=== PATIENT | female | born 1970 | race Caucasian/White ===

== ENCOUNTER 2020-06-11 12:45 | Emergency (ER) | payer MEDICARE, MEDICAID, SELFPAY ==
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
[2020-06-11 13:08] VITALS: BP 146/105; PULSE 116; RESP 16; TEMP 36.6; O2SAT 97; BMI 41.1
== END 2020-06-11 13:37 | disposition home or self-care (01) ==
LOC: HO.ED 13:18
PROVIDERS: Emergency Provider Emergency Medicine; PCP Internal Medicine
DX: S09.90XA Unspecified injury of head, initial encounter (principal); G44.309 Post-traumatic headache, unspecified, not intractable; Y29.XXXA Contact with blunt object, undetermined intent, initial encounter; Y93.9 Activity, unspecified; Y92.007 Garden or yard of unspecified non-institutional (private) residence as the place of occurrence of the external cause; Y99.9 Unspecified external cause status; Z79.899 Other long term (current) drug therapy
CPT/HCPCS: 99283

== ENCOUNTER 2020-09-30 14:03 | Outpatient (REF) | payer MEDICARE, MEDICAID, SELFPAY | END 2020-09-30 14:04 | disposition home or self-care (01) | LOC: HO.HOSX 14:03 | PROVIDERS: Visit Provider Orthopaedic Surgery | DX: Z13.89 Encounter for screening for other disorder (principal) ==

== ENCOUNTER 2020-10-01 13:18 | Outpatient (REF) | payer MEDICARE, MEDICAID, SELFPAY ==
--- NOTE | ~2020-10-01 | XR_ITS ---
EXAMINATION: CR X-RAY LEFT KNEE 2 VIEW, BILATERAL KNEES AP CLINICAL INFORMATION: Left knee pain. COMPARISON: 08/20/2016 knee radiographs. TECHNIQUE: 2 views of the left knee as well as standing AP views of the bilateral knees were obtained. FINDINGS: Left: Mild medial femoral-tibial as well as patellofemoral degenerative joint changes are seen most pronounced in the medial patellofemoral compartment. The lateral patellofemoral joint space shows mild marginal spurring. There is no acute fracture, dislocation or significant joint effusion. Benign-appearing sclerosis at the level of the proximal right fibular metaphysis is unchanged. The soft tissues are unremarkable. XR/XR knee LT 2V IMPRESSION: 1. Left knee tricompartment degenerative joint changes as detailed above without significant interval change.
--- NOTE | ~2020-10-01 | XR_ITS ---
EXAMINATION: CR X-RAY LEFT KNEE 2 VIEW, BILATERAL KNEES AP CLINICAL INFORMATION: Left knee pain. COMPARISON: 08/20/2016 knee radiographs. TECHNIQUE: 2 views of the left knee as well as standing AP views of the bilateral knees were obtained. FINDINGS: Left: Mild medial femoral-tibial as well as patellofemoral degenerative joint changes are seen most pronounced in the medial patellofemoral compartment. The lateral patellofemoral joint space shows mild marginal spurring. There is no acute fracture, dislocation or significant joint effusion. Benign-appearing sclerosis at the level of the proximal right fibular metaphysis is unchanged. The soft tissues are unremarkable. XR/XR knee standing BI IMPRESSION: 1. Left knee tricompartment degenerative joint changes as detailed above without significant interval change.
== END 2020-10-01 13:19 | disposition home or self-care (01) ==
LOC: HO.HOSX 13:18
PROVIDERS: Visit Provider Orthopaedic Surgery
DX: M17.0 Bilateral primary osteoarthritis of knee (principal)
CPT/HCPCS: 20610; 73560; 73565; 99202; J1040

== ENCOUNTER 2021-08-11 12:01 | Outpatient (REF) | payer MEDICARE, MEDICAID, SELFPAY ==
--- NOTE | ~2021-08-11 | XR_ITS ---
EXAMINATION: XR PELVIS CLINICAL INFORMATION: Hip pain COMPARISON: Radiographs right hip 03/18/2017 TECHNIQUE: AP view of the pelvis. FINDINGS: There is no fracture or dislocation. Degenerative changes are present lower lumbar spine with probable disc narrowing and vertebral spurring L4-L5 and L5-S1. The SI joints and pubis show no diastases. There is whiskering from the lateral aspect of both iliac crests. Narrowing of the superior hip joints is present, slightly greater on right. There are no visible erosive changes. Mild osteophytes are present base bilateral femoral heads. There is focal corticated mineralization adjacent to lower left greater trochanter which may be related to tendinopathy. Bowel gas is unremarkable. XR/XR pelvis 1-2V IMPRESSION: 1. Bilateral hip joint narrowing, greater on right. 2. Degenerative changes lower lumbar spine.
--- NOTE | ~2021-08-11 | XR_ITS ---
EXAMINATION: XR KNEE AP STANDING CLINICAL INFORMATION: Knee pain COMPARISON: Standing AP knees 10/01/2020, 08/20/2016, and right knee 08/01/2013. TECHNIQUE: Standing AP view of both knees is performed. FINDINGS: There is narrowing bilateral medial knee joint compartments, increased from prior exam 10/01/2020. There are mild marginal osteophytes involving the femoral condyles and tibial plateau, greater on left. No erosive change or visible chondrocalcinosis. Again, there is probable enchondroma with mineralization in the right fibular head and neck and trace central left fibular head similar to prior studies. No interval enlargement. Bony mineralization otherwise unremarkable. XR/XR knee standing BI IMPRESSION: 1. Narrowing bilateral medial knee joint compartments, increased from 10/01/2020. 2. 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
== END 2021-08-11 12:02 | disposition home or self-care (01) ==
LOC: HO.HOSX 12:01
PROVIDERS: Visit Provider Orthopaedic Surgery
DX: M17.0 Bilateral primary osteoarthritis of knee (principal); M25.561 Pain in right knee; M16.11 Unilateral primary osteoarthritis, right hip; M25.551 Pain in right hip; R10.30 Lower abdominal pain, unspecified; M25.559 Pain in unspecified hip; F17.210 Nicotine dependence, cigarettes, uncomplicated; Z88.9 Allergy status to unspecified drugs, medicaments and biological substances; Z91.02 Food additives allergy status; Z91.040 Latex allergy status; Z91.018 Allergy to other foods
CPT/HCPCS: 72170; 73565; 99212

== ENCOUNTER 2022-06-23 14:31 | Inpatient (IN) | payer MEDICARE, MEDICAID, SELFPAY ==
[2022-06-23] VITALS (8 sets, daily range): BP systolic 106–130; BP diastolic 42–87; PULSE 97–116; RESP 22–35; TEMP 36.7–38.9; O2SAT 90–97; BMI 42.9
--- NOTE | ~2022-06-23 | XR_ITS ---
EXAMINATION: XR CHEST CLINICAL INFORMATION: Reintubation ET tube and orogastric tube COMPARISON: 06/24/2022 TECHNIQUE: Frontal view of the chest was obtained. FINDINGS: ET tube is present about 4.6 cm above the nanda. An NG tube has its tip in the stomach. Again seen is diffuse airspace disease on the left with milder changes on the right, similar to prior. XR/XR chest 1V IMPRESSION: ET tube 4.6 cm above the nanda. NG tube in the stomach.
--- NOTE | ~2022-06-23 | XR_ITS ---
EXAMINATION: XR CHEST CLINICAL INFORMATION: Orogastric tube placement COMPARISON: 06/24/2022 2:45 PM TECHNIQUE: Frontal view of the chest was obtained. FINDINGS: Again seen is an ET tube about 3.2 cm above the nanda. Right IJ line remain has its tip at the SVC/RA junction. A new NG tube has been placed with its tip in the gastric antrum. There is been some minimal improvement in the left hemithorax but there are still diffuse airspace opacities with air space opacity present on the right but to a lesser extent XR/XR chest 1V IMPRESSION: NG tube has been placed with its tip in the gastric antrum. Other tubes and catheters are unchanged.
--- NOTE | ~2022-06-23 | XR_ITS ---
EXAMINATION: XR ABDOMEN KUB CLINICAL INDICATION: Absent bowel sounds COMPARISON: Chest x-ray 06/25/2022 TECHNIQUE: AP view of the abdomen. FINDINGS: Enteric tube extends below the diaphragm, tip terminating in the body the stomach. Small amount of gas in the rectum. There is small gaseous distention of the transverse colon. Otherwise, there is a relative paucity of bowel gas limiting assessment of bowel loops. No gross bowel wall thickening. No large joint free air on this limited supine exam. There is dense opacity at the left lung base obscuring the left heart border and diaphragm. No acute osseous injury identified. Multilevel degenerative disc disease in the spine bilateral hip joint osteoarthritis is noted. XR/XR KUB IMPRESSION: 1. Enteric tube tip terminates in the body of the stomach. 2. Relative paucity of bowel gas limiting assessment of bowel loops. No dilated air-filled bowel loops identified. 3. Dense opacity at the left lung base which may represent atelectasis, consolidation, and/or pleural fluid.
--- NOTE | ~2022-06-23 | XR_ITS ---
EXAMINATION: XR CHEST CLINICAL INFORMATION: Shortness of breath COMPARISON: None TECHNIQUE: Frontal view of the chest was obtained. FINDINGS: Diffuse multifocal airspace opacities are present, left greater than right. Heart size normal. A small left effusion could be present. Mild degenerative changes both hips. XR/XR chest 1V IMPRESSION: Multifocal airspace opacities, left greater than right. Diffuse pneumonia such as atypical viral is a possibility.
--- NOTE | ~2022-06-23 | CT_ITS ---
EXAMINATION: CT head/brain wo IV con CLINICAL INFORMATION: Reason for Exam ams, concerned for septic emboli COMPARISON: None. TECHNIQUE: Contiguous axial imaging was performed from the skull base to vertex without intravenous contrast. Sagittal and coronal reformatted images were obtained. This CT examination was performed using dose optimization techniques as appropriate, variously including the following: * Automated exposure control * Adjustment of mA and/or kV according to patient size (this includes techniques or standardized protocols for targeted exams where dose is matched to indication/reason for exam; i.e. extremities or head) Use of iterative reconstruction technique DLP: 1821 mGy-cm FINDINGS: Motion degraded examination No acute osseous or soft tissue abnormality. The mastoid air cells and visualized portions of the paranasal sinuses are well aerated. There is no evidence of acute intracranial hemorrhage or territorial infarction. No abnormal mass effect or midline shift is seen. [place] to white matter differentiation is well preserved. No extra-axial fluid collections are identified. No hydrocephalus. No significant volume loss. There is no abnormal attenuation within the brain parenchyma. CT/CT head/brain wo IV con IMPRESSION: Within the limitations of motion, no evidence of acute intracranial abnormality including hemorrhage, mass effect, hydrocephalus, or acute territorial edematous infarction.
--- NOTE | ~2022-06-23 | CT_ITS ---
EXAMINATION: CT CHEST WITHOUT CONTRAST CLINICAL INFORMATION: Chest/axillary abscess COMPARISON: Chest radiograph 06/23/2022 TECHNIQUE: Multidetector volumetric CT imaging of the chest was done. Axial MIP volume rendering provided. Sagittal and coronal reformatted images were obtained. This CT examination was performed using dose optimization techniques as appropriate, variously including the following: *Automated exposure control *Adjustment of mA and/or kV according to patient size (this includes techniques or standardized protocols for targeted exams where dose is matched to indication/reason for exam; i.e. extremities or head) *Use of iterative reconstruction technique DLP: 1821 mGy-cm FINDINGS: LUNGS: Diffuse pulmonary disease is present with multiple rounded masslike areas, left greater than right. There is an area of confluence in the left lower lobe with air bronchograms. Most likely diagnosis would be infectious although metastatic disease could have such an appearance. MEDIASTINUM: The mediastinum is normal. CORONARY ARTERY CALCIFICATION: None visualized on this study. PLEURA: There is no pleural effusion. No pneumothorax. No pleural mass or thickening. CHEST WALL AND AXILLA: There is marked soft tissue swelling and phlegmonous changes present in the left chest wall with a large amount of subcutaneous emphysema. There are some small discrete fluid collections seen just adjacent to the chest wall. For example, there is a 4.5 x 2.3 x 3.8 cm fluid density collection with air seen against the ribs anteromedially with a smaller collection just lateral to that. If there has been no iatrogenic intervention, entities such as necrotizing fasciitis would have to be considered in the differential. Multiple small reactive left axillary lymph nodes are seen. The right axilla and chest wall are unremarkable. UPPER ABDOMEN: There is probably hepatosplenomegaly, although not fully included on this study. The visualized adrenal glands and kidneys appear normal. OSSEOUS STRUCTURES: Unremarkable. CT/CT chest wo IV con IMPRESSION: 1. Extensive soft tissue swelling and phlegmonous changes in the left chest wall with subcutaneous emphysema. There are some small discrete fluid collections seen just adjacent to the chest wall. If there has been no iatrogenic intervention, entities such as necrotizing fasciitis would have to be considered in the differential diagnosis. 2. Diffuse pulmonary disease with multiple rounded masslike areas, left greater than right. Most likely diagnosis would be infectious, although metastatic disease could have such an appearance. Fleischner guidelines were followed. This critical result was discussed with Dr. Waite at 12:10 AM on 06/24/2022 and it was ascertained that the content and urgency of the report was understood at the time of direct communication.
--- NOTE | ~2022-06-23 | XR_ITS ---
EXAMINATION: XR CHEST CLINICAL INFORMATION: Post central line in endotracheal tube placement COMPARISON: Previous chest x-ray and chest CT from yesterday TECHNIQUE: Frontal view of the chest was obtained. FINDINGS: There is a new endotracheal tube with tip 2 cm above the nanda. There is a right jugular line with tip projecting over the SVC. There is increasing left-sided airspace disease. There is increasing volume loss to the left hemithorax with shift of the central mediastinal structures to the left. There is increasing patchy right-sided airspace disease. There is no significant pleural effusion. There is no pneumothorax. There are degenerative changes of the spine. There is air in the soft tissues of the left upper arm/axilla. This appears increased from previous exam. XR/XR chest 1V IMPRESSION: Satisfactory position of endotracheal tube and right jugular line. Increasing diffuse left lung airspace disease and volume loss. Increasing patchy airspace disease in the right lung.
--- NOTE | 2022-06-23 18:09 | ECG_ITS ---
Test Reason : SOB Blood Pressure : / mmHG Vent. Rate : 097 BPM Atrial Rate : 097 BPM P-R Int : 130 ms QRS Dur : 080 ms QT Int : 350 ms P-R-T Axes : 028 063 020 degrees QTc Int : 444 ms Normal sinus rhythm Low voltage QRS RSR' or QR pattern in V1 suggests right ventricular conduction delay Otherwise normal ECG No previous ECGs available Referred By: Savita An Electronically Signed By:RIZWANA CABAN MD
--- NOTE | 2022-06-23 18:14 | ED.GENADULT ---
HPI - General Adult General Chief complaint: Dyspnea <Savita An MD - Last Filed: 06/23/22 18:18> Stated complaint: Sepsis <Savita An MD - Last Filed: 06/23/22 18:18> Time Seen by Provider: 06/23/22 18:29 <Savita An MD - Last Filed: 06/23/22 18:18> Source: patient <Savita An MD - Last Filed: 06/23/22 18:18> Mode of arrival: ambulatory <Savita An MD - Last Filed: 06/23/22 18:18> Related Data Home medications: Home Medications Medication Instructions Recorded Confirmed buprenorphine 4 mg-naloxone 1 mg 1 film sublingual Q24H 10/01/20 sublingual film (Suboxone) gabapentin 300 mg capsule 300 mg PO DAILY 08/11/21 oxycodone 20 mg tablet,extended mg PO 08/11/21 release,12 hr Previous Rx's Medication Instructions Recorded naproxen 500 mg tablet (Naprosyn) 500 mg PO BID #20 tabs 06/11/20 <Savita An MD - Last Filed: 06/23/22 18:18> Allergies/adverse reactions: Allergies Allergy/AdvReac Type Severity Reaction Status Date / Time adhesive tape [ADHESIVE TAPE] Allergy Unknown ITCHY Verified 06/23/22 18:09 orange (food color) Allergy Unknown HIVES Verified 06/23/22 18:09 [ORANGE (FOOD COLOR)] yellow dye [YELLOW DYE] Allergy Unknown HIVES Verified 06/23/22 18:09 latex Allergy Unknown Unknown Uncoded 06/23/22 18:09 orange Allergy Unknown Unknown Uncoded 06/23/22 18:09 <Savita An MD - Last Filed: 06/23/22 18:18> [facility] Social History Social History: Social History (Updated 10/01/20 @ 13:49 by Catrachita Hoskins CMA) Alcohol intake: unknown Smoked in Last 30 Days: Yes Use of substances other than those prescribed or required for medical reasons: Yes Substance Use Type: Heroin Advance Directives: No Advance Directives Information Provided: No Patient : No Current occupational status: disabled <Savita An MD - Last Filed: 06/23/22 18:18> Physical Exam ED Vital Signs: Vital Signs - 24 hr 06/23/22 18:11 06/23/22 18:47 06/23/22 18:48 Temperature 98.0 F Pulse Rate 105 H 98 Respiratory Rate 24 H 35 H Blood Pressure 120/55 L 106/87 Pulse Oximetry 95 90 L 97 Oxygen Delivery Method Room Air Room Air Nasal Cannula Oxygen Flow Rate 2 06/23/22 19:11 06/23/22 20:09 Temperature 101 F H Pulse Rate 97 100 Respiratory Rate 28 H 22 H Blood Pressure 107/59 L Pulse Oximetry 97 Oxygen Delivery Method Nasal Cannula Oxygen Flow Rate 3 BMI result Body Mass Index 42.9 <Savita An MD - Last Filed: 06/23/22 18:18> Vital Signs - 24 hr 06/23/22 18:11 06/23/22 18:47 06/23/22 18:48 Temperature 98.0 F Pulse Rate 105 H 98 Respiratory Rate 24 H 35 H Blood Pressure 120/55 L 106/87 Pulse Oximetry 95 90 L 97 Oxygen Delivery Method Room Air Room Air Nasal Cannula Oxygen Flow Rate 2 06/23/22 19:11 06/23/22 20:09 Temperature 101 F H Pulse Rate 97 100 Respiratory Rate 28 H 22 H Blood Pressure 107/59 L Pulse Oximetry 97 Oxygen Delivery Method Nasal Cannula Oxygen Flow Rate 3 BMI result Body Mass Index 42.9 <Gunjan Waite MD - Last Filed: 06/24/22 00:31> Course Course Course Narrative: 52F brought in by son for lethargy. SHe denies etoh/drug use but appears unkempt and is easily aroused. She states not feeling well GEN: unkempt, NAD, drowsy HEENT: PERRLA, EOMI LUNGS: Upper airway rhonchi, tachypnea+ (95%) CVS: RRR, no murmurs ABD: NT/ND EXT: poor hygiene - Labs, EKG, Imaging ordered, charge nurse notified. <Savita An MD - Last Filed: 06/23/22 18:18> 52F brought in by son for lethargy. SHe denies etoh/drug use but appears unkempt and is easily aroused. She states not feeling well GEN: unkempt, NAD, drowsy HEENT: PERRLA, EOMI LUNGS: Upper airway rhonchi, tachypnea+ (95%) CVS: RRR, no murmurs ABD: NT/ND EXT: poor hygiene - Labs, EKG, Imaging ordered, charge nurse notified. Patient is being treated for cellulitis with vancomycin and Zosyn. Patient has multiple abscesses. Patient's chemistry is very irregular. I discussed the patient with General surgery. At this time, patient is altered, patient needs electrolyte correction. We will start the antibiotics, the abscesses will be drained tomorrow with general surgeries help. Patient also has pneumonia, covered with on, ice in and Zosyn.. Patient has not had hypotensive episodes, lactic acid 2.2, white blood cell count 13.6. Hyperkalemia, EKG did not show any peaked T-waves, patient given calcium gluconate and albuterol Hypernatremia, likely secondary to dehydration, patient receiving IV fluids. Acute kidney injury likely secondary to dehydration. I discussed the patient with Dr. Ennis, patient being admitted. We will obtain a scan of the chest and from the head. There is a possibility that patient may be throwing septic emboli. <Gunjan Waite MD - Last Filed: 06/24/22 00:31> Medications Administered Generic Name Dose Route Start Last Admin Trade Name Freq PRN Reason Stop Dose Admin Acetaminophen 650 mg 06/23/22 23:39 06/24/22 00:04 Acetaminophen Supp 650 Mg Supp.Rect NM 650 mg Q6H PRN Administration fever Heparin Sodium (Porcine) 5,000 unit 06/23/22 22:00 06/23/22 21:59 Heparin Sodium,Porcine 5,000 Unit/Ml Vial SUBCUT 5,000 unit Q12H TERRI Administration Sodium Chloride 1,000 mls @ 100 mls/hr 06/23/22 21:15 06/23/22 21:34 Ns IVCONT 100 mls/hr .Q10H TERRI Administration Discontinued Medications Generic Name Dose Route Start Last Admin Trade Name Freq PRN Reason Stop Dose Admin Albuterol Sulfate 10 mg 06/23/22 19:12 06/23/22 20:08 Albuterol Sulfate (0.083%) 2.5 Mg/3 Ml Vial.Neb INHALE 06/23/22 19:13 10 mg ONCE ONE Administration Sodium Chloride 2,000 mls @ 999 mls/hr 06/23/22 18:41 06/23/22 21:55 Ns IVCONT 06/23/22 20:41 Infused .Q2H1M ONE Infusion Vancomycin HCl 2,000 mg in 520 mls @ 260 mls/hr 06/23/22 18:41 06/23/22 21:43 Vancomycin/Ns IV 06/23/22 20:40 260 mls/hr ONCE ONE Administration Piperacillin Sod/Tazobactam 100 mls @ 200 mls/hr 06/23/22 18:41 06/23/22 21:00 Sod 4.5 gm/ Sodium Chloride IV 06/23/22 19:10 Infused ONCE ONE Infusion Calcium Gluconate 2 gm in 100 mls @ 50 mls/hr 06/23/22 19:12 06/23/22 21:33 Calcium Gluconate IV 06/23/22 21:11 50 mls/hr ONCE ONE Administration <Savita An MD - Last Filed: 06/23/22 18:18> Medications Administered Generic Name Dose Route Start Last Admin Trade Name Freq PRN Reason Stop Dose Admin Acetaminophen 650 mg 06/23/22 23:39 06/24/22 00:04 Acetaminophen Supp 650 Mg Supp.Rect NM 650 mg Q6H PRN Administration fever Heparin Sodium (Porcine) 5,000 unit 06/23/22 22:00 06/23/22 21:59 Heparin Sodium,Porcine 5,000 Unit/Ml Vial SUBCUT 5,000 unit Q12H TERRI Administration Sodium Chloride 1,000 mls @ 100 mls/hr 06/23/22 21:15 06/23/22 21:34 Ns IVCONT 100 mls/hr .Q10H TERRI Administration Discontinued Medications Generic Name Dose Route Start Last Admin Trade Name Freq PRN Reason Stop Dose Admin Albuterol Sulfate 10 mg 06/23/22 19:12 06/23/22 20:08 Albuterol Sulfate (0.083%) 2.5 Mg/3 Ml Vial.Neb INHALE 06/23/22 19:13 10 mg ONCE ONE Administration Sodium Chloride 2,000 mls @ 999 mls/hr 06/23/22 18:41 06/23/22 21:55 Ns IVCONT 06/23/22 20:41 Infused .Q2H1M ONE Infusion Vancomycin HCl 2,000 mg in 520 mls @ 260 mls/hr 06/23/22 18:41 06/23/22 21:43 Vancomycin/Ns IV 06/23/22 20:40 260 mls/hr ONCE ONE Administration Piperacillin Sod/Tazobactam 100 mls @ 200 mls/hr 06/23/22 18:41 06/23/22 21:00 Sod 4.5 gm/ Sodium Chloride IV 06/23/22 19:10 Infused ONCE ONE Infusion Calcium Gluconate 2 gm in 100 mls @ 50 mls/hr 06/23/22 19:12 06/23/22 21:33 Calcium Gluconate IV 06/23/22 21:11 50 mls/hr ONCE ONE Administration <Gunjan Waite MD - Last Filed: 06/24/22 00:31> Medical Decision Making Lab Data Result diagrams: : 06/23/22 18:44 06/23/22 21:53 <Savita An MD - Last Filed: 06/23/22 18:18> Labs: Lab Results 06/23/22 06/23/22 06/23/22 Range/Units 18:44 18:44 18:44 WBC 13.6 H (4.8-10.8) X10*3/uL RBC 4.88 (4.20-5.50) X10*6/uL Hgb 13.1 (12.0-16.0) g/dl Hct 38.6 (37.0-47.0) % MCV 79.1 L (80.0-98.0) fL MCH 26.8 L (27.0-33.0) pg MCHC 33.9 (31.0-35.0) g/dl RDW 14.5 (11.0-16.0) % Plt Count 244 (160-400) X10*3/uL MPV 10.0 (9.4-12.3) fL Immature Gran % (Auto) Cancelled Neut % (Auto) Cancelled Lymph % (Auto) Cancelled [place] % (Auto) Cancelled Eos % (Auto) Cancelled Baso % (Auto) Cancelled Lymph # (Auto) Cancelled [place] # (Auto) Cancelled Eos # (Auto) Cancelled Baso # (Auto) Cancelled Abs Immat Gran (auto) Cancelled Absolute Neuts (auto) Cancelled Absolute Nucleated RBC 0.000 (0.0-0.012) X10*3/uL Nucleated RBC % (auto) 0.0 (0.0-0.2) /100WBC Neutrophils % (Manual) 80 H (45-73) % Band Neutrophils % 8 H (3-5) % Lymphocytes % (Manual) 3 L (20-40) % Monocytes % (Manual) 3 (2-11) % Metamyelocytes % 4 % Myelocytes % 2 % Abs Neuts (Manual) 12.0 H (2.0-8.3) X10*3/uL Lymphocytes # (Manual) 0.4 L (1.2-4.9) X10*3/uL Monocytes # (Manual) 0.4 (0.1-1.2) X10*3/uL Metamyelocytes # 0.5 X10*3/uL Myelocytes # 0.3 X10*/uL Toxic Vacuolation PRESENT Dohle Bodies PRESENT Platelet Estimate NORMAL (NORMAL) Plt Morphology Comment NORMAL RBC Morphology NOTED [place] Cells 1+ (0-2) /OIF Schistocytes 1+ (0-2) /OIF PT 16.8 H (10.0-13.1) SEC INR 1.4 H (0.9-1.1) APTT 25.6 L (26.0-36.4) SEC Sodium (135-145) mmol/L Potassium (3.3-5.1) mmol/L Chloride (96-108) mmol/L Carbon Dioxide (22-29) mmol/L Anion Gap (12-20) BUN (9-16) mg/dL Creatinine (0.5-1.4) mg/dL Estim Creat Clear Calc Estimated GFR Random Glucose (60-115) mg/dL Lactic Acid (0.5-2.0) mmol/L Calcium (8.4-10.2) mg/dL Total Bilirubin (0.0-1.0) mg/dL AST (5-31) U/L ALT (0-31) U/L Alkaline Phosphatase (39-117) U/L Troponin I High Sens (<3.5-17.0) ng/L B-Natriuretic Peptide 138 H (<100) pg/mL Total Protein (6.5-8.0) g/dL Albumin (3.5-5.0) g/dL 06/23/22 06/23/22 06/23/22 Range/Units 18:44 18:44 18:44 WBC (4.8-10.8) X10*3/uL RBC (4.20-5.50) X10*6/uL Hgb (12.0-16.0) g/dl Hct (37.0-47.0) % MCV (80.0-98.0) fL MCH (27.0-33.0) pg MCHC (31.0-35.0) g/dl RDW (11.0-16.0) % Plt Count (160-400) X10*3/uL MPV (9.4-12.3) fL Immature Gran % (Auto) Neut % (Auto) Lymph % (Auto) [place] % (Auto) Eos % (Auto) Baso % (Auto) Lymph # (Auto) [place] # (Auto) Eos # (Auto) Baso # (Auto) Abs Immat Gran (auto) Absolute Neuts (auto) Absolute Nucleated RBC (0.0-0.012) X10*3/uL Nucleated RBC % (auto) (0.0-0.2) /100WBC Neutrophils % (Manual) (45-73) % Band Neutrophils % (3-5) % Lymphocytes % (Manual) (20-40) % Monocytes % (Manual) (2-11) % Metamyelocytes % % Myelocytes % % Abs Neuts (Manual) (2.0-8.3) X10*3/uL Lymphocytes # (Manual) (1.2-4.9) X10*3/uL Monocytes # (Manual) (0.1-1.2) X10*3/uL Metamyelocytes # X10*3/uL Myelocytes # X10*/uL Toxic Vacuolation Dohle Bodies Platelet Estimate (NORMAL) Plt Morphology Comment RBC Morphology [place] Cells /OIF Schistocytes /OIF PT (10.0-13.1) SEC INR (0.9-1.1) APTT (26.0-36.4) SEC Sodium 124 L (135-145) mmol/L Potassium 6.0 H* (3.3-5.1) mmol/L Chloride 88 L (96-108) mmol/L Carbon Dioxide 21 L (22-29) mmol/L Anion Gap 21 H (12-20) BUN 65 H (9-16) mg/dL Creatinine 2.56 H (0.5-1.4) mg/dL Estim Creat Clear Calc 31.7 Estimated GFR 20 Random Glucose 107 (60-115) mg/dL Lactic Acid 2.2 H* (0.5-2.0) mmol/L Calcium 8.1 L (8.4-10.2) mg/dL Total Bilirubin 0.9 (0.0-1.0) mg/dL AST 50 H (5-31) U/L ALT 54 H (0-31) U/L Alkaline Phosphatase 175 H (39-117) U/L Troponin I High Sens < 3.5 (<3.5-17.0) ng/L B-Natriuretic Peptide (<100) pg/mL Total Protein 5.9 L (6.5-8.0) g/dL Albumin 2.7 L (3.5-5.0) g/dL <Savita An MD - Last Filed: 06/23/22 18:18> Lab Results 06/23/22 06/23/22 06/23/22 Range/Units 18:44 18:44 18:44 WBC 13.6 H (4.8-10.8) X10*3/uL RBC 4.88 (4.20-5.50) X10*6/uL Hgb 13.1 (12.0-16.0) g/dl Hct 38.6 (37.0-47.0) % MCV 79.1 L (80.0-98.0) fL MCH 26.8 L (27.0-33.0) pg MCHC 33.9 (31.0-35.0) g/dl RDW 14.5 (11.0-16.0) % Plt Count 244 (160-400) X10*3/uL MPV 10.0 (9.4-12.3) fL Immature Gran % (Auto) Cancelled Neut % (Auto) Cancelled Lymph % (Auto) Cancelled [place] % (Auto) Cancelled Eos % (Auto) Cancelled Baso % (Auto) Cancelled Lymph # (Auto) Cancelled [place] # (Auto) Cancelled Eos # (Auto) Cancelled Baso # (Auto) Cancelled Abs Immat Gran (auto) Cancelled Absolute Neuts (auto) Cancelled Absolute Nucleated RBC 0.000 (0.0-0.012) X10*3/uL Nucleated RBC % (auto) 0.0 (0.0-0.2) /100WBC Neutrophils % (Manual) 80 H (45-73) % Band Neutrophils % 8 H (3-5) % Lymphocytes % (Manual) 3 L (20-40) % Monocytes % (Manual) 3 (2-11) % Metamyelocytes % 4 % Myelocytes % 2 % Abs Neuts (Manual) 12.0 H (2.0-8.3) X10*3/uL Lymphocytes # (Manual) 0.4 L (1.2-4.9) X10*3/uL Monocytes # (Manual) 0.4 (0.1-1.2) X10*3/uL Metamyelocytes # 0.5 X10*3/uL Myelocytes # 0.3 X10*/uL Toxic Vacuolation PRESENT Dohle Bodies PRESENT Platelet Estimate NORMAL (NORMAL) Plt Morphology Comment NORMAL RBC Morphology NOTED [place] Cells 1+ (0-2) /OIF Schistocytes 1+ (0-2) /OIF PT 16.8 H (10.0-13.1) SEC INR 1.4 H (0.9-1.1) APTT 25.6 L (26.0-36.4) SEC Sodium (135-145) mmol/L Potassium (3.3-5.1) mmol/L Chloride (96-108) mmol/L Carbon Dioxide (22-29) mmol/L Anion Gap (12-20) BUN (9-16) mg/dL Creatinine (0.5-1.4) mg/dL Estim Creat Clear Calc Estimated GFR Random Glucose (60-115) mg/dL Lactic Acid (0.5-2.0) mmol/L Calcium (8.4-10.2) mg/dL Total Bilirubin (0.0-1.0) mg/dL AST (5-31) U/L ALT (0-31) U/L Alkaline Phosphatase (39-117) U/L Troponin I High Sens (<3.5-17.0) ng/L B-Natriuretic Peptide 138 H (<100) pg/mL Total Protein (6.5-8.0) g/dL Albumin (3.5-5.0) g/dL 11/06/23/22 06/23/22 Range/Units 18:44 18:44 18:44 WBC (4.8-10.8) X10*3/uL RBC (4.20-5.50) X10*6/uL Hgb (12.0-16.0) g/dl Hct (37.0-47.0) % MCV (80.0-98.0) fL MCH (27.0-33.0) pg MCHC (31.0-35.0) g/dl RDW (11.0-16.0) % Plt Count (160-400) X10*3/uL MPV (9.4-12.3) fL Immature Gran % (Auto) Neut % (Auto) Lymph % (Auto) [place] % (Auto) Eos % (Auto) Baso % (Auto) Lymph # (Auto) [place] # (Auto) Eos # (Auto) Baso # (Auto) Abs Immat Gran (auto) Absolute Neuts (auto) Absolute Nucleated RBC (0.0-0.012) X10*3/uL Nucleated RBC % (auto) (0.0-0.2) /100WBC Neutrophils % (Manual) (45-73) % Band Neutrophils % (3-5) % Lymphocytes % (Manual) (20-40) % Monocytes % (Manual) (2-11) % Metamyelocytes % % Myelocytes % % Abs Neuts (Manual) (2.0-8.3) X10*3/uL Lymphocytes # (Manual) (1.2-4.9) X10*3/uL Monocytes # (Manual) (0.1-1.2) X10*3/uL Metamyelocytes # X10*3/uL Myelocytes # X10*/uL Toxic Vacuolation Dohle Bodies Platelet Estimate (NORMAL) Plt Morphology Comment RBC Morphology [place] Cells /OIF Schistocytes /OIF PT (10.0-13.1) SEC INR (0.9-1.1) APTT (26.0-36.4) SEC Sodium 124 L (135-145) mmol/L Potassium 6.0 H* (3.3-5.1) mmol/L Chloride 88 L (96-108) mmol/L Carbon Dioxide 21 L (22-29) mmol/L Anion Gap 21 H (12-20) BUN 65 H (9-16) mg/dL Creatinine 2.56 H (0.5-1.4) mg/dL Estim Creat Clear Calc 31.7 Estimated GFR 20 Random Glucose 107 (60-115) mg/dL Lactic Acid 2.2 H* (0.5-2.0) mmol/L Calcium 8.1 L (8.4-10.2) mg/dL Total Bilirubin 0.9 (0.0-1.0) mg/dL AST 50 H (5-31) U/L ALT 54 H (0-31) U/L Alkaline Phosphatase 175 H (39-117) U/L Troponin I High Sens < 3.5 (<3.5-17.0) ng/L B-Natriuretic Peptide (<100) pg/mL Total Protein 5.9 L (6.5-8.0) g/dL Albumin 2.7 L (3.5-5.0) g/dL <Gunjan Waite MD - Last Filed: 06/24/22 00:31> Imaging Data Chest x-ray: Radiologist's impression: FINDINGS: Diffuse multifocal airspace opacities are present, left greater than right. Heart size normal. A small left effusion could be present. Mild degenerative changes both hips. XR/XR chest 1V IMPRESSION: Multifocal airspace opacities, left greater than right. Diffuse pneumonia such as atypical viral is a possibility. ? <Gunjan Waite MD - Last Filed: 06/24/22 00:31> CT scan - chest: Radiologist's impression: FINDINGS: LUNGS: Diffuse pulmonary disease is present with multiple rounded masslike areas, left greater than right. There is an area of confluence in the left lower lobe with air bronchograms. Most likely diagnosis would be infectious although metastatic disease could have such an appearance.? MEDIASTINUM: The mediastinum is normal.? CORONARY ARTERY CALCIFICATION: None visualized on this study. PLEURA: There is no pleural effusion. No pneumothorax. No pleural mass or thickening.? CHEST WALL AND AXILLA: There is marked soft tissue swelling and phlegmonous changes present in the left chest wall with a large amount of subcutaneous emphysema. There are some small discrete fluid collections seen just adjacent to the chest wall. For example, there is a 4.5 x 2.3 x 3.8 cm fluid density collection with air seen against the ribs anteromedially with a smaller collection just lateral to that. If there has been no iatrogenic intervention, entities such as necrotizing fasciitis would have to be considered in the differential. Multiple small reactive left axillary lymph nodes are seen. The right axilla and chest wall are unremarkable. UPPER ABDOMEN: There is probably hepatosplenomegaly, although not fully included on this study. The visualized adrenal glands and kidneys appear normal. OSSEOUS STRUCTURES: Unremarkable.? CT/CT chest wo IV con IMPRESSION: 1.? Extensive soft tissue swelling and phlegmonous changes in the left chest wall with subcutaneous emphysema. There are some small discrete fluid collections seen just adjacent to the chest wall. If there has been no iatrogenic intervention, entities such as necrotizing fasciitis would have to be considered in the differential diagnosis. 2.? Diffuse pulmonary disease with multiple rounded masslike areas, left greater than right. Most likely diagnosis would be infectious, although metastatic disease could have such an appearance. ? Fleischner guidelines were followed. <Gunjan Waite MD - Last Filed: 06/24/22 00:31> CT scan - head: Radiologist's impression: FINDINGS: Motion degraded examination No acute osseous or soft tissue abnormality. The mastoid air cells and visualized portions of the paranasal sinuses are well aerated. There is no evidence of acute intracranial hemorrhage or territorial infarction. No abnormal mass effect or midline shift is seen. [place] to white matter differentiation is well preserved. No extra-axial fluid collections are identified. No hydrocephalus. No significant volume loss. There is no abnormal attenuation within the brain parenchyma. ? CT/CT head/brain wo IV con IMPRESSION: ? Within the limitations of motion, no evidence of acute intracranial abnormality including hemorrhage, mass effect, hydrocephalus, or acute territorial edematous infarction. <Gunjan Waite MD - Last Filed: 06/24/22 00:31> Critical Care Time Critical Care Time Critical Care Time: Yes <Gunjan Waite MD - Last Filed: 06/24/22 00:31> Total Critical Care Time: 75 <Gunjan Waite MD - Last Filed: 06/24/22 00:31> Attestation: I have personally provided critical care time. Time includes review of lab data, radiology results, discussion with consultants, and monitoring for potential decompensation. Intervention performed as documented. <Gunjan Waite MD - Last Filed: 06/24/22 00:31> Discharge Plan Discharge Clinical Impression: Cellulitis and abscess, Pneumonia, Acute hyperkalemia, Hyponatremia, Acute kidney injury <Savita An MD - Last Filed: 06/23/22 18:18> Patient Disposition: Admitted As Inpatient <Savita An MD - Last Filed: 06/23/22 18:18>
--- NOTE | 2022-06-23 18:49 | PC.NURSE ---
Pt comes to room 13 obtunded, congestion, crackles throughout and tachypenic RR 30s. Large red area to primarily left chest/breast but also noted on right chest, marked with marker. IV established, labs sent. Dr Waite to bedside to assess. Skin dusky more so to hands. Sat 90% on room air, placed on 2lpm via nc and sat up to 97%. Pt at times easily agitated. NSR on monitor
[2022-06-23] MEDS: 0.9 % Sodium Chloride 2,000 ML 999 ML IVCONT (18:52)
[2022-06-23 19:06] LABS: Partial Thromboplastin Time 25.6 SEC (26.0-36.4)
[2022-06-23 19:10] LABS: Alanine Aminotransferase 54 U/L (0-31); Albumin Level 2.7 g/dL (3.5-5.0); Alkaline Phosphatase 175 U/L (39-117); Anion Gap 21 (12-20); Aspartate Amino Transferase 50 U/L (5-31); B Type Natriuretic Peptide 138 pg/mL (<100); Bilirubin Total 0.9 mg/dL (0.0-1.0); Blood Urea Nitrogen 65 mg/dL (9-16); Calcium 8.1 mg/dL (8.4-10.2); Carbon Dioxide 21 mmol/L (22-29); Chloride 88 mmol/L (96-108); Creatinine Clr Calc Pharmacy 31.7; Estimated Glomerular Filt Rate 20; Glucose Random 107 mg/dL (60-115); Lactic Acid 2.2 mmol/L (0.5-2.0); Sodium 124 mmol/L (135-145); Total Protein 5.9 g/dL (6.5-8.0)
[2022-06-23 19:19] LABS: Hematocrit 38.6 % (37.0-47.0); Hemoglobin 13.1 g/dl (12.0-16.0); Mean Corpuscular HGB Conc 33.9 g/dl (31.0-35.0); Mean Corpuscular Hemoglobin 26.8 pg (27.0-33.0); Mean Corpuscular Volume 79.1 fL (80.0-98.0); Platelet Count 244 X10*3/uL (160-400); Red Blood Count 4.88 X10*6/uL (4.20-5.50); Red Cell Distribution Width 14.5 % (11.0-16.0)
[2022-06-23 19:20] LABS: WBC ABN SCTR FOR CBC 1
[2022-06-23 19:21] LABS: White Blood Count 13.6 X10*3/uL (4.8-10.8)
[2022-06-23 19:29] LABS: Troponin-I High Sensitivity < 3.5 ng/L (<3.5-17.0)
[2022-06-23 19:35] LABS: Band Neutrophils Percent 8 % (3-5); Lymphocytes Absolute Manual 0.4 X10*3/uL (1.2-4.9); Lymphocytes Percent Manual 3 % (20-40); Metamyelocytes Absolute 0.5 X10*3/uL; Metamyelocytes Percent 4 %; Monocytes Absolute Manual 0.4 X10*3/uL (0.1-1.2); Monocytes Percent Manual 3 % (2-11); Myelocytes Absolute 0.3 X10*/uL; Myelocytes Percent 2 %; Neutrophils Percent Manual 80 % (45-73); RBC Morphology NOTED
[2022-06-23 19:36] LABS: Burr Cells 1+ (0-2) /OIF; Dohle Bodies PRESENT; Schistocytes 1+ (0-2) /OIF; Toxic Vacuolation PRESENT
[2022-06-23 19:38] LABS: Platelet Estimate NORMAL (NORMAL); Platelet Morphology Comment NORMAL
[2022-06-23] MEDS: Piperacillin Sodium/Tazobactam 4.5 GM in 0.9 % Sodium Chloride 100 ML IV (19:47)
[2022-06-23] MEDS: Albuterol Sulfate (0.083%) 2.5 MG/3 ML VIAL.NEB 10 MG INHALE (20:08)
[2022-06-23 20:49] LABS: Reflex Lactate? Lactic Acid Added
--- NOTE | 2022-06-23 21:02 | P.CONGS_ITS ---
History of Present Illness Consult details Consult date: 06/23/22 Requesting physician: Gunjan Waite Narrative: The patient is a 52-year-old female who was brought to the emergency room by her son for lethargy and not doing well. On examination she was noted to have a large area of cellulitis of her left breast and a little less so on the right side. The left axillary area and left upper arm medial aspect had 2 wound areas with some superficial necrotic tissue and black in scab. In trying to get a history from the patient she is not responsive to given adequate story and she denies any IV drug use. She is a known IV drug abuser and comes in with fenta nyl and cocaine on board. She did say that she does use and inject in the chest area to the ER physician. She adamantly denies this right now to me. CT scan at the time is going to be ordered. She comes in also with very abnormal electrolytes hyponatremia hyperkalemia and she is getting fluid bolused and treatment for the hyperkalemia. There does not appear to be any other external source of infection. There is question of a pneumonia. Review of Systems Review of Systems: Yes Unobtainable due to mental status Neurologic: Reports confusion Psychiatric: Psychiatric: Reports confusion PMFSH Social History Social History Alcohol intake: unknown Substance Use Type: Heroin Current occupational status: disabled Meds Allergies Allergy/AdvReac Type Severity Reaction Status Date / Time adhesive tape [ADHESIVE TAPE] Allergy Unknown ITCHY Verified 06/23/22 18:09 orange (food color) Allergy Unknown HIVES Verified 06/23/22 18:09 [ORANGE (FOOD COLOR)] yellow dye [YELLOW DYE] Allergy Unknown HIVES Verified 06/23/22 18:09 latex Allergy Unknown Unknown Uncoded 06/23/22 18:09 orange Allergy Unknown Unknown Uncoded 06/23/22 18:09 Active Medications: Current Medications Acetaminophen (Acetaminophen 325 Mg Tablet) 650 mg PO Q6H PRN PRN Reason: Pain, Mild (Pain Scale 1-3) Acetaminophen (Acetaminophen Supp 650 Mg Supp.Rect) 650 mg GA Q6H PRN PRN Reason: fever Last Admin: 06/24/22 00:04 Dose: 650 mg Docusate Sodium (Docusate Sodium 100 Mg Capsule) 100 mg PO DAILY PRN PRN Reason: Constipation Heparin Sodium (Porcine) (Heparin Sodium,Porcine 5,000 Unit/Ml Vial) 5,000 unit SUBCUT Q8H [facility] Last Admin: 06/24/22 08:16 Dose: 5,000 unit Vancomycin HCl 750 mg/ Sodium (Chloride) 265 mls @ 265 mls/hr IV Q24H [facility] Piperacillin Sod/Tazobactam (Sod 3.375 gm/ Sodium Chloride) 50 mls @ 100 mls/hr IV Q6H [facility] Last Infusion: 06/24/22 06:23 Dose: Infused Albumin Human (Kedbumin 25 %) 100 mls @ 100 mls/hr IV Q6H [facility] Stop: 06/25/22 01:29 Last Infusion: 06/24/22 08:01 Dose: Infused Ondansetron HCl (Ondansetron Hcl 4 Mg/2 Ml Vial) 4 mg IVPUSH Q8H PRN PRN Reason: Nausea and Vomiting Pharmacy Consult (Consult Rx Perform Med Rec) 1 each MISCELLANE ONCE PRN PRN Reason: Consult order Pharmacy Consult (Consult Rx Vancomycin Dosing) 1 each MISCELLANE DAILY PRN PRN Reason: Consult order Pharmacy Consult (Consult Rx Vancomycin Dosing) 1 each MISCELLANE DAILY PRN PRN Reason: Consult order Sodium Chloride (0.9 % Sodium Chloride Flush 3 Ml Syringe) 3 ml IVFLUSH QSHIFT [facility] Last Admin: 06/24/22 08:16 Dose: 3 ml Home Medications Medication Instructions Recorded Confirmed Last Taken Type amoxicillin 250 mg capsule 1 cap PO TID 06/24/22 06/24/22 Unknown History fluticasone propionate 50 1 spray intranasal DAILY 06/24/22 06/24/22 Unknown History mcg/actuation nasal spray,suspension naproxen 500 mg tablet 1 tab PO BID PRN Pain 06/24/22 06/24/22 Unknown History oxycodone 10 mg tablet 1 tab PO QD-QID PRN Pain 06/24/22 06/24/22 Unknown History oxycodone 20 mg tablet,crush 1 tab PO DAILY PAIN 06/24/22 06/24/22 Unknown History resistant,extended release 12 hr (OxyContin) Physical Exam Vital Signs: Vital Signs: Last Vital Signs Temp 102.4 F H 06/24/22 00:07 Pulse 91 06/24/22 09:00 Resp 22 H 06/24/22 09:00 BP 101/50 L 06/24/22 09:00 Pulse Ox 95 06/24/22 09:00 O2 Del Method 06/24/22 09:00 O2 Flow Rate 3 06/24/22 09:00 BMI result Body Mass Index 42.9 Const: Other: Patient looks very disheveled unkept confused. She does eventually open her eyes and follow commands but falls back to sleep. She responds to painful stimulation. General: confusion and lethargic Orientation/consciousness: confusion and lethargic Limitations: altered mental status HEENT: Other: Pupils are equal Skin: Other: Her left upper arm going into the axillary area and the medial aspect of her left breast is bright red with cellulitis extending across the left breast but along the medial aspect it is less red and more facilities and grounds director pink. There is some pink changes to the right breast as well but not as extensive as on the left side. Left medial arm has a wound and the left chest going towards the axillary area has a scab here with some more injury did tissue but just slightly so. The left breast is enlarged but there is no true drainable abscess collection noted. Even along the left medial arm and axilla let area the tissue here is relatively soft with more cellulitic changes. Neuro: General: confusion Extrem: Other: Patient is able to move left arm. Psych: Mental Status: mental status grossly normal Results Labs Result diagrams: 06/24/22 05:20 06/24/22 04:50 Labs: Abnormal lab results 06/23/22 06/23/22 06/23/22 Range/Units 18:44 18:44 18:44 WBC 13.6 H (4.8-10.8) X10*3/uL RBC (4.20-5.50) X10*6/uL Hgb (12.0-16.0) g/dl Hct (37.0-47.0) % MCV 79.1 L (80.0-98.0) fL MCH 26.8 L (27.0-33.0) pg Neutrophils % (Manual) 80 H (45-73) % Band Neutrophils % 8 H (3-5) % Lymphocytes % (Manual) 3 L (20-40) % Abs Neuts (Manual) 12.0 H (2.0-8.3) X10*3/uL Lymphocytes # (Manual) 0.4 L (1.2-4.9) X10*3/uL PT 16.8 H (10.0-13.1) SEC INR 1.4 H (0.9-1.1) APTT 25.6 L (26.0-36.4) SEC VBG HCO3 (22-26) mmol/L Sodium (135-145) mmol/L Potassium (3.3-5.1) mmol/L Chloride (96-108) mmol/L Carbon Dioxide (22-29) mmol/L Anion Gap (12-20) BUN (9-16) mg/dL Creatinine (0.5-1.4) mg/dL Random Glucose (60-115) mg/dL Lactic Acid (0.5-2.0) mmol/L Calcium (8.4-10.2) mg/dL Phosphorus (2.7-4.5) mg/dL AST (5-31) U/L ALT (0-31) U/L Alkaline Phosphatase (39-117) U/L B-Natriuretic Peptide 138 H (<100) pg/mL Total Protein (6.5-8.0) g/dL Albumin (3.5-5.0) g/dL Urine Protein (Neg-Trace) mg/dL Urine Blood (Negative) Ur Leukocyte Esterase (Negative) Urine RBC (0-2) /HPF Urine Osmolality (373-1093) mosm/kg Urine Opiates Screen (Not Detect) Urine Fentanyl Screen (Not Detect) Urine Cocaine Screen (Not Detect) 06/23/22 06/23/22 06/23/22 Range/Units 18:44 18:44 21:12 WBC (4.8-10.8) X10*3/uL RBC (4.20-5.50) X10*6/uL Hgb (12.0-16.0) g/dl Hct (37.0-47.0) % MCV (80.0-98.0) fL MCH (27.0-33.0) pg Neutrophils % (Manual) (45-73) % Band Neutrophils % (3-5) % Lymphocytes % (Manual) (20-40) % Abs Neuts (Manual) (2.0-8.3) X10*3/uL Lymphocytes # (Manual) (1.2-4.9) X10*3/uL PT (10.0-13.1) SEC INR (0.9-1.1) APTT (26.0-36.4) SEC VBG HCO3 18 L (22-26) mmol/L Sodium 124 L (135-145) mmol/L Potassium 6.0 H* (3.3-5.1) mmol/L Chloride 88 L (96-108) mmol/L Carbon Dioxide 21 L (22-29) mmol/L Anion Gap 21 H (12-20) BUN 65 H (9-16) mg/dL Creatinine 2.56 H (0.5-1.4) mg/dL Random Glucose (60-115) mg/dL Lactic Acid 2.2 H* (0.5-2.0) mmol/L Calcium 8.1 L (8.4-10.2) mg/dL Phosphorus (2.7-4.5) mg/dL AST 50 H (5-31) U/L ALT 54 H (0-31) U/L Alkaline Phosphatase 175 H (39-117) U/L B-Natriuretic Peptide (<100) pg/mL Total Protein 5.9 L (6.5-8.0) g/dL Albumin 2.7 L (3.5-5.0) g/dL Urine Protein (Neg-Trace) mg/dL Urine Blood (Negative) Ur Leukocyte Esterase (Negative) Urine RBC (0-2) /HPF Urine Osmolality (373-1093) mosm/kg Urine Opiates Screen (Not Detect) Urine Fentanyl Screen (Not Detect) Urine Cocaine Screen (Not Detect) 06/23/22 06/23/22 06/23/22 Range/Units 21:53 22:02 22:50 WBC (4.8-10.8) X10*3/uL RBC (4.20-5.50) X10*6/uL Hgb (12.0-16.0) g/dl Hct (37.0-47.0) % MCV (80.0-98.0) fL MCH (27.0-33.0) pg Neutrophils % (Manual) (45-73) % Band Neutrophils % (3-5) % Lymphocytes % (Manual) (20-40) % Abs Neuts (Manual) (2.0-8.3) X10*3/uL Lymphocytes # (Manual) (1.2-4.9) X10*3/uL PT (10.0-13.1) SEC INR (0.9-1.1) APTT (26.0-36.4) SEC VBG HCO3 18 L (22-26) mmol/L Sodium 129 L (135-145) mmol/L Potassium (3.3-5.1) mmol/L Chloride 94 L (96-108) mmol/L Carbon Dioxide 19 L (22-29) mmol/L Anion Gap 21 H (12-20) BUN 66 H (9-16) mg/dL Creatinine 2.39 H (0.5-1.4) mg/dL Random Glucose 125 H (60-115) mg/dL Lactic Acid (0.5-2.0) mmol/L Calcium 7.6 L D (8.4-10.2) mg/dL Phosphorus (2.7-4.5) mg/dL AST (5-31) U/L ALT (0-31) U/L Alkaline Phosphatase (39-117) U/L B-Natriuretic Peptide (<100) pg/mL Total Protein (6.5-8.0) g/dL Albumin (3.5-5.0) g/dL Urine Protein (Neg-Trace) mg/dL Urine Blood (Negative) Ur Leukocyte Esterase (Negative) Urine RBC (0-2) /HPF Urine Osmolality 329 L (373-1093) mosm/kg Urine Opiates Screen (Not Detect) Urine Fentanyl Screen (Not Detect) Urine Cocaine Screen (Not Detect) 06/23/22 06/23/22 06/24/22 Range/Units 22:50 22:50 04:50 WBC (4.8-10.8) X10*3/uL RBC (4.20-5.50) X10*6/uL Hgb (12.0-16.0) g/dl Hct (37.0-47.0) % MCV (80.0-98.0) fL MCH (27.0-33.0) pg Neutrophils % (Manual) (45-73) % Band Neutrophils % (3-5) % Lymphocytes % (Manual) (20-40) % Abs Neuts (Manual) (2.0-8.3) X10*3/uL Lymphocytes # (Manual) (1.2-4.9) X10*3/uL PT (10.0-13.1) SEC INR (0.9-1.1) APTT (26.0-36.4) SEC VBG HCO3 (22-26) mmol/L Sodium 134 L (135-145) mmol/L Potassium (3.3-5.1) mmol/L Chloride (96-108) mmol/L Carbon Dioxide 18 L (22-29) mmol/L Anion Gap (12-20) BUN 58 H (9-16) mg/dL Creatinine 2.18 H (0.5-1.4) mg/dL Random Glucose (60-115) mg/dL Lactic Acid (0.5-2.0) mmol/L Calcium 7.2 L (8.4-10.2) mg/dL Phosphorus 5.5 H (2.7-4.5) mg/dL AST 36 H (5-31) U/L ALT 34 H (0-31) U/L Alkaline Phosphatase 125 H (39-117) U/L B-Natriuretic Peptide (<100) pg/mL Total Protein 4.3 L (6.5-8.0) g/dL Albumin 2.3 L (3.5-5.0) g/dL Urine Protein 30 (1+) H (Neg-Trace) mg/dL Urine Blood Small (1+) H (Negative) Ur Leukocyte Esterase Trace H (Negative) Urine RBC 3-5 H (0-2) /HPF Urine Osmolality (373-1093) mosm/kg Urine Opiates Screen POSITIVE H (Not Detect) Urine Fentanyl Screen POSITIVE H (Not Detect) Urine Cocaine Screen POSITIVE H (Not Detect) 06/24/22 06/24/22 Range/Units 05:20 05:25 WBC (4.8-10.8) X10*3/uL RBC 3.57 L D (4.20-5.50) X10*6/uL Hgb 9.6 L D (12.0-16.0) g/dl Hct 28.3 L D (37.0-47.0) % MCV 79.3 L (80.0-98.0) fL MCH 26.9 L (27.0-33.0) pg Neutrophils % (Manual) (45-73) % Band Neutrophils % 35 H (3-5) % Lymphocytes % (Manual) 3 L (20-40) % Abs Neuts (Manual) (2.0-8.3) X10*3/uL Lymphocytes # (Manual) 0.2 L (1.2-4.9) X10*3/uL PT (10.0-13.1) SEC INR (0.9-1.1) APTT (26.0-36.4) SEC VBG HCO3 18 L (22-26) mmol/L Sodium (135-145) mmol/L Potassium (3.3-5.1) mmol/L Chloride (96-108) mmol/L Carbon Dioxide (22-29) mmol/L Anion Gap (12-20) BUN (9-16) mg/dL Creatinine (0.5-1.4) mg/dL Random Glucose (60-115) mg/dL Lactic Acid (0.5-2.0) mmol/L Calcium (8.4-10.2) mg/dL Phosphorus (2.7-4.5) mg/dL AST (5-31) U/L ALT (0-31) U/L Alkaline Phosphatase (39-117) U/L B-Natriuretic Peptide (<100) pg/mL Total Protein (6.5-8.0) g/dL Albumin (3.5-5.0) g/dL Urine Protein (Neg-Trace) mg/dL Urine Blood (Negative) Ur Leukocyte Esterase (Negative) Urine RBC (0-2) /HPF Urine Osmolality (373-1093) mosm/kg Urine Opiates Screen (Not Detect) Urine Fentanyl Screen (Not Detect) Urine Cocaine Screen (Not Detect) Short CBC 06/23/22 06/24/22 Range/Units 18:44 05:20 WBC 13.6 H 7.8 (4.8-10.8) X10*3/uL Hgb 13.1 9.6 L D (12.0-16.0) g/dl Hct 38.6 28.3 L D (37.0-47.0) % Plt Count 244 176 D (160-400) X10*3/uL BMP 06/23/22 06/23/22 06/24/22 18:44 21:53 04:50 Sodium 124 L 129 L 134 L Potassium 6.0 H* 4.9 4.7 Chloride 88 L 94 L 102 Carbon Dioxide 21 L 19 L 18 L BUN 65 H 66 H 58 H Creatinine 2.56 H 2.39 H 2.18 H Calcium 8.1 L 7.6 L D 7.2 L Liver Function 06/23/22 06/24/22 Range/Units 18:44 04:50 Total Bilirubin 0.9 0.7 (0.0-1.0) mg/dL AST 50 H 36 H (5-31) U/L ALT 54 H 34 H (0-31) U/L Alkaline Phosphatase 175 H 125 H (39-117) U/L Albumin 2.7 L 2.3 L (3.5-5.0) g/dL Urine 06/23/22 Range/Units 22:50 Urine Color Dark Yellow Urine Appearance Cloudy Urine pH 5.0 (5.0-9.0) Ur Specific [place] 1.015 (1.005-1.025) Urine Protein 30 (1+) H (Neg-Trace) mg/dL Urine Glucose (UA) Negative (Negative) mg/dL All other labs normal. Imaging CT scan - chest: report reviewed and image reviewed Assessment and Plan (1) Cellulitis and abscess: Status: Acute (2) Sepsis: Status: Acute Plan The patient is a 52-year-old female known IV drug abuser although she denies this to me but did admit to the emergency room physician and said that she shoots up in her axillary area and chest. She comes in with significant cellulitic changes maybe deeper abscess to the left breast area. Her left her lytes are abnormal and her son brought her in saying that she was more confused and lethargic. EKG did not reveal any significant changes associated with her hyperkalemia and she is being treated for this. She is also being resuscitated for her sepsis and hyponatremia. She has received Zosyn and will be getting vancomycin as well. Her white count is 13 in the emergency room. Plan is to follow clinically in the morning after resuscitation and she did get the CT scan which showed changes consistent with air and fluid deep within the breast tissue. I do not think that this is necrotizing fasciitis per se but that some of the air may have been introduced with injecting and then causing an infection. Medical team is admitting the patient and we will follow along. Her son is not available for discussion. Patient was seen around 09:00 o'clock at night on Wednesday Procedures Date of Service Date of Service: 06/23/22
[2022-06-23 21:19] LABS: VBG Base Excess -5.8 mmol/L; VBG HCO3 18 mmol/L (22-26); VBG pCO2 32 mmHg; VBG pH 7.36 (7.32-7.43); VBG pO2 73 mmHg
[2022-06-23 21:23] LABS: Venous Blood Gas Refer to POC result
--- NOTE | 2022-06-23 21:29 | PC.NURSE ---
Peparacin abc is running sloe d/t pt continues moving her hand. Will continue the abx as order. One IVF bolus is in.
[2022-06-23] MEDS: Calcium Gluconate/NaCl,Iso-Osm 2 GM/100 ML PLAST..BAG IV (21:33)
[2022-06-23] MEDS: 0.9 % Sodium Chloride 1,000 ML 100 ML IVCONT (21:34)
--- NOTE | 2022-06-23 21:35 | PM.IMHP ---
History of Present Illness Date of Service: 06/23/22 Chief Complaint: Lethargy 52-year-old female with IV drug use history brought in by son to the hospital with complaints of lethargy. Patient is completely altered, responsive only to painful stimuli therefore I am unable to get much history from her. history is mostly obtained from EMR as well as ED physician. on arrival to the ED patient found to have temp of 101, respiratory rate of 28, blood pressure 107/59, satting 90% on room air Labs were phoned to be significant for WBc count of 13.6, INR of 1.4, potassium 6, sodium 124, chloride of 88, creatinine of 2.56 with no baseline for comparison, lactic acid of 2.2 improved after IV fluids, AST of 50, ALT of 54, alk-phos of 175, BNP of 138, UA positive for leukocyte Estrace and WBC, UDS positive for opioids fentanyl and cocaine Head CT shows no evidence of acute intracranial abnormality chest CT shows extensive soft tissue swelling and phlegmonous changes in the left chest wall subcutaneous emphysema, small discrete fluid collections adjacent to the chest wall. Patient also has diffuse pulmonary disease with multiple rounded masslike areas left greater than right, most likely diagnosis would be infectious although metastatic disease could have such appearance as well. Patient started on broad-spectrum antibiotics and will be admitted for further management unable to obtain much history from patient as she is altered Review of Systems Review of Systems: Yes all other systems are reviewed and are negative PMFSH Social History Alcohol intake: unknown Smoked in Last 30 Days: Yes Use of substances other than those prescribed or required for medical reasons: Yes Substance Use Type: Heroin Advance Directives: No Advance Directives Information Provided: No Patient : No Current occupational status: disabled Meds Allergies Allergy/AdvReac Type Severity Reaction Status Date / Time adhesive tape [ADHESIVE TAPE] Allergy Unknown ITCHY Verified 06/23/22 18:09 orange (food color) Allergy Unknown HIVES Verified 06/23/22 18:09 [ORANGE (FOOD COLOR)] yellow dye [YELLOW DYE] Allergy Unknown HIVES Verified 06/23/22 18:09 latex Allergy Unknown Unknown Uncoded 06/23/22 18:09 orange Allergy Unknown Unknown Uncoded 06/23/22 18:09 Active Medications: Current Medications Acetaminophen (Acetaminophen 325 Mg Tablet) 650 mg PO Q6H PRN PRN Reason: Pain, Mild (Pain Scale 1-3) Docusate Sodium (Docusate Sodium 100 Mg Capsule) 100 mg PO DAILY PRN PRN Reason: Constipation Heparin Sodium (Porcine) (Heparin Sodium,Porcine 5,000 Unit/Ml Vial) 5,000 unit SUBCUT Q12H [facility] Sodium Chloride (Ns) 1,000 mls @ 100 mls/hr IVCONT .Q10H [facility] Ondansetron HCl (Ondansetron Hcl 4 Mg/2 Ml Vial) 4 mg IVPUSH Q8H PRN PRN Reason: Nausea and Vomiting Pharmacy Consult (Consult Rx Perform Med Rec) 1 each MISCELLANE ONCE PRN PRN Reason: Consult order Pharmacy Consult (Consult Rx Vancomycin Dosing) 1 each MISCELLANE DAILY PRN PRN Reason: Consult order Sodium Chloride (0.9 % Sodium Chloride Flush 3 Ml Syringe) 3 ml IVFLUSH QSHIFT [facility] Home Medications Medication Instructions Recorded Confirmed Last Taken Type buprenorphine 4 mg-naloxone 1 mg 1 film sublingual Q24H 10/01/20 Unknown History sublingual film (Suboxone) gabapentin 300 mg capsule 300 mg PO DAILY 08/11/21 Unknown History oxycodone 20 mg tablet,extended mg PO 08/11/21 Unknown History release,12 hr Physical Exam Vital Signs and Narrative: Vital Signs: Last Vital Signs Temp 98.9 F 06/23/22 21:18 Pulse 116 H 06/23/22 21:18 Resp 25 H 06/23/22 21:23 BP 122/42 L 06/23/22 21:18 Pulse Ox 95 06/23/22 21:18 O2 Del Method 06/23/22 21:18 O2 Flow Rate 3 06/23/22 21:18 BMI result Body Mass Index 42.9 Const: Other: obtunded, responds to painful stimuli appears unkempt Eyes: General: appearance normal, both eyes and all related structures Resp: Effort & Inspection: normal respiratory effort Cardio: Rate: regular rate Rhythm: regular rhythm Skin: Other: has cellulitic skin changes of the chest with erythema, warmth, also cellulitic changes along the lateral aspect of left chest, multiple round lesions in the axillary region, she also has erythema, warmth, as well as edema on the medial left arm Neuro: Other: patient completely obtunded, response to painful stimuli Extrem: General: Yes normal to inspection and Yes no pedal edema Results Labs CBC and Chem 7: 06/23/22 18:44 06/23/22 21:53 Labs: Laboratory Results - last 24 hr 06/23/22 06/23/22 06/23/22 18:44 18:44 18:44 MCV 79.1 L MCH 26.8 L MCHC 33.9 RDW 14.5 Plt Count 244 MPV 10.0 Immature Gran % (Auto) Cancelled Neut % (Auto) Cancelled Lymph % (Auto) Cancelled [place] % (Auto) Cancelled Eos % (Auto) Cancelled Baso % (Auto) Cancelled Lymph # (Auto) Cancelled [place] # (Auto) Cancelled Eos # (Auto) Cancelled Baso # (Auto) Cancelled Abs Immat Gran (auto) Cancelled Absolute Neuts (auto) Cancelled Absolute Nucleated RBC 0.000 Nucleated RBC % (auto) 0.0 Neutrophils % (Manual) 80 H Band Neutrophils % 8 H Lymphocytes % (Manual) 3 L Monocytes % (Manual) 3 Metamyelocytes % 4 Myelocytes % 2 Abs Neuts (Manual) 12.0 H Lymphocytes # (Manual) 0.4 L Monocytes # (Manual) 0.4 Metamyelocytes # 0.5 Myelocytes # 0.3 Toxic Vacuolation PRESENT Dohle Bodies PRESENT Platelet Estimate NORMAL Plt Morphology Comment NORMAL RBC Morphology NOTED [place] Cells 1+ (0-2) Schistocytes 1+ (0-2) APTT 25.6 L VBG pH VBG pCO2 VBG pO2 VBG HCO3 VBG O2 Saturation VBG Base Excess Anion Gap Estim Creat Clear Calc Estimated GFR Random Glucose Lactic Acid Calcium Total Bilirubin AST ALT Alkaline Phosphatase Troponin I High Sens B-Natriuretic Peptide 138 H Total Protein Albumin 06/23/22 06/23/22 06/23/22 18:44 18:44 18:44 MCV MCH MCHC RDW Plt Count MPV Immature Gran % (Auto) Neut % (Auto) Lymph % (Auto) [place] % (Auto) Eos % (Auto) Baso % (Auto) Lymph # (Auto) [place] # (Auto) Eos # (Auto) Baso # (Auto) Abs Immat Gran (auto) Absolute Neuts (auto) Absolute Nucleated RBC Nucleated RBC % (auto) Neutrophils % (Manual) Band Neutrophils % Lymphocytes % (Manual) Monocytes % (Manual) Metamyelocytes % Myelocytes % Abs Neuts (Manual) Lymphocytes # (Manual) Monocytes # (Manual) Metamyelocytes # Myelocytes # Toxic Vacuolation Dohle Bodies Platelet Estimate Plt Morphology Comment RBC Morphology [place] Cells Schistocytes APTT VBG pH VBG pCO2 VBG pO2 VBG HCO3 VBG O2 Saturation VBG Base Excess Anion Gap 21 H Estim Creat Clear Calc 31.7 Estimated GFR 20 Random Glucose 107 Lactic Acid 2.2 H* Calcium 8.1 L Total Bilirubin 0.9 AST 50 H ALT 54 H Alkaline Phosphatase 175 H Troponin I High Sens < 3.5 B-Natriuretic Peptide Total Protein 5.9 L Albumin 2.7 L 06/23/22 21:12 MCV MCH MCHC RDW Plt Count MPV Immature Gran % (Auto) Neut % (Auto) Lymph % (Auto) [place] % (Auto) Eos % (Auto) Baso % (Auto) Lymph # (Auto) [place] # (Auto) Eos # (Auto) Baso # (Auto) Abs Immat Gran (auto) Absolute Neuts (auto) Absolute Nucleated RBC Nucleated RBC % (auto) Neutrophils % (Manual) Band Neutrophils % Lymphocytes % (Manual) Monocytes % (Manual) Metamyelocytes % Myelocytes % Abs Neuts (Manual) Lymphocytes # (Manual) Monocytes # (Manual) Metamyelocytes # Myelocytes # Toxic Vacuolation Dohle Bodies Platelet Estimate Plt Morphology Comment RBC Morphology [place] Cells Schistocytes APTT VBG pH 7.36 VBG pCO2 32 VBG pO2 73 VBG HCO3 18 L VBG O2 Saturation 91.0 VBG Base Excess -5.8 Anion Gap Estim Creat Clear Calc Estimated GFR Random Glucose Lactic Acid Calcium Total Bilirubin AST ALT Alkaline Phosphatase Troponin I High Sens B-Natriuretic Peptide Total Protein Albumin Imaging Radiologist's Impressions: Impressions Chest X-Ray 06/23/22 18:58 IMPRESSION: Multifocal airspace opacities, left greater than right. Diffuse pneumonia such as atypical viral is a possibility. Assessment and Plan (1) Encephalopathy: Status: Acute (2) Sepsis: Status: Acute (3) Cellulitis and abscess: Status: Acute (4) Pneumonia: Status: Acute (5) Acute hyperkalemia: Status: Acute (6) Hyponatremia: Status: Acute (7) Acute kidney injury: Status: Acute (8) Abnormal chest CT: Status: Acute Plan 52-year-old female with past medical history of IV drug use presents to the hospital with altered mental status and lethargy found to have sepsis # sepsis - patient has fever, leukocytosis, tachycardia, tachypnea - likely source multifactorial cellulitis/ abscess/ pneumonia in the setting of IV drug use, septic emboli cannot be ruled out - lactic acid of 2.2 improved after IV fluids - at this time blood cultures have been obtained, - broad-spectrum IV antibiotics - follow cultures # cellulitis/abscess - patient with multiple cellulitic skin changes of the chest as well as axilla and left arm, patient also has multiple fluid collections and underlying changes - spoke to General surgery extensively, this time will continue broad-spectrum antibiotics, surgery will evaluate patient in a.m. for possible surgical intervention, although at this time no surgery indicated - continue IV antibiotics - follow cultures # encephalopathy - likely multifactorial with toxic metabolic syndrome with acute sepsis, infection, and history of IV drug use - head CT negative - will treat underlying acute issues including infections - monitor mental status # hyponatremia - likely secondary to decreased solute intake - urine studies pending - will treat with NS - follow BMP closely # hyperkalemia - possibly secondary to CHARLA - improved after treatment - follow BMP # CHARLA - possibly prerenal secondary to dehydration - will treat with IV fluids - follow BMP DVT prophylaxis: Heparin subQ given patient's acute sepsis needing IV antibiotics patient require minimum 2 nights inpatient hospital stay for further management and monitoring Quality Stroke Does the patient have a stroke diagnosis?: No VTE Prior VTE?: No VTE Risk Level:: Medical - moderate - high VTE Device Contraindication: Treatment Not Indicated VTE Drug Contraindication: N/A - Med Ordered
--- NOTE | 2022-06-23 21:39 | MHC.CM.PN ---
Attempted to meet with patient. Pt sleeping. Unable to wake and participate in CM interview. CM will meet with patient when more awake and alert.
[2022-06-23] MEDS: Heparin Sodium,Porcine 5,000 UNIT/ML VIAL 5000 UNIT SUBCUT (21:59)
[2022-06-23 22:07] LABS: VBG Base Excess -5.6 mmol/L; VBG HCO3 18 mmol/L (22-26); VBG pCO2 31 mmHg; VBG pH 7.37 (7.32-7.43); VBG pO2 65 mmHg
[2022-06-23 22:08] LABS: Venous Blood Gas Refer to POC result
--- NOTE | 2022-06-23 22:09 | PC.NURSE ---
Pt's V/S are stable, Pt is on the monitor and it shows sinus Tachy. Pt has breast cellulites that radiates to the left half arm, her skin is peeling, it has been drawn a black line to monitor the swollen and redness. The area is warm to touch. Pt's IVF are running ml/hr, and abx as order. Pt has 2 IV lines one RAC and second one LAC. Pt came in soil clothes. Pt has hx of IV drug user, although she denies injecting any drug today. Pt has audible crackles through out her lungs bilaterally. She is not responsible to voice but it is to light pain. Pt has peripheral palpable pulses and normal heart rhythm. Pt is not aler or oriented at the time of the assessment only to touch. PT will have a 16 Fr gambino cath. will continue to monitor.
[2022-06-23 22:20] LABS: INTERNATIONAL NORM RATIO 1.4 (0.9-1.1); Prothrombin Time 16.8 SEC (10.0-13.1)
[2022-06-23 22:25] LABS: Anion Gap 21 (12-20); Blood Urea Nitrogen 66 mg/dL (9-16); Calcium 7.6 mg/dL (8.4-10.2); Carbon Dioxide 19 mmol/L (22-29); Chloride 94 mmol/L (96-108); Creatinine Clr Calc Pharmacy 33.9; Estimated Glomerular Filt Rate 21; Glucose Random 125 mg/dL (60-115); Potassium 4.9 mmol/L (3.3-5.1); Sodium 129 mmol/L (135-145)
--- NOTE | 2022-06-23 22:45 | PC.NURSE ---
Re-assessment: Pt has a bilaterally cellulites with a small gangrene area on her left breast. Pt was clean and Broussard was inserted, vitals was upgraded. IVF are running and abx as order by the provider.
[2022-06-23 23:01] LABS: Appearance Urine Cloudy; Color Urine Dark Yellow; Glucose Urine UA Negative (Negative); Leukocyte Esterase Urine Trace (Negative); Nitrite Urine Negative (Negative); Specific Gravity - Urine 1.015 (1.005-1.025); UMIC TRIGGER UACC YES; Urine Blood Small (1+) (Negative); Urine Ketones Negative (Negative); Urine Protein 30 (1+) mg/dL (Neg-Trace)
[2022-06-23 23:12] LABS: Amphetamine Screen Urine Not Detected (Not Detect); Barbiturates, Urine Not Detected (Not Detect); Benzodiazepines Screen Urine Not Detected (Not Detect); Cannabinoid Screen Urine Not Detected (Not Detect); Cocaine Screen Urine POSITIVE (Not Detect); Fentanyl, urine POSITIVE (Not Detect); Opiate Screen Urine POSITIVE (Not Detect); Phencyclidine Screen Urine Not Detected (Not Detect)
[2022-06-23 23:15] LABS: Bacteria Urine None Seen (None Seen); Squamous Epithelial Cell Urine >20 /HPF (0-2); WBC Urine 0-5 /HPF (0-5)
[2022-06-23 23:29] LABS: Creatinine Urine 61.08 mg/dL; Sodium Urine Random < 20.0 mmol/L
[2022-06-24] VITALS (25 sets, daily range): BP systolic 90–127; BP diastolic 40–63; PULSE 75–118; RESP 20–28; TEMP 35–39.1; O2SAT 91–99
[2022-06-24] MEDS: Acetaminophen Supp 650 MG SUPP.RECT PR (00:04)
--- NOTE | 2022-06-24 00:07 | PC.NURSE ---
Sepsis Protocol: This nurse has spoken with provider Raymon through [facility] at 22:00. Pt is fribrile, has audible crackles, and elevated WBC and Lactic acid. Nurse sent a massage to provider to start sepsis protocol on 23:00. ABX was given and are running slow d/t pt IV keeps getting obstructed. This RN re position patient position for improvement. Pt was given rectal Tylenol, and BP is stable. will continue to monitor.
[2022-06-24] MEDS: 0.9 % Sodium Chloride Flush 3 ML SYRINGE IVFLUSH ×3 (00:57→23:27)
[2022-06-24] MEDS: Clindamycin Phosphate/D5W 600 MG/50 ML PIGGYBACK 100 MG IV (00:59)
[2022-06-24 01:04] LABS: Lactic Acid 1.8 mmol/L (0.5-2.0)
[2022-06-24] MEDS: Piperacillin Sodium/Tazobactam 3.375 GM in 0.9 % Sodium Chloride 50 ML IV ×3 (04:45→20:00)
[2022-06-24 05:32] LABS: VBG Base Excess -5.5 mmol/L; VBG HCO3 18 mmol/L (22-26); VBG pCO2 29 mmHg; VBG pH 7.39 (7.32-7.43); VBG pO2 98 mmHg
--- NOTE | 2022-06-24 05:58 | PM.CCN ---
Critical Care Event Note Summary Date of Service: 06/24/22 Code activated: No Narrative: This case had a high probability of a clinically significant, sudden, or life threatening deterioration of this patient's condition which required my full and direct attention, intervention and personal management. Critical Care Time (minutes): 30 Comment: ?52-year-old female with IV drug use history brought in by son to the hospital with complaints of lethargy on 06/23/30. On initial presentation she had temp of 101, respiratory rate of 28, blood pressure 107/59, satting 90% on room air. WBC elevated to 13.6, lactic acid 2.2, potassium 6 and creat 2.56. Patient had significant erythema extending from chest to left upper arm. Chest CT showed? extensive soft tissue swelling and phlegmonous changes in the left chest wall subcutaneous emphysema, small discrete? fluid collections adjacent to the chest wall. General surgery was consulted who advised for? to continue broad-spectrum antibiotics, surgery will evaluate patient in a.m.? for possible surgical intervention, although at this time? no surgery indicated.? She received 30 mL/kg fluid bolus? a lactic improved.? ? Later in the night,? patient became hypotensive? despite an additional 1 L bolus. ? Required transfer to ICU for possible? initiation of pressors likely in the setting of septic shock.? ?Focus assessment performed at 0300? patient lethargic, with poor hygiene,? refusing to answer questions, She was not on resp distress.? Lungs CTA.? Sinus rhythm on the monitor. S1-S2 present. No M/R/G. Normal capillary refill, pulses present in all extremities, abdomen soft, ? Nondistended. Cellulitis erythema extending from mid left chest to axillary region as well as left arm. Multiple round lesions with significant thick yellowish secretions.? ? Plan Transfer to icu Albumin administration ?Possible vasopressor initiation? CONT ABX? General surgery consult Critical Care Time Critical Care Time (minutes): 30
[2022-06-24 05:59] LABS: Venous Blood Gas Refer to POC result
[2022-06-24 06:02] LABS: Alanine Aminotransferase 34 U/L (0-31); Albumin Level 2.3 g/dL (3.5-5.0); Alkaline Phosphatase 125 U/L (39-117); Anion Gap 19 (12-20); Aspartate Amino Transferase 36 U/L (5-31); Bilirubin Total 0.7 mg/dL (0.0-1.0); Blood Urea Nitrogen 58 mg/dL (9-16); Calcium 7.2 mg/dL (8.4-10.2); Carbon Dioxide 18 mmol/L (22-29); Chloride 102 mmol/L (96-108); Creatinine Clr Calc Pharmacy 37.2; Estimated Glomerular Filt Rate 24; Glucose Random 99 mg/dL (60-115); Magnesium 2.6 mg/dL (1.6-2.6); Phosphorus 5.5 mg/dL (2.7-4.5); Potassium 4.7 mmol/L (3.3-5.1); Sodium 134 mmol/L (135-145); Total Protein 4.3 g/dL (6.5-8.0)
[2022-06-24 06:08] LABS: Hematocrit 28.3 % (37.0-47.0); Hemoglobin 9.6 g/dl (12.0-16.0); Mean Corpuscular HGB Conc 33.9 g/dl (31.0-35.0); Mean Corpuscular Hemoglobin 26.9 pg (27.0-33.0); Mean Corpuscular Volume 79.3 fL (80.0-98.0); Mean Platelet Volume 10.4 fL (9.4-12.3); Platelet Count 176 X10*3/uL (160-400); Red Blood Count 3.57 X10*6/uL (4.20-5.50); Red Cell Distribution Width 14.4 % (11.0-16.0)
[2022-06-24 06:11] LABS: WBC ABN SCTR FOR CBC 1; White Blood Count 7.8 X10*3/uL (4.8-10.8)
[2022-06-24] MEDS: Albumin Human 25 % 100 ML IV ×3 (06:31→21:29)
--- NOTE | 2022-06-24 06:41 | PM.EVENT ---
Event Note Date of Service: 06/24/22 Event Note: pt deteriorated overnight with sig drop in BP not responding to IVF. Pt received 3L of IVF , on iv abx. pt will transferred to ICU for further management. Dr. ventura informed
[2022-06-24 07:12] LABS: Osmolality Urine 329 mosm/kg (373-1093)
[2022-06-24 07:13] LABS: Osmolality, Serum 282 mosm/kg (281-305)
[2022-06-24 07:14] LABS: Lactic Acid 1.6 mmol/L (0.5-2.0)
[2022-06-24 07:43] LABS: Band Neutrophils Percent 35 % (3-5); Lymphocytes Absolute Manual 0.2 X10*3/uL (1.2-4.9); Lymphocytes Percent Manual 3 % (20-40); Neutrophils Absolute Manual 7.6 X10*3/uL (2.0-8.3); Neutrophils Percent Manual 62 % (45-73)
[2022-06-24 07:44] LABS: RBC Morphology NOTED
[2022-06-24 07:46] LABS: Acanthocytes 3+ (>5) /OIF; Microcytosis 2+ (15-30) /OIF; Ovalocytes 1+ (5-14) /OIF
[2022-06-24 07:47] LABS: Dohle Bodies PRESENT; Large Platelet PRESENT; Platelet Estimate NORMAL (NORMAL); Platelet Morphology Comment NOTED; Toxic Granulation PRESENT
[2022-06-24] MEDS: Heparin Sodium,Porcine 5,000 UNIT/ML VIAL 5000 UNIT SUBCUT ×2 (08:16→16:17)
--- NOTE | 2022-06-24 09:05 | PM.EVENT ---
Event Note Date of Service: 06/24/22 Event Note: patient reported to be worse this morning BP lower despite IVF transferred to ICU tachypneic large induration on left chest wall and axilla CT reviewed - pockets of air in soft tissue of left chest wall and axilla clinically septic will take to OR for wide debridement of the left chest wall and axilla under anesthesia explained plan to her mother Blanca extensively discussed technique of procedure, risks, benefits and alternatives mother has given consent pt likely to be on ventilatory support postop plan dw ICU and anesthesia accdg to her mother, left chest wall redness has been ongoing for over a week, seems to have started as a boil
[2022-06-24 10:10] LABS: COVID-19 Test Negative (Negative); IDNOW Serial# BCCEAD1C
--- NOTE | 2022-06-24 11:14 | MHC.CM.PN ---
This card writer hand attempted to meet with patient who was in and out of sleeping, not able to answer questions for CM assessment. Meet with son and pt's mother @ bedside for CM assessment. Patient from home. Son is LEAD CARE MANAGER ~15 hours per week. No other services in the home. Vax'd for COVID. Son is open to STR or [facility] as appropriate closer to discharge. Son will transport @ d/c. IMM delivered. Patient would benefit from CARE Team assessment closer to discharge re: substance use. CM will continue to follow patient for discharge planning needs.
--- NOTE | 2022-06-24 11:18 | PC.NURSE ---
Addendum entered by Tommy Quigley RN 06/24/22 14:49: X-RAY done - Dr Hernandez viewed at bedside - line & tube confirmed. Addendum entered by Tommy Quigley RN 06/24/22 14:29: TLC inserted RIJ. Addendum entered by Tommy Quigley RN 06/24/22 14:19: Levo started r/t low BP during line placement. one time 20mg PROP given during line placement r/t patient agitation & movement - MD at bedside during biomedical equipment specialist. Line placement complete at 1420 - plan for x-ray. Dr Hernandez stated can use line. Addendum entered by Tommy Quigley RN 06/24/22 14:03: Patient back from OR at 1200. Patient started on propofol & fentanyl drip. Periph IV line taken out of left AC. New IV, #20g inserted by OR team to right hand. Patient restrained r/t starting to wake up close to 1230 - pulling at lines / tubes. Patient brought back from OR still intubated. Plan to stay intubated r/t needing to go back to OR tomorrow possibly for wound vac. Patient debrided - left axilla. Large bedadine soaked dressing on area. BP soft at times, levo ordered for when needed. HR initially ST, now SR. Original Note: Shift eval 7:45a-3p - Assumed care for patient at approx 7:45am. Patient agitated w/ care, but able to be redirected. Alert and oriented. Denies IV drug abuse. Scabs noted on bilat arms. Large 6x6+ cm abscess noted on left upper chest & axillary area. Opening on armpit area, draining small amt purulent discharge. Redness also noted on inner arm area too. Area marked with surgical pen. Area very tender to any tactile stimulation. Patient able to lift left arm, but very guarded. Dr Kincaid evaluated wound - Covid tested prior to OR - negative. Patient RR high 20's - 29. Non productive cough, Lungs diminished. Patient refusing to roll over for full assessment. Mother & son called to bedside - consent obtained from them from anesthesia & Dr Kincaid. Dr Hernandez & Dr Corey aware of respiratory status. Patient to OR at 10:27am.
--- NOTE | 2022-06-24 11:29 | HO.ANESPROP2 ---
[facility] Active Problems Active Problems: All Active Problems (Updated 06/24/22 @ 00:57 by Belia Ennis MD) Sepsis (Acute) Abnormal chest CT (Acute) Encephalopathy (Acute) Cellulitis and abscess (Acute) Pneumonia (Acute) Acute hyperkalemia (Acute) Hyponatremia (Acute) Acute kidney injury (Acute) Primary osteoarthritis of right hip (Acute) Primary osteoarthritis of knees, bilateral (Acute) Family History Family history of problems with anesthesia: No Surgical History History of Problems with Anesthesia: No Social History Social History Alcohol intake: unknown Substance Use Type: Heroin service: No Current occupational status: disabled Meds Allergies Allergy/AdvReac Type Severity Reaction Status Date / Time adhesive tape [ADHESIVE TAPE] Allergy Unknown ITCHY Verified 06/23/22 18:09 orange (food color) Allergy Unknown HIVES Verified 06/23/22 18:09 [ORANGE (FOOD COLOR)] yellow dye [YELLOW DYE] Allergy Unknown HIVES Verified 06/23/22 18:09 latex Allergy Unknown Unknown Uncoded 06/23/22 18:09 orange Allergy Unknown Unknown Uncoded 06/23/22 18:09 Active Medications: Current Medications Acetaminophen (Acetaminophen 325 Mg Tablet) 650 mg PO Q6H PRN PRN Reason: Pain, Mild (Pain Scale 1-3) Acetaminophen (Acetaminophen Supp 650 Mg Supp.Rect) 650 mg NM Q6H PRN PRN Reason: fever Last Admin: 06/24/22 00:04 Dose: 650 mg Docusate Sodium (Docusate Sodium 100 Mg Capsule) 100 mg PO DAILY PRN PRN Reason: Constipation Heparin Sodium (Porcine) (Heparin Sodium,Porcine 5,000 Unit/Ml Vial) 5,000 unit SUBCUT Q8H [facility] Last Admin: 06/24/22 08:16 Dose: 5,000 unit Vancomycin HCl 750 mg/ Sodium (Chloride) 265 mls @ 265 mls/hr IV Q24H [facility] Piperacillin Sod/Tazobactam (Sod 3.375 gm/ Sodium Chloride) 50 mls @ 100 mls/hr IV Q6H [facility] Last Infusion: 06/24/22 06:23 Dose: Infused Albumin Human (Kedbumin 25 %) 100 mls @ 100 mls/hr IV Q6H [facility] Stop: 06/25/22 01:29 Last Infusion: 06/24/22 08:01 Dose: Infused Ondansetron HCl (Ondansetron Hcl 4 Mg/2 Ml Vial) 4 mg IVPUSH Q8H PRN PRN Reason: Nausea and Vomiting Pharmacy Consult (Consult Rx Perform Med Rec) 1 each MISCELLANE ONCE PRN PRN Reason: Consult order Pharmacy Consult (Consult Rx Vancomycin Dosing) 1 each MISCELLANE DAILY PRN PRN Reason: Consult order Pharmacy Consult (Consult Rx Vancomycin Dosing) 1 each MISCELLANE DAILY PRN PRN Reason: Consult order Sodium Chloride (0.9 % Sodium Chloride Flush 3 Ml Syringe) [facility] Last Admin: 06/24/22 08:16 Dose: 3 ml Home Medications Medication Instructions Recorded Confirmed Last Taken Type amoxicillin 250 mg capsule 1 cap PO TID 06/24/22 06/24/22 Unknown History fluticasone propionate 50 1 spray intranasal DAILY 06/24/22 06/24/22 Unknown History mcg/actuation nasal spray,suspension naproxen 500 mg tablet 1 tab PO BID PRN Pain 06/24/22 06/24/22 Unknown History oxycodone 10 mg tablet 1 tab PO QD-QID PRN Pain 06/24/22 06/24/22 Unknown History oxycodone 20 mg tablet,crush 1 tab PO DAILY PAIN 06/24/22 06/24/22 Unknown History resistant,extended release 12 hr (OxyContin) Exam Exam Date and Time: June 24, 2022 1129 Height,Weight and Vital Signs: Height 5 ft 4 in Weight 113.398 kg Last Vital Signs Temp 102.4 F H 06/24/22 00:07 Pulse 92 06/24/22 10:00 Resp 28 H 06/24/22 10:00 BP 101/53 L 06/24/22 10:00 Pulse Ox 93 06/24/22 10:00 O2 Del Method 06/24/22 10:00 O2 Flow Rate 3 06/24/22 10:00 Pertinent Lab Results Pertinent Lab Results: Laboratory Tests 06/23/22 06/23/22 06/23/22 18:44 18:44 18:44 WBC 13.6 H RBC 4.88 Hgb 13.1 Hct 38.6 MCV 79.1 L MCH 26.8 L MCHC 33.9 RDW 14.5 Plt Count 244 MPV 10.0 Immature Gran % (Auto) Cancelled Neut % (Auto) Cancelled Lymph % (Auto) Cancelled [place] % (Auto) Cancelled Eos % (Auto) Cancelled Baso % (Auto) Cancelled Lymph # (Auto) Cancelled [place] # (Auto) Cancelled Eos # (Auto) Cancelled Baso # (Auto) Cancelled Abs Immat Gran (auto) Cancelled Absolute Neuts (auto) Cancelled Absolute Nucleated RBC 0.000 Nucleated RBC % (auto) 0.0 Neutrophils % (Manual) 80 H Band Neutrophils % 8 H Lymphocytes % (Manual) 3 L Monocytes % (Manual) 3 Metamyelocytes % 4 Myelocytes % 2 Abs Neuts (Manual) 12.0 H Lymphocytes # (Manual) 0.4 L Monocytes # (Manual) 0.4 Metamyelocytes # 0.5 Myelocytes # 0.3 Toxic Granulation Toxic Vacuolation PRESENT Dohle Bodies PRESENT Platelet Estimate NORMAL Large Platelets Plt Morphology Comment NORMAL RBC Morphology NOTED Microcytosis Ovalocytes [place] Cells 1+ (0-2) Acanthocytes (Spur) Schistocytes 1+ (0-2) PT 16.8 H INR 1.4 H APTT 25.6 L VBG pH VBG pCO2 VBG pO2 VBG HCO3 VBG O2 Saturation VBG Base Excess Sodium Potassium Chloride Carbon Dioxide Anion Gap BUN Creatinine Estim Creat Clear Calc Estimated GFR Random Glucose Osmolality Lactic Acid Lactic Acid F/U @ 2Hr Calcium Phosphorus Magnesium Total Bilirubin AST ALT Alkaline Phosphatase Troponin I High Sens B-Natriuretic Peptide 138 H Total Protein Albumin Urine Color Urine Appearance Urine pH Ur Specific [place] Urine Protein Urine Glucose (UA) Urine Ketones Urine Blood Urine Nitrite Ur Leukocyte Esterase Urine RBC Urine WBC Ur Squamous Epith Cells Urine Bacteria Hyaline Casts Urine Osmolality Ur Random Sodium Urine Creatinine Urine Opiates Screen Urine Fentanyl Screen Ur Barbiturates Screen Ur Phencyclidine Scrn Ur Amphetamines Screen U Benzodiazepines Scrn Urine Cocaine Screen U Marijuana (THC) Screen COVID-19 ([facility]) COVID-19 Clin Com 06/23/22 06/23/22 06/23/22 18:44 18:44 18:44 WBC RBC Hgb Hct MCV MCH MCHC RDW Plt Count MPV Immature Gran % (Auto) Neut % (Auto) Lymph % (Auto) [place] % (Auto) Eos % (Auto) Baso % (Auto) Lymph # (Auto) [place] # (Auto) Eos # (Auto) Baso # (Auto) Abs Immat Gran (auto) Absolute Neuts (auto) Absolute Nucleated RBC Nucleated RBC % (auto) Neutrophils % (Manual) Band Neutrophils % Lymphocytes % (Manual) Monocytes % (Manual) Metamyelocytes % Myelocytes % Abs Neuts (Manual) Lymphocytes # (Manual) Monocytes # (Manual) Metamyelocytes # Myelocytes # Toxic Granulation Toxic Vacuolation Dohle Bodies Platelet Estimate Large Platelets Plt Morphology Comment RBC Morphology Microcytosis Ovalocytes [place] Cells Acanthocytes (Spur) Schistocytes PT INR APTT VBG pH VBG pCO2 VBG pO2 VBG HCO3 VBG O2 Saturation VBG Base Excess Sodium 124 L Potassium 6.0 H* Chloride 88 L Carbon Dioxide 21 L Anion Gap 21 H BUN 65 H Creatinine 2.56 H Estim Creat Clear Calc 31.7 Estimated GFR 20 Random Glucose 107 Osmolality Lactic Acid 2.2 H* Lactic Acid F/U @ 2Hr Calcium 8.1 L Phosphorus Magnesium Total Bilirubin 0.9 AST 50 H ALT 54 H Alkaline Phosphatase 175 H Troponin I High Sens < 3.5 B-Natriuretic Peptide Total Protein 5.9 L Albumin 2.7 L Urine Color Urine Appearance Urine pH Ur Specific [place] Urine Protein Urine Glucose (UA) Urine Ketones Urine Blood Urine Nitrite Ur Leukocyte Esterase Urine RBC Urine WBC Ur Squamous Epith Cells Urine Bacteria Hyaline Casts Urine Osmolality Ur Random Sodium Urine Creatinine Urine Opiates Screen Urine Fentanyl Screen Ur Barbiturates Screen Ur Phencyclidine Scrn Ur Amphetamines Screen U Benzodiazepines Scrn Urine Cocaine Screen U Marijuana (THC) Screen COVID-19 ([facility]) COVID-19 Clin Com 06/23/22 06/23/22 06/23/22 21:12 21:53 21:53 WBC RBC Hgb Hct MCV MCH MCHC RDW Plt Count MPV Immature Gran % (Auto) Neut % (Auto) Lymph % (Auto) [place] % (Auto) Eos % (Auto) Baso % (Auto) Lymph # (Auto) [place] # (Auto) Eos # (Auto) Baso # (Auto) Abs Immat Gran (auto) Absolute Neuts (auto) Absolute Nucleated RBC Nucleated RBC % (auto) Neutrophils % (Manual) Band Neutrophils % Lymphocytes % (Manual) Monocytes % (Manual) Metamyelocytes % Myelocytes % Abs Neuts (Manual) Lymphocytes # (Manual) Monocytes # (Manual) Metamyelocytes # Myelocytes # Toxic Granulation Toxic Vacuolation Dohle Bodies Platelet Estimate Large Platelets Plt Morphology Comment RBC Morphology Microcytosis Ovalocytes [place] Cells Acanthocytes (Spur) Schistocytes PT INR APTT VBG pH 7.36 VBG pCO2 32 VBG pO2 73 VBG HCO3 18 L VBG O2 Saturation 91.0 VBG Base Excess -5.8 Sodium 129 L Potassium 4.9 Chloride 94 L Carbon Dioxide 19 L Anion Gap 21 H BUN 66 H Creatinine 2.39 H Estim Creat Clear Calc 33.9 Estimated GFR 21 Random Glucose 125 H Osmolality Lactic Acid Lactic Acid F/U @ 2Hr 2.0 Calcium 7.6 L D Phosphorus Magnesium Total Bilirubin AST ALT Alkaline Phosphatase Troponin I High Sens B-Natriuretic Peptide Total Protein Albumin Urine Color Urine Appearance Urine pH Ur Specific [place] Urine Protein Urine Glucose (UA) Urine Ketones Urine Blood Urine Nitrite Ur Leukocyte Esterase Urine RBC Urine WBC Ur Squamous Epith Cells Urine Bacteria Hyaline Casts Urine Osmolality Ur Random Sodium Urine Creatinine Urine Opiates Screen Urine Fentanyl Screen Ur Barbiturates Screen Ur Phencyclidine Scrn Ur Amphetamines Screen U Benzodiazepines Scrn Urine Cocaine Screen U Marijuana (THC) Screen COVID-19 ([facility]) COVID-19 Clin Com 06/23/22 06/23/22 06/23/22 21:53 22:02 22:50 WBC RBC Hgb Hct MCV MCH MCHC RDW Plt Count MPV Immature Gran % (Auto) Neut % (Auto) Lymph % (Auto) [place] % (Auto) Eos % (Auto) Baso % (Auto) Lymph # (Auto) [place] # (Auto) Eos # (Auto) Baso # (Auto) Abs Immat Gran (auto) Absolute Neuts (auto) Absolute Nucleated RBC Nucleated RBC % (auto) Neutrophils % (Manual) Band Neutrophils % Lymphocytes % (Manual) Monocytes % (Manual) Metamyelocytes % Myelocytes % Abs Neuts (Manual) Lymphocytes # (Manual) Monocytes # (Manual) Metamyelocytes # Myelocytes # Toxic Granulation Toxic Vacuolation Dohle Bodies Platelet Estimate Large Platelets Plt Morphology Comment RBC Morphology Microcytosis Ovalocytes [place] Cells Acanthocytes (Spur) Schistocytes PT INR APTT VBG pH 7.37 VBG pCO2 31 VBG pO2 65 VBG HCO3 18 L VBG O2 Saturation 88.0 VBG Base Excess -5.6 Sodium Potassium Chloride Carbon Dioxide Anion Gap BUN Creatinine Estim Creat Clear Calc Estimated GFR Random Glucose Osmolality 282 Lactic Acid Lactic Acid F/U @ 2Hr Calcium Phosphorus Magnesium Total Bilirubin AST ALT Alkaline Phosphatase Troponin I High Sens B-Natriuretic Peptide Total Protein Albumin Urine Color Urine Appearance Urine pH Ur Specific [place] Urine Protein Urine Glucose (UA) Urine Ketones Urine Blood Urine Nitrite Ur Leukocyte Esterase Urine RBC Urine WBC Ur Squamous Epith Cells Urine Bacteria Hyaline Casts Urine Osmolality Ur Random Sodium < 20.0 Urine Creatinine 61.08 Urine Opiates Screen Urine Fentanyl Screen Ur Barbiturates Screen Ur Phencyclidine Scrn Ur Amphetamines Screen U Benzodiazepines Scrn Urine Cocaine Screen U Marijuana (THC) Screen COVID-19 ([facility]) COVID-19 Clin Com 06/23/22 06/23/22 06/23/22 22:50 22:50 22:50 WBC RBC Hgb Hct MCV MCH MCHC RDW Plt Count MPV Immature Gran % (Auto) Neut % (Auto) Lymph % (Auto) [place] % (Auto) Eos % (Auto) Baso % (Auto) Lymph # (Auto) [place] # (Auto) Eos # (Auto) Baso # (Auto) Abs Immat Gran (auto) Absolute Neuts (auto) Absolute Nucleated RBC Nucleated RBC % (auto) Neutrophils % (Manual) Band Neutrophils % Lymphocytes % (Manual) Monocytes % (Manual) Metamyelocytes % Myelocytes % Abs Neuts (Manual) Lymphocytes # (Manual) Monocytes # (Manual) Metamyelocytes # Myelocytes # Toxic Granulation Toxic Vacuolation Dohle Bodies Platelet Estimate Large Platelets Plt Morphology Comment RBC Morphology Microcytosis Ovalocytes [place] Cells Acanthocytes (Spur) Schistocytes PT INR APTT VBG pH VBG pCO2 VBG pO2 VBG HCO3 VBG O2 Saturation VBG Base Excess Sodium Potassium Chloride Carbon Dioxide Anion Gap BUN Creatinine Estim Creat Clear Calc Estimated GFR Random Glucose Osmolality Lactic Acid Lactic Acid F/U @ 2Hr Calcium Phosphorus Magnesium Total Bilirubin AST ALT Alkaline Phosphatase Troponin I High Sens B-Natriuretic Peptide Total Protein Albumin Urine Color Dark Yellow Urine Appearance Cloudy Urine pH 5.0 Ur Specific [place] 1.015 Urine Protein 30 (1+) H Urine Glucose (UA) Negative Urine Ketones Negative Urine Blood Small (1+) H Urine Nitrite Negative Ur Leukocyte Esterase Trace H Urine RBC 3-5 H Urine WBC 0-5 Ur Squamous Epith Cells >20 Urine Bacteria None Seen Hyaline Casts 3-5 Urine Osmolality 329 L Ur Random Sodium Urine Creatinine Urine Opiates Screen POSITIVE H Urine Fentanyl Screen POSITIVE H Ur Barbiturates Screen Not Detected Ur Phencyclidine Scrn Not Detected Ur Amphetamines Screen Not Detected U Benzodiazepines Scrn Not Detected Urine Cocaine Screen POSITIVE H U Marijuana (THC) Screen Not Detected COVID-19 ([facility]) COVID-19 Clin Com 06/24/22 06/24/22 06/24/22 00:45 02:02 04:50 WBC RBC Hgb Hct MCV MCH MCHC RDW Plt Count MPV Immature Gran % (Auto) Neut % (Auto) Lymph % (Auto) [place] % (Auto) Eos % (Auto) Baso % (Auto) Lymph # (Auto) [place] # (Auto) Eos # (Auto) Baso # (Auto) Abs Immat Gran (auto) Absolute Neuts (auto) Absolute Nucleated RBC Nucleated RBC % (auto) Neutrophils % (Manual) Band Neutrophils % Lymphocytes % (Manual) Monocytes % (Manual) Metamyelocytes % Myelocytes % Abs Neuts (Manual) Lymphocytes # (Manual) Monocytes # (Manual) Metamyelocytes # Myelocytes # Toxic Granulation Toxic Vacuolation Dohle Bodies Platelet Estimate Large Platelets Plt Morphology Comment RBC Morphology Microcytosis Ovalocytes [place] Cells Acanthocytes (Spur) Schistocytes PT INR APTT VBG pH VBG pCO2 VBG pO2 VBG HCO3 VBG O2 Saturation VBG Base Excess Sodium 134 L Potassium 4.7 Chloride 102 Carbon Dioxide 18 L Anion Gap 19 BUN 58 H Creatinine 2.18 H Estim Creat Clear Calc 37.2 Estimated GFR 24 Random Glucose 99 Osmolality Lactic Acid 1.8 1.6 Lactic Acid F/U @ 2Hr Calcium 7.2 L Phosphorus 5.5 H Magnesium 2.6 Total Bilirubin 0.7 AST 36 H ALT 34 H Alkaline Phosphatase 125 H Troponin I High Sens B-Natriuretic Peptide Total Protein 4.3 L Albumin 2.3 L Urine Color Urine Appearance Urine pH Ur Specific [place] Urine Protein Urine Glucose (UA) Urine Ketones Urine Blood Urine Nitrite Ur Leukocyte Esterase Urine RBC Urine WBC Ur Squamous Epith Cells Urine Bacteria Hyaline Casts Urine Osmolality Ur Random Sodium Urine Creatinine Urine Opiates Screen Urine Fentanyl Screen Ur Barbiturates Screen Ur Phencyclidine Scrn Ur Amphetamines Screen U Benzodiazepines Scrn Urine Cocaine Screen U Marijuana (THC) Screen COVID-19 ([facility]) COVID-19 Clin Com 06/24/22 06/24/22 06/24/22 05:20 05:25 09:39 WBC 7.8 RBC 3.57 L D Hgb 9.6 L D Hct 28.3 L D MCV 79.3 L MCH 26.9 L MCHC 33.9 RDW 14.4 Plt Count 176 D MPV 10.4 Immature Gran % (Auto) Cancelled Neut % (Auto) Cancelled Lymph % (Auto) Cancelled [place] % (Auto) Cancelled Eos % (Auto) Cancelled Baso % (Auto) Cancelled Lymph # (Auto) Cancelled [place] # (Auto) Cancelled Eos # (Auto) Cancelled Baso # (Auto) Cancelled Abs Immat Gran (auto) Cancelled Absolute Neuts (auto) Cancelled Absolute Nucleated RBC 0.000 Nucleated RBC % (auto) 0.0 Neutrophils % (Manual) 62 Band Neutrophils % 35 H Lymphocytes % (Manual) 3 L Monocytes % (Manual) Metamyelocytes % Myelocytes % Abs Neuts (Manual) 7.6 Lymphocytes # (Manual) 0.2 L Monocytes # (Manual) Metamyelocytes # Myelocytes # Toxic Granulation PRESENT Toxic Vacuolation Dohle Bodies PRESENT Platelet Estimate NORMAL Large Platelets PRESENT Plt Morphology Comment NOTED RBC Morphology NOTED Microcytosis 2+ (15-30) Ovalocytes 1+ (5-14) Jessica Cells Acanthocytes (Spur) 3+ (>5) Schistocytes PT INR APTT VBG pH 7.39 VBG pCO2 29 VBG pO2 98 VBG HCO3 18 L VBG O2 Saturation 98.0 VBG Base Excess -5.5 Sodium Potassium Chloride Carbon Dioxide Anion Gap BUN Creatinine Estim Creat Clear Calc Estimated GFR Random Glucose Osmolality Lactic Acid Lactic Acid F/U @ 2Hr Calcium Phosphorus Magnesium Total Bilirubin AST ALT Alkaline Phosphatase Troponin I High Sens B-Natriuretic Peptide Total Protein Albumin Urine Color Urine Appearance Urine pH Ur Specific [place] Urine Protein Urine Glucose (UA) Urine Ketones Urine Blood Urine Nitrite Ur Leukocyte Esterase Urine RBC Urine WBC Ur Squamous Epith Cells Urine Bacteria Hyaline Casts Urine Osmolality Ur Random Sodium Urine Creatinine Urine Opiates Screen Urine Fentanyl Screen Ur Barbiturates Screen Ur Phencyclidine Scrn Ur Amphetamines Screen U Benzodiazepines Scrn Urine Cocaine Screen U Marijuana (THC) Screen COVID-19 ([facility]) Negative COVID-19 Clin Com See Note Airway Mallampati Class: III TM Dist: >3cm Neck ROM: Full Assessment and Plan Assessment Anesthesia Assessment: Anesthesia Plan Discussed and Chart Reviewed Final Anesthetic Review Family History of Problems with Anesthesia: No History of Problems with Anesthesia: No NPO: Yes ASA Class: IV and Emergency Final Preanesthetic Review: No Changes in Pt Med Stat, Meds/Allgs Chart Reviewed, Consent Obtained/Reviewed and Anes Risks/Benef Reviewed Patient Risk: Intermediate Procedure Risk: Intermediate Anesthetic Plan Anesthetic Plan: GA Disposition: Standard PACU
--- NOTE | 2022-06-24 11:43 | P.OP_ITS ---
Operative Note Operative Note Date of Service: 06/24/22 Narrative: Preop diagnosis: Necrotizing soft tissue infection, left chest and axilla Postop diagnosis: The same Procedure: Excision all debridement, left chest and axilla and upper arm for necrotizing soft tissue infection Surgeon: Shahzad Kincaid MD automotive service assistant: YOJANA White The patient is a 52-year-old female admitted overnight because sepsis . She apparently had worsened clinically this morning. Examination showed white induration, redness and small draining areas axilla. Her CAT scan did show air within the subcutaneous tissue last chest and axilla. I therefore scheduled her for excisional debridement in the OR for likely necrotizing soft tissue infection. Had discussed this with her mother Blanca who had given verbal consent. She understood the technique of the planned procedure, as well as the risks, benefits and alternatives. The patient was in the ICU and brought to the operating room. She was placed under general anesthesia via endotracheal tube. The left chest, axilla and upper arm were prepped and draped in the usual sterile fashion. The patient was receiving healed IV antibiotics from the ICU. There was note of appeared to be a patch of necrotic skin near the axilla to wards the breast. Another similar area was seen in the upper arm just distal to the axilla as well. I therefore started to open my incision on this necrotic skin on the left chest near the all of the breast. I opened this with a blade 10. He did leak, thick amounts of pus and murky fluid was drained. I therefore opened up this area and extended my incision going to the medial aspect of the breast using electrocautery. We therefore entered this area of necrotic subcutaneous fat. To continue to extend the incision while we gently and sharply debrided this area using curved Mercado scissors to remove all these nonviable tissue. This extended inferiorly under the breast enter the axilla. We therefore extended this incision to the axilla all the way to the upper arm. This included the patchy area of skin necrotic skin as well. We continued to do wide excision debridement of nonviable tissue on the axilla as well as the left upper arm. We removed as much of the nonviable subcutaneous tissue using the Mercado scissors. we examined the underlying muscle and there were patches of necrotizing tissue as well on the superficial aspects of the pectoralis which we debrided sharp ly. we continued this aggressive wide excision of the all nonviable looking tissue. We then used the pulse psychiatric social worker to clean all the versus of the debrided area. We therefore had an open wound extending from the upper part of the breast, chest wall all the way to the axilla and the upper arm. This would be more than 20 cm by 20 cm in total surface area. I applied Betadine soaked Kerlix roll as a packing to all the surfaces. Dry dressings were then placed. The procedure was completed. Cultures of the abscess were submitted as well. Some of the necrotic tissue were sent to pathology as a specimen. She tolerated procedure well per. There were no immediate complications. Estimated blood loss was about 75 cc The patient was then transferred back to the intensive care unit on the ventilator.
[2022-06-24] MEDS: propofoL 1,000 MG/100 ML VIAL 20.41 MG IVCONT ×2 (12:00→16:17)
[2022-06-24] MEDS: fentaNYL citrate/NS 1,000 MCG/100 ML PLAST..BAG 2.5 MCG IVCONT (12:00)
--- NOTE | 2022-06-24 12:32 | P.PNCC_ITS ---
Subjective Subjective Date of Service: 06/24/22 Interval History: 52-year-old lady with underlying history of substance abuse admitted on 06/24/2022 with lethargy. On ER evaluation patient noted to have left upper chest/left upper arm soft tissue infection with gas in the tissue on CT scan. Patient started on broad-spectrum antibiotics and admitted to intensive care unit. General surgery consulted and patient underwent debridement of her chest an upper arm fasciitis in operating room with plan to return to plating room for possible wound VAC placement tomorrow a.m.. Critical Care Time (minutes): 60 Physical Exam Vital Signs: Vital Signs: Last Vital Signs Temp 102.4 F H 06/24/22 00:07 Pulse 115 H 06/24/22 12:00 Resp 20 06/24/22 12:00 BP 126/63 06/24/22 12:00 Pulse Ox 94 06/24/22 12:00 O2 Del Method 06/24/22 12:00 O2 Flow Rate 3 06/24/22 10:00 FiO2 50 06/24/22 12:12 BMI result Body Mass Index 42.9 Const: General: no acute distress, poor hygiene and other ( Sedated on the vent) Nutritional Appearance: obese Eyes: Sclerae: sclerae normal EOM: EOMs intact bilaterally Neck: Neck: Yes no lymphadenopathy, Yes trachea midline and Yes supple Chest: Other: predominantly left upper chest and left upper arm cellulitic somewhat edematous rash crossing the midline over to the right-side, now with surgical dressing and packing of the incision site Resp: Effort & Inspection: normal respiratory effort and no respiratory distress Auscultation: clear to auscultation bilaterally Cardio: Rate: regular rate Rhythm: regular rhythm Heart sounds: no gallops, no murmurs and no rubs GI: Palpation (GI): Soft to palpation and Other GI palpation findings present ( Nontender) Auscultation: normal bowel sounds Extrem: General: No clubbing, No cyanosis and Yes edema ( trace bilateral) Objective Data Labs CBC & Chem 7: 06/24/22 05:20 06/24/22 04:50 Labs: Laboratory Results - last 24 hr 06/23/22 06/23/22 06/23/22 18:44 18:44 18:44 WBC 13.6 H RBC 4.88 Hgb 13.1 Hct 38.6 MCV 79.1 L MCH 26.8 L MCHC 33.9 RDW 14.5 Plt Count 244 MPV 10.0 Immature Gran % (Auto) Cancelled Neut % (Auto) Cancelled Lymph % (Auto) Cancelled [place] % (Auto) Cancelled Eos % (Auto) Cancelled Baso % (Auto) Cancelled Lymph # (Auto) Cancelled [place] # (Auto) Cancelled Eos # (Auto) Cancelled Baso # (Auto) Cancelled Abs Immat Gran (auto) Cancelled Absolute Neuts (auto) Cancelled Absolute Nucleated RBC 0.000 Nucleated RBC % (auto) 0.0 Neutrophils % (Manual) 80 H Band Neutrophils % 8 H Lymphocytes % (Manual) 3 L Monocytes % (Manual) 3 Metamyelocytes % 4 Myelocytes % 2 Abs Neuts (Manual) 12.0 H Lymphocytes # (Manual) 0.4 L Monocytes # (Manual) 0.4 Metamyelocytes # 0.5 Myelocytes # 0.3 Toxic Granulation Toxic Vacuolation PRESENT Dohle Bodies PRESENT Platelet Estimate NORMAL Large Platelets Plt Morphology Comment NORMAL RBC Morphology NOTED Microcytosis Ovalocytes Jessica Cells 1+ (0-2) Acanthocytes (Spur) Schistocytes 1+ (0-2) PT 16.8 H INR 1.4 H APTT 25.6 L VBG pH VBG pCO2 VBG pO2 VBG HCO3 VBG O2 Saturation VBG Base Excess Sodium Potassium Chloride Carbon Dioxide Anion Gap BUN Creatinine Estim Creat Clear Calc Estimated GFR Random Glucose Osmolality Lactic Acid Lactic Acid F/U @ 2Hr Calcium Phosphorus Magnesium Total Bilirubin AST ALT Alkaline Phosphatase Troponin I High Sens B-Natriuretic Peptide 138 H Total Protein Albumin Urine Color Urine Appearance Urine pH Ur Specific [place] Urine Protein Urine Glucose (UA) Urine Ketones Urine Blood Urine Nitrite Ur Leukocyte Esterase Urine RBC Urine WBC Ur Squamous Epith Cells Urine Bacteria Hyaline Casts Urine Osmolality Ur Random Sodium Urine Creatinine Urine Opiates Screen Urine Fentanyl Screen Ur Barbiturates Screen Ur Phencyclidine Scrn Ur Amphetamines Screen U Benzodiazepines Scrn Urine Cocaine Screen U Marijuana (THC) Screen COVID-19 ([facility]) COVID-19 Clin Com 06/23/22 06/23/22 06/23/22 18:44 18:44 18:44 WBC RBC Hgb Hct MCV MCH MCHC RDW Plt Count MPV Immature Gran % (Auto) Neut % (Auto) Lymph % (Auto) [place] % (Auto) Eos % (Auto) Baso % (Auto) Lymph # (Auto) [place] # (Auto) Eos # (Auto) Baso # (Auto) Abs Immat Gran (auto) Absolute Neuts (auto) Absolute Nucleated RBC Nucleated RBC % (auto) Neutrophils % (Manual) Band Neutrophils % Lymphocytes % (Manual) Monocytes % (Manual) Metamyelocytes % Myelocytes % Abs Neuts (Manual) Lymphocytes # (Manual) Monocytes # (Manual) Metamyelocytes # Myelocytes # Toxic Granulation Toxic Vacuolation Dohle Bodies Platelet Estimate Large Platelets Plt Morphology Comment RBC Morphology Microcytosis Ovalocytes Jessica Cells Acanthocytes (Spur) Schistocytes PT INR APTT VBG pH VBG pCO2 VBG pO2 VBG HCO3 VBG O2 Saturation VBG Base Excess Sodium 124 L Potassium 6.0 H* Chloride 88 L Carbon Dioxide 21 L Anion Gap 21 H BUN 65 H Creatinine 2.56 H Estim Creat Clear Calc 31.7 Estimated GFR 20 Random Glucose 107 Osmolality Lactic Acid 2.2 H* Lactic Acid F/U @ 2Hr Calcium 8.1 L Phosphorus Magnesium Total Bilirubin 0.9 AST 50 H ALT 54 H Alkaline Phosphatase 175 H Troponin I High Sens < 3.5 B-Natriuretic Peptide Total Protein 5.9 L Albumin 2.7 L Urine Color Urine Appearance Urine pH Ur Specific [place] Urine Protein Urine Glucose (UA) Urine Ketones Urine Blood Urine Nitrite Ur Leukocyte Esterase Urine RBC Urine WBC Ur Squamous Epith Cells Urine Bacteria Hyaline Casts Urine Osmolality Ur Random Sodium Urine Creatinine Urine Opiates Screen Urine Fentanyl Screen Ur Barbiturates Screen Ur Phencyclidine Scrn Ur Amphetamines Screen U Benzodiazepines Scrn Urine Cocaine Screen U Marijuana (THC) Screen COVID-19 ([facility]) COVID-19 Clin Com 06/23/22 06/23/22 06/23/22 21:12 21:53 21:53 WBC RBC Hgb Hct MCV MCH MCHC RDW Plt Count MPV Immature Gran % (Auto) Neut % (Auto) Lymph % (Auto) [place] % (Auto) Eos % (Auto) Baso % (Auto) Lymph # (Auto) [place] # (Auto) Eos # (Auto) Baso # (Auto) Abs Immat Gran (auto) Absolute Neuts (auto) Absolute Nucleated RBC Nucleated RBC % (auto) Neutrophils % (Manual) Band Neutrophils % Lymphocytes % (Manual) Monocytes % (Manual) Metamyelocytes % Myelocytes % Abs Neuts (Manual) Lymphocytes # (Manual) Monocytes # (Manual) Metamyelocytes # Myelocytes # Toxic Granulation Toxic Vacuolation Dohle Bodies Platelet Estimate Large Platelets Plt Morphology Comment RBC Morphology Microcytosis Ovalocytes Jessica Cells Acanthocytes (Spur) Schistocytes PT INR APTT VBG pH 7.36 VBG pCO2 32 VBG pO2 73 VBG HCO3 18 L VBG O2 Saturation 91.0 VBG Base Excess -5.8 Sodium 129 L Potassium 4.9 Chloride 94 L Carbon Dioxide 19 L Anion Gap 21 H BUN 66 H Creatinine 2.39 H Estim Creat Clear Calc 33.9 Estimated GFR 21 Random Glucose 125 H Osmolality Lactic Acid Lactic Acid F/U @ 2Hr 2.0 Calcium 7.6 L D Phosphorus Magnesium Total Bilirubin AST ALT Alkaline Phosphatase Troponin I High Sens B-Natriuretic Peptide Total Protein Albumin Urine Color Urine Appearance Urine pH Ur Specific [place] Urine Protein Urine Glucose (UA) Urine Ketones Urine Blood Urine Nitrite Ur Leukocyte Esterase Urine RBC Urine WBC Ur Squamous Epith Cells Urine Bacteria Hyaline Casts Urine Osmolality Ur Random Sodium Urine Creatinine Urine Opiates Screen Urine Fentanyl Screen Ur Barbiturates Screen Ur Phencyclidine Scrn Ur Amphetamines Screen U Benzodiazepines Scrn Urine Cocaine Screen U Marijuana (THC) Screen COVID-19 ([facility]) COVID-19 Clin Com 06/23/22 06/23/22 06/23/22 21:53 22:02 22:50 WBC RBC Hgb Hct MCV MCH MCHC RDW Plt Count MPV Immature Gran % (Auto) Neut % (Auto) Lymph % (Auto) [place] % (Auto) Eos % (Auto) Baso % (Auto) Lymph # (Auto) [place] # (Auto) Eos # (Auto) Baso # (Auto) Abs Immat Gran (auto) Absolute Neuts (auto) Absolute Nucleated RBC Nucleated RBC % (auto) Neutrophils % (Manual) Band Neutrophils % Lymphocytes % (Manual) Monocytes % (Manual) Metamyelocytes % Myelocytes % Abs Neuts (Manual) Lymphocytes # (Manual) Monocytes # (Manual) Metamyelocytes # Myelocytes # Toxic Granulation Toxic Vacuolation Dohle Bodies Platelet Estimate Large Platelets Plt Morphology Comment RBC Morphology Microcytosis Ovalocytes Jessica Cells Acanthocytes (Spur) Schistocytes PT INR APTT VBG pH 7.37 VBG pCO2 31 VBG pO2 65 VBG HCO3 18 L VBG O2 Saturation 88.0 VBG Base Excess -5.6 Sodium Potassium Chloride Carbon Dioxide Anion Gap BUN Creatinine Estim Creat Clear Calc Estimated GFR Random Glucose Osmolality 282 Lactic Acid Lactic Acid F/U @ 2Hr Calcium Phosphorus Magnesium Total Bilirubin AST ALT Alkaline Phosphatase Troponin I High Sens B-Natriuretic Peptide Total Protein Albumin Urine Color Urine Appearance Urine pH Ur Specific [place] Urine Protein Urine Glucose (UA) Urine Ketones Urine Blood Urine Nitrite Ur Leukocyte Esterase Urine RBC Urine WBC Ur Squamous Epith Cells Urine Bacteria Hyaline Casts Urine Osmolality Ur Random Sodium < 20.0 Urine Creatinine 61.08 Urine Opiates Screen Urine Fentanyl Screen Ur Barbiturates Screen Ur Phencyclidine Scrn Ur Amphetamines Screen U Benzodiazepines Scrn Urine Cocaine Screen U Marijuana (THC) Screen COVID-19 ([facility]) COVID-19 Clin Com 06/23/22 06/23/22 06/23/22 22:50 22:50 22:50 WBC RBC Hgb Hct MCV MCH MCHC RDW Plt Count MPV Immature Gran % (Auto) Neut % (Auto) Lymph % (Auto) [place] % (Auto) Eos % (Auto) Baso % (Auto) Lymph # (Auto) [place] # (Auto) Eos # (Auto) Baso # (Auto) Abs Immat Gran (auto) Absolute Neuts (auto) Absolute Nucleated RBC Nucleated RBC % (auto) Neutrophils % (Manual) Band Neutrophils % Lymphocytes % (Manual) Monocytes % (Manual) Metamyelocytes % Myelocytes % Abs Neuts (Manual) Lymphocytes # (Manual) Monocytes # (Manual) Metamyelocytes # Myelocytes # Toxic Granulation Toxic Vacuolation Dohle Bodies Platelet Estimate Large Platelets Plt Morphology Comment RBC Morphology Microcytosis Ovalocytes Jessica Cells Acanthocytes (Spur) Schistocytes PT INR APTT VBG pH VBG pCO2 VBG pO2 VBG HCO3 VBG O2 Saturation VBG Base Excess Sodium Potassium Chloride Carbon Dioxide Anion Gap BUN Creatinine Estim Creat Clear Calc Estimated GFR Random Glucose Osmolality Lactic Acid Lactic Acid F/U @ 2Hr Calcium Phosphorus Magnesium Total Bilirubin AST ALT Alkaline Phosphatase Troponin I High Sens B-Natriuretic Peptide Total Protein Albumin Urine Color Dark Yellow Urine Appearance Cloudy Urine pH 5.0 Ur Specific [place] 1.015 Urine Protein 30 (1+) H Urine Glucose (UA) Negative Urine Ketones Negative Urine Blood Small (1+) H Urine Nitrite Negative Ur Leukocyte Esterase Trace H Urine RBC 3-5 H Urine WBC 0-5 Ur Squamous Epith Cells >20 Urine Bacteria None Seen Hyaline Casts 3-5 Urine Osmolality 329 L Ur Random Sodium Urine Creatinine Urine Opiates Screen POSITIVE H Urine Fentanyl Screen POSITIVE H Ur Barbiturates Screen Not Detected Ur Phencyclidine Scrn Not Detected Ur Amphetamines Screen Not Detected U Benzodiazepines Scrn Not Detected Urine Cocaine Screen POSITIVE H U Marijuana (THC) Screen Not Detected COVID-19 ([facility]) COVID-19 Clin Com 06/24/22 06/24/22 06/24/22 00:45 02:02 04:50 WBC RBC Hgb Hct MCV MCH MCHC RDW Plt Count MPV Immature Gran % (Auto) Neut % (Auto) Lymph % (Auto) [place] % (Auto) Eos % (Auto) Baso % (Auto) Lymph # (Auto) [place] # (Auto) Eos # (Auto) Baso # (Auto) Abs Immat Gran (auto) Absolute Neuts (auto) Absolute Nucleated RBC Nucleated RBC % (auto) Neutrophils % (Manual) Band Neutrophils % Lymphocytes % (Manual) Monocytes % (Manual) Metamyelocytes % Myelocytes % Abs Neuts (Manual) Lymphocytes # (Manual) Monocytes # (Manual) Metamyelocytes # Myelocytes # Toxic Granulation Toxic Vacuolation Dohle Bodies Platelet Estimate Large Platelets Plt Morphology Comment RBC Morphology Microcytosis Ovalocytes Jessica Cells Acanthocytes (Spur) Schistocytes PT INR APTT VBG pH VBG pCO2 VBG pO2 VBG HCO3 VBG O2 Saturation VBG Base Excess Sodium 134 L Potassium 4.7 Chloride 102 Carbon Dioxide 18 L Anion Gap 19 BUN 58 H Creatinine 2.18 H Estim Creat Clear Calc 37.2 Estimated GFR 24 Random Glucose 99 Osmolality Lactic Acid 1.8 1.6 Lactic Acid F/U @ 2Hr Calcium 7.2 L Phosphorus 5.5 H Magnesium 2.6 Total Bilirubin 0.7 AST 36 H ALT 34 H Alkaline Phosphatase 125 H Troponin I High Sens B-Natriuretic Peptide Total Protein 4.3 L Albumin 2.3 L Urine Color Urine Appearance Urine pH Ur Specific [place] Urine Protein Urine Glucose (UA) Urine Ketones Urine Blood Urine Nitrite Ur Leukocyte Esterase Urine RBC Urine WBC Ur Squamous Epith Cells Urine Bacteria Hyaline Casts Urine Osmolality Ur Random Sodium Urine Creatinine Urine Opiates Screen Urine Fentanyl Screen Ur Barbiturates Screen Ur Phencyclidine Scrn Ur Amphetamines Screen U Benzodiazepines Scrn Urine Cocaine Screen U Marijuana (THC) Screen COVID-19 ([facility]) COVID-19 Clin Com 06/24/22 06/24/22 06/24/22 05:20 05:25 09:39 WBC 7.8 RBC 3.57 L D Hgb 9.6 L D Hct 28.3 L D MCV 79.3 L MCH 26.9 L MCHC 33.9 RDW 14.4 Plt Count 176 D MPV 10.4 Immature Gran % (Auto) Cancelled Neut % (Auto) Cancelled Lymph % (Auto) Cancelled [place] % (Auto) Cancelled Eos % (Auto) Cancelled Baso % (Auto) Cancelled Lymph # (Auto) Cancelled [place] # (Auto) Cancelled Eos # (Auto) Cancelled Baso # (Auto) Cancelled Abs Immat Gran (auto) Cancelled Absolute Neuts (auto) Cancelled Absolute Nucleated RBC 0.000 Nucleated RBC % (auto) 0.0 Neutrophils % (Manual) 62 Band Neutrophils % 35 H Lymphocytes % (Manual) 3 L Monocytes % (Manual) Metamyelocytes % Myelocytes % Abs Neuts (Manual) 7.6 Lymphocytes # (Manual) 0.2 L Monocytes # (Manual) Metamyelocytes # Myelocytes # Toxic Granulation PRESENT Toxic Vacuolation Dohle Bodies PRESENT Platelet Estimate NORMAL Large Platelets PRESENT Plt Morphology Comment NOTED RBC Morphology NOTED Microcytosis 2+ (15-30) Ovalocytes 1+ (5-14) Jessica Cells Acanthocytes (Spur) 3+ (>5) Schistocytes PT INR APTT VBG pH 7.39 VBG pCO2 29 VBG pO2 98 VBG HCO3 18 L VBG O2 Saturation 98.0 VBG Base Excess -5.5 Sodium Potassium Chloride Carbon Dioxide Anion Gap BUN Creatinine Estim Creat Clear Calc Estimated GFR Random Glucose Osmolality Lactic Acid Lactic Acid F/U @ 2Hr Calcium Phosphorus Magnesium Total Bilirubin AST ALT Alkaline Phosphatase Troponin I High Sens B-Natriuretic Peptide Total Protein Albumin Urine Color Urine Appearance Urine pH Ur Specific [place] Urine Protein Urine Glucose (UA) Urine Ketones Urine Blood Urine Nitrite Ur Leukocyte Esterase Urine RBC Urine WBC Ur Squamous Epith Cells Urine Bacteria Hyaline Casts Urine Osmolality Ur Random Sodium Urine Creatinine Urine Opiates Screen Urine Fentanyl Screen Ur Barbiturates Screen Ur Phencyclidine Scrn Ur Amphetamines Screen U Benzodiazepines Scrn Urine Cocaine Screen U Marijuana (THC) Screen COVID-19 ([facility]) Negative COVID-19 Clin Com See Note Progress Note: A&P Assessment and plan (1) Infectious fasciitis: Status: Acute (2) Acute respiratory failure: Status: Acute (3) Pneumonia: Status: Acute (4) Acute kidney injury: Status: Acute Plan Assessment: 52-year-old lady admitted with septic encephalopathy secondary to fasciitis of left upper chest /left upper requiring surgical debridement Plan: Neuro: No acute issues. Cardiac: No acute issues. Pulmonary: intubated in OR and left intubated for the further procedure in the a.m.. continue ventilatory support. CT chest with pulmonary nodules, likely infectious. Renal: Acute renal failure, likely secondary to sepsis. Continue to monitor renal indices and urine output. Endo: No acute issues. GI: No acute issues. ID: Fasciitis, likely secondary to drug abuse. Status post surgical debridement. General surgery service care appreciated. Planned for possible further debridement and wound VAC placement in operating room in a.m.. Continues on broad-spectrum antibiotics. Cultures are pending. Heme/Onc: No acute issues. Psych: No acute issues. Miscellaneous: No acute issues. Prophylaxis: Heparin Diet: tube feeds Critical care time spent: 60 minutes excluding separately billable procedures Quality Stroke Does the patient have a stroke diagnosis?: No VTE Prior VTE?: No VTE Risk Level:: Medical - moderate - high VTE Device Contraindication: Treatment Not Indicated VTE Drug Contraindication: N/A - Med Ordered
[2022-06-24 13:16] LABS: Venous Blood Gas Refer to POC result
[2022-06-24 13:17] LABS: Hematocrit 29.1 % (37.0-47.0); Hemoglobin 9.7 g/dl (12.0-16.0); Mean Corpuscular HGB Conc 33.3 g/dl (31.0-35.0); Mean Corpuscular Hemoglobin 26.8 pg (27.0-33.0); Mean Corpuscular Volume 80.4 fL (80.0-98.0); Mean Platelet Volume 9.5 fL (9.4-12.3); Platelet Count 172 X10*3/uL (160-400); Red Blood Count 3.62 X10*6/uL (4.20-5.50); Red Cell Distribution Width 14.9 % (11.0-16.0)
[2022-06-24 13:18] LABS: VBG Base Excess -7.7 mmol/L; VBG HCO3 18 mmol/L (22-26); VBG pCO2 38 mmHg; VBG pH 7.28 (7.32-7.43); VBG pO2 93 mmHg
[2022-06-24 13:24] LABS: WBC ABN SCTR FOR CBC 1; White Blood Count 13.4 X10*3/uL (4.8-10.8)
[2022-06-24 13:38] LABS: Anion Gap 18 (12-20); Blood Urea Nitrogen 50 mg/dL (9-16); Calcium 7.2 mg/dL (8.4-10.2); Carbon Dioxide 20 mmol/L (22-29); Chloride 102 mmol/L (96-108); Creatinine Clr Calc Pharmacy 44.8; Estimated Glomerular Filt Rate 29; Glucose Random 122 mg/dL (60-115); Potassium 4.7 mmol/L (3.3-5.1); Sodium 135 mmol/L (135-145)
[2022-06-24] MEDS: Midazolam HCl/PF 2 MG/2 ML VIAL IVPUSH (13:46)
[2022-06-24] MEDS: fentaNYL citrate/NS 1,000 MCG/100 ML PLAST..BAG 5 MCG IVCONT (13:47)
[2022-06-24 13:56] LABS: Band Neutrophils Percent 41 % (3-5); Lymphocytes Absolute Manual 0.3 X10*3/uL (1.2-4.9); Lymphocytes Percent Manual 2 % (20-40); Metamyelocytes Absolute 0.1 X10*3/uL; Metamyelocytes Percent 1 %; Monocytes Absolute Manual 0.9 X10*3/uL (0.1-1.2); Monocytes Percent Manual 7 % (2-11); Neutrophils Absolute Manual 12.1 X10*3/uL (2.0-8.3); Neutrophils Percent Manual 49 % (45-73)
[2022-06-24 13:59] LABS: Microcytosis 2+ (15-30) /OIF; Platelet Estimate NORMAL (NORMAL); Platelet Morphology Comment NORMAL; RBC Morphology NOTED
[2022-06-24 14:00] LABS: Acanthocytes 2+ (3-5) /OIF; Burr Cells 3+ (>5) /OIF; Ovalocytes 1+ (5-14) /OIF; Schistocytes 1+ (0-2) /OIF; Toxic Granulation PRESENT; Toxic Vacuolation PRESENT
[2022-06-24] MEDS: propofoL 200 MG/20 ML VIAL 20 MG IVPUSH (14:01)
--- NOTE | 2022-06-24 14:47 | PM.EVENT ---
Event Note Date of Service: 06/24/22 Event Note: Patient underwent wide excisional debridement of the left chest and breast, left axilla and the left upper arm earlier for necrotizing soft tissue infection She has a large open wound on the area Dressings are dry Seems to have stable vital signs Remains on the ventilator The plan is to a wound dressing change tomorrow and hopefully be able to apply a wound VAC This may be done at bedside ICU as long as she still is intubated so we can provide adequate pain control I have updated the mother Blanca over the phone [phone]
--- NOTE | 2022-06-24 15:03 | W.PM.CCHP ---
Procedures Date of Service Date of Service: 06/24/22 Central Line Placement Right IJ: Central Line Comments: Right internal jugular triple-lumen central venous catheter placed for vasopressor support under ultrasound guidance and usual sterile conditions with no immediate complications. Line position verified on chest x-ray.
[2022-06-24] MEDS: Chlorhexidine Gluc Oral Rinse 15 ML MOUTHWASH BUCCAL ×2 (16:18→19:59)
[2022-06-24] MEDS: propofoL 1,000 MG/100 ML VIAL 27.22 MG IVCONT ×2 (19:59→23:28)
[2022-06-24] MEDS: vancomycin HCL 750 MG in 0.9 % Sodium Chloride 250 ML 265 MG IV (21:34)
[2022-06-25] VITALS (32 sets, daily range): BP systolic 99–132; BP diastolic 44–73; PULSE 65–95; RESP 19–40; TEMP 35–37.7; O2SAT 89–100; BMI 36.3
[2022-06-25] MEDS: Heparin Sodium,Porcine 5,000 UNIT/ML VIAL 5000 UNIT SUBCUT ×2 (01:15→16:13)
[2022-06-25] MEDS: propofoL 1,000 MG/100 ML VIAL 27.22 MG IVCONT ×6 (01:51→23:30)
[2022-06-25] MEDS: Piperacillin Sodium/Tazobactam 3.375 GM in 0.9 % Sodium Chloride 50 ML IV ×4 (01:53→20:23)
[2022-06-25] MEDS: Albumin Human 25 % 100 ML IV ×4 (02:00→23:50)
[2022-06-25 05:11] LABS: VBG Base Excess -4.3 mmol/L; VBG HCO3 19 mmol/L (22-26); VBG pCO2 31 mmHg; VBG pH 7.39 (7.32-7.43); VBG pO2 49 mmHg
[2022-06-25 05:23] LABS: Hematocrit 24.3 % (37.0-47.0); Hemoglobin 8.2 g/dl (12.0-16.0); Mean Corpuscular HGB Conc 33.7 g/dl (31.0-35.0); Mean Corpuscular Hemoglobin 27.3 pg (27.0-33.0); Mean Platelet Volume 9.4 fL (9.4-12.3); Platelet Count 217 X10*3/uL (160-400); Red Cell Distribution Width 14.9 % (11.0-16.0); WBC ABN SCTR FOR CBC 1
[2022-06-25 05:25] LABS: White Blood Count 19.3 X10*3/uL (4.8-10.8)
[2022-06-25] MEDS: fentaNYL citrate/NS 1,000 MCG/100 ML PLAST..BAG 10 MCG IVCONT (05:25)
[2022-06-25 05:45] LABS: Band Neutrophils Percent 11 % (3-5); Lymphocytes Absolute Manual 0.8 X10*3/uL (1.2-4.9); Lymphocytes Percent Manual 4 % (20-40); Monocytes Absolute Manual 0.2 X10*3/uL (0.1-1.2); Monocytes Percent Manual 1 % (2-11); Neutrophils Absolute Manual 18.3 X10*3/uL (2.0-8.3); Neutrophils Percent Manual 84 % (45-73)
[2022-06-25 05:46] LABS: Burr Cells 1+ (0-2) /OIF; Dohle Bodies PRESENT; Platelet Estimate NORMAL (NORMAL); Platelet Morphology Comment NORMAL; RBC Morphology NOTED; Target Cells 1+ (5-14) /OIF; Toxic Granulation PRESENT
[2022-06-25 05:47] LABS: Alanine Aminotransferase 23 U/L (0-31); Albumin Level 3.1 g/dL (3.5-5.0); Alkaline Phosphatase 103 U/L (39-117); Anion Gap 18 (12-20); Aspartate Amino Transferase 23 U/L (5-31); Bilirubin Total 0.9 mg/dL (0.0-1.0); Blood Urea Nitrogen 55 mg/dL (9-16); Calcium 7.9 mg/dL (8.4-10.2); Carbon Dioxide 20 mmol/L (22-29); Chloride 105 mmol/L (96-108); Creatinine Clr Calc Pharmacy 39.8; Estimated Glomerular Filt Rate 26; Glucose Random 127 mg/dL (60-115); Phosphorus 5.5 mg/dL (2.7-4.5); Potassium 4.2 mmol/L (3.3-5.1); Sodium 139 mmol/L (135-145)
--- NOTE | 2022-06-25 07:10 | HO.POSTANES ---
Post Anesthesia Evaluation Post Anesthesia Evaluation Vital Signs: Vital Signs Temp Pulse Resp BP Pulse Ox O2 Del Method FiO2 06/25/22 06:00 75 22 H 117/48 L 94 Mechanical Ventilation 24 06/25/22 04:45 24 06/25/22 05:00 74 22 H 110/50 L 94 Mechanical Ventilation 24 06/25/22 03:41 24 06/25/22 00:00 24 06/25/22 00:29 24 06/25/22 03:55 97.1 F 77 21 H 114/51 L 94 Mechanical Ventilation 60 06/25/22 02:59 77 22 H 110/48 L 94 Mechanical Ventilation 60 06/25/22 01:56 95 21 H 113/53 L 93 Mechanical Ventilation 60 06/25/22 01:00 77 22 H 107/50 L 93 Mechanical Ventilation 60 06/25/22 00:00 79 22 H 123/55 L 94 Mechanical Ventilation 60 06/24/22 23:00 97.3 F 79 23 H 127/58 L 94 Mechanical Ventilation 60 06/24/22 22:00 80 21 H 118/53 L 95 Mechanical Ventilation 60 06/24/22 21:00 78 22 H 115/50 L 94 Mechanical Ventilation 60 06/24/22 20:29 24 06/24/22 20:00 79 21 H 112/50 L 93 Mechanical Ventilation 60 06/24/22 20:00 24 Anesthesia: General Endotracheal-GETA Mental Status: Awake Pain Control: Satisfactory Nausea/Vomiting: None Hydration: Adequate Anesthesia-Related Issues: No Anes. Related Issues Comments: Patient still intubated
[2022-06-25] MEDS: Famotidine/PF 20 MG/2 ML VIAL IVPUSH (07:25)
[2022-06-25] MEDS: Chlorhexidine Gluc Oral Rinse 15 ML MOUTHWASH BUCCAL ×3 (07:25→20:23)
[2022-06-25] MEDS: 0.9 % Sodium Chloride Flush 3 ML SYRINGE IVFLUSH ×2 (08:10→16:14)
--- NOTE | 2022-06-25 10:20 | P.PNCC_ITS ---
Subjective Subjective Date of Service: 06/25/22 Interval History: 52-year-old lady with underlying history of substance abuse admitted on 06/24/2022 with lethargy. On ER evaluation patient noted to have left upper chest/left upper arm soft tissue infection with gas in the tissue on CT scan. Patient started on broad-spectrum antibiotics and admitted to intensive care unit. General surgery consulted and patient underwent debridement of her chest an upper arm fasciitis in operating room on 06/24/2022 and bedside placement of wound VAC on 06/25/2022. Patient blood cultures are growing Gram-positive cocci in clusters. No events overnight. This a.m. with patient biting through the cuff balloon requiring exchange of her ET tube over bougie. Critical Care Time (minutes): 60 Physical Exam Vital Signs: Vital Signs: Last Vital Signs Temp 98.7 F 06/25/22 09:00 Pulse 66 06/25/22 09:00 Resp 30 H 06/25/22 09:00 BP 119/55 L 06/25/22 09:00 Pulse Ox 92 06/25/22 09:00 O2 Del Method 06/25/22 09:00 O2 Flow Rate 3 06/24/22 10:00 FiO2 60 06/25/22 09:00 BMI result Body Mass Index 36.3 Const: General: no acute distress and other (Sedated on the vent) Nutritional Appearance: obese Eyes: Sclerae: sclerae normal EOM: EOMs intact bilaterally Neck: Neck: Yes no lymphadenopathy, Yes trachea midline and Yes supple Chest: Other: Left upper chest on left upper arm with surgical packing/dressing. Resp: Auscultation: crackles (Left-sided) Cardio: Rate: regular rate Rhythm: regular rhythm Heart sounds: no gallops, no murmurs and no rubs GI: Palpation (GI): Soft to palpation and Other GI palpation findings present ( Nontender) Auscultation: normal bowel sounds Extrem: General: Yes no pedal edema, No clubbing and No cyanosis Objective Data Labs CBC & Chem 7: 06/25/22 05:05 06/25/22 05:05 Labs: Laboratory Results - last 24 hr 06/24/22 06/24/22 06/24/22 13:10 13:10 13:12 WBC 13.4 H RBC 3.62 L Hgb 9.7 L Hct 29.1 L MCV 80.4 MCH 26.8 L MCHC 33.3 RDW 14.9 Plt Count 172 MPV 9.5 Immature Gran % (Auto) Cancelled Neut % (Auto) Cancelled Lymph % (Auto) Cancelled [place] % (Auto) Cancelled Eos % (Auto) Cancelled Baso % (Auto) Cancelled Lymph # (Auto) Cancelled [place] # (Auto) Cancelled Eos # (Auto) Cancelled Baso # (Auto) Cancelled Abs Immat Gran (auto) Cancelled Absolute Neuts (auto) Cancelled Absolute Nucleated RBC 0.000 Nucleated RBC % (auto) 0.0 Neutrophils % (Manual) 49 Band Neutrophils % 41 H Lymphocytes % (Manual) 2 L Monocytes % (Manual) 7 Metamyelocytes % 1 Abs Neuts (Manual) 12.1 H Lymphocytes # (Manual) 0.3 L Monocytes # (Manual) 0.9 Metamyelocytes # 0.1 Toxic Granulation PRESENT Toxic Vacuolation PRESENT Dohle Bodies Platelet Estimate NORMAL Plt Morphology Comment NORMAL RBC Morphology NOTED Microcytosis 2+ (15-30) Target Cells Ovalocytes 1+ (5-14) Jessica Cells 3+ (>5) Acanthocytes (Spur) 2+ (3-5) Schistocytes 1+ (0-2) VBG pH 7.28 L VBG pCO2 38 VBG pO2 93 VBG HCO3 18 L VBG O2 Saturation 97.0 VBG Base Excess -7.7 Sodium 135 Potassium 4.7 Chloride 102 Carbon Dioxide 20 L Anion Gap 18 BUN 50 H Creatinine 1.81 H Estim Creat Clear Calc 44.8 Estimated GFR 29 Random Glucose 122 H Calcium 7.2 L Phosphorus Magnesium Total Bilirubin AST ALT Alkaline Phosphatase Total Protein Albumin 06/25/22 06/25/22 06/25/22 05:05 05:05 05:05 WBC 19.3 H RBC 3.00 L Hgb 8.2 L Hct 24.3 L MCV 81.0 MCH 27.3 MCHC 33.7 RDW 14.9 Plt Count 217 D MPV 9.4 Immature Gran % (Auto) Cancelled Neut % (Auto) Cancelled Lymph % (Auto) Cancelled [place] % (Auto) Cancelled Eos % (Auto) Cancelled Baso % (Auto) Cancelled Lymph # (Auto) Cancelled [place] # (Auto) Cancelled Eos # (Auto) Cancelled Baso # (Auto) Cancelled Abs Immat Gran (auto) Cancelled Absolute Neuts (auto) Cancelled Absolute Nucleated RBC 0.000 Nucleated RBC % (auto) 0.0 Neutrophils % (Manual) 84 H Band Neutrophils % 11 H Lymphocytes % (Manual) 4 L Monocytes % (Manual) 1 L Metamyelocytes % Abs Neuts (Manual) 18.3 H Lymphocytes # (Manual) 0.8 L Monocytes # (Manual) 0.2 Metamyelocytes # Toxic Granulation PRESENT Toxic Vacuolation Dohle Bodies PRESENT Platelet Estimate NORMAL Plt Morphology Comment NORMAL RBC Morphology NOTED Microcytosis Target Cells 1+ (5-14) Ovalocytes [place] Cells 1+ (0-2) Acanthocytes (Spur) Schistocytes VBG pH 7.39 VBG pCO2 31 VBG pO2 49 VBG HCO3 19 L VBG O2 Saturation 76.0 VBG Base Excess -4.3 Sodium 139 Potassium 4.2 Chloride 105 Carbon Dioxide 20 L Anion Gap 18 BUN 55 H Creatinine 2.04 H Estim Creat Clear Calc 39.8 Estimated GFR 26 Random Glucose 127 H Calcium 7.9 L D Phosphorus 5.5 H Magnesium 3.0 H Total Bilirubin 0.9 AST 23 ALT 23 Alkaline Phosphatase 103 Total Protein 5.0 L Albumin 3.1 L Microbiology Microbiology Results: Microbiology 06/23/22 20:55 Blood - Venous Blood Culture - Preliminary Staphylococcus aureus 06/23/22 18:45 Blood - Venous Blood Culture - Preliminary Staphylococcus aureus 06/24/22 14:27 Sputum - Suctioned Gram Stain - Final 06/24/22 14:27 Sputum - Suctioned Sputum Culture - Preliminary Staphylococcus species 06/24/22 Unknown Axilla Left Gram Stain - Final Progress Note: A&P Assessment and plan (1) Acute respiratory failure: Status: Acute (2) Infectious fasciitis: Status: Acute (3) Gram-positive bacteremia: Status: Acute (4) Septic encephalopathy: Status: Acute (5) Acute kidney injury: Status: Acute Plan Assessment: 52-year-old lady admitted with septic encephalopathy secondary to fasciitis of left upper chest /left upper requiring surgical debridement Plan: Neuro: No acute issues. Cardiac: No acute issues. Pulmonary: intubated in OR; titrate off ventilatory support as tolerated. CT chest with pulmonary nodules, likely infectious - septic emboli with staphylococcal bacteremia. Renal: Acute renal failure, likely secondary to sepsis/staphylococcal bacteremia. Non oliguric. Continue to monitor renal indices and urine output. Endo: No acute issues. GI: No acute issues. ID: Fasciitis, likely secondary to drug abuse. Status post surgical debridement and wound VAC placement. General surgery service care appreciated. Continues on broad-spectrum antibiotics until cultures are finalized. Heme/Onc: No acute issues. Psych: No acute issues. Miscellaneous: No acute issues. Prophylaxis: Heparin, famotidine Diet: tube feeds Critical care time spent: 60 minutes Quality Stroke Does the patient have a stroke diagnosis?: No VTE Prior VTE?: No VTE Risk Level:: Medical - moderate - high VTE Device Contraindication: Treatment Not Indicated VTE Drug Contraindication: N/A - Med Ordered
--- NOTE | 2022-06-25 10:39 | MHC.CM.PN ---
Patient remains intubated/vented in ICU. Patient currently has a wound vac to chest wound. Patient is vaccinated and boosted x1 for Covid. No HCP on file or at PCP's office. Patient currently on multiple drips. 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 Unlikely patient will be able to return home when medically stable. Will be physical therapy eval for home safety when medically stable. Continue to monitor for d/c needs.
--- NOTE | 2022-06-25 10:39 | PM.PNGS ---
Subjective Subjective Date of Service: 06/25/22 <Maria White PA-C - Last Filed: 06/25/22 12:19> 06/25/22 <Shahzad Kincaid MD - Last Filed: 06/25/22 12:24> Interval history: Remains intubated, sedated and on pressors. <Maria White PA-C - Last Filed: 06/25/22 12:19> Physical Exam Vital Signs: Vital Signs: Last Vital Signs Temp 98.7 F 06/25/22 09:00 Pulse 66 06/25/22 09:00 Resp 30 H 06/25/22 09:00 BP 119/55 L 06/25/22 09:00 Pulse Ox 92 06/25/22 09:00 O2 Del Method 06/25/22 09:00 O2 Flow Rate 3 06/24/22 10:00 FiO2 60 06/25/22 09:00 BMI result Body Mass Index 36.3 <Maria White PA-C - Last Filed: 06/25/22 12:19> Const: General: no acute distress <Maria White PA-C - Last Filed: 06/25/22 12:19> Nutritional Appearance: obese <Maria White PA-C - Last Filed: 06/25/22 12:19> Chest: Other: left breast/axilla/upper arm with improving surrounding erythema and induration- dressing removed- wound is clean appearing with healthy subq fat tissue visible, without evidence of purulence or necrotic tissue <Maria White PA-C - Last Filed: 06/25/22 12:19> Cardio: Rate: regular rate <Maria White PA-C - Last Filed: 06/25/22 12:19> Extrem: Other: edema of left upper arm <Maria White PA-C - Last Filed: 06/25/22 12:19> Objective Data Active Medications Acetaminophen (Acetaminophen 325 Mg Tablet) 650 mg PO Q6H PRN PRN Reason: Pain, Mild (Pain Scale 1-3) Acetaminophen (Acetaminophen Supp 650 Mg Supp.Rect) 650 mg MO Q6H PRN PRN Reason: fever Last Admin: 06/24/22 00:04 Dose: 650 mg Documented By: SAMARA Chlorhexidine Gluconate (Chlorhexidine Gluc Oral Rinse 15 Ml Mouthwash) 15 ml BUCCAL TID [facility] Last Admin: 06/25/22 07:25 Dose: 15 ml Documented By: DAPHNEY Docusate Sodium (Docusate Sodium 100 Mg Capsule) 100 mg PO DAILY PRN PRN Reason: Constipation Famotidine (Famotidine/Pf 20 Mg/2 Ml Vial) 20 mg IVPUSH DAILY [facility] Last Admin: 06/25/22 07:25 Dose: 20 mg Documented By: DAPHNEY Heparin Sodium (Porcine) (Heparin Sodium,Porcine 5,000 Unit/Ml Vial) 5,000 unit SUBCUT Q8H [facility] Last Admin: 06/25/22 08:11 Dose: Not Given Documented By: DAPHNEY Non-Admin Reason: procedure Vancomycin HCl 750 mg/ Sodium (Chloride) 265 mls @ 265 mls/hr IV Q24H [facility] Last Infusion: 06/24/22 22:39 Dose: 0 mls/hr Documented By: IVETT Propofol (Diprivan) 1,000 mg in 100 mls @ 0 mls/hr IVCONT .Q0M TERRI; Protocol Last Admin: 06/25/22 09:07 Dose: 40 mcg/kg/min, 27.22 mls/hr Documented By: SARAH Fentanyl (Sublimaze/Ns) 1,000 mcg in 100 mls @ 0 mls/hr IVCONT .Q0M TERRI; Protocol Last Admin: 06/25/22 05:25 Dose: 100 mcg/hr, 10 mls/hr Documented By: SILVIA Norepinephrine Bitartrate (Levophed) 8 mg in 250 mls @ 0 mls/hr IVCONT .Q0M TERRI; Protocol Last Admin: 06/24/22 23:35 Dose: 0.09 mcg/kg/min, 19.14 mls/hr Documented By: SILVIA Piperacillin Sod/Tazobactam (Sod 3.375 gm/ Sodium Chloride) 50 mls @ 100 mls/hr IV Q6H [facility] Last Infusion: 06/25/22 08:12 Dose: 0 mls/hr Documented By: DAPHNEY Albumin Human (Kedbumin 25 %) 100 mls @ 100 mls/hr IV Q6H [facility] Stop: 06/26/22 03:14 Last Infusion: 06/25/22 09:15 Dose: 0 mls/hr Documented By: SARAH Naloxone HCl (Naloxone Hcl 0.4 Mg/Ml Vial) 0.2 mg IVPUSH Q2M PRN PRN Reason: Excessive sedation or RR < 8 Ondansetron HCl (Ondansetron Hcl 4 Mg/2 Ml Vial) 4 mg IVPUSH Q8H PRN PRN Reason: Nausea and Vomiting Pharmacy Consult (Consult Rx Perform Med Rec) 1 each MISCELLANE ONCE PRN PRN Reason: Consult order Pharmacy Consult (Consult Rx Vancomycin Dosing) 1 each MISCELLANE DAILY PRN PRN Reason: Consult order Pharmacy Consult (Consult Rx Vancomycin Dosing) 1 each MISCELLANE DAILY PRN PRN Reason: Consult order Sodium Chloride (0.9 % Sodium Chloride Flush 3 Ml Syringe) 3 ml IVFLUSH QSHIFT [facility] Last Admin: 06/25/22 08:10 Dose: 3 ml Documented By: DAPHNEY <Maria White PA-C - Last Filed: 06/25/22 12:19> Labs CBC & Chem 7: : 06/25/22 05:05 06/25/22 05:05 <Maria White PA-C - Last Filed: 06/25/22 12:19> Labs: Laboratory Results - last 24 hr 06/24/22 06/24/22 06/24/22 13:10 13:10 13:12 MCV 80.4 MCH 26.8 L MCHC 33.3 RDW 14.9 Plt Count 172 MPV 9.5 Immature Gran % (Auto) Cancelled Neut % (Auto) Cancelled Lymph % (Auto) Cancelled [place] % (Auto) Cancelled Eos % (Auto) Cancelled Baso % (Auto) Cancelled Lymph # (Auto) Cancelled [place] # (Auto) Cancelled Eos # (Auto) Cancelled Baso # (Auto) Cancelled Abs Immat Gran (auto) Cancelled Absolute Neuts (auto) Cancelled Absolute Nucleated RBC 0.000 Nucleated RBC % (auto) 0.0 Neutrophils % (Manual) 49 Band Neutrophils % 41 H Lymphocytes % (Manual) 2 L Monocytes % (Manual) 7 Metamyelocytes % 1 Abs Neuts (Manual) 12.1 H Lymphocytes # (Manual) 0.3 L Monocytes # (Manual) 0.9 Metamyelocytes # 0.1 Toxic Granulation PRESENT Toxic Vacuolation PRESENT Dohle Bodies Platelet Estimate NORMAL Plt Morphology Comment NORMAL RBC Morphology NOTED Microcytosis 2+ (15-30) Target Cells Ovalocytes 1+ (5-14) Jessica Cells 3+ (>5) Acanthocytes (Spur) 2+ (3-5) Schistocytes 1+ (0-2) VBG pH 7.28 L VBG pCO2 38 VBG pO2 93 VBG HCO3 18 L VBG O2 Saturation 97.0 VBG Base Excess -7.7 Anion Gap 18 Estim Creat Clear Calc 44.8 Estimated GFR 29 Random Glucose 122 H Calcium 7.2 L Phosphorus Magnesium Total Bilirubin AST ALT Alkaline Phosphatase Total Protein Albumin 06/25/22 06/25/22 06/25/22 05:05 05:05 05:05 MCV 81.0 MCH 27.3 MCHC 33.7 RDW 14.9 Plt Count 217 D MPV 9.4 Immature Gran % (Auto) Cancelled Neut % (Auto) Cancelled Lymph % (Auto) Cancelled [place] % (Auto) Cancelled Eos % (Auto) Cancelled Baso % (Auto) Cancelled Lymph # (Auto) Cancelled [place] # (Auto) Cancelled Eos # (Auto) Cancelled Baso # (Auto) Cancelled Abs Immat Gran (auto) Cancelled Absolute Neuts (auto) Cancelled Absolute Nucleated RBC 0.000 Nucleated RBC % (auto) 0.0 Neutrophils % (Manual) 84 H Band Neutrophils % 11 H Lymphocytes % (Manual) 4 L Monocytes % (Manual) 1 L Metamyelocytes % Abs Neuts (Manual) 18.3 H Lymphocytes # (Manual) 0.8 L Monocytes # (Manual) 0.2 Metamyelocytes # Toxic Granulation PRESENT Toxic Vacuolation Dohle Bodies PRESENT Platelet Estimate NORMAL Plt Morphology Comment NORMAL RBC Morphology NOTED Microcytosis Target Cells 1+ (5-14) Ovalocytes [place] Cells 1+ (0-2) Acanthocytes (Spur) Schistocytes VBG pH 7.39 VBG pCO2 31 VBG pO2 49 VBG HCO3 19 L VBG O2 Saturation 76.0 VBG Base Excess -4.3 Anion Gap 18 Estim Creat Clear Calc 39.8 Estimated GFR 26 Random Glucose 127 H Calcium 7.9 L D Phosphorus 5.5 H Magnesium 3.0 H Total Bilirubin 0.9 AST 23 ALT 23 Alkaline Phosphatase 103 Total Protein 5.0 L Albumin 3.1 L <Maria White PA-C - Last Filed: 06/25/22 12:19> Microbiology Microbiology Results: Microbiology 06/23/22 20:55 Blood Culture - Preliminary Blood - Venous Staphylococcus aureus 06/23/22 18:45 Blood Culture - Preliminary Blood - Venous Staphylococcus aureus 06/24/22 14:27 Gram Stain - Final Sputum - Suctioned Sputum Culture - Preliminary Staphylococcus species 06/24/22 Unknown Gram Stain - Final Axilla Left <Maria White PA-C - Last Filed: 06/25/22 12:19> Procedures Date of Service Date of Service: 06/25/22 <Maria White PA-C - Last Filed: 06/25/22 12:19> Progress Note: A&P Assessment and plan (1) Gram-positive bacteremia: Status: Acute <Maria White PA-C - Last Filed: 06/25/22 12:19> Assessment and Plan: stable overnight dressings removed - good wound surface, health granulation, no ongoing gangrene, wound surfaces clean wound vac with irrigation therefore applied continue IV abx- cultures showing Staph hemodynamically stable rest of care as per ICU seen and examined independently <Shahzad Kincaid MD - Last Filed: 06/25/22 12:24> (2) Acute respiratory failure: Status: Acute <Maria White PA-C - Last Filed: 06/25/22 12:19> (3) Sepsis: Status: Acute <Maria White PA-C - Last Filed: 06/25/22 12:19> (4) Abnormal chest CT: Status: Acute <Maria White PA-C - Last Filed: 06/25/22 12:19> (5) Septic encephalopathy: Status: Acute <Maria White PA-C - Last Filed: 06/25/22 12:19> (6) Necrotizing soft tissue infection: Status: Acute <Maria White PA-C - Last Filed: 06/25/22 12:19> (7) Status post debridement: Status: Acute <Maria White PA-C - Last Filed: 06/25/22 12:19> Assessment and Plan: 52 year old female admitted with sepsis, necrotizing soft tissue infection of left chest and axilla POD #1 s/p wide excisional debridement of the left chest, axilla and upper arm. She remains intubated and sedated in the ICU, on pressors. Her wound is significantly improved and actually fairly clean without further necrosis or purulence noted. She has viable subq fat visible on dressing change with minimal fibrinous exudate. Veraflo wound vac placed today at bedside while patient sedated. Good seal noted. Settings: irrigate with 50cc 0.9% NS and soak for 10min, vac for 2hr at 125mmHg. Plan for sponge change on Wednesday. <Maria White PA-C - Last Filed: 06/25/22 12:19> Time Spent With Patient Time: Total time spent is greater than 50% in coordination of care (as documented) at patient's floor/unit and/or counseling patient: <Maria White PA-C - Last Filed: 06/25/22 12:19> Quality Stroke Does the patient have a stroke diagnosis?: No <Maria White PA-C - Last Filed: 06/25/22 12:19> VTE Prior VTE?: No <Marai White PA-C - Last Filed: 06/25/22 12:19> VTE Risk Level:: Medical - moderate - high <Maria White PA-C - Last Filed: 06/25/22 12:19> VTE Device Contraindication: Treatment Not Indicated <Maria White PA-C - Last Filed: 06/25/22 12:19> VTE Drug Contraindication: N/A - Med Ordered <Maria White PA-C - Last Filed: 06/25/22 12:19>
[2022-06-25 11:52] LABS: Venous Blood Gas Refer to POC result
[2022-06-25] MEDS: HYDROmorphone HCl 1 MG/ML SYRINGE IVPUSH (14:18)
[2022-06-25] MEDS: fentaNYL citrate/NS 1,000 MCG/100 ML PLAST..BAG 15 MCG IVCONT ×2 (14:21→20:23)
[2022-06-25] MEDS: propofoL 1,000 MG/100 ML VIAL 20.41 MG IVCONT (18:15)
--- NOTE | 2022-06-25 18:33 | PC.NURSE ---
Surgeon came to bedside to change wound dressing and wound vac was applied, draining sanguineous drainage. 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 Pt was trialled on sedation vacation (Propofol turned off) at 1345, waking up and SHIPLEY but not able to follow commands. Pt's vent settings also changed by MD from AC to PS 5/5 on 24%. At 1500, RR mid 40s, by MD change vent settings AC 16/450/5/30%. Pt's Propofol restarted at 1503. Currently resting in no acute distress. Levophed also able to be titrated down, See MAR. Tube feeding restarted at 1600 per Md's order, tolerating well. Pt was bathed this shift and was repositioned every 2 hrs and as needed, SCDs on b/l. Safety maintained.
[2022-06-25 21:37] LABS: Vancomycin Trough 9.9 mcg/mL (10.0-20.0)
--- NOTE | 2022-06-25 21:56 | HE.PHANOTE ---
VANCO DOSE ADJUSTMENT Renal function improved and trough of 9.9 dose increase to 1250 q 24h. Random for 06/26.
[2022-06-25] MEDS: vancomycin HCL 1,250 MG in 0.9 % Sodium Chloride 250 ML 166.67 MG IV (22:06)
[2022-06-26] VITALS (32 sets, daily range): BP systolic 99–130; BP diastolic 32–58; PULSE 62–94; RESP 16–32; TEMP 35–38.2; O2SAT 92–100; BMI 36.7
[2022-06-26] MEDS: 0.9 % Sodium Chloride Flush 3 ML SYRINGE IVFLUSH ×3 (00:51→16:25)
[2022-06-26] MEDS: Heparin Sodium,Porcine 5,000 UNIT/ML VIAL 5000 UNIT SUBCUT ×3 (00:51→16:25)
[2022-06-26] MEDS: propofoL 1,000 MG/100 ML VIAL 34.02 MG IVCONT ×3 (02:28→08:12)
[2022-06-26] MEDS: fentaNYL citrate/NS 1,000 MCG/100 ML PLAST..BAG 17.5 MCG IVCONT ×2 (02:29→08:49)
[2022-06-26] MEDS: Piperacillin Sodium/Tazobactam 3.375 GM in 0.9 % Sodium Chloride 50 ML IV ×4 (02:32→20:27)
[2022-06-26] MEDS: Albumin Human 25 % 100 ML IV (04:09)
[2022-06-26 05:23] LABS: VBG Base Excess -2.6 mmol/L; VBG HCO3 20 mmol/L (22-26); VBG pCO2 27 mmHg; VBG pH 7.47 (7.32-7.43); VBG pO2 48 mmHg
[2022-06-26 05:30] LABS: Venous Blood Gas Refer to POC result
[2022-06-26 06:07] LABS: Hematocrit 22.1 % (37.0-47.0); Hemoglobin 7.2 g/dl (12.0-16.0); Mean Corpuscular HGB Conc 32.6 g/dl (31.0-35.0); Mean Corpuscular Hemoglobin 26.9 pg (27.0-33.0); Mean Corpuscular Volume 82.5 fL (80.0-98.0); Mean Platelet Volume 9.7 fL (9.4-12.3); Platelet Count 133 X10*3/uL (160-400); Red Blood Count 2.68 X10*6/uL (4.20-5.50); Red Cell Distribution Width 15.3 % (11.0-16.0); White Blood Count 10.1 X10*3/uL (4.8-10.8)
[2022-06-26 06:28] LABS: Albumin Level 3.5 g/dL (3.5-5.0); Anion Gap 15 (12-20); Blood Urea Nitrogen 51 mg/dL (9-16); Calcium 7.7 mg/dL (8.4-10.2); Carbon Dioxide 22 mmol/L (22-29); Chloride 110 mmol/L (96-108); Creatinine Clr Calc Pharmacy 38.8; Estimated Glomerular Filt Rate 27; Glucose Random 120 mg/dL (60-115); Magnesium 2.7 mg/dL (1.6-2.6); Phosphorus 3.7 mg/dL (2.7-4.5); Potassium 3.8 mmol/L (3.3-5.1); Sodium 143 mmol/L (135-145)
[2022-06-26 06:44] LABS: Band Neutrophils Percent 11 % (3-5); Lymphocytes Absolute Manual 0.8 X10*3/uL (1.2-4.9); Lymphocytes Percent Manual 8 % (20-40); Metamyelocytes Absolute 0.2 X10*3/uL; Metamyelocytes Percent 2 %; Monocytes Absolute Manual 0.2 X10*3/uL (0.1-1.2); Monocytes Percent Manual 2 % (2-11); Neutrophils Absolute Manual 8.9 X10*3/uL (2.0-8.3); Neutrophils Percent Manual 77 % (45-73)
[2022-06-26 06:45] LABS: RBC Morphology NOTED
[2022-06-26 06:46] LABS: Dohle Bodies PRESENT; Hypochromasia 2+ (15-30) /OIF; Platelet Estimate DECREASED (NORMAL); Platelet Morphology Comment NORMAL; Toxic Granulation PRESENT
[2022-06-26] MEDS: Chlorhexidine Gluc Oral Rinse 15 ML MOUTHWASH BUCCAL ×3 (07:26→20:27)
[2022-06-26] MEDS: Famotidine/PF 20 MG/2 ML VIAL IVPUSH (07:26)
--- NOTE | 2022-06-26 08:12 | PM.PNGS ---
Subjective Subjective Date of Service: 06/26/22 <Maria White PA-C - Last Filed: 06/26/22 08:19> 06/26/22 <Shahzad Kincaid MD - Last Filed: 06/26/22 10:59> Interval history: Failed attempted weaning off ET tube yesterday. Wound vac has remained in place without leak. <Maria White PA-C - Last Filed: 06/26/22 08:19> Physical Exam Vital Signs: Vital Signs: Last Vital Signs Temp 99.3 F 06/25/22 21:59 Pulse 72 06/26/22 07:00 Resp 26 H 06/26/22 07:00 BP 116/48 L 06/26/22 07:00 Pulse Ox 100 06/26/22 07:00 O2 Del Method 06/26/22 07:00 O2 Flow Rate 3 06/24/22 10:00 FiO2 30 06/26/22 07:46 BMI result Body Mass Index 36.7 <Maria White PA-C - Last Filed: 06/26/22 08:19> Const: General: no acute distress <Maria White PA-C - Last Filed: 06/26/22 08:19> Chest: Other: left chest/axilla with veraflo wound vac in place, good seal noted <Maria White PA-C - Last Filed: 06/26/22 08:19> Resp: Other: on vent <Maria White PA-C - Last Filed: 06/26/22 08:19> Cardio: Rate: regular rate <Maria White PA-C - Last Filed: 06/26/22 08:19> Objective Data Active Medications Acetaminophen (Acetaminophen 325 Mg Tablet) 650 mg PO Q6H PRN PRN Reason: Pain, Mild (Pain Scale 1-3) Acetaminophen (Acetaminophen Supp 650 Mg Supp.Rect) 650 mg ME Q6H PRN PRN Reason: fever Last Admin: 06/24/22 00:04 Dose: 650 mg Documented By: SAMARA Chlorhexidine Gluconate (Chlorhexidine Gluc Oral Rinse 15 Ml Mouthwash) 15 ml BUCCAL TID [facility] Last Admin: 06/26/22 07:26 Dose: 15 ml Documented By: DEDRICK Docusate Sodium (Docusate Sodium 100 Mg Capsule) 100 mg PO DAILY PRN PRN Reason: Constipation Famotidine (Famotidine/Pf 20 Mg/2 Ml Vial) 20 mg IVPUSH DAILY [facility] Last Admin: 06/26/22 07:26 Dose: 20 mg Documented By: DEDRICK Heparin Sodium (Porcine) (Heparin Sodium,Porcine 5,000 Unit/Ml Vial) 5,000 unit SUBCUT Q8H [facility] Last Admin: 06/26/22 07:26 Dose: 5,000 unit Documented By: DEDRICK Propofol (Diprivan) 1,000 mg in 100 mls @ 0 mls/hr IVCONT .Q0M [facility]; Protocol Last Admin: 06/26/22 05:18 Dose: 50 mcg/kg/min, 34.02 mls/hr Documented By: IVETT Fentanyl (Sublimaze/Ns) 1,000 mcg in 100 mls @ 0 mls/hr IVCONT .Q0M [facility]; Protocol Last Admin: 06/26/22 02:29 Dose: 175 mcg/hr, 17.5 mls/hr Documented By: KYRAUMOC Norepinephrine Bitartrate (Levophed) 8 mg in 250 mls @ 0 mls/hr IVCONT .Q0M [facility]; Protocol Last Titration: 06/26/22 05:32 Dose: 0.05 mcg/kg/min, 10.63 mls/hr Documented By: IVETT Piperacillin Sod/Tazobactam (Sod 3.375 gm/ Sodium Chloride) 50 mls @ 100 mls/hr IV Q6H [facility] Last Infusion: 06/26/22 08:09 Dose: 0 mls/hr Documented By: DEDRICK Vancomycin HCl 1,250 mg/ (Sodium Chloride) 250 mls @ 166.667 mls/hr IV Q24H [facility] Naloxone HCl (Naloxone Hcl 0.4 Mg/Ml Vial) 0.2 mg IVPUSH Q2M PRN PRN Reason: Excessive sedation or RR < 8 Ondansetron HCl (Ondansetron Hcl 4 Mg/2 Ml Vial) 4 mg IVPUSH Q8H PRN PRN Reason: Nausea and Vomiting Pharmacy Consult (Consult Rx Perform Med Rec) 1 each MISCELLANE ONCE PRN PRN Reason: Consult order Pharmacy Consult (Consult Rx Vancomycin Dosing) 1 each MISCELLANE DAILY PRN PRN Reason: Consult order Pharmacy Consult (Consult Rx Vancomycin Dosing) 1 each MISCELLANE DAILY PRN PRN Reason: Consult order Sodium Chloride (0.9 % Sodium Chloride Flush 3 Ml Syringe) 3 ml IVFLUSH QSHIFT [facility] Last Admin: 06/26/22 07:28 Dose: 3 ml Documented By: DEDRICK <Maria White PA-C - Last Filed: 06/26/22 08:19> Labs CBC & Chem 7: : 06/26/22 05:19 06/26/22 05:19 <Maria White PA-C - Last Filed: 06/26/22 08:19> Labs: Laboratory Results - last 24 hr 06/25/22 06/26/22 06/26/22 21:15 05:17 05:19 MCV 82.5 MCH 26.9 L MCHC 32.6 RDW 15.3 Plt Count 133 L D MPV 9.7 Immature Gran % (Auto) Cancelled Neut % (Auto) Cancelled Lymph % (Auto) Cancelled [place] % (Auto) Cancelled Eos % (Auto) Cancelled Baso % (Auto) Cancelled Lymph # (Auto) Cancelled [place] # (Auto) Cancelled Eos # (Auto) Cancelled Baso # (Auto) Cancelled Abs Immat Gran (auto) Cancelled Absolute Neuts (auto) Cancelled Absolute Nucleated RBC 0.000 Nucleated RBC % (auto) 0.0 Neutrophils % (Manual) 77 H Band Neutrophils % 11 H Lymphocytes % (Manual) 8 L Monocytes % (Manual) 2 Metamyelocytes % 2 Abs Neuts (Manual) 8.9 H Lymphocytes # (Manual) 0.8 L Monocytes # (Manual) 0.2 Metamyelocytes # 0.2 Toxic Granulation PRESENT Dohle Bodies PRESENT Platelet Estimate DECREASED Plt Morphology Comment NORMAL RBC Morphology NOTED Hypochromasia 2+ (15-30) VBG pH 7.47 H VBG pCO2 27 VBG pO2 48 VBG HCO3 20 L VBG O2 Saturation 80.0 VBG Base Excess -2.6 Anion Gap Estim Creat Clear Calc Estimated GFR Random Glucose Calcium Phosphorus Magnesium Albumin Vancomycin Trough 9.9 L 06/26/22 05:19 MCV MCH MCHC RDW Plt Count MPV Immature Gran % (Auto) Neut % (Auto) Lymph % (Auto) [place] % (Auto) Eos % (Auto) Baso % (Auto) Lymph # (Auto) [place] # (Auto) Eos # (Auto) Baso # (Auto) Abs Immat Gran (auto) Absolute Neuts (auto) Absolute Nucleated RBC Nucleated RBC % (auto) Neutrophils % (Manual) Band Neutrophils % Lymphocytes % (Manual) Monocytes % (Manual) Metamyelocytes % Abs Neuts (Manual) Lymphocytes # (Manual) Monocytes # (Manual) Metamyelocytes # Toxic Granulation Dohle Bodies Platelet Estimate Plt Morphology Comment RBC Morphology Hypochromasia VBG pH VBG pCO2 VBG pO2 VBG HCO3 VBG O2 Saturation VBG Base Excess Anion Gap 15 Estim Creat Clear Calc 38.8 Estimated GFR 27 Random Glucose 120 H Calcium 7.7 L Phosphorus 3.7 Magnesium 2.7 H Albumin 3.5 Vancomycin Trough <Maria White PA-C - Last Filed: 06/26/22 08:19> Microbiology Microbiology Results: Microbiology 06/24/22 14:27 Gram Stain - Final Sputum - Suctioned Sputum Culture - Final Methicillin Res Staph Aureus 06/24/22 Unknown Gram Stain - Final Axilla Left Routine Culture - Final Methicillin Res Staph Aureus Citrobacter freundii 06/23/22 20:55 Blood Culture - Final Blood - Venous Methicillin Res Staph Aureus Coag negative Staphylococcus 06/23/22 18:45 Blood Culture - Final Blood - Venous Methicillin Res Staph Aureus 06/25/22 09:28 Blood Culture - Preliminary Blood - Venous <Maria White PA-C - Last Filed: 06/26/22 08:19> Procedures Date of Service Date of Service: 06/26/22 <ARVIN Guaman Last Filed: 06/26/22 08:19> Progress Note: A&P Assessment and plan (1) Status post debridement: Status: Acute <ARVIN Guaman Last Filed: 06/26/22 08:19> Assessment and Plan: dressings dry wound VAC seems to maintain negative pressures wound vac with irrigation attempt at weaning today from the vent on IV antibiotics based on cultures wound care - plan to change wound VAC on Wednesday unless with problems with leak over the weekend seen and examined independently - agree with YOJANA White <Shahzad Kincaid MD - Last Filed: 06/26/22 10:59> (2) Necrotizing soft tissue infection: Status: Acute <Maria White PA-C - Last Filed: 06/26/22 08:19> (3) Septic encephalopathy: Status: Acute <Maria White PA-C - Last Filed: 06/26/22 08:19> (4) Gram-positive bacteremia: Status: Acute <Maria White PA-C - Last Filed: 06/26/22 08:19> (5) Sepsis: Status: Acute <Maria White PA-C - Last Filed: 06/26/22 08:19> Assessment and Plan: 52 year old female admitted with sepsis from necrotizing soft tissue infection of left chest and axilla POD #2 s/p wide excisional debridement of the left chest, axilla and upper arm. Remains vented in ICU on pressors after failed weaning yesterday. Her WBC has normalized. Wound culture growing MRSA and Citrobacter freundii. Cont IV abx. Wound overall significantly improved yesterday and therefore Veraflo wound vac placed yesterday at bedside, continued with good seal. Continue to immobilize arm to help with seal. Continue current settings; plan for sponge change on Wednesday at bedside with analgesics. <Maria White PA-C - Last Filed: 06/26/22 08:19> Time Spent With Patient Time: Total time spent is greater than 50% in coordination of care (as documented) at patient's floor/unit and/or counseling patient: <Maria White PA-C - Last Filed: 06/26/22 08:19> Quality Stroke Does the patient have a stroke diagnosis?: No <Maria White PA-C - Last Filed: 06/26/22 08:19> VTE Prior VTE?: No <Maria White PA-C - Last Filed: 06/26/22 08:19> VTE Risk Level:: Medical - moderate - high <ARVIN Guaman Last Filed: 06/26/22 08:19> VTE Device Contraindication: Treatment Not Indicated <Maria White PA-C - Last Filed: 06/26/22 08:19> VTE Drug Contraindication: N/A - Med Ordered <Maria White PA-C - Last Filed: 06/26/22 08:19>
[2022-06-26] MEDS: dexmedeTOMIDidine HCL/NS 400 MCG/100 ML INFUS..BTL 24.28 MCG IVCONT ×3 (10:17→17:19)
--- NOTE | 2022-06-26 10:17 | MHC.CLN ---
Addendum entered by Nikole Penn, SARI 06/26/22 14:08: CONTACTED BY NURSE PT WILL CONTINUE TF TODAY NOTED PROPOFOL DECREASED SLIGHTLY RECOMMEND TF PROMOTE AT MAX GOAL RATE 40ML/HR WITH 30ML PROSOURCE Q DAY AND 120ML FREE WATER FLUSHES Q 6 HRS TO PROVIDE 1020KCALS (1558KCALS TOTAL WITH SEDATION; 23KCALS/KG BASED ON CMW), 75G PROTEIN (1.1G/KG), 1285ML TOTAL WATER FROM FORMULA AND FLUSHES MONITOR TOLERANCE, RESIDUALS AND LYTES Original Note: F/U PT REMAINS INTUBATED AND SEDATED PT RECEVING TF JEVITY 1.0 AT 40ML/HR PROVIDES 1017KCALS, 42G PROTEIN, 802ML FREE WATER FROM FORMULA DISCUSSED AT ROUNDS WITH MD PLAN FOR POSSIBLE EXTUBATION TODAY IF DIET TO ADVANCE, RECOMMEND REGULAR IF TF NEEDED; RECOMMEND PROMOTE AT MAX GOAL RATE 35ML/HR TO PROVIDE 840KCALS, 53G PROTEIN, 705ML FREE WATER MONITOR TOLERANCE, RESIDUALS AND LYTES
[2022-06-26] MEDS: HYDROmorphone HCl 0.5 MG/0.5 ML SYRINGE IVPUSH (10:19)
--- NOTE | 2022-06-26 10:37 | PM.CCPN ---
Subjective Subjective Date of Service: 06/26/22 Interval History: 52-year-old lady with underlying history of substance abuse admitted on 06/24/2022 with lethargy. On ER evaluation patient noted to have left upper chest/left upper arm soft tissue infection with gas in the tissue on CT scan. Patient started on broad-spectrum antibiotics and admitted to intensive care unit. General surgery consulted and patient underwent debridement of her chest an upper arm fasciitis in operating room on 06/24/2022 and bedside placement of wound VAC on 06/25/2022. Patient blood and wound cultures are growing MRSA and Citrobacter. No events overnight. This a.m. poor arousal with sedation vacation and poor tolerance of pressure support trial. Critical Care Time (minutes): 60 Physical Exam Vital Signs: Vital Signs: Last Vital Signs Temp 99.3 F 06/25/22 21:59 Pulse 94 06/26/22 10:00 Resp 32 H 06/26/22 10:00 BP 129/49 L 06/26/22 10:00 Pulse Ox 92 06/26/22 10:00 O2 Del Method 06/26/22 10:00 O2 Flow Rate 3 06/24/22 10:00 FiO2 30 06/26/22 10:00 BMI result Body Mass Index 36.7 Const: General: no acute distress and other (Sedated on the vent) Nutritional Appearance: obese Eyes: Sclerae: sclerae normal Neck: Neck: Yes no lymphadenopathy, Yes trachea midline and Yes supple Chest: Other: Left upper chest/left upper surgical incision with wound VAC. Resp: Effort & Inspection: normal respiratory effort and no respiratory distress Auscultation: clear to auscultation bilaterally Cardio: Rate: regular rate Rhythm: regular rhythm Heart sounds: no gallops, no murmurs and no rubs GI: Palpation (GI): Soft to palpation and Other GI palpation findings present ( Nontender) Auscultation: normal bowel sounds Extrem: General: Yes no pedal edema, No clubbing and No cyanosis Objective Data Labs CBC & Chem 7: 06/26/22 05:19 06/26/22 05:19 Labs: Laboratory Results - last 24 hr 06/25/22 06/26/22 06/26/22 21:15 05:17 05:19 WBC 10.1 RBC 2.68 L Hgb 7.2 L Hct 22.1 L MCV 82.5 MCH 26.9 L MCHC 32.6 RDW 15.3 Plt Count 133 L D MPV 9.7 Immature Gran % (Auto) Cancelled Neut % (Auto) Cancelled Lymph % (Auto) Cancelled [place] % (Auto) Cancelled Eos % (Auto) Cancelled Baso % (Auto) Cancelled Lymph # (Auto) Cancelled [place] # (Auto) Cancelled Eos # (Auto) Cancelled Baso # (Auto) Cancelled Abs Immat Gran (auto) Cancelled Absolute Neuts (auto) Cancelled Absolute Nucleated RBC 0.000 Nucleated RBC % (auto) 0.0 Neutrophils % (Manual) 77 H Band Neutrophils % 11 H Lymphocytes % (Manual) 8 L Monocytes % (Manual) 2 Metamyelocytes % 2 Abs Neuts (Manual) 8.9 H Lymphocytes # (Manual) 0.8 L Monocytes # (Manual) 0.2 Metamyelocytes # 0.2 Toxic Granulation PRESENT Dohle Bodies PRESENT Platelet Estimate DECREASED Plt Morphology Comment NORMAL RBC Morphology NOTED Hypochromasia 2+ (15-30) VBG pH 7.47 H VBG pCO2 27 VBG pO2 48 VBG HCO3 20 L VBG O2 Saturation 80.0 VBG Base Excess -2.6 Sodium Potassium Chloride Carbon Dioxide Anion Gap BUN Creatinine Estim Creat Clear Calc Estimated GFR Random Glucose Calcium Phosphorus Magnesium Albumin Vancomycin Trough 9.9 L 06/26/22 05:19 WBC RBC Hgb Hct MCV MCH MCHC RDW Plt Count MPV Immature Gran % (Auto) Neut % (Auto) Lymph % (Auto) [place] % (Auto) Eos % (Auto) Baso % (Auto) Lymph # (Auto) [place] # (Auto) Eos # (Auto) Baso # (Auto) Abs Immat Gran (auto) Absolute Neuts (auto) Absolute Nucleated RBC Nucleated RBC % (auto) Neutrophils % (Manual) Band Neutrophils % Lymphocytes % (Manual) Monocytes % (Manual) Metamyelocytes % Abs Neuts (Manual) Lymphocytes # (Manual) Monocytes # (Manual) Metamyelocytes # Toxic Granulation Dohle Bodies Platelet Estimate Plt Morphology Comment RBC Morphology Hypochromasia VBG pH VBG pCO2 VBG pO2 VBG HCO3 VBG O2 Saturation VBG Base Excess Sodium 143 Potassium 3.8 Chloride 110 H Carbon Dioxide 22 Anion Gap 15 BUN 51 H Creatinine 1.92 H Estim Creat Clear Calc 38.8 Estimated GFR 27 Random Glucose 120 H Calcium 7.7 L Phosphorus 3.7 Magnesium 2.7 H Albumin 3.5 Vancomycin Trough Microbiology Microbiology Results: Microbiology 06/25/22 09:28 Blood - Venous Blood Culture - Preliminary No growth after 24 hours. 06/24/22 14:27 Sputum - Suctioned Gram Stain - Final 06/24/22 14:27 Sputum - Suctioned Sputum Culture - Final Methicillin Res Staph Aureus 06/24/22 Unknown Axilla Left Gram Stain - Final 06/24/22 Unknown Axilla Left Routine Culture - Final Methicillin Res Staph Aureus Citrobacter freundii 06/23/22 20:55 Blood - Venous Blood Culture - Final Methicillin Res Staph Aureus Coag negative Staphylococcus 06/23/22 18:45 Blood - Venous Blood Culture - Final Methicillin Res Staph Aureus Progress Note: A&P Assessment and plan (1) Gram-negative bacteremia: Status: Acute (2) Necrotizing soft tissue infection: Status: Acute (3) Septic encephalopathy: Status: Acute (4) Gram-positive bacteremia: Status: Acute (5) Acute respiratory failure: Status: Acute Plan Assessment: 52-year-old lady admitted with septic encephalopathy secondary to fasciitis of left upper chest /left upper requiring surgical debridement Plan: Neuro: Septic encephalopathy, with poor with sedation vacation. Cardiac: No acute issues. Pulmonary: intubated in OR. Continue to titrate off ventilatory support as tolerated. Poor tolerance of pressure support trial today. CT chest with pulmonary nodules, likely infectious - septic emboli with staphylococcal/Citrobacter bacteremia. Renal: Acute renal failure, likely secondary to sepsis/staphylococcal bacteremia. Non oliguric. Continue to monitor renal indices and urine output. Endo: No acute issues. GI: No acute issues. ID: Fasciitis with MRSA and Citrobacter bacteremia, likely secondary to drug abuse. Status post surgical debridement and wound VAC placement. General surgery service care appreciated. Continues on broad-spectrum antibiotics until cultures are finalized. Heme/Onc: No acute issues. Psych: No acute issues. Miscellaneous: No acute issues. Prophylaxis: Heparin, famotidine Diet: tube feeds Critical care time spent: 60 minutes Quality Stroke Does the patient have a stroke diagnosis?: No VTE Prior VTE?: No VTE Risk Level:: Medical - moderate - high VTE Device Contraindication: Treatment Not Indicated VTE Drug Contraindication: N/A - Med Ordered
[2022-06-26] MEDS: propofoL 1,000 MG/100 ML VIAL 20.41 MG IVCONT ×2 (11:58→16:26)
[2022-06-26] MEDS: fentaNYL citrate/NS 1,000 MCG/100 ML PLAST..BAG 12.5 MCG IVCONT (15:43)
[2022-06-26] MEDS: dexmedeTOMIDidine HCL/NS 400 MCG/100 ML INFUS..BTL 29.13 MCG IVCONT (21:42)
[2022-06-26] MEDS: propofoL 1,000 MG/100 ML VIAL 23.81 MG IVCONT (21:42)
[2022-06-26 21:46] LABS: Vancomycin Random 10.7 mcg/mL (15-20)
--- NOTE | 2022-06-26 21:56 | HE.PHANOTE ---
Vancomycin Dosing Patient slightly increase to 10.7 after an increase in dose. Renal function slightly improves each day. Due to sepsis, to help increase the AUC, will give vancomycin 1500 mg tonight. If patient renal function continue to improved we can continue with 1500 mg Q24H, but it renal function worsens again then dose will be decrease back to 1250 mg Q24H. Random level to be drawn 06/27 @ 1999. Jose ParkerD
[2022-06-26] MEDS: vancomycin HCL 1,500 MG in 0.9 % Sodium Chloride 500 ML 333.33 MG IV (22:40)
[2022-06-27] VITALS (43 sets, daily range): BP systolic 109–151; BP diastolic 38–65; PULSE 32–77; RESP 14–45; TEMP 34.5–39.7; O2SAT 92–100; BMI 35.7
--- NOTE | 2022-06-27 | ECG_ITS ---
Test Reason : bradycardia Blood Pressure : / mmHG Vent. Rate : 046 BPM Atrial Rate : 046 BPM P-R Int : 146 ms QRS Dur : 086 ms QT Int : 450 ms P-R-T Axes : 011 057 011 degrees QTc Int : 393 ms Sinus bradycardia with Premature atrial complexes in a pattern of bigeminy Low voltage QRS Borderline ECG When compared with ECG of 23-JUN-2022 19:05, Premature atrial complexes are now Present Vent. rate has decreased BY 51 BPM QT has shortened Referred By: Braden Hernandez Electronically Signed By:Tomi Tierney
[2022-06-27] MEDS: HYDROmorphone HCl 0.5 MG/0.5 ML SYRINGE IVPUSH (00:27)
[2022-06-27] MEDS: Heparin Sodium,Porcine 5,000 UNIT/ML VIAL 5000 UNIT SUBCUT ×3 (00:28→15:20)
[2022-06-27] MEDS: propofoL 1,000 MG/100 ML VIAL 23.81 MG IVCONT (00:39)
[2022-06-27] MEDS: dexmedeTOMIDidine HCL/NS 400 MCG/100 ML INFUS..BTL 29.13 MCG IVCONT ×4 (00:39→11:37)
[2022-06-27] MEDS: 0.9 % Sodium Chloride Flush 3 ML SYRINGE IVFLUSH ×4 (00:40→23:33)
[2022-06-27] MEDS: fentaNYL citrate/NS 1,000 MCG/100 ML PLAST..BAG 12.5 MCG IVCONT ×2 (01:59→10:28)
[2022-06-27] MEDS: Piperacillin Sodium/Tazobactam 3.375 GM in 0.9 % Sodium Chloride 50 ML IV ×4 (02:50→21:13)
[2022-06-27] MEDS: propofoL 1,000 MG/100 ML VIAL 27.22 MG IVCONT ×3 (04:11→10:30)
--- NOTE | 2022-06-27 05:10 | PC.NURSE ---
At 1999 TF check, patient noted to have 250 mL thin bilious residual from OGT. TF held for 2 hours per order and then resumed. With midnight check patient noted to have additional 150 mL residual, however appeared thicker and more sludge like although remained bilious in color. Narciso Mitchell PROJECT ADMINISTRATOR notified, plan to hold TF for remainder of night.
[2022-06-27 05:42] LABS: VBG HCO3 20 mmol/L (22-26); VBG pCO2 29 mmHg; VBG pH 7.45 (7.32-7.43); VBG pO2 43 mmHg
[2022-06-27 06:00] LABS: MANUAL DIFF FLAG NO
[2022-06-27 06:03] LABS: Basophils Percent Auto 0.3 % (0-2); Eosinophils Percent Auto 0.4 % (0-4); Hemoglobin 7.3 g/dl (12.0-16.0); Imm Gran Abs Auto 0.45 X10*3/uL (0.00-0.03); Imm Gran Pct Auto 4.3 % (0.0-0.4); Lymphocytes Percent Auto 9.2 % (20-40); Mean Corpuscular HGB Conc 31.7 g/dl (31.0-35.0); Mean Corpuscular Hemoglobin 26.5 pg (27.0-33.0); Mean Corpuscular Volume 83.6 fL (80.0-98.0); Mean Platelet Volume 9.4 fL (9.4-12.3); Monocytes Absolute Auto 0.5 X10*3/uL (0.1-1.2); Monocytes Percent Auto 4.3 % (2-11); Neutrophils Absolute Auto 8.5 x10*3/uL (2.0-8.3); Neutrophils Percent Auto 81.5 % (45-73); Platelet Count 137 X10*3/uL (160-400); Red Blood Count 2.75 X10*6/uL (4.20-5.50); Red Cell Distribution Width 15.3 % (11.0-16.0); White Blood Count 10.4 X10*3/uL (4.8-10.8)
[2022-06-27 06:28] LABS: Albumin Level 3.2 g/dL (3.5-5.0); Anion Gap 16 (12-20); Blood Urea Nitrogen 44 mg/dL (9-16); Carbon Dioxide 21 mmol/L (22-29); Chloride 121 mmol/L (96-108); Creatinine Clr Calc Pharmacy 43.5; Estimated Glomerular Filt Rate 31; Glucose Random 132 mg/dL (60-115); Magnesium 2.3 mg/dL (1.6-2.6); Phosphorus 3.7 mg/dL (2.7-4.5); Potassium 3.9 mmol/L (3.3-5.1); Sodium 154 mmol/L (135-145)
[2022-06-27] MEDS: Acetaminophen Supp 650 MG SUPP.RECT PR ×2 (06:51→19:48)
[2022-06-27] MEDS: Chlorhexidine Gluc Oral Rinse 15 ML MOUTHWASH BUCCAL ×3 (07:39→21:13)
[2022-06-27] MEDS: Famotidine/PF 20 MG/2 ML VIAL IVPUSH (07:39)
[2022-06-27] MEDS: Calcium Gluconate/NaCl,Iso-Osm 1 GM/50 ML PLAST..BAG IV (07:41)
[2022-06-27] MEDS: Albumin Human 25 % 100 ML IV ×4 (08:25→23:56)
[2022-06-27 08:51] LABS: Venous Blood Gas Refer to POC result
--- NOTE | 2022-06-27 09:16 | P.PNGS_ITS ---
Subjective Subjective Date of Service: 06/27/22 Interval history: Sedated, on vent. Attempted to wean today, not tolerated. Physical Exam Vital Signs: Vital Signs: Last Vital Signs Temp 103.4 F H 06/27/22 08:00 Pulse 59 06/27/22 08:00 Resp 25 H 06/27/22 08:00 BP 111/44 L 06/27/22 08:00 Pulse Ox 96 06/27/22 08:00 O2 Del Method 06/27/22 08:00 O2 Flow Rate 3 06/24/22 10:00 FiO2 30 06/27/22 08:00 BMI result Body Mass Index 35.7 Const: Other: Sedated on vent Chest: Other: wound VAC in place left chest wall with good suction. Surrounding skin without erythema or skin necrosis. Suction device with serous fluid. Resp: Other: On ventilator, no respiratory distress Skin: Other: warm and dry, no erythema. Objective Data Active Medications Acetaminophen (Acetaminophen 325 Mg Tablet) 650 mg PO Q6H PRN PRN Reason: Pain, Mild (Pain Scale 1-3) Acetaminophen (Acetaminophen Supp 650 Mg Supp.Rect) 650 mg LA Q6H PRN PRN Reason: fever Last Admin: 06/27/22 06:51 Dose: 650 mg Documented By: YASMIN Chlorhexidine Gluconate (Chlorhexidine Gluc Oral Rinse 15 Ml Mouthwash) 15 ml BUCCAL TID [facility] Last Admin: 06/27/22 07:39 Dose: 15 ml Documented By: DAPHNEY Docusate Sodium (Docusate Sodium 100 Mg Capsule) 100 mg PO DAILY PRN PRN Reason: Constipation Famotidine (Famotidine/Pf 20 Mg/2 Ml Vial) 20 mg IVPUSH DAILY [facility] Last Admin: 06/27/22 07:39 Dose: 20 mg Documented By: DAPHNEY Heparin Sodium (Porcine) (Heparin Sodium,Porcine 5,000 Unit/Ml Vial) 5,000 unit SUBCUT Q8H [facility] Last Admin: 06/27/22 07:39 Dose: 5,000 unit Documented By: DAPHNEY Hydromorphone HCl (Hydromorphone Hcl 0.5 Mg/0.5 Ml Syringe) 0.5 mg IVPUSH Q4H PRN; Protocol PRN Reason: Pain, Severe (Pain Scale 7-10) Last Admin: 06/27/22 00:27 Dose: 0.5 mg Documented By: YASMIN Propofol (Diprivan) 1,000 mg in 100 mls @ 0 mls/hr IVCONT .Q0M [facility]; Protocol Last Admin: 06/27/22 07:49 Dose: 40 mcg/kg/min, 27.22 mls/hr Documented By: DAPHNEY Fentanyl (Sublimaze/Ns) 1,000 mcg in 100 mls @ 0 mls/hr IVCONT .Q0M [facility]; Protocol Last Admin: 06/27/22 01:59 Dose: 125 mcg/hr, 12.5 mls/hr Documented By: YASMIN Norepinephrine Bitartrate (Levophed) 8 mg in 250 mls @ 0 mls/hr IVCONT .Q0M [facility]; Protocol Last Titration: 06/26/22 10:31 Dose: 0 mcg/kg/min, 0 mls/hr Documented By: DEDRICK Piperacillin Sod/Tazobactam (Sod 3.375 gm/ Sodium Chloride) 50 mls @ 100 mls/hr IV Q6H [facility] Last Infusion: 06/27/22 08:53 Dose: 0 mls/hr Documented By: DAPHNEY Dexmedetomidine HCl (Precedex) 400 mcg in 100 mls @ 0 mls/hr IVCONT .Q0M [facility]; Protocol Last Admin: 06/27/22 07:56 Dose: 1.2 mcg/kg/hr, 29.13 mls/hr Documented By: DAPHNEY Vancomycin HCl 1,500 mg/ (Sodium Chloride) 500 mls @ 333.333 mls/hr IV Q24H [facility] Last Infusion: 06/27/22 00:29 Dose: 0 mls/hr Documented By: YASMIN Albumin Human (Kedbumin 25 %) 100 mls @ 100 mls/hr IV Q6H [facility] Stop: 06/28/22 04:14 Lactulose (Lactulose 20 Gm/30 Ml Solution) 30 gm PO BID [facility] Naloxone HCl (Naloxone Hcl 0.4 Mg/Ml Vial) 0.2 mg IVPUSH Q2M PRN PRN Reason: Excessive sedation or RR < 8 Ondansetron HCl (Ondansetron Hcl 4 Mg/2 Ml Vial) 4 mg IVPUSH Q8H PRN PRN Reason: Nausea and Vomiting Pharmacy Consult (Consult Rx Perform Med Rec) 1 each MISCELLANE ONCE PRN PRN Reason: Consult order Pharmacy Consult (Consult Rx Vancomycin Dosing) 1 each MISCELLANE DAILY PRN PRN Reason: Consult order Pharmacy Consult (Consult Rx Vancomycin Dosing) 1 each MISCELLANE DAILY PRN PRN Reason: Consult order Sodium Chloride (0.9 % Sodium Chloride Flush 3 Ml Syringe) 3 ml IVFLUSH QSHIFT [facility] Last Admin: 06/27/22 08:25 Dose: 3 ml Documented By: DAPHNEY Labs CBC & Chem 7: 06/27/22 05:25 06/27/22 05:25 Labs: Laboratory Results - last 24 hr 06/26/22 06/27/22 06/27/22 21:03 05:25 05:25 MCV 83.6 MCH 26.5 L MCHC 31.7 RDW 15.3 Plt Count 137 L MPV 9.4 Immature Gran % (Auto) 4.3 H Neut % (Auto) 81.5 H Lymph % (Auto) 9.2 L [place] % (Auto) 4.3 Eos % (Auto) 0.4 Baso % (Auto) 0.3 Lymph # (Auto) 1.0 L [place] # (Auto) 0.5 Eos # (Auto) 0.0 Baso # (Auto) 0.0 Abs Immat Gran (auto) 0.45 H Absolute Neuts (auto) 8.5 H Absolute Nucleated RBC 0.000 Nucleated RBC % (auto) 0.0 VBG pH VBG pCO2 VBG pO2 VBG HCO3 VBG O2 Saturation VBG Base Excess Anion Gap 16 Estim Creat Clear Calc 43.5 Estimated GFR 31 Random Glucose 132 H Calcium 7.0 L D Phosphorus 3.7 Magnesium 2.3 Albumin 3.2 L D Random Vancomycin 10.7 L 06/27/22 05:35 MCV MCH MCHC RDW Plt Count MPV Immature Gran % (Auto) Neut % (Auto) Lymph % (Auto) [place] % (Auto) Eos % (Auto) Baso % (Auto) Lymph # (Auto) [place] # (Auto) Eos # (Auto) Baso # (Auto) Abs Immat Gran (auto) Absolute Neuts (auto) Absolute Nucleated RBC Nucleated RBC % (auto) VBG pH 7.45 H VBG pCO2 29 VBG pO2 43 VBG HCO3 20 L VBG O2 Saturation 72.0 VBG Base Excess -3.0 Anion Gap Estim Creat Clear Calc Estimated GFR Random Glucose Calcium Phosphorus Magnesium Albumin Random Vancomycin Microbiology Microbiology Results: Microbiology 06/25/22 09:28 Blood Culture - Preliminary Blood - Venous Prelim: GPC Gram Stain only 06/25/22 09:28 Blood Culture - Preliminary Blood - Venous Prelim: GPC Gram Stain only 06/24/22 14:27 Gram Stain - Final Sputum - Suctioned Sputum Culture - Final Methicillin Res Staph Aureus 06/24/22 Unknown Gram Stain - Final Axilla Left Routine Culture - Final Methicillin Res Staph Aureus Citrobacter freundii 06/23/22 20:55 Blood Culture - Final Blood - Venous Methicillin Res Staph Aureus Coag negative Staphylococcus 06/23/22 18:45 Blood Culture - Final Blood - Venous Methicillin Res Staph Aureus Procedures Date of Service Date of Service: 06/27/22 Progress Note: A&P Assessment and plan (1) Status post debridement: Status: Acute Assessment and Plan: 52 year old female admitted with sepsis from necrotizing soft tissue infection of left chest and axilla POD #3 s/p wide excisional debridement of the left chest, axilla and upper arm. Remains vented in ICU on pressors after failed weaning yesterday. Wound VAC in place maintaining good suction. Surrounding skin is clean without evidence of skin necrosis or erythema. Continue IV antibiotics and local wound care. Vent management per ICU team. (2) Necrotizing soft tissue infection: Status: Acute (3) Septic encephalopathy: Status: Acute (4) Gram-positive bacteremia: Status: Acute (5) Sepsis: Status: Acute Time Spent With Patient Time: Total time spent is greater than 50% in coordination of care (as documented) at patient's floor/unit and/or counseling patient: Quality Stroke Does the patient have a stroke diagnosis?: No VTE Prior VTE?: No VTE Risk Level:: Medical - moderate - high VTE Device Contraindication: Treatment Not Indicated VTE Drug Contraindication: N/A - Med Ordered
--- NOTE | 2022-06-27 11:00 | PM.CCPN ---
Subjective Subjective Date of Service: 06/27/22 Interval History: 52-year-old lady with underlying history of substance abuse admitted on 06/24/2022 with lethargy. On ER evaluation patient noted to have left upper chest/left upper arm soft tissue infection with gas in the tissue on CT scan. Patient started on broad-spectrum antibiotics and admitted to intensive care unit. General surgery consulted and patient underwent debridement of her chest an upper arm fasciitis in operating room on 06/24/2022 and bedside placement of wound VAC on 06/25/2022. Patient blood and wound cultures are growing MRSA and Citrobacter. No events overnight. Continues with high grade staphylococcal bacteremia, concerning for endocarditis. Critical Care Time (minutes): 45 Physical Exam Vital Signs: Vital Signs: Last Vital Signs Temp 102.4 F H 06/27/22 10:00 Pulse 56 06/27/22 10:00 Resp 24 H 06/27/22 10:00 BP 129/45 L 06/27/22 10:00 Pulse Ox 97 06/27/22 10:00 O2 Del Method 06/27/22 10:00 O2 Flow Rate 3 06/24/22 10:00 FiO2 30 06/27/22 10:00 BMI result Body Mass Index 35.7 Const: General: no acute distress and other ( sedated on the vent) Eyes: Sclerae: sclerae normal Neck: Neck: Yes no lymphadenopathy, Yes trachea midline and Yes supple Chest: Other: left chest/ left upper arm surgical incision with wound VAC Resp: Auscultation: crackles ( bibasilar) Cardio: Rate: regular rate Rhythm: regular rhythm Heart sounds: no gallops, no murmurs and no rubs GI: Palpation (GI): Soft to palpation and Other GI palpation findings present ( Nontender) Auscultation: normal bowel sounds Extrem: General: No clubbing, No cyanosis and Yes edema ( trace bilateral) Objective Data Labs CBC & Chem 7: 06/27/22 05:25 06/27/22 05:25 Labs: Laboratory Results - last 24 hr 06/26/22 06/27/22 06/27/22 21:03 05:25 05:25 WBC 10.4 RBC 2.75 L Hgb 7.3 L Hct 23.0 L MCV 83.6 MCH 26.5 L MCHC 31.7 RDW 15.3 Plt Count 137 L MPV 9.4 Immature Gran % (Auto) 4.3 H Neut % (Auto) 81.5 H Lymph % (Auto) 9.2 L [place] % (Auto) 4.3 Eos % (Auto) 0.4 Baso % (Auto) 0.3 Lymph # (Auto) 1.0 L [place] # (Auto) 0.5 Eos # (Auto) 0.0 Baso # (Auto) 0.0 Abs Immat Gran (auto) 0.45 H Absolute Neuts (auto) 8.5 H Absolute Nucleated RBC 0.000 Nucleated RBC % (auto) 0.0 VBG pH VBG pCO2 VBG pO2 VBG HCO3 VBG O2 Saturation VBG Base Excess Sodium 154 H Potassium 3.9 Chloride 121 H Carbon Dioxide 21 L Anion Gap 16 BUN 44 H Creatinine 1.71 H Estim Creat Clear Calc 43.5 Estimated GFR 31 Random Glucose 132 H Calcium 7.0 L D Phosphorus 3.7 Magnesium 2.3 Albumin 3.2 L D Random Vancomycin 10.7 L 06/27/22 05:35 WBC RBC Hgb Hct MCV MCH MCHC RDW Plt Count MPV Immature Gran % (Auto) Neut % (Auto) Lymph % (Auto) [place] % (Auto) Eos % (Auto) Baso % (Auto) Lymph # (Auto) [place] # (Auto) Eos # (Auto) Baso # (Auto) Abs Immat Gran (auto) Absolute Neuts (auto) Absolute Nucleated RBC Nucleated RBC % (auto) VBG pH 7.45 H VBG pCO2 29 VBG pO2 43 VBG HCO3 20 L VBG O2 Saturation 72.0 VBG Base Excess -3.0 Sodium Potassium Chloride Carbon Dioxide Anion Gap BUN Creatinine Estim Creat Clear Calc Estimated GFR Random Glucose Calcium Phosphorus Magnesium Albumin Random Vancomycin Microbiology Microbiology Results: Microbiology 06/25/22 09:28 Blood - Venous Blood Culture - Final Methicillin Res Staph Aureus 06/25/22 09:28 Blood - Venous Blood Culture - Final Methicillin Res Staph Aureus 06/24/22 14:27 Sputum - Suctioned Gram Stain - Final 06/24/22 14:27 Sputum - Suctioned Sputum Culture - Final Methicillin Res Staph Aureus 06/24/22 Unknown Axilla Left Gram Stain - Final 06/24/22 Unknown Axilla Left Routine Culture - Final Methicillin Res Staph Aureus Citrobacter freundii 06/23/22 20:55 Blood - Venous Blood Culture - Final Methicillin Res Staph Aureus Coag negative Staphylococcus 06/23/22 18:45 Blood - Venous Blood Culture - Final Methicillin Res Staph Aureus Progress Note: A&P Assessment and plan (1) Gram-negative bacteremia: Status: Acute (2) Gram-positive bacteremia: Status: Acute (3) Septic encephalopathy: Status: Acute (4) Necrotizing soft tissue infection: Status: Acute (5) Status post debridement: Status: Acute (6) Acute respiratory failure: Status: Acute Plan Assessment: 52-year-old lady admitted with septic encephalopathy secondary to fasciitis of left upper chest /left upper requiring surgical debridement Plan: Neuro: Septic encephalopathy, with poor arousal with sedation vacation. Cardiac: No acute issues. Pulmonary: Intubated in OR. Continue to titrate off ventilatory support as tolerated. CT chest with pulmonary nodules, likely infectious - septic emboli with staphylococcal/Citrobacter bacteremia. Renal: Acute renal failure, likely secondary to sepsis/staphylococcal bacteremia. Non oliguric. Continue to monitor renal indices and urine output. Endo: No acute issues. GI: No acute issues. ID: Fasciitis with MRSA and Citrobacter bacteremia, likely secondary to drug abuse. Status post surgical debridement and wound VAC placement. General surgery service care appreciated. Continues on broad-spectrum antibiotics. Now with persistent high-grade bacteremia with suspicion for endocarditis. 2D echocardiogram is pending. Heme/Onc: No acute issues. Psych: No acute issues. Miscellaneous: No acute issues. Prophylaxis: Heparin, famotidine Diet: tube feeds Critical care time spent: 45 minutes Quality Stroke Does the patient have a stroke diagnosis?: No VTE Prior VTE?: No VTE Risk Level:: Medical - moderate - high VTE Device Contraindication: Treatment Not Indicated VTE Drug Contraindication: N/A - Med Ordered
[2022-06-27] MEDS: Lactulose 20 GM/30 ML SOLUTION 30 GM PO (11:56)
[2022-06-27] MEDS: propofoL 1,000 MG/100 ML VIAL 34.02 MG IVCONT ×4 (13:46→22:50)
[2022-06-27] MEDS: fentaNYL citrate/NS 1,000 MCG/100 ML PLAST..BAG 20 MCG IVCONT ×2 (16:27→22:09)
[2022-06-27] MEDS: DOPamine HCL/D5W 400 MG/250 ML PLAST..BAG 17.72 MG IVCONT (17:56)
--- NOTE | 2022-06-27 18:27 | PC.NURSE ---
Pt bradycardic in the mid 50s, made aware, paused Precedex per order at 1203, pt then breathing against the vent settings, RR in the 40s, MD aware, maxed on Propofol and Fentanyl with not much effect, MD aware and restarted on Precedex per order at 1243 with good effect. Pt's MAP then dropping in the 50s, Levophed resumed but HR now sustaining in the mid 40s, stopped Precedex at 1557 and titrated Propofol down to 40mcg/kg/min with no effect, MD made aware, EKG done showing SB with PACs, MD aware. MD orders: Levophed dc'd and dopamine started with good effect. HR now in the 60s and MAP over 65. Pt adequately sedated and remains intubated. Contact Precautions maintained. Pt bathed, repositioned every 2 hrs and as needed, skin care provided. Wound vac continues to drain sanguineous drainage. OGtube draining bilious drainage in the LWS, tube residual of bile also decreasing throughout the shift, MD aware and Lactulose given per order, no BM this shift. Pt currently resting in no acute distress. Safety maintained.
[2022-06-27] MEDS: Cisatracurium Besylate 20 MG/10 ML VIAL IVPUSH (20:31)
[2022-06-27] MEDS: propofoL 200 MG/20 ML VIAL 40 MG IVPUSH (20:31)
[2022-06-27 20:40] LABS: Vancomycin Random 13.3 mcg/mL (15-20)
--- NOTE | 2022-06-27 20:52 | HE.PHANOTE ---
VANCO TROUGH 13.3 AUC ANTICIPATED 577, KEEP SAME DOSE
[2022-06-27 20:57] LABS: MANUAL DIFF FLAG NO
[2022-06-27 21:00] LABS: Basophils Percent Auto 0.3 % (0-2); Eosinophils Absolute Auto 0.1 X10*3/uL (0.0-0.4); Eosinophils Percent Auto 0.6 % (0-4); Hematocrit 22.1 % (37.0-47.0); Imm Gran Abs Auto 0.43 X10*3/uL (0.00-0.03); Imm Gran Pct Auto 4.8 % (0.0-0.4); Lymphocytes Absolute Auto 0.8 X10*3/uL (1.2-4.9); Lymphocytes Percent Auto 9.3 % (20-40); Mean Corpuscular HGB Conc 31.7 g/dl (31.0-35.0); Mean Corpuscular Hemoglobin 26.9 pg (27.0-33.0); Mean Platelet Volume 9.9 fL (9.4-12.3); Monocytes Absolute Auto 0.4 X10*3/uL (0.1-1.2); Monocytes Percent Auto 4.3 % (2-11); Neutrophils Absolute Auto 7.2 x10*3/uL (2.0-8.3); Neutrophils Percent Auto 80.7 % (45-73); Platelet Count 136 X10*3/uL (160-400); Red Cell Distribution Width 15.5 % (11.0-16.0); White Blood Count 8.9 X10*3/uL (4.8-10.8)
[2022-06-27 21:14] LABS: Lactic Acid 0.8 mmol/L (0.5-2.0)
[2022-06-27 21:19] LABS: Anion Gap 15 (12-20); Blood Urea Nitrogen 41 mg/dL (9-16); Calcium 7.4 mg/dL (8.4-10.2); Carbon Dioxide 21 mmol/L (22-29); Chloride 124 mmol/L (96-108); Creatinine Clr Calc Pharmacy 47.9; Estimated Glomerular Filt Rate 36; Glucose Random 113 mg/dL (60-115); Magnesium 2.4 mg/dL (1.6-2.6); Phosphorus 5.2 mg/dL (2.7-4.5); Potassium 3.4 mmol/L (3.3-5.1); Sodium 157 mmol/L (135-145)
[2022-06-27 21:31] LABS: Troponin-I High Sensitivity 9.8 ng/L (<3.5-17.0)
[2022-06-27] MEDS: Midazolam HCl/PF 2 MG/2 ML VIAL 4 MG IVPUSH ×2 (21:44→23:25)
[2022-06-27] MEDS: vancomycin HCL 1,500 MG in 0.9 % Sodium Chloride 500 ML 333.33 MG IV (22:09)
[2022-06-28] VITALS (37 sets, daily range): BP systolic 115–160; BP diastolic 31–67; PULSE 51–84; RESP 16–23; TEMP 34.4–38.6; O2SAT 90–100; BMI 34.7
[2022-06-28] MEDS: Potassium Chloride/H20 40 MEQ/100 ML PIGGYBACK 50 MEQ IV (00:53)
[2022-06-28] MEDS: DOPamine HCL/D5W 400 MG/250 ML PLAST..BAG 53.16 MG IVCONT ×2 (00:55→05:13)
[2022-06-28] MEDS: propofoL 1,000 MG/100 ML VIAL 34.02 MG IVCONT ×5 (00:56→12:08)
[2022-06-28] MEDS: fentaNYL citrate/NS 1,000 MCG/100 ML PLAST..BAG 20 MCG IVCONT ×5 (03:13→21:35)
[2022-06-28] MEDS: Piperacillin Sodium/Tazobactam 3.375 GM in 0.9 % Sodium Chloride 50 ML IV ×4 (03:16→20:12)
--- NOTE | 2022-06-28 04:19 | PC.NURSE ---
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
[2022-06-28 05:37] LABS: VBG HCO3 18 mmol/L (22-26); VBG pCO2 32 mmHg; VBG pH 7.36 (7.32-7.43); VBG pO2 64 mmHg
[2022-06-28 05:46] LABS: MANUAL DIFF FLAG NO
[2022-06-28 05:57] LABS: Basophils Absolute Auto 0.1 X10*3/uL (0.0-0.2); Basophils Percent Auto 0.5 % (0-2); Eosinophils Absolute Auto 0.1 X10*3/uL (0.0-0.4); Eosinophils Percent Auto 0.7 % (0-4); Hematocrit 28.3 % (37.0-47.0); Hemoglobin 8.8 g/dl (12.0-16.0); Imm Gran Abs Auto 0.24 X10*3/uL (0.00-0.03); Imm Gran Pct Auto 2.3 % (0.0-0.4); Lymphocytes Absolute Auto 0.8 X10*3/uL (1.2-4.9); Lymphocytes Percent Auto 7.2 % (20-40); Mean Corpuscular HGB Conc 31.1 g/dl (31.0-35.0); Mean Corpuscular Hemoglobin 26.2 pg (27.0-33.0); Mean Corpuscular Volume 84.2 fL (80.0-98.0); Mean Platelet Volume 10.1 fL (9.4-12.3); Monocytes Absolute Auto 0.4 X10*3/uL (0.1-1.2); Monocytes Percent Auto 3.4 % (2-11); Neutrophils Absolute Auto 9.1 x10*3/uL (2.0-8.3); Neutrophils Percent Auto 85.9 % (45-73); Platelet Count 167 X10*3/uL (160-400); Red Blood Count 3.36 X10*6/uL (4.20-5.50); Red Cell Distribution Width 15.4 % (11.0-16.0); White Blood Count 10.6 X10*3/uL (4.8-10.8)
[2022-06-28 06:22] LABS: Venous Blood Gas Refer to POC result
[2022-06-28 06:33] LABS: Anion Gap 19 (12-20); Blood Urea Nitrogen 38 mg/dL (9-16); Calcium 7.5 mg/dL (8.4-10.2); Carbon Dioxide 19 mmol/L (22-29); Chloride 124 mmol/L (96-108); Creatinine Clr Calc Pharmacy 56.4; Estimated Glomerular Filt Rate 44; Glucose Random 151 mg/dL (60-115); Magnesium 2.2 mg/dL (1.6-2.6); Potassium 3.6 mmol/L (3.3-5.1); Sodium 158 mmol/L (135-145)
[2022-06-28] MEDS: Albumin Human 25 % 100 ML IV (06:41)
[2022-06-28] MEDS: Calcium Gluconate/NaCl,Iso-Osm 1 GM/50 ML PLAST..BAG IV (07:24)
[2022-06-28] MEDS: Heparin Sodium,Porcine 5,000 UNIT/ML VIAL 5000 UNIT SUBCUT (07:24)
[2022-06-28] MEDS: Famotidine/PF 20 MG/2 ML VIAL IVPUSH (07:25)
[2022-06-28] MEDS: 0.9 % Sodium Chloride Flush 3 ML SYRINGE IVFLUSH ×2 (07:29→17:03)
[2022-06-28] MEDS: Dextrose 5 % 1,000 ML 100 ML IVCONT ×2 (07:34→17:14)
[2022-06-28] MEDS: Chlorhexidine Gluc Oral Rinse 15 ML MOUTHWASH BUCCAL ×3 (07:42→20:12)
--- NOTE | 2022-06-28 08:24 | P.PNGS_ITS ---
Subjective Subjective Date of Service: 06/28/22 Interval history: Intubated and sedated; no weaning trials yesterday. Physical Exam Vital Signs: Vital Signs: Last Vital Signs Temp 100.2 F 06/28/22 08:00 Pulse 68 06/28/22 08:00 Resp 23 H 06/28/22 08:00 BP 135/52 L 06/28/22 08:00 Pulse Ox 100 06/28/22 08:00 O2 Del Method 06/28/22 08:00 O2 Flow Rate 3 06/24/22 10:00 FiO2 30 06/28/22 08:00 BMI result Body Mass Index 34.7 Const: General: patient obtunded Orientation/consciousness: patient obtunded Chest: Other: Wound VAC in place left chest wall with serous output noted in drain. No skin necrosis or erythema appreciated. Skin: Other: As noted in chest wall above Neuro: General: patient obtunded Objective Data Active Medications Acetaminophen (Acetaminophen 325 Mg Tablet) 650 mg PO Q6H PRN PRN Reason: Pain, Mild (Pain Scale 1-3) Acetaminophen (Acetaminophen Supp 650 Mg Supp.Rect) 650 mg [place] Q6H PRN PRN Reason: fever Last Admin: 06/27/22 19:48 Dose: 650 mg Documented By: YASMIN Chlorhexidine Gluconate (Chlorhexidine Gluc Oral Rinse 15 Ml Mouthwash) 15 ml BUCCAL TID [facility] Last Admin: 06/28/22 07:42 Dose: 15 ml Documented By: DAPHNEY Docusate Sodium (Docusate Sodium 100 Mg Capsule) 100 mg PO DAILY PRN PRN Reason: Constipation Famotidine (Famotidine/Pf 20 Mg/2 Ml Vial) 20 mg IVPUSH DAILY [facility] Last Admin: 06/28/22 07:25 Dose: 20 mg Documented By: DAPHNEY Heparin Sodium (Porcine) (Heparin Sodium,Porcine 5,000 Unit/Ml Vial) 5,000 unit SUBCUT Q8H [facility] Last Admin: 06/28/22 07:24 Dose: 5,000 unit Documented By: DAPHNEY Hydromorphone HCl (Hydromorphone Hcl 0.5 Mg/0.5 Ml Syringe) 0.5 mg IVPUSH Q4H PRN; Protocol PRN Reason: Pain, Severe (Pain Scale 7-10) Last Admin: 06/27/22 00:27 Dose: 0.5 mg Documented By: YASMIN Propofol (Diprivan) 1,000 mg in 100 mls @ 0 mls/hr IVCONT .Q0M TERRI; Protocol Last Admin: 06/28/22 06:29 Dose: 50 mcg/kg/min, 34.02 mls/hr Documented By: SILVIA Fentanyl (Sublimaze/Ns) 1,000 mcg in 100 mls @ 0 mls/hr IVCONT .Q0M TERRI; Protocol Last Admin: 06/28/22 08:17 Dose: 200 mcg/hr, 20 mls/hr Documented By: DAPHNEY Norepinephrine Bitartrate (Levophed) 8 mg in 250 mls @ 0 mls/hr IVCONT .Q0M TERRI; Protocol Last Titration: 06/27/22 17:56 Dose: 0 mcg/kg/min, 0 mls/hr Documented By: DAPHNEY Piperacillin Sod/Tazobactam (Sod 3.375 gm/ Sodium Chloride) 50 mls @ 100 mls/hr IV Q6H TERRI Last Admin: 06/28/22 07:24 Dose: 100 mls/hr Documented By: DAPHNEY Dexmedetomidine HCl (Precedex) 400 mcg in 100 mls @ 0 mls/hr IVCONT .Q0M TERRI; Protocol Last Titration: 06/27/22 15:55 Dose: 0 mcg/kg/hr, 0 mls/hr Documented By: SARAH Vancomycin HCl 1,500 mg/ (Sodium Chloride) 500 mls @ 333.333 mls/hr IV Q24H TERRI Last Infusion: 06/27/22 23:56 Dose: 0 mls/hr Documented By: SILVIA Dopamine HCl/Dextrose (Dopamine Hcl/D5w) 400 mg in 250 mls @ 0 mls/hr IVCONT .Q0M TERRI; Protocol Last Titration: 06/28/22 05:34 Dose: 10 mcg/kg/min, 35.44 mls/hr Documented By: SILVIA Dextrose (D5w) 1,000 mls @ 100 mls/hr IVCONT .Q10H TERRI Stop: 06/28/22 17:59 Last Admin: 06/28/22 07:34 Dose: 100 mls/hr Documented By: DAPHNEY Calcium Gluconate (Calcium Gluconate) 1 gm in 50 mls @ 50 mls/hr IV ONCE ONE Stop: 06/28/22 08:59 Last Admin: 06/28/22 07:24 Dose: 50 mls/hr Documented By: DAPHNEY Lactulose (Lactulose 20 Gm/30 Ml Solution) 30 gm PO BID [facility] Last Admin: 06/28/22 07:43 Dose: Not Given Documented By: DAPHNEY Non-Admin Reason: Physician Held Med Naloxone HCl (Naloxone Hcl 0.4 Mg/Ml Vial) 0.2 mg IVPUSH Q2M PRN PRN Reason: Excessive sedation or RR < 8 Ondansetron HCl (Ondansetron Hcl 4 Mg/2 Ml Vial) 4 mg IVPUSH Q8H PRN PRN Reason: Nausea and Vomiting Pharmacy Consult (Consult Rx Perform Med Rec) 1 each MISCELLANE ONCE PRN PRN Reason: Consult order Pharmacy Consult (Consult Rx Vancomycin Dosing) 1 each MISCELLANE DAILY PRN PRN Reason: Consult order Pharmacy Consult (Consult Rx Vancomycin Dosing) 1 each MISCELLANE DAILY PRN PRN Reason: Consult order Sodium Chloride (0.9 % Sodium Chloride Flush 3 Ml Syringe) 3 ml IVFLUSH QSHIFT [facility] Last Admin: 06/28/22 07:29 Dose: 3 ml Documented By: DAPHNEY Labs CBC & Chem 7: 06/28/22 05:27 06/28/22 05:23 Labs: Laboratory Results - last 24 hr 06/27/22 06/27/22 06/27/22 19:55 20:51 20:51 MCV MCH MCHC RDW Plt Count MPV Immature Gran % (Auto) Neut % (Auto) Lymph % (Auto) [place] % (Auto) Eos % (Auto) Baso % (Auto) Lymph # (Auto) [place] # (Auto) Eos # (Auto) Baso # (Auto) Abs Immat Gran (auto) Absolute Neuts (auto) Absolute Nucleated RBC Nucleated RBC % (auto) VBG pH VBG pCO2 VBG pO2 VBG HCO3 VBG O2 Saturation VBG Base Excess Anion Gap 15 Estim Creat Clear Calc 47.9 Estimated GFR 36 Random Glucose 113 Lactic Acid 0.8 Calcium 7.4 L Phosphorus 5.2 H Magnesium 2.4 Troponin I High Sens Albumin Random Vancomycin 13.3 L Blood Type Antibody Screen Crossmatch 06/27/22 06/27/22 06/27/22 20:51 20:51 22:46 MCV 85.0 MCH 26.9 L MCHC 31.7 RDW 15.5 Plt Count 136 L MPV 9.9 Immature Gran % (Auto) 4.8 H Neut % (Auto) 80.7 H Lymph % (Auto) 9.3 L [place] % (Auto) 4.3 Eos % (Auto) 0.6 Baso % (Auto) 0.3 Lymph # (Auto) 0.8 L [place] # (Auto) 0.4 Eos # (Auto) 0.1 Baso # (Auto) 0.0 Abs Immat Gran (auto) 0.43 H Absolute Neuts (auto) 7.2 Absolute Nucleated RBC 0.000 Nucleated RBC % (auto) 0.0 VBG pH VBG pCO2 VBG pO2 VBG HCO3 VBG O2 Saturation VBG Base Excess Anion Gap Estim Creat Clear Calc Estimated GFR Random Glucose Lactic Acid Calcium Phosphorus Magnesium Troponin I High Sens 9.8 D Albumin Random Vancomycin Blood Type A Positive Antibody Screen NEGATIVE Crossmatch See Detail 06/28/22 06/28/22 06/28/22 05:23 05:27 05:30 MCV 84.2 MCH 26.2 L MCHC 31.1 RDW 15.4 Plt Count 167 MPV 10.1 Immature Gran % (Auto) 2.3 H Neut % (Auto) 85.9 H Lymph % (Auto) 7.2 L [place] % (Auto) 3.4 Eos % (Auto) 0.7 Baso % (Auto) 0.5 Lymph # (Auto) 0.8 L [place] # (Auto) 0.4 Eos # (Auto) 0.1 Baso # (Auto) 0.1 Abs Immat Gran (auto) 0.24 H Absolute Neuts (auto) 9.1 H Absolute Nucleated RBC 0.000 Nucleated RBC % (auto) 0.0 VBG pH 7.36 VBG pCO2 32 VBG pO2 64 VBG HCO3 18 L VBG O2 Saturation 90.0 VBG Base Excess -6.0 Anion Gap 19 Estim Creat Clear Calc 56.4 Estimated GFR 44 Random Glucose 151 H Lactic Acid Calcium 7.5 L Phosphorus 4.0 Magnesium 2.2 Troponin I High Sens Albumin 4.0 D Random Vancomycin Blood Type Antibody Screen Crossmatch Microbiology Microbiology Results: Microbiology 06/27/22 05:25 Blood Culture - Preliminary Blood - Venous No growth after 24 hours. 06/27/22 05:25 Blood Culture - Preliminary Blood - Venous No growth after 24 hours. 06/25/22 09:28 Blood Culture - Final Blood - Venous Methicillin Res Staph Aureus 06/25/22 09:28 Blood Culture - Final Blood - Venous Methicillin Res Staph Aureus Procedures Date of Service Date of Service: 06/28/22 Progress Note: A&P Assessment and plan (1) Necrotizing soft tissue infection: Status: Acute Assessment and Plan: S/P wide debridement of necrotizing infection left upper arm and breast. Wound VAC remains in place and functioning well. Plan for wound VAC change tomorrow. Vent management per ICU team (2) MRSA bacteremia: Status: Acute Assessment and Plan: Initial blood cultures from 06/25/2022 positive for MRSA. Continue vanco and Zosyn. Time Spent With Patient Time: Total time spent is greater than 50% in coordination of care (as documented) at patient's floor/unit and/or counseling patient: Quality Stroke Does the patient have a stroke diagnosis?: No VTE Prior VTE?: No VTE Risk Level:: Medical - moderate - high VTE Device Contraindication: Treatment Not Indicated VTE Drug Contraindication: N/A - Med Ordered
--- NOTE | 2022-06-28 11:13 | P.PNCC_ITS ---
Subjective Subjective Date of Service: 06/28/22 Interval History: ICU day 5 for fasciitis status post debridement, high-grade MRSA bacteremia, septic encephalitis, pulmonary septic emboli, acute respiratory failure, likely endocarditis. 52-year-old lady with underlying history of substance abuse admitted on 06/24/2022 with lethargy. On ER evaluation patient noted to have left upper c hest/left upper arm soft tissue infection with gas in the tissue on CT scan. Patient started on broad-spectrum antibiotics and admitted to intensive care unit. General surgery consulted and patient underwent debridement of her chest an upper arm fasciitis in operating room on 06/24/2022 and bedside placement of wound VAC on 06/25/2022. Patient blood and wound cultures are growing MRSA and Citrobacter. No events overnight. Echocardiogram for assessment of endocarditis is pending. Critical Care Time (minutes): 45 Physical Exam Vital Signs: Vital Signs: Last Vital Signs Temp 100.2 F 06/28/22 08:00 Pulse 63 06/28/22 11:00 Resp 21 H 06/28/22 11:00 BP 133/46 L 06/28/22 11:00 Pulse Ox 98 06/28/22 11:00 O2 Del Method 06/28/22 11:00 O2 Flow Rate 3 06/24/22 10:00 FiO2 30 06/28/22 11:00 BMI result Body Mass Index 34.7 Const: General: no acute distress and other ( sedated on the vent) Nutritional Appearance: obese Eyes: Sclerae: sclerae normal Neck: Neck: Yes no lymphadenopathy, Yes trachea midline and Yes supple Chest: Other: left upper chest/left upper arm incision with wound VAC Resp: Auscultation: clear to auscultation bilaterally Cardio: Rate: regular rate Rhythm: regular rhythm Heart sounds: no gallops, no murmurs and no rubs GI: Palpation (GI): Soft to palpation and Other GI palpation findings present ( Nontender) Auscultation: normal bowel sounds Extrem: General: Yes no pedal edema, No clubbing and No cyanosis Objective Data Labs CBC & Chem 7: 06/28/22 05:27 06/28/22 05:23 Labs: Laboratory Results - last 24 hr 06/27/22 06/27/22 06/27/22 19:55 20:51 20:51 WBC RBC Hgb Hct MCV MCH MCHC RDW Plt Count MPV Immature Gran % (Auto) Neut % (Auto) Lymph % (Auto) [place] % (Auto) Eos % (Auto) Baso % (Auto) Lymph # (Auto) [place] # (Auto) Eos # (Auto) Baso # (Auto) Abs Immat Gran (auto) Absolute Neuts (auto) Absolute Nucleated RBC Nucleated RBC % (auto) VBG pH VBG pCO2 VBG pO2 VBG HCO3 VBG O2 Saturation VBG Base Excess Sodium 157 H Potassium 3.4 Chloride 124 H Carbon Dioxide 21 L Anion Gap 15 BUN 41 H Creatinine 1.53 H Estim Creat Clear Calc 47.9 Estimated GFR 36 Random Glucose 113 Lactic Acid 0.8 Calcium 7.4 L Phosphorus 5.2 H Magnesium 2.4 Troponin I High Sens Albumin Random Vancomycin 13.3 L Blood Type Antibody Screen Crossmatch 06/27/22 06/27/22 06/27/22 20:51 20:51 22:46 WBC 8.9 RBC 2.60 L Hgb 7.0 L* Hct 22.1 L MCV 85.0 MCH 26.9 L MCHC 31.7 RDW 15.5 Plt Count 136 L MPV 9.9 Immature Gran % (Auto) 4.8 H Neut % (Auto) 80.7 H Lymph % (Auto) 9.3 L [place] % (Auto) 4.3 Eos % (Auto) 0.6 Baso % (Auto) 0.3 Lymph # (Auto) 0.8 L [place] # (Auto) 0.4 Eos # (Auto) 0.1 Baso # (Auto) 0.0 Abs Immat Gran (auto) 0.43 H Absolute Neuts (auto) 7.2 Absolute Nucleated RBC 0.000 Nucleated RBC % (auto) 0.0 VBG pH VBG pCO2 VBG pO2 VBG HCO3 VBG O2 Saturation VBG Base Excess Sodium Potassium Chloride Carbon Dioxide Anion Gap BUN Creatinine Estim Creat Clear Calc Estimated GFR Random Glucose Lactic Acid Calcium Phosphorus Magnesium Troponin I High Sens 9.8 D Albumin Random Vancomycin Blood Type A Positive Antibody Screen NEGATIVE Crossmatch See Detail 06/28/22 06/28/22 06/28/22 05:23 05:27 05:30 WBC 10.6 RBC 3.36 L D Hgb 8.8 L D Hct 28.3 L D MCV 84.2 MCH 26.2 L MCHC 31.1 RDW 15.4 Plt Count 167 MPV 10.1 Immature Gran % (Auto) 2.3 H Neut % (Auto) 85.9 H Lymph % (Auto) 7.2 L [place] % (Auto) 3.4 Eos % (Auto) 0.7 Baso % (Auto) 0.5 Lymph # (Auto) 0.8 L [place] # (Auto) 0.4 Eos # (Auto) 0.1 Baso # (Auto) 0.1 Abs Immat Gran (auto) 0.24 H Absolute Neuts (auto) 9.1 H Absolute Nucleated RBC 0.000 Nucleated RBC % (auto) 0.0 VBG pH 7.36 VBG pCO2 32 VBG pO2 64 VBG HCO3 18 L VBG O2 Saturation 90.0 VBG Base Excess -6.0 Sodium 158 H Potassium 3.6 Chloride 124 H Carbon Dioxide 19 L Anion Gap 19 BUN 38 H Creatinine 1.28 Estim Creat Clear Calc 56.4 Estimated GFR 44 Random Glucose 151 H Lactic Acid Calcium 7.5 L Phosphorus 4.0 Magnesium 2.2 Troponin I High Sens Albumin 4.0 D Random Vancomycin Blood Type Antibody Screen Crossmatch Microbiology Microbiology Results: Microbiology 06/28/22 01:20 Sputum - Suctioned Gram Stain - Final 06/25/22 09:28 Blood - Venous Blood Culture - Final Methicillin Res Staph Aureus 06/27/22 05:25 Blood - Venous Blood Culture - Preliminary No growth after 24 hours. 06/27/22 05:25 Blood - Venous Blood Culture - Preliminary No growth after 24 hours. 06/25/22 09:28 Blood - Venous Blood Culture - Final Methicillin Res Staph Aureus 06/24/22 14:27 Sputum - Suctioned Gram Stain - Final 06/24/22 14:27 Sputum - Suctioned Sputum Culture - Final Methicillin Res Staph Aureus 06/24/22 Unknown Axilla Left Gram Stain - Final 06/24/22 Unknown Axilla Left Routine Culture - Final Methicillin Res Staph Aureus Citrobacter freundii 06/23/22 20:55 Blood - Venous Blood Culture - Final Methicillin Res Staph Aureus Coag negative Staphylococcus 06/23/22 18:45 Blood - Venous Blood Culture - Final Methicillin Res Staph Aureus Progress Note: A&P Assessment and plan (1) MRSA bacteremia: Status: Acute (2) Necrotizing soft tissue infection: Status: Acute (3) Septic encephalopathy: Status: Acute (4) Acute respiratory failure: Status: Acute Plan Assessment: 52-year-old lady admitted with septic encephalopathy secondary to fasciitis of left upper chest /left upper requiring surgical debridement Plan: Neuro: Septic encephalopathy, with poor arousal with sedation vacation. Cardiac: No acute issues. Pulmonary: Intubated in OR. Continue to titrate off ventilatory support as tolerated. CT chest with pulmonary nodules, likely infectious - septic emboli with staphylococcal/Citrobacter bacteremia. Renal: Acute renal failure, secondary to staphylococcal bacteremia, improving. Hypernatremia, started on D5. Non oliguric. Continue to monitor renal indices and urine output. Endo: No acute issues. GI: No acute issues. ID: Fasciitis with MRSA and Citrobacter bacteremia, likely secondary to drug abuse. Status post surgical debridement and wound VAC placement. General surgery service care appreciated. Continues on broad-spectrum antibiotics. Now with persistent high-grade bacteremia with suspicion for endocarditis. 2D echocardiogram is pending. Heme/Onc: No acute issues. Psych: No acute issues. Miscellaneous: No acute issues. Prophylaxis: Heparin, famotidine Diet: tube feeds Critical care time spent: 45 minutes Quality Stroke Does the patient have a stroke diagnosis?: No VTE Prior VTE?: No VTE Risk Level:: Medical - moderate - high VTE Device Contraindication: Treatment Not Indicated VTE Drug Contraindication: N/A - Med Ordered
[2022-06-28] MEDS: DOPamine HCL/D5W 400 MG/250 ML PLAST..BAG 35.44 MG IVCONT ×2 (12:02→18:41)
[2022-06-28] MEDS: propofoL 1,000 MG/100 ML VIAL 30.62 MG IVCONT ×3 (15:10→21:30)
[2022-06-28 18:24] LABS: Anion Gap 9 (12-20); Blood Urea Nitrogen 31 mg/dL (9-16); Calcium 7.7 mg/dL (8.4-10.2); Carbon Dioxide 21 mmol/L (22-29); Chloride 124 mmol/L (96-108); Creatinine Clr Calc Pharmacy 64.3; Estimated Glomerular Filt Rate 51; Glucose Random 138 mg/dL (60-115); Potassium 3.5 mmol/L (3.3-5.1); Sodium 150 mmol/L (135-145)
--- NOTE | 2022-06-28 19:06 | PC.NURSE ---
Pt received 2 bags of D5W for hypernatremia, improved at 150 at 1700 lab draw. Pt tolerating the vent settings of 16 at30% with PEE of 5, required minimal suctioning mostly with repositioning or care, puts out creamish yellow secretions. Pt's OGT residuals minimal, off from LWS, MD made aware and restarted TF at 1930, tolerating well. Pt's wound vac CDI, draining sanguineous, site with improved redness and inflammation, elevated in the sling as requested, plan to change 06/29. Pt's gambino draining cloudy urine, patent. Pt continues to be SB in the mid 50s to SR on the dopamine, tolearting well, plan for Echo 06/29 per MD. Pt's temp in the am at 101.9, cooling blanket on, continues to improve. Pt otherwise currently resting in no acute distress. Repositioned every 2 hrs and as needed, skin care provided. Maintained on Contact precautions and safety maintained.
[2022-06-28 20:29] LABS: Vancomycin Random 10.3 mcg/mL (15-20)
[2022-06-28] MEDS: vancomycin HCL 1,000 MG in 0.9 % Sodium Chloride 250 ML 270 MG IV (21:36)
[2022-06-29] VITALS (29 sets, daily range): BP systolic 123–154; BP diastolic 47–91; PULSE 50–81; RESP 16–23; TEMP 34–38.6; O2SAT 96–100; BMI 37.0
[2022-06-29] MEDS: propofoL 1,000 MG/100 ML VIAL 30.62 MG IVCONT ×3 (00:14→05:40)
[2022-06-29] MEDS: 0.9 % Sodium Chloride Flush 3 ML SYRINGE IVFLUSH ×3 (00:15→23:45)
[2022-06-29] MEDS: DOPamine HCL/D5W 400 MG/250 ML PLAST..BAG 35.44 MG IVCONT ×3 (01:38→22:40)
[2022-06-29] MEDS: fentaNYL citrate/NS 1,000 MCG/100 ML PLAST..BAG 20 MCG IVCONT ×4 (02:11→21:32)
[2022-06-29] MEDS: Piperacillin Sodium/Tazobactam 3.375 GM in 0.9 % Sodium Chloride 50 ML IV ×4 (02:14→20:40)
[2022-06-29] MEDS: Midazolam HCl/PF 2 MG/2 ML VIAL 4 MG IVPUSH (03:50)
[2022-06-29 05:12] LABS: VBG Base Excess -4.2 mmol/L; VBG HCO3 19 mmol/L (22-26); VBG pCO2 32 mmHg; VBG pH 7.39 (7.32-7.43); VBG pO2 62 mmHg
[2022-06-29 05:32] LABS: MANUAL DIFF FLAG NO
[2022-06-29 05:56] LABS: Venous Blood Gas Refer to POC result
[2022-06-29 06:00] LABS: Alanine Aminotransferase 26 U/L (0-31); Albumin Level 3.5 g/dL (3.5-5.0); Alkaline Phosphatase 69 U/L (39-117); Anion Gap 14 (12-20); Aspartate Amino Transferase 25 U/L (5-31); Bilirubin Total 0.8 mg/dL (0.0-1.0); Blood Urea Nitrogen 26 mg/dL (9-16); Calcium 7.6 mg/dL (8.4-10.2); Carbon Dioxide 22 mmol/L (22-29); Chloride 124 mmol/L (96-108); Creatinine Clr Calc Pharmacy 79.6; Estimated Glomerular Filt Rate > 60; Glucose Random 141 mg/dL (60-115); Magnesium 1.8 mg/dL (1.6-2.6); Potassium 3.5 mmol/L (3.3-5.1); Sodium 156 mmol/L (135-145); Total Protein 5.8 g/dL (6.5-8.0)
[2022-06-29 06:11] LABS: Basophils Percent Auto 0.4 % (0-2); Eosinophils Absolute Auto 0.2 X10*3/uL (0.0-0.4); Hematocrit 26.4 % (37.0-47.0); Hemoglobin 8.3 g/dl (12.0-16.0); Imm Gran Abs Auto 0.15 X10*3/uL (0.00-0.03); Imm Gran Pct Auto 1.8 % (0.0-0.4); Lymphocytes Absolute Auto 0.9 X10*3/uL (1.2-4.9); Lymphocytes Percent Auto 10.9 % (20-40); Mean Corpuscular HGB Conc 31.4 g/dl (31.0-35.0); Mean Corpuscular Hemoglobin 26.7 pg (27.0-33.0); Mean Corpuscular Volume 84.9 fL (80.0-98.0); Mean Platelet Volume 10.7 fL (9.4-12.3); Monocytes Absolute Auto 0.2 X10*3/uL (0.1-1.2); Monocytes Percent Auto 2.6 % (2-11); Neutrophils Absolute Auto 6.7 x10*3/uL (2.0-8.3); Neutrophils Percent Auto 82.3 % (45-73); Platelet Count 175 X10*3/uL (160-400); Red Blood Count 3.11 X10*6/uL (4.20-5.50); Red Cell Distribution Width 15.9 % (11.0-16.0); White Blood Count 8.1 X10*3/uL (4.8-10.8)
--- NOTE | 2022-06-29 07:00 | CA_ITS ---
Transthoracic Echocardiogram Patient (Last, First, Middle): Yun Quigley C Gender: Female Date of : 1970 Age: 52 Procedure Date: 06/29/2022 Procedure Type: Transthoracic Echocardiogram Location: ICU Height: 162.56 cm Weight: 97.98 kg BSA: 2.02 m2 Heart Rate: 59 bpm BP: 154 / 56 mmHg [employer] Team Member: SB Referring MD: Braden Hernandez MD Launchman: Fox Rios MD Symptoms: persistent GPC bacteremia Study Quality: Adequate w contrast ECG Rhythm: Bradycardia Conclusions: - 1. Vegetations cannot be entirely ruled out on this study 2. Normal LV systolic and diastolic function 3. Normal cardiac valvular Doppler 4. Right ventricular systolic pressure cannot be assessed accurately on this study 5. No gross pericardial effusion Findings Procedure Information Contrast agent, definity, is being given per protocol without apparent complications. Left Ventricle Normal left ventricular size, thickness, and systolic function. The visually estimated ejection fraction is between 65-70%. Spectral Doppler is indicative of a normal filling pattern. Right Ventricle Normal right ventricular cavity size and systolic function. Atria The left atrium is normal in size. Interatrial shunt cannot be excluded. The right atrium is normal in size. Aortic Valve The aortic valve was not well visualized. There is trace (trivial) aortic valve regurgitation. Mitral Valve There is mild anterior and posterior mitral leaflet thickening. There is trace mitral valve regurgitation. There is no mitral valve stenosis. Pulmonic Valve The pulmonic valve was not well visualized. Tricuspid Valve The tricuspid valve was not well visualized. There is mild tricuspid valve regurgitation. RV systolic pressure cannot be accurately estimated as RA pressures are difficult to estimate due to patient being on positive-pressure ventilation Great Vessels All visible segments of the aorta are normal in size. The pulmonary artery was not well visualized. Venous The inferior vena cava is mildly dilated and collapses less than 50% with inspiration. Pericardium/Pleural There is no evidence of pericardial effusion. Prior Study Comparison No prior study available for comparison. Recommendations, Care & Conclusions Consider a MARU if clinically appropriate. Measurements 2D Linear Measurements IVSd: 0.81 0.6-0.9/0.6-1.0 cm LVIDd: 5.37 3.9-5.3/4.2-5.9 cm LVIDd Index: 2.66 2.4-3.2/2.2-3.1 cm/m2 LVIDs: 3.34 2.0-3.6 cm LVPWd: 0.86 0.7-1.1 cm LA Diam: 4.20 2.7-3.8/3.0-4.0 cm LAIDs Index: 2.08 1.5-2.3 cm/m2 LV Mass: 200.89 67-162/88-224 g LV Mass Index: 99.45 43-95/49-115 g/m2 LVOT Diam: 2.00 3.0+(-)1.3 cm 2D Systolic Function EF 4C: 64.80 >55% EF 2C: 70.80 >55% EF BiP: 68.30 >55% Mitral Valve MV Pk E: 1.45 MV PK A: 0.69 MV Decel Time: 167.00 E/A: 2.10 E'Lateral: 8.49 E'Medial: 10.00 E/E' Med: 14.50 E/E' Lat: 17.10 PHT: 49.00 MVA PHT: 4.49 Decel Falls: 8.69 Aortic Valve AoV Pk [place]: 2.17 AoV Pk Grad: 19.00 LVOT LVOT Pk [place]: 1.53 LVOT Mn [place]: 0.89 LVOT VTI: 0.29 LVOT Pk Grad: 9.00 LVOT Mn Grad: 4.00 LVOT Diam: 2.00 LVOT Area: 3.14 Diastolic Function MV Pk E: 1.45 MV Pk A: 0.69 E/A: 2.10 E'Medial: 10.00 E/E' Med: 14.50 E' Laterial: 8.49 E/E' Lat: 17.10 Right Ventricle TAPSE (mm): 27.20 TVS' [place]: 23.20 Tricuspid Valve TR Pk [place]: 2.77 TR Pk Grad: 31.00 Great Vessels Aorta Sinus of Valsalva: 2.50 2.0-3.5 cm Ao Asc: 3.00 2.1-3.4 cm Pulmonary Valve PV Pk [place]: 1.24 Peak PV Grad: 6.00 Updated in Other Vendor System with Status of Final Fox Rios MD electronically signed on 06/29/2022 2:30:59 PM with status of Final
[2022-06-29] MEDS: Famotidine/PF 20 MG/2 ML VIAL IVPUSH (07:56)
[2022-06-29] MEDS: Chlorhexidine Gluc Oral Rinse 15 ML MOUTHWASH BUCCAL ×3 (07:56→20:40)
[2022-06-29] MEDS: DOPamine HCL/D5W 400 MG/250 ML PLAST..BAG 53.16 MG IVCONT (08:26)
[2022-06-29] MEDS: propofoL 1,000 MG/100 ML VIAL 34.02 MG IVCONT ×6 (08:27→22:15)
--- NOTE | 2022-06-29 08:44 | PM.PNGS ---
Subjective Subjective Date of Service: 06/29/22 <Maria White PA-C - Last Filed: 06/29/22 12:50> 06/29/22 <Shahzad Kincaid MD - Last Filed: 06/29/22 13:23> Interval history: Remains intubated. <Maria White PA-C - Last Filed: 06/29/22 12:50> Physical Exam Vital Signs: Vital Signs: Last Vital Signs Temp 100.2 F 06/29/22 08:00 Pulse 76 06/29/22 08:00 Resp 19 06/29/22 08:00 BP 145/63 H 06/29/22 08:00 Pulse Ox 100 06/29/22 08:00 O2 Del Method 06/29/22 08:00 O2 Flow Rate 3 06/24/22 10:00 FiO2 30 06/29/22 08:00 BMI result Body Mass Index 37.0 <Maria White PA-C - Last Filed: 06/29/22 12:50> Const: General: no acute distress <Maria White PA-C - Last Filed: 06/29/22 12:50> Chest: Other: wound vac to left chest/axilla remains in place with good seal <Maria White PA-C - Last Filed: 06/29/22 12:50> Resp: Other: on vent <Maria White PA-C - Last Filed: 06/29/22 12:50> Skin: General skin exam: no rashes or lesions noted <ARVIN Guaman Last Filed: 06/29/22 12:50> Objective Data Active Medications Acetaminophen (Acetaminophen 325 Mg Tablet) 650 mg PO Q6H PRN PRN Reason: Pain, Mild (Pain Scale 1-3) Acetaminophen (Acetaminophen Supp 650 Mg Supp.Rect) 650 mg NH Q6H PRN PRN Reason: fever Last Admin: 06/27/22 19:48 Dose: 650 mg Documented By: YASMIN Chlorhexidine Gluconate (Chlorhexidine Gluc Oral Rinse 15 Ml Mouthwash) 15 ml BUCCAL TID TERRI Last Admin: 06/29/22 07:56 Dose: 15 ml Documented By: DEDRICK Docusate Sodium (Docusate Sodium 100 Mg Capsule) 100 mg PO DAILY PRN PRN Reason: Constipation Famotidine (Famotidine/Pf 20 Mg/2 Ml Vial) 20 mg IVPUSH DAILY [facility] Last Admin: 06/29/22 07:56 Dose: 20 mg Documented By: DEDRICK Heparin Sodium (Porcine) (Heparin Sodium,Porcine 5,000 Unit/Ml Vial) 5,000 unit SUBCUT Q8H TERRI Last Admin: 06/28/22 07:24 Dose: 5,000 unit Documented By: DAPHNEY Hydromorphone HCl (Hydromorphone Hcl 0.5 Mg/0.5 Ml Syringe) 0.5 mg IVPUSH Q4H PRN; Protocol PRN Reason: Pain, Severe (Pain Scale 7-10) Last Admin: 06/27/22 00:27 Dose: 0.5 mg Documented By: YASMIN Propofol (Diprivan) 1,000 mg in 100 mls @ 0 mls/hr IVCONT .Q0M TERRI; Protocol Last Admin: 06/29/22 08:27 Dose: 50 mcg/kg/min, 34.02 mls/hr Documented By: DEDRICK Fentanyl (Sublimaze/Ns) 1,000 mcg in 100 mls @ 0 mls/hr IVCONT .Q0M TERRI; Protocol Last Admin: 06/29/22 06:20 Dose: 200 mcg/hr, 20 mls/hr Documented By: VANCE Norepinephrine Bitartrate (Levophed) 8 mg in 250 mls @ 0 mls/hr IVCONT .Q0M TERRI; Protocol Last Titration: 06/27/22 17:56 Dose: 0 mcg/kg/min, 0 mls/hr Documented By: DAPHNEY Piperacillin Sod/Tazobactam (Sod 3.375 gm/ Sodium Chloride) 50 mls @ 100 mls/hr IV Q6H TERRI Last Admin: 06/29/22 08:06 Dose: 100 mls/hr Documented By: DEDRICK Dexmedetomidine HCl (Precedex) 400 mcg in 100 mls @ 0 mls/hr IVCONT .Q0M TERRI; Protocol Last Titration: 06/27/22 15:55 Dose: 0 mcg/kg/hr, 0 mls/hr Documented By: SARAH Dopamine HCl/Dextrose (Dopamine Hcl/D5w) 400 mg in 250 mls @ 0 mls/hr IVCONT .Q0M [facility]; Protocol Last Admin: 06/29/22 08:26 Dose: 15 mcg/kg/min, 53.16 mls/hr Documented By: DEDRICK Vancomycin HCl 1,000 mg/ (Sodium Chloride) 270 mls @ 270 mls/hr IV Q12H [facility] Last Infusion: 06/28/22 23:07 Dose: 0 mls/hr Documented By: VANCE Naloxone HCl (Naloxone Hcl 0.4 Mg/Ml Vial) 0.2 mg IVPUSH Q2M PRN PRN Reason: Excessive sedation or RR < 8 Ondansetron HCl (Ondansetron Hcl 4 Mg/2 Ml Vial) 4 mg IVPUSH Q8H PRN PRN Reason: Nausea and Vomiting Pharmacy Consult (Consult Rx Perform Med Rec) 1 each MISCELLANE ONCE PRN PRN Reason: Consult order Pharmacy Consult (Consult Rx Vancomycin Dosing) 1 each MISCELLANE DAILY PRN PRN Reason: Consult order Pharmacy Consult (Consult Rx Vancomycin Dosing) 1 each MISCELLANE DAILY PRN PRN Reason: Consult order Sodium Chloride (0.9 % Sodium Chloride Flush 3 Ml Syringe) [facility] Last Admin: 06/29/22 07:56 Dose: 3 ml Documented By: DEDRICK <Maria White PA-C - Last Filed: 06/29/22 12:50> Labs CBC & Chem 7: : 06/29/22 05:00 06/29/22 05:00 <Maria White PA-C - Last Filed: 06/29/22 12:50> Labs: Laboratory Results - last 24 hr 06/27/22 06/28/22 06/28/22 22:46 17:53 20:01 MCV MCH MCHC RDW Plt Count MPV Immature Gran % (Auto) Neut % (Auto) Lymph % (Auto) [place] % (Auto) Eos % (Auto) Baso % (Auto) Lymph # (Auto) [place] # (Auto) Eos # (Auto) Baso # (Auto) Abs Immat Gran (auto) Absolute Neuts (auto) Absolute Nucleated RBC Nucleated RBC % (auto) VBG pH VBG pCO2 VBG pO2 VBG HCO3 VBG O2 Saturation VBG Base Excess Anion Gap 9 L Estim Creat Clear Calc 64.3 Estimated GFR 51 Random Glucose 138 H Calcium 7.7 L Phosphorus Magnesium Total Bilirubin AST ALT Alkaline Phosphatase Total Protein Albumin Random Vancomycin 10.3 L Crossmatch See Detail 06/29/22 06/29/22 06/29/22 05:00 05:00 05:06 MCV 84.9 MCH 26.7 L MCHC 31.4 RDW 15.9 Plt Count 175 MPV 10.7 Immature Gran % (Auto) 1.8 H Neut % (Auto) 82.3 H Lymph % (Auto) 10.9 L [place] % (Auto) 2.6 Eos % (Auto) 2.0 Baso % (Auto) 0.4 Lymph # (Auto) 0.9 L [place] # (Auto) 0.2 Eos # (Auto) 0.2 Baso # (Auto) 0.0 Abs Immat Gran (auto) 0.15 H Absolute Neuts (auto) 6.7 Absolute Nucleated RBC 0.000 Nucleated RBC % (auto) 0.0 VBG pH 7.39 VBG pCO2 32 VBG pO2 62 VBG HCO3 19 L VBG O2 Saturation 90.0 VBG Base Excess -4.2 Anion Gap 14 Estim Creat Clear Calc 79.6 Estimated GFR > 60 Random Glucose 141 H Calcium 7.6 L Phosphorus 3.0 Magnesium 1.8 Total Bilirubin 0.8 AST 25 ALT 26 Alkaline Phosphatase 69 Total Protein 5.8 L Albumin 3.5 Random Vancomycin Crossmatch <Maria White PA-C - Last Filed: 06/29/22 12:50> Microbiology Microbiology Results: Microbiology 06/27/22 05:25 Blood Culture - Preliminary Blood - Venous No growth after 48 hours. 06/27/22 05:25 Blood Culture - Preliminary Blood - Venous No growth after 48 hours. 06/28/22 01:20 Gram Stain - Final Sputum - Suctioned 06/25/22 09:28 Blood Culture - Final Blood - Venous Methicillin Res Staph Aureus <Maria White PA-C - Last Filed: 06/29/22 12:50> Procedures Date of Service Date of Service: 06/29/22 <Maria White PA-C - Last Filed: 06/29/22 12:50> Progress Note: A&P Assessment and plan (1) MRSA bacteremia: Status: Acute <Maria White PA-C - Last Filed: 06/29/22 12:50> Assessment and Plan: She remains intubated on the ventilator With therefore changed her wound VAC at bedside, given sedation Healthy-looking tissue noted without any ongoing gangrene within the open wound Induration surrounding the area as resolved Wound VAC reapplied She also has other medical issues including suggestion of septic emboli in the lungs on CT scan ICU care Antibiotics Wound care with wound VAC Will continue to follow Seen and examined independently <Shahzad Kincaid MD - Last Filed: 06/29/22 13:23> (2) Status post debridement: Status: Acute <Maria White PA-C - Last Filed: 06/29/22 12:50> (3) Necrotizing soft tissue infection: Status: Acute <Maria White PA-C - Last Filed: 06/29/22 12:50> Assessment and Plan: S/P wide debridement of necrotizing infection left upper arm and breast. Cont IV abx. Wound VAC remains in place and functioning well. Will return to change vac sponge later today. Vent management per ICU team. <Maria White PA-C - Last Filed: 06/29/22 12:50> Time Spent With Patient Time: Total time spent is greater than 50% in coordination of care (as documented) at patient's floor/unit and/or counseling patient: <Maria White PA-C - Last Filed: 06/29/22 12:50> Quality Stroke Does the patient have a stroke diagnosis?: No <Maria White PA-C - Last Filed: 06/29/22 12:50> VTE Prior VTE?: No <Maria White PA-C - Last Filed: 06/29/22 12:50> VTE Risk Level:: Medical - moderate - high <Maria White PA-C - Last Filed: 06/29/22 12:50> VTE Device Contraindication: Treatment Not Indicated <Maria White PA-C - Last Filed: 06/29/22 12:50> VTE Drug Contraindication: N/A - Med Ordered <Maria White PA-C - Last Filed: 06/29/22 12:50>
--- NOTE | 2022-06-29 09:05 | MHC.CM.PN ---
Patient remains intubated/vented in ICU. Patient has wound vac to chest wound. Patient is from home with son as [employer]. No HCP on file. Received 2 Covid vaccines and 1 booster. Will need physical therapy eval for home safety when medically stable. Continue to monitor for d/c needs.
--- NOTE | 2022-06-29 09:10 | MHC.CLN ---
F/U PT REMAINS INTUBATED AND SEDATED TF ON HOLD OVER WEEKEND R/T HIGH GRV RECOMMEND PROMOTE AT MAX GOAL RATE 30ML/HR WITH 30ML PROSOURCE TID WITH 300ML FREE WATER FLUSHES Q 4 HRS TO PROVIDE 900KCALS (1798KCALS WITH SEDATION; 26KCALS/KG BASED ON CMW), 90G PROTEIN (1.3G/KG), 2404ML TOTAL WATER FROM FORMULA AND FLUSHES (35ML/KG BASED ON CMW) MONITOR TOLERANCE, RESIDUALS AND LYTES
[2022-06-29] MEDS: vancomycin HCL 1,000 MG in 0.9 % Sodium Chloride 250 ML 270 MG IV (09:57)
[2022-06-29] MEDS: fentaNYL citrate/NS 1,000 MCG/100 ML PLAST..BAG 17.5 MCG IVCONT (11:21)
--- NOTE | 2022-06-29 20:19 | PM.CCPN ---
Subjective Subjective Date of Service: 06/29/22 Interval History: Mrs. Quigley was transferred to ICU on Jun 24 with septic shock. The patient is a 52 yo F with PMHx of IV drug use.? She was brought to the ED ambulatory by her son on Jun 23 bec of lethargy.? In the ED she was febrile, tachypneic and hypoxemic, with mild leukocytosis, CHARLA w creat 2.5 (no baseline), potassium 6, sodium 124, mildly elevated lactate, positive u/a, and positive tox for fentanyl and cocaine.? Chest CT showed extensive soft tissue swelling and phlegmonous changes in the left chest wall w subcutaneous emphysema, small discrete fluid collections adjacent to the chest wall, and diffuse pulmonary infiltrates with multiple rounded masslike areas left greater than right, c/w septic emboli. The patient was started on broad-spectrum antibiotics and admitted to Medicine.? She later became hypotensive and was tx to ICU early on Jun 24.? Later that day she underwent operative debridement of necrotizing infection of Sk/St of the left upper chest/breast, axilla, medial upper arm.? According to Dr. Kincaid, the fasciitis did not extend into muscle.? Further debridement planned and the patient was left intubated. The patient grew MRSA in her BC bottles and sputum.? BCs were positive on 06/23 and 06/25, and negative on 06/27.? Sputum was positive on 06/24 and 06/28.? The wound culture from 06/24 grew out MRSA and mostly sensitive citrobacter.? Renal indices came down slowly.? On TTE today, no obvious vegetation was noted.? LV fxn was normal, RV size and fxn were normal, there was mild TR with CWD measuring 2.7 m/sec (gradient 31mm) and IVC was mildly dilated with <50% insp collapse. General surgery is following closely.? She had a wound vac placed on Jun 25.? Was removed and replaced toady.? According to the surgical team, the wound bed showed healthy appearing subq fat, some fibrinous exudate, no necrosis; surrounding erythema and induration was significantly improved. ?Veraflo wound vac sponge & dressing were reapplied with good seal.? She continues on vanco and Zosyn.? Has had poor arousal with sedation holidays. On my exam, the patient is well sedated on prop and fentanyl 200ug.? She?s on dopamine 10ug (which was started after she became bradycardic and hypotensive from Precedex).? Tmax 101.5? today.? HR 50s, blood pressure 152/61.? On AC 16/450/30%/+5, RR is 16-20, Ve 9L, PIP 23cm, ETCO2 31, Sat 100%.? This morning?s CVBG 7.39/32/-4. ?No JVD at 30?.? Chest CTA w normal exp phase.? RRR, normal-sounding S1 and S2, with no murmur or gallops.? The abdomen is mildly obese and benign.? She has no significant edema. LABORATORY DATA: Below.? Notably, white count is normal, hemoglobin and platelet count are steady.? Sodium is up to 156, BUN/creatinine down to 26/0.9, bicarb up to 22, potassium 3.5, magnesium 1.8. IMPRESSION: 1. IV drug abuse. 2. Necrotizing fasciitis limited to skin and SQ of left chest wall, axilla, upper arm, without muscle involvement, and w limited spread.? Doing well now with the wound vac.? I do have some concern that this may turn into a large wound problem and the patient might therefore be better off at a tertiary center.? But for now it?s well controlled. 3. Bilat pulmonary infiltrates with septic emboli. 4. Acute resp failure. 2? above. 5. Hypotension.? Switch dopamine to epinephrine gtt. 6. Endocarditis.? Reflective of the septic emboli, regardless of the echo. 7. CHARLA.? 2? sepsis.? Improving. 8. ID.? Change the zosyn to ceftriaxone.? Otherw, continue the vanco.? Trough level today was too low, need to up the dose.? Recheck BCs one more time. 9. Neuro/psych.? Delayed awakening.? 2? septic encephalopathy.? Need to minimized sedation. 10. Nutrition.? Promote at goal rate. Critical care time (including full chart rev, discussions w Dr. Kincaid, and hospital course summary):? 90 min. Critical Care Time (minutes): 90 Physical Exam Vital Signs: Vital Signs: Last Vital Signs Temp 98.7 F 06/29/22 19:00 Pulse 51 06/29/22 20:00 Resp 16 06/29/22 20:00 BP 152/61 H 06/29/22 20:00 Pulse Ox 100 06/29/22 20:00 O2 Del Method 06/29/22 20:00 O2 Flow Rate 3 06/24/22 10:00 FiO2 30 06/29/22 20:00 BMI result Body Mass Index 37.0 Objective Data Labs CBC & Chem 7: 06/29/22 05:00 06/29/22 05:00 Labs: Laboratory Results - last 24 hr 06/28/22 06/29/22 06/29/22 20:01 05:00 05:00 WBC 8.1 RBC 3.11 L Hgb 8.3 L Hct 26.4 L MCV 84.9 MCH 26.7 L MCHC 31.4 RDW 15.9 Plt Count 175 MPV 10.7 Immature Gran % (Auto) 1.8 H Neut % (Auto) 82.3 H Lymph % (Auto) 10.9 L [place] % (Auto) 2.6 Eos % (Auto) 2.0 Baso % (Auto) 0.4 Lymph # (Auto) 0.9 L [place] # (Auto) 0.2 Eos # (Auto) 0.2 Baso # (Auto) 0.0 Abs Immat Gran (auto) 0.15 H Absolute Neuts (auto) 6.7 Absolute Nucleated RBC 0.000 Nucleated RBC % (auto) 0.0 VBG pH VBG pCO2 VBG pO2 VBG HCO3 VBG O2 Saturation VBG Base Excess Sodium 156 H Potassium 3.5 Chloride 124 H Carbon Dioxide 22 Anion Gap 14 BUN 26 H Creatinine 0.94 Estim Creat Clear Calc 79.6 Estimated GFR > 60 Random Glucose 141 H Calcium 7.6 L Phosphorus 3.0 Magnesium 1.8 Total Bilirubin 0.8 AST 25 ALT 26 Alkaline Phosphatase 69 Total Protein 5.8 L Albumin 3.5 Random Vancomycin 10.3 L 06/29/22 05:06 WBC RBC Hgb Hct MCV MCH MCHC RDW Plt Count MPV Immature Gran % (Auto) Neut % (Auto) Lymph % (Auto) [place] % (Auto) Eos % (Auto) Baso % (Auto) Lymph # (Auto) [place] # (Auto) Eos # (Auto) Baso # (Auto) Abs Immat Gran (auto) Absolute Neuts (auto) Absolute Nucleated RBC Nucleated RBC % (auto) VBG pH 7.39 VBG pCO2 32 VBG pO2 62 VBG HCO3 19 L VBG O2 Saturation 90.0 VBG Base Excess -4.2 Sodium Potassium Chloride Carbon Dioxide Anion Gap BUN Creatinine Estim Creat Clear Calc Estimated GFR Random Glucose Calcium Phosphorus Magnesium Total Bilirubin AST ALT Alkaline Phosphatase Total Protein Albumin Random Vancomycin Microbiology Microbiology Results: Microbiology 06/28/22 01:20 Sputum - Suctioned Gram Stain - Final 06/28/22 01:20 Sputum - Suctioned Sputum Culture - Preliminary Staphylococcus aureus 06/27/22 05:25 Blood - Venous Blood Culture - Preliminary No growth after 48 hours. 06/27/22 05:25 Blood - Venous Blood Culture - Preliminary No growth after 48 hours. 06/25/22 09:28 Blood - Venous Blood Culture - Final Methicillin Res Staph Aureus 06/25/22 09:28 Blood - Venous Blood Culture - Final Methicillin Res Staph Aureus 06/24/22 14:27 Sputum - Suctioned Gram Stain - Final 06/24/22 14:27 Sputum - Suctioned Sputum Culture - Final Methicillin Res Staph Aureus 06/24/22 Unknown Axilla Left Gram Stain - Final 06/24/22 Unknown Axilla Left Routine Culture - Final Methicillin Res Staph Aureus Citrobacter freundii 06/23/22 20:55 Blood - Venous Blood Culture - Final Methicillin Res Staph Aureus Coag negative Staphylococcus 06/23/22 18:45 Blood - Venous Blood Culture - Final Methicillin Res Staph Aureus Quality Stroke Does the patient have a stroke diagnosis?: No VTE Prior VTE?: No VTE Risk Level:: Medical - moderate - high VTE Device Contraindication: Treatment Not Indicated VTE Drug Contraindication: N/A - Med Ordered Critical Care Time Critical Care Time (minutes): 90
[2022-06-29 20:37] LABS: Vancomycin Random 11.7 mcg/mL (15-20)
--- NOTE | 2022-06-29 20:49 | HE.PHANOTE ---
RE: vanco Trough on 06/29 came back at 11.7; increased dose to 1250mg Q12H with predicted AUC of 456mg/L. Next level to be drawn 07/01/22 @0800
[2022-06-29] MEDS: vancomycin HCL 1,250 MG in 0.9 % Sodium Chloride 250 ML 166.67 MG IV (21:39)
[2022-06-29] MEDS: HYDROmorphone HCl 1 MG/ML SYRINGE IVPUSH (22:14)
--- NOTE | 2022-06-29 23:25 | PC.NURSE ---
PATIENT COUGHING AGGRESSIVELY, FIGHTING VENT, BITING AT BITE BLOCK. RT AND RN HAD DISCUSSION ABOUT VENT SYNCHRONY WITH PA. 1MG DILAUDID GIVEN IVP PER PA. GOOD EFFECT NOTED, PATIENT RESTING NO LONGER FIGHTING VENT.
[2022-06-30] VITALS (31 sets, daily range): BP systolic 87–153; BP diastolic 32–62; PULSE 61–106; RESP 16–35; TEMP 34.8–39; O2SAT 95–99; BMI 35.4
[2022-06-30] MEDS: Midazolam HCl/PF 2 MG/2 ML VIAL 4 MG IVPUSH (00:10)
[2022-06-30] MEDS: propofoL 1,000 MG/100 ML VIAL 34.02 MG IVCONT ×8 (01:00→22:08)
[2022-06-30 01:43] LABS: Lactic Acid 1.8 mmol/L (0.5-2.0)
[2022-06-30] MEDS: EPINEPHrine 5 MG in Dextrose 5 % 250 ML 6 MG IVCONT (01:57)
[2022-06-30] MEDS: fentaNYL citrate/NS 1,000 MCG/100 ML PLAST..BAG 20 MCG IVCONT ×3 (02:16→22:08)
[2022-06-30] MEDS: Dextrose 5 % 1,000 ML 75 ML IVCONT ×2 (02:33→16:11)
[2022-06-30] MEDS: propofoL 1,000 MG/100 ML VIAL 27.22 MG IVCONT (02:49)
[2022-06-30] MEDS: cefTRIAXone sodium 1 GM in 0.9 % Sodium Chloride 50 ML IV (03:07)
[2022-06-30] MEDS: Rocuronium Bromide 50 MG/5 ML VIAL 30 MG IVPUSH (03:36)
[2022-06-30 04:17] LABS: VBG Base Excess -1.8 mmol/L; VBG HCO3 20 mmol/L (22-26); VBG pCO2 26 mmHg; VBG pH 7.49 (7.32-7.43); VBG pO2 43 mmHg
[2022-06-30] MEDS: fentaNYL citrate/PF 100 MCG/2 ML VIAL 200 MCG IVPUSH (04:30)
[2022-06-30 05:13] LABS: Venous Blood Gas Refer to POC result
[2022-06-30 05:17] LABS: VBG Base Excess -2.2 mmol/L; VBG HCO3 19 mmol/L (22-26); VBG pCO2 24 mmHg; VBG pO2 80 mmHg
[2022-06-30 05:24] LABS: Venous Blood Gas Refer to POC result
[2022-06-30 05:38] LABS: Hematocrit 26.5 % (37.0-47.0); Hemoglobin 8.5 g/dl (12.0-16.0); Mean Corpuscular HGB Conc 32.1 g/dl (31.0-35.0); Mean Corpuscular Hemoglobin 27.2 pg (27.0-33.0); Mean Corpuscular Volume 84.9 fL (80.0-98.0); Mean Platelet Volume 10.4 fL (9.4-12.3); Platelet Count 261 X10*3/uL (160-400); Red Blood Count 3.12 X10*6/uL (4.20-5.50); Red Cell Distribution Width 15.7 % (11.0-16.0); White Blood Count 16.2 X10*3/uL (4.8-10.8)
[2022-06-30] MEDS: fentaNYL citrate/NS 1,000 MCG/100 ML PLAST..BAG 30 MCG IVCONT ×2 (05:42→09:39)
[2022-06-30 05:59] LABS: Alanine Aminotransferase 25 U/L (0-31); Albumin Level 3.2 g/dL (3.5-5.0); Alkaline Phosphatase 62 U/L (39-117); Anion Gap 14 (12-20); Aspartate Amino Transferase 21 U/L (5-31); Bilirubin Total 0.6 mg/dL (0.0-1.0); Blood Urea Nitrogen 25 mg/dL (9-16); C Reactive Protein 8.18 mg/dL (< or = 0.50); Calcium 7.5 mg/dL (8.4-10.2); Carbon Dioxide 21 mmol/L (22-29); Chloride 120 mmol/L (96-108); Creatinine Clr Calc Pharmacy 85.8; Estimated Glomerular Filt Rate > 60; Glucose Random 176 mg/dL (60-115); Magnesium 1.7 mg/dL (1.6-2.6); Phosphorus 2.2 mg/dL (2.7-4.5); Potassium 3.3 mmol/L (3.3-5.1); Sodium 152 mmol/L (135-145); Total Protein 5.5 g/dL (6.5-8.0)
--- NOTE | 2022-06-30 06:23 | PC.NURSE ---
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 UNIT....ATTEMPTED TOP WEAN DOPAMINE AND STARTED LEVOPHED BUT BRADYCARDIC TO S.MAU HR 40-42...DOPAOMINE RETURNED TO 10 MCG WITH EFFECT AND LEVOPHED D/'C'D BY MD...EPINEPHRINE DRIP INITIATED AND DOPAMINE DRIP WEANED OFF..EPINEPHRINE DRIP CURRENTLY 0.04 MCG/KG/MIN..NSR HR 80'S...REMAINED WITH ISSUES VENT DYSYNCHRONY AND AGITATION....VERSED 4 MG IV X1 WITH EFFECT X2 HOURS....ATTEMPTED TO WEAN PROPOFOL TO 40 MCGS/KG/MIN PER MD ..RR 38-40 ..COUGHING AGAINST ETT...PROPOFOL RETURNED TO 50 MCG/KG W/O EFFECT...RORCURONIUM 30MG IV X1 WITH TRANSIENT EFFECT...RR BACK TO 38-40...VBG'S DRAWN 4AM PER AND REVIEWED BY MD....PER DR LOCO FENTANYL 200MCG IV BOLUS GIVEN AND FENTANYL DRIP TITRATED TO 300 MCG/HR...RR 24-28 AND VENT SYNCHRONY PRESENT...D5W STARTED FOR ELEVATED SODIUM LEVEL PER
--- NOTE | 2022-06-30 06:57 | HE.PHANOTE ---
RE CAT PT SCR RAPID;Y IMPROVING; INCREASING DOSE TO 1500 MG Q12H WITH MEW BONNIE[ECTED AUC OF 499; TROUGH OF 14. NEXT LEVEL DUE 07/01@0800 TIAGO
[2022-06-30] MEDS: Albumin Human 25 % 100 ML IV ×2 (07:29→08:06)
[2022-06-30] MEDS: Famotidine/PF 20 MG/2 ML VIAL IVPUSH (07:32)
[2022-06-30] MEDS: 0.9 % Sodium Chloride Flush 3 ML SYRINGE IVFLUSH ×2 (07:32→23:45)
[2022-06-30] MEDS: Chlorhexidine Gluc Oral Rinse 15 ML MOUTHWASH BUCCAL ×3 (07:32→20:02)
[2022-06-30] MEDS: Potassium Phosphate/NS 15 MMOL/250 ML PLAST..BAG 62.5 MMOL IV ×2 (07:33→11:03)
[2022-06-30] MEDS: HYDROmorphone HCl 0.5 MG/0.5 ML SYRINGE 1 MG IVPUSH (08:06)
[2022-06-30] MEDS: Enoxaparin Sodium 40 MG/0.4 ML SYRINGE SUBCUT (09:09)
[2022-06-30] MEDS: Potassium Chloride Packet 20 MEQ PACKET 40 MEQ PO (09:09)
[2022-06-30] MEDS: Magnesium Sulfate/H2O 2 GM/50 ML PIGGYBACK IV (09:10)
--- NOTE | 2022-06-30 09:26 | PM.PNGS ---
Subjective Subjective Date of Service: 06/30/22 <Maria White PA-C - Last Filed: 06/30/22 09:30> 06/30/22 <Shahzad Kincaid MD - Last Filed: 06/30/22 12:18> Interval history: Remains intubated, sedated. <ARVIN Guaman Last Filed: 06/30/22 09:30> Physical Exam Vital Signs: Vital Signs: Last Vital Signs Temp 100.8 F H 06/30/22 09:00 Pulse 82 06/30/22 09:00 Resp 26 H 06/30/22 09:00 BP 118/42 L 06/30/22 09:00 Pulse Ox 96 06/30/22 09:00 O2 Del Method 06/30/22 09:00 O2 Flow Rate 3 06/24/22 10:00 FiO2 30 06/30/22 09:00 BMI result Body Mass Index 35.4 <Maria White PA-C - Last Filed: 06/30/22 09:30> Const: General: no acute distress <Maria White PA-C - Last Filed: 06/30/22 09:30> Chest: Other: wound vac in place to left chest/axilla <ARVIN Guaman Last Filed: 06/30/22 09:30> Skin: General skin exam: no rashes or lesions noted <Maria White PA-C - Last Filed: 06/30/22 09:30> Objective Data Active Medications Chlorhexidine Gluconate (Chlorhexidine Gluc Oral Rinse 15 Ml Mouthwash) 15 ml BUCCAL TID [facility] Last Admin: 06/30/22 07:32 Dose: 15 ml Documented By: DEDRICK Docusate Sodium (Docusate Sodium 100 Mg Capsule) 100 mg PO DAILY PRN PRN Reason: Constipation Enoxaparin Sodium (Enoxaparin Sodium 40 Mg/0.4 Ml Syringe) 40 mg SUBCUT Q24H [facility] Last Admin: 06/30/22 09:09 Dose: 40 mg Documented By: DEDRICK Famotidine (Famotidine/Pf 20 Mg/2 Ml Vial) 20 mg IVPUSH DAILY [facility] Last Admin: 06/30/22 07:32 Dose: 20 mg Documented By: DEDRICK Hydromorphone HCl (Hydromorphone Hcl 0.5 Mg/0.5 Ml Syringe) 2 mg IVPUSH Q1H PRN; Protocol PRN Reason: Pain, Severe (Pain Scale 7-10) Propofol (Diprivan) 1,000 mg in 100 mls @ 0 mls/hr IVCONT .Q0M [facility]; Protocol Last Admin: 06/30/22 08:37 Dose: 50 mcg/kg/min, 34.02 mls/hr Documented By: DEDRICK Fentanyl (Sublimaze/Ns) 1,000 mcg in 100 mls @ 0 mls/hr IVCONT .Q0M [facility]; Protocol Last Admin: 06/30/22 05:42 Dose: 300 mcg/hr, 30 mls/hr Documented By: SILVIA Norepinephrine Bitartrate (Levophed) 8 mg in 250 mls @ 0 mls/hr IVCONT .Q0M [facility]; Protocol Last Titration: 06/30/22 01:18 Dose: 0 mcg/kg/min, 0 mls/hr Documented By: SILVIA Epinephrine 5 mg/ Dextrose 255 mls @ 0 mls/hr IVCONT .Q0M [facility]; Protocol Last Titration: 06/30/22 04:09 Dose: 0.04 mcg/kg/min, 12 mls/hr Documented By: SILVIA Ceftriaxone Sodium 1 gm/ (Sodium Chloride) 50 mls @ 100 mls/hr IV Q24H [facility] Last Infusion: 06/30/22 03:42 Dose: 0 mls/hr Documented By: SILVIA Dextrose (D5w) 1,000 mls @ 75 mls/hr IVCONT .[id number] [facility] Last Admin: 06/30/22 02:33 Dose: 75 mls/hr Documented By: SILVIA Potassium Phosphate (Kphos) 15 mmol in 250 mls @ 62.5 mls/hr IV Q4H [facility] Stop: 06/30/22 14:59 Last Admin: 06/30/22 07:33 Dose: 62.5 mls/hr Documented By: DEDRICK Vancomycin HCl 1,500 mg/ (Sodium Chloride) 500 mls @ 333.333 mls/hr IV Q12H [facility] Magnesium Sulfate (Magnesium Sulfate/H2o) 2 gm in 50 mls @ 25 mls/hr IV ONCE ONE Stop: 06/30/22 10:40 Last Admin: 06/30/22 09:10 Dose: 25 mls/hr Documented By: DEDRICK Methadone HCl (Methadone Hcl 20 Mg/2 Ml Oral.Conc) 10 mg NG-TUBE BID [facility] Pharmacy Consult (Consult Rx Perform Med Rec) 1 each MISCELLANE ONCE PRN PRN Reason: Consult order Pharmacy Consult (Consult Rx Vancomycin Dosing) 1 each MISCELLANE DAILY PRN PRN Reason: Consult order Pharmacy Consult (Consult Rx Vancomycin Dosing) 1 each MISCELLANE DAILY PRN PRN Reason: Consult order Sodium Chloride (0.9 % Sodium Chloride Flush 3 Ml Syringe) 3 ml IVFLUSH QSHIFT [facility] Last Admin: 06/30/22 07:32 Dose: 3 ml Documented By: DEDRICK <Maria White PA-C - Last Filed: 06/30/22 09:30> Labs CBC & Chem 7: : 06/30/22 05:14 06/30/22 05:14 <Maria White PA-C - Last Filed: 06/30/22 09:30> Labs: Laboratory Results - last 24 hr 06/29/22 06/30/22 06/30/22 19:53 01:20 04:10 MCV MCH MCHC RDW Plt Count MPV Absolute Nucleated RBC Nucleated RBC % (auto) VBG pH 7.49 H VBG pCO2 26 VBG pO2 43 VBG HCO3 20 L VBG O2 Saturation 76.0 VBG Base Excess -1.8 Anion Gap Estim Creat Clear Calc Estimated GFR Random Glucose Lactic Acid 1.8 Calcium Phosphorus Magnesium Total Bilirubin AST ALT Alkaline Phosphatase C-Reactive Protein Total Protein Albumin Random Vancomycin 11.7 L 06/30/22 06/30/22 06/30/22 05:11 05:14 05:14 MCV 84.9 MCH 27.2 MCHC 32.1 RDW 15.7 Plt Count 261 D MPV 10.4 Absolute Nucleated RBC 0.000 Nucleated RBC % (auto) 0.0 VBG pH 7.50 H VBG pCO2 24 VBG pO2 80 VBG HCO3 19 L VBG O2 Saturation 97.0 VBG Base Excess -2.2 Anion Gap 14 Estim Creat Clear Calc 85.8 Estimated GFR > 60 Random Glucose 176 H Lactic Acid Calcium 7.5 L Phosphorus 2.2 L Magnesium 1.7 Total Bilirubin 0.6 AST 21 ALT 25 Alkaline Phosphatase 62 C-Reactive Protein 8.18 H Total Protein 5.5 L Albumin 3.2 L Random Vancomycin <Maria White PA-C - Last Filed: 06/30/22 09:30> Microbiology Microbiology Results: Microbiology 06/28/22 01:20 Gram Stain - Final Sputum - Suctioned Sputum Culture - Final Methicillin Res Staph Aureus 06/27/22 05:25 Blood Culture - Preliminary Blood - Venous No growth after 48 hours. 06/27/22 05:25 Blood Culture - Preliminary Blood - Venous No growth after 48 hours. <Maria White PA-C - Last Filed: 06/30/22 09:30> Procedures Date of Service Date of Service: 06/30/22 <Maria White PA-C - Last Filed: 06/30/22 09:30> Progress Note: A&P Assessment and plan (1) Status post debridement: Status: Acute <Maria White PA-C - Last Filed: 06/30/22 09:30> (2) Necrotizing soft tissue infection: Status: Acute <Maria White PA-C - Last Filed: 06/30/22 09:30> (3) MRSA bacteremia: Status: Acute <Maria White PA-C - Last Filed: 06/30/22 09:30> (4) Acute respiratory failure: Status: Acute <Maria White PA-C - Last Filed: 06/30/22 09:30> Assessment and Plan: wound VAC dressings changed yesterday good wound granulation continue current care remains intubated other acute medical issues seen and examined independently <Shahzad Kincaid MD - Last Filed: 06/30/22 12:18> Assessment and Plan: S/P wide debridement of necrotizing infection left upper arm and breast. Veraflo wound VAC dressing changed yesterday- healthy subq tissue noted, no further necrosis/gangrene to warrant further debridement. Vac remains in place and functioning well. Change later this week- may be able to place regular granufoam dressing if remains clean. Multiple medical comorbidities/vent management per ICU team. <Maria White PA-C - Last Filed: 06/30/22 09:30> Time Spent With Patient Time: Total time spent is greater than 50% in coordination of care (as documented) at patient's floor/unit and/or counseling patient: <Maria White PA-C - Last Filed: 06/30/22 09:30> Quality Stroke Does the patient have a stroke diagnosis?: No <Maria White PA-C - Last Filed: 06/30/22 09:30> VTE Prior VTE?: No <Maria White PA-C - Last Filed: 06/30/22 09:30> VTE Risk Level:: Medical - moderate - high <Maria White PA-C - Last Filed: 06/30/22 09:30> VTE Device Contraindication: Treatment Not Indicated <Maria White PA-C - Last Filed: 06/30/22 09:30> VTE Drug Contraindication: N/A - Med Ordered <Maria White PA-C - Last Filed: 06/30/22 09:30>
--- NOTE | 2022-06-30 10:20 | MHC.CLN ---
F/U PT REMAINS INTUBATED AND SEDATED TOLERATING TF WITH LOW RESIDUALS PER NSG PT RECEIVING PROMOTE AT MAX GOAL RATE 30ML/HR WITH 30ML PROSOURCE TID WITH 300ML FREE WATER FLUSHES Q 4 HRS TO PROVIDE 900KCALS (1798KCALS WITH SEDATION; 26KCALS/KG BASED ON CMW), 90G PROTEIN (1.3G/KG), 2404ML TOTAL WATER FROM FORMULA AND FLUSHES (35ML/KG BASED ON CMW) CONTINUE TO MONITOR TOLERANCE, RESIDUALS AND LYTES
[2022-06-30] MEDS: vancomycin HCL 1,500 MG in 0.9 % Sodium Chloride 500 ML 333.33 MG IV ×2 (10:59→21:06)
[2022-06-30] MEDS: risperiDONE 1 MG TABLET G-TUBE ×2 (11:50→23:44)
[2022-06-30] MEDS: methADONE HCl 20 MG/2 ML ORAL.CONC 10 MG NG-TUBE ×2 (11:50→20:02)
--- NOTE | 2022-06-30 12:36 | MHC.CM.PN ---
Addendum entered by Estelita Linares 06/30/22 12:39: Patient positive for MRSA in sputum, wound and blood cultures. Original Note: Patient remains intubated/vented in ICU with chest wound vac. From home with son as [employer]. Will need physical therapy eval for home safety when medically stable. No HCP on file. Patient is vaxxeed & boosted x1. Continue to monitor for d/c needs.
[2022-06-30] MEDS: fentaNYL citrate/NS 1,000 MCG/100 ML PLAST..BAG 27.5 MCG IVCONT (13:08)
[2022-06-30] MEDS: HYDROmorphone HCl 0.5 MG/0.5 ML SYRINGE 2 MG IVPUSH ×2 (13:09→21:03)
[2022-06-30 18:07] LABS: VBG Base Excess -1.9 mmol/L; VBG HCO3 21 mmol/L (22-26); VBG pCO2 30 mmHg; VBG pH 7.45 (7.32-7.43); VBG pO2 61 mmHg
[2022-06-30 18:21] LABS: Lactic Acid 1.3 mmol/L (0.5-2.0)
--- NOTE | 2022-06-30 18:49 | P.PNCC_ITS ---
Subjective Subjective Date of Service: 06/30/22 Interval History: Mrs. Quigley was transferred to ICU on Jun 24 with septic shock. The patient is a 52 yo F with PMHx of IV drug use.? She was brought to the ED ambulatory by her son on Jun 23 bec of lethargy.? In the ED she was febrile, tachypneic and hypoxemic, with mild leukocytosis, CHARLA w creat 2.5 (no baseline), potassium 6, sodium 124, mildly elevated lactate, positive u/a, and positive tox for fentanyl and cocaine. Chest CT showed extensive soft tissue swelling and phlegmonous changes in the left chest wall w subcutaneous emphysema, small discrete fluid collections adjacent to the chest wall, and diffuse pulmonary infiltrates with multiple rounded masslike areas, left greater than right, c/w septic emboli. The patient was started on broad-spectrum antibiotics and admitted to Medicine.? Her lactate cleared easily.? Within hours though, she became hypotensive, even though lactate continued to clear.? She was tx to ICU early on Jun 24.? Later that day she underwent operative debridement of necrotizing infection of S&St of the left upper chest/breast, axilla, medial upper arm.? According to Dr. Kincaid, the fasciitis did not extend into muscle.? Further debridement was planned and the patient was left intubated. The patient grew MRSA in her BC bottles and sputum.? BCs were positive on 06/23 and 06/25, and negative on 06/27.? Sputum was positive on 06/24 and 06/28.? The wound culture from 06/24 grew out MRSA and mostly sensitive citrobacter.? Renal indices came down slowly.? On TTE yesterday, no obvious vegetation was noted.? LV fxn was normal, RV size and fxn were normal, there was mild TR with CWD skyler uring 2.7 m/sec (gradient 31mm) and IVC was mildly dilated with <50% insp collapse. General surgery is following closely.? She had a wound vac placed on Jun 25.? Was removed and replaced yesterday.? According to the surgical team, the wound bed showed healthy appearing subq fat, some fibrinous exudate, no necrosis; surrounding erythema and induration was significantly improved. ?Veraflo wound vac sponge & dressing were reapplied yesterday with good seal.? She continued on vanco, and the Zosyn was narrowed to ceftriaxone.? She?s had mult doses of Versed bec of inadequate sedation despite max dose propofol & fentanyl.? Has had poor arousal with sedation holidays. Last night, the patient?s RR gilles to the high 30?s-40 range.? CVBG showed it was all central, with venous pCO2 down to the 20s.? We upped her fentanyl to 300 ug with limited effect.? This morning we added methadone 10mg bid orally, and Risperdal 1mg bid.? Her RR decreased dramatically and we got the fentanyl back down to 200ug.? ?On my exam, the patient is well sedated on prop 50ug, fentanyl 200ug, plus the methadone and Risperdal.? Also on Levophed 0.07ug.? Tmax 102.2? today.? HR 79, SR.? BP 123/50.? On AC 14/400/30%/+5, RR is down to 24, Ve 9.5L, PIP 23cm, ETCO2 35, Sat 97%.? CVBG now ?7.45/30/-1.? No JVD at 30?.? Chest w coarse BS throughout.? Normal exp phase.? RRR, normal-sounding S1 and S2, with no murmur or gallops.? The abdomen is mildly obese and benign.? She has no significant edema. The left axillary wound margins are clean and minimally erythematous.? The wound vac placement looks perfect.? The original markings of her erythematous ce llulitis have receeded dramatically in her arm, axilla, and lateral chest wall.? LABORATORY DATA: Below.? Notably, white count up markedly to 16 this morning. ?Plat count is up.? Sodium is down to 152 on D5W infusion. ?BUN/creatinine down slightly, bicarb steady, potassium 3.3, phos 2.2, magnesium 1.7. IMPRESSION: 1. IV drug abuse.? Clearly needed added opiate/sedative support.? Now doing well with added methadone and Risperdal. 2. Necrotizing fasciitis limited to skin and SQ of left chest wall, axilla, upper arm, without muscle involvement, and w limited spread.? Doing well now with the wound vac.? I do have concern that this may turn into a large wound problem and the patient might therefore be better off at a tertiary center with better wound management capability and even hyperbaric.? At this moment, it?s OK. 3. Bilat pulmonary infiltrates with septic emboli. 4. Acute resp failure. 2? above. 5. Hypotension.? Doing well on low dose Levophed, with adequate chronotropy. 6. Endocarditis.? Reflective of the septic emboli, regardless of the echo. 7. CHARLA.? 2? sepsis.? Improving. 8. ID.? Changed the zosyn to ceftriaxone.? Continuing vanco, with dose adjusted higher bec of low trough level.? Repeat BCs drawn this morning. 9. Hypernatremia.? On D5W plus water flushes. 10. Hypokalemia.? Repleted. 11. Hypophosphatemia.? Repleted. 12. Hypomagnesemia. ?Repleted. 13. Neuro/psych.? Delayed awakening.? 2? septic encephalopathy.? Need to minim ize sedation.? Start sedation holidays tomorrow. 14. Nutrition.? Promote at goal rate. Critical Care Time (minutes): 55 Physical Exam Vital Signs: Vital Signs: Last Vital Signs Temp 102.2 F H 06/30/22 18:00 Pulse 78 06/30/22 18:00 Resp 25 H 06/30/22 18:00 BP 130/53 L 06/30/22 18:00 Pulse Ox 97 06/30/22 18:00 O2 Del Method 06/30/22 18:00 O2 Flow Rate 3 06/24/22 10:00 FiO2 30 06/30/22 18:00 BMI result Body Mass Index 35.4 Objective Data Labs CBC & Chem 7: 06/30/22 05:14 06/30/22 05:14 Labs: Laboratory Results - last 24 hr 06/29/22 06/30/22 06/30/22 19:53 01:20 04:10 WBC RBC Hgb Hct MCV MCH MCHC RDW Plt Count MPV Absolute Nucleated RBC Nucleated RBC % (auto) VBG pH 7.49 H VBG pCO2 26 VBG pO2 43 VBG HCO3 20 L VBG O2 Saturation 76.0 VBG Base Excess -1.8 Sodium Potassium Chloride Carbon Dioxide Anion Gap BUN Creatinine Estim Creat Clear Calc Estimated GFR Random Glucose Lactic Acid 1.8 Calcium Phosphorus Magnesium Total Bilirubin AST ALT Alkaline Phosphatase C-Reactive Protein Total Protein Albumin Random Vancomycin 11.7 L 06/30/22 06/30/22 06/30/22 05:11 05:14 05:14 WBC 16.2 H RBC 3.12 L Hgb 8.5 L Hct 26.5 L MCV 84.9 MCH 27.2 MCHC 32.1 RDW 15.7 Plt Count 261 D MPV 10.4 Absolute Nucleated RBC 0.000 Nucleated RBC % (auto) 0.0 VBG pH 7.50 H VBG pCO2 24 VBG pO2 80 VBG HCO3 19 L VBG O2 Saturation 97.0 VBG Base Excess -2.2 Sodium 152 H Potassium 3.3 Chloride 120 H Carbon Dioxide 21 L Anion Gap 14 BUN 25 H Creatinine 0.85 Estim Creat Clear Calc 85.8 Estimated GFR > 60 Random Glucose 176 H Lactic Acid Calcium 7.5 L Phosphorus 2.2 L Magnesium 1.7 Total Bilirubin 0.6 AST 21 ALT 25 Alkaline Phosphatase 62 C-Reactive Protein 8.18 H Total Protein 5.5 L Albumin 3.2 L Random Vancomycin 06/30/22 06/30/22 18:01 18:02 WBC RBC Hgb Hct MCV MCH MCHC RDW Plt Count MPV Absolute Nucleated RBC Nucleated RBC % (auto) VBG pH 7.45 H VBG pCO2 30 VBG pO2 61 VBG HCO3 21 L VBG O2 Saturation 91.0 VBG Base Excess -1.9 Sodium Potassium Chloride Carbon Dioxide Anion Gap BUN Creatinine Estim Creat Clear Calc Estimated GFR Random Glucose Lactic Acid 1.3 Calcium Phosphorus Magnesium Total Bilirubin AST ALT Alkaline Phosphatase C-Reactive Protein Total Protein Albumin Random Vancomycin Microbiology Microbiology Results: Microbiology 06/28/22 01:20 Sputum - Suctioned Gram Stain - Final 06/28/22 01:20 Sputum - Suctioned Sputum Culture - Final Methicillin Res Staph Aureus 06/27/22 05:25 Blood - Venous Blood Culture - Preliminary No growth after 48 hours. 06/27/22 05:25 Blood - Venous Blood Culture - Preliminary No growth after 48 hours. 06/25/22 09:28 Blood - Venous Blood Culture - Final Methicillin Res Staph Aureus 06/25/22 09:28 Blood - Venous Blood Culture - Final Methicillin Res Staph Aureus 06/24/22 14:27 Sputum - Suctioned Gram Stain - Final 06/24/22 14:27 Sputum - Suctioned Sputum Culture - Final Methicillin Res Staph Aureus 06/24/22 Unknown Axilla Left Gram Stain - Final 06/24/22 Unknown Axilla Left Routine Culture - Final Methicillin Res Staph Aureus Citrobacter freundii 06/23/22 20:55 Blood - Venous Blood Culture - Final Methicillin Res Staph Aureus Coag negative Staphylococcus 06/23/22 18:45 Blood - Venous Blood Culture - Final Methicillin Res Staph Aureus Quality Stroke Does the patient have a stroke diagnosis?: No VTE Prior VTE?: No VTE Risk Level:: Medical - moderate - high VTE Device Contraindication: Treatment Not Indicated VTE Drug Contraindication: N/A - Med Ordered Critical Care Time Critical Care Time (minutes): 60
--- NOTE | 2022-06-30 19:08 | PC.NURSE ---
assumed care at 1900, Map 892 titrate down levo to 0.05 per YOJANA Greer
[2022-06-30 20:10] LABS: Venous Blood Gas Refer to POC result
[2022-07-01] VITALS (32 sets, daily range): BP systolic 102–130; BP diastolic 36–107; PULSE 58–98; RESP 22–31; TEMP 34.9–38.9; O2SAT 93–98; BMI 37.3
[2022-07-01] MEDS: propofoL 1,000 MG/100 ML VIAL 34.02 MG IVCONT ×9 (00:46→23:26)
[2022-07-01] MEDS: Dextrose 5 % 1,000 ML 75 ML IVCONT ×2 (02:11→14:43)
[2022-07-01] MEDS: fentaNYL citrate/NS 1,000 MCG/100 ML PLAST..BAG 20 MCG IVCONT ×4 (02:14→16:05)
[2022-07-01] MEDS: cefTRIAXone sodium 1 GM in 0.9 % Sodium Chloride 50 ML IV (02:43)
[2022-07-01 05:12] LABS: VBG Base Excess -1.8 mmol/L; VBG HCO3 21 mmol/L (22-26); VBG pCO2 31 mmHg; VBG pH 7.45 (7.32-7.43); VBG pO2 39 mmHg
[2022-07-01 05:27] LABS: Hematocrit 24.1 % (37.0-47.0); Hemoglobin 7.5 g/dl (12.0-16.0); Mean Corpuscular HGB Conc 31.1 g/dl (31.0-35.0); Mean Corpuscular Hemoglobin 26.9 pg (27.0-33.0); Mean Corpuscular Volume 86.4 fL (80.0-98.0); Mean Platelet Volume 10.7 fL (9.4-12.3); Platelet Count 182 X10*3/uL (160-400); Red Blood Count 2.79 X10*6/uL (4.20-5.50); Red Cell Distribution Width 15.5 % (11.0-16.0); White Blood Count 8.6 X10*3/uL (4.8-10.8)
[2022-07-01 05:40] LABS: Anion Gap 10 (12-20); Blood Urea Nitrogen 18 mg/dL (9-16); Calcium 7.7 mg/dL (8.4-10.2); Carbon Dioxide 23 mmol/L (22-29); Chloride 119 mmol/L (96-108); Creatinine Clr Calc Pharmacy 105.7; Estimated Glomerular Filt Rate > 60; Glucose Random 117 mg/dL (60-115); Magnesium 1.9 mg/dL (1.6-2.6); Phosphorus 2.4 mg/dL (2.7-4.5); Potassium 3.3 mmol/L (3.3-5.1); Sodium 149 mmol/L (135-145)
[2022-07-01 05:41] LABS: Venous Blood Gas Refer to POC result
[2022-07-01 06:02] LABS: Procalcitonin 0.36 ng/mL
[2022-07-01] MEDS: methADONE HCl 20 MG/2 ML ORAL.CONC 10 MG NG-TUBE (08:01)
[2022-07-01] MEDS: Enoxaparin Sodium 40 MG/0.4 ML SYRINGE SUBCUT (08:01)
[2022-07-01] MEDS: Chlorhexidine Gluc Oral Rinse 15 ML MOUTHWASH BUCCAL ×3 (08:01→19:56)
[2022-07-01] MEDS: 0.9 % Sodium Chloride Flush 3 ML SYRINGE IVFLUSH ×3 (08:01→23:55)
[2022-07-01] MEDS: Famotidine/PF 20 MG/2 ML VIAL IVPUSH (08:01)
[2022-07-01 08:38] LABS: Vancomycin Trough 18.7 mcg/mL (10.0-20.0)
--- NOTE | 2022-07-01 08:47 | HE.PHANOTE ---
vancomycin dosing Level increased from 11.7 to 18.7. With an increase in dose from 1000 mg Q12H to 1500 mg Q12H. Will decrease dose to 1250 mg Q12H so that patient does not get supratheraputic. Will get another level in 07/02 @ 0800. Quiana Chicas, JoseD
[2022-07-01] MEDS: vancomycin HCL 1,250 MG in 0.9 % Sodium Chloride 250 ML 166.67 MG IV ×2 (09:18→22:17)
[2022-07-01] MEDS: Potassium Chloride Packet 20 MEQ PACKET 40 MEQ PO ×2 (09:22→11:09)
[2022-07-01] MEDS: Magnesium Sulfate/D5W 1 GM/100 ML PIGGYBACK IV (09:22)
[2022-07-01] MEDS: Sodium,Potassium Phosphates POWD.PACK 2 PACKET PO ×2 (09:23→14:42)
--- NOTE | 2022-07-01 10:09 | PM.PNGS ---
Subjective Subjective Date of Service: 07/01/22 <Maria White PA-C - Last Filed: 07/01/22 10:12> 07/01/22 <Shahzad Kincaid MD - Last Filed: 07/01/22 11:04> Interval history: Remains intubated, sedated. <Maria White PA-C - Last Filed: 07/01/22 10:12> Physical Exam Vital Signs: Vital Signs: Last Vital Signs Temp 102.0 F H 07/01/22 08:00 Pulse 74 07/01/22 10:00 Resp 22 H 07/01/22 10:00 BP 120/48 L 07/01/22 10:00 Pulse Ox 96 07/01/22 10:00 O2 Del Method 07/01/22 10:00 O2 Flow Rate 3 06/24/22 10:00 FiO2 21 07/01/22 10:00 BMI result Body Mass Index 37.3 <Maria White PA-C - Last Filed: 07/01/22 10:12> Const: General: no acute distress <Maria White PA-C - Last Filed: 07/01/22 10:12> Orientation/consciousness: patient oriented x3 <Maria White PA-C - Last Filed: 07/01/22 10:12> Chest: Other: wound vac to left chest/axilla remains in place with good seal; surrounding induration and erythema resolved <Maria White PA-C - Last Filed: 07/01/22 10:12> Neuro: General: patient oriented x3 <Maria White PA-C - Last Filed: 07/01/22 10:12> Objective Data Active Medications Chlorhexidine Gluconate (Chlorhexidine Gluc Oral Rinse 15 Ml Mouthwash) 15 ml BUCCAL TID [facility] Last Admin: 07/01/22 08:01 Dose: 15 ml Documented By: LUZ Docusate Sodium (Docusate Sodium 100 Mg Capsule) 100 mg PO DAILY PRN PRN Reason: Constipation Enoxaparin Sodium (Enoxaparin Sodium 40 Mg/0.4 Ml Syringe) 40 mg SUBCUT Q24H [facility] Last Admin: 07/01/22 08:01 Dose: 40 mg Documented By: LUZ Famotidine (Famotidine/Pf 20 Mg/2 Ml Vial) 20 mg IVPUSH DAILY [facility] Last Admin: 07/01/22 08:01 Dose: 20 mg Documented By: LUZ Hydromorphone HCl (Hydromorphone Hcl 0.5 Mg/0.5 Ml Syringe) 2 mg IVPUSH Q1H PRN; Protocol PRN Reason: Pain, Severe (Pain Scale 7-10) Last Admin: 06/30/22 21:03 Dose: 2 mg Documented By: HEIDY Propofol (Diprivan) 1,000 mg in 100 mls @ 0 mls/hr IVCONT .Q0M [facility]; Protocol Last Admin: 07/01/22 09:10 Dose: 50 mcg/kg/min, 34.02 mls/hr Documented By: LUZ Fentanyl (Sublimaze/Ns) 1,000 mcg in 100 mls @ 0 mls/hr IVCONT .Q0M [facility]; Protocol Last Admin: 07/01/22 06:14 Dose: 200 mcg/hr, 20 mls/hr Documented By: SILVIA Norepinephrine Bitartrate (Levophed) 8 mg in 250 mls @ 0 mls/hr IVCONT .Q0M [facility]; Protocol Last Admin: 07/01/22 09:11 Dose: 0.05 mcg/kg/min, 10.63 mls/hr Documented By: LUZ Epinephrine 5 mg/ Dextrose 255 mls @ 0 mls/hr IVCONT .Q0M [facility]; Protocol Last Titration: 06/30/22 20:00 Dose: 0 mcg/kg/min, 0 mls/hr Documented By: SILVIA Ceftriaxone Sodium 1 gm/ (Sodium Chloride) 50 mls @ 100 mls/hr IV Q24H [facility] Last Infusion: 07/01/22 03:31 Dose: 100 mls/hr Documented By: SILVIA Dextrose (D5w) 1,000 mls @ 75 mls/hr IVCONT .[id number] [facility] Last Admin: 07/01/22 02:11 Dose: 75 mls/hr Documented By: SILVIA Vancomycin HCl 1,250 mg/ (Sodium Chloride) 250 mls @ 166.667 mls/hr IV Q12H [facility] Last Admin: 07/01/22 09:18 Dose: 166.67 mls/hr Documented By: LUZ Methadone HCl (Methadone Hcl 20 Mg/2 Ml Oral.Conc) 10 mg NG-TUBE BID [facility] Last Admin: 07/01/22 08:01 Dose: 10 mg Documented By: LUZ Pharmacy Consult (Consult Rx Perform Med Rec) 1 each MISCELLANE ONCE PRN PRN Reason: Consult order Pharmacy Consult (Consult Rx Vancomycin Dosing) 1 each MISCELLANE DAILY PRN PRN Reason: Consult order Pharmacy Consult (Consult Rx Vancomycin Dosing) 1 each MISCELLANE DAILY PRN PRN Reason: Consult order Potassium Chloride (Potassium Chloride Packet 20 Meq Packet) 40 meq PO Q2H [facility] Stop: 07/01/22 11:01 Last Admin: 07/01/22 09:22 Dose: 40 meq Documented By: LUZ Potassium Phos/Sodium Phos (Sodium,Potassium Phosphates Powd.Pack) 2 packet PO Q6H [facility] Stop: 07/01/22 15:01 Last Admin: 07/01/22 09:23 Dose: 2 packet Documented By: LUZ Risperidone (Risperidone 1 Mg Tablet) 1 mg G-TUBE Q12H [facility] Last Admin: 06/30/22 23:44 Dose: 1 mg Documented By: SILVIA Sodium Chloride (0.9 % Sodium Chloride Flush 3 Ml Syringe) 3 ml IVFLUSH QSHIFT [facility] Last Admin: 07/01/22 08:01 Dose: 3 ml Documented By: LUZ <Maria Whtie PA-C - Last Filed: 07/01/22 10:12> Labs CBC & Chem 7: : 07/01/22 05:04 07/01/22 05:04 <Maria White PA-C - Last Filed: 07/01/22 10:12> Labs: Laboratory Results - last 24 hr 06/30/22 06/30/22 07/01/22 18:01 18:02 05:04 MCV 86.4 MCH 26.9 L MCHC 31.1 RDW 15.5 Plt Count 182 D MPV 10.7 Absolute Nucleated RBC 0.000 Nucleated RBC % (auto) 0.0 VBG pH 7.45 H VBG pCO2 30 VBG pO2 61 VBG HCO3 21 L VBG O2 Saturation 91.0 VBG Base Excess -1.9 Anion Gap Estim Creat Clear Calc Estimated GFR Random Glucose Lactic Acid 1.3 Calcium Phosphorus Magnesium Procalcitonin Vancomycin Trough 07/01/22 07/01/22 07/01/22 05:04 05:04 05:05 MCV MCH MCHC RDW Plt Count MPV Absolute Nucleated RBC Nucleated RBC % (auto) VBG pH 7.45 H VBG pCO2 31 VBG pO2 39 VBG HCO3 21 L VBG O2 Saturation 67.0 VBG Base Excess -1.8 Anion Gap 10 L Estim Creat Clear Calc 105.7 Estimated GFR > 60 Random Glucose 117 H Lactic Acid Calcium 7.7 L Phosphorus 2.4 L Magnesium 1.9 Procalcitonin 0.36 Vancomycin Trough 07/01/22 07:51 MCV MCH MCHC RDW Plt Count MPV Absolute Nucleated RBC Nucleated RBC % (auto) VBG pH VBG pCO2 VBG pO2 VBG HCO3 VBG O2 Saturation VBG Base Excess Anion Gap Estim Creat Clear Calc Estimated GFR Random Glucose Lactic Acid Calcium Phosphorus Magnesium Procalcitonin Vancomycin Trough 18.7 <Maria White PA-C - Last Filed: 07/01/22 10:12> Microbiology Microbiology Results: Microbiology 06/30/22 05:14 Blood Culture - Preliminary Blood - Venous No growth after 24 hours. 06/30/22 05:14 Blood Culture - Preliminary Blood - Venous No growth after 24 hours. 06/28/22 01:20 Gram Stain - Final Sputum - Suctioned Sputum Culture - Final Methicillin Res Staph Aureus <Maria White PA-C - Last Filed: 07/01/22 10:12> Procedures Date of Service Date of Service: 07/01/22 <Maria White PA-C - Last Filed: 07/01/22 10:12> Progress Note: A&P Assessment and plan (1) MRSA bacteremia: Status: Acute <ARVIN Guaman Last Filed: 07/01/22 10:12> (2) Status post debridement: Status: Acute <ARVIN Guaman Last Filed: 07/01/22 10:12> Assessment and Plan: Remains on the ventilator Wound VAC in place - appears to have good seal Has other medical issues Plan to change wound VAC tomorrow Rest of care as per the ICU team Seen and examined independently - agree with YOJANA White <Shahzad Kincaid MD - Last Filed: 07/01/22 11:04> (3) Necrotizing soft tissue infection: Status: Acute <Maria White PA-C - Last Filed: 07/01/22 10:12> Assessment and Plan: S/P wide debridement of necrotizing infection left upper arm and breast. Veraflo wound VAC dressing changed 06/29/22- healthy subq tissue noted, no further necrosis/gangrene to warrant further debridement. Site healing well. Vac remains in place and functioning well. Change either tomorrow or Wednesday- may be able to place regular granufoam dressing if remains clean. Multiple medical comorbidities/vent management per ICU team. Project Geophysicist discussing transfer to tertiary center for wound care. <Maria White PA-C - Last Filed: 07/01/22 10:12> Time Spent With Patient Time: Total time spent is greater than 50% in coordination of care (as documented) at patient's floor/unit and/or counseling patient: <Maria White PA-C - Last Filed: 07/01/22 10:12> Quality Stroke Does the patient have a stroke diagnosis?: No <Maria White PA-C - Last Filed: 07/01/22 10:12> VTE Prior VTE?: No <Maria White PA-C - Last Filed: 07/01/22 10:12> VTE Risk Level:: Medical - moderate - high <Maria White PA-C - Last Filed: 07/01/22 10:12> VTE Device Contraindication: Treatment Not Indicated <Maria White PA-C - Last Filed: 07/01/22 10:12> VTE Drug Contraindication: N/A - Med Ordered <Maria White PA-C - Last Filed: 07/01/22 10:12>
[2022-07-01] MEDS: risperiDONE 1 MG TABLET G-TUBE (11:09)
--- NOTE | 2022-07-01 11:58 | PM.CCPN ---
Subjective Subjective Date of Service: 07/01/22 Interval History: Mrs. Quigley was transferred to ICU on Jun 24 with septic shock. The patient is a 52 yo F with PMHx of IV drug use.? She was brought to the ED ambulatory by her son on Jun 23 bec of lethargy.? In the ED she was febrile, tachypneic and hypoxemic, with mild leukocytosis, CHARLA w creat 2.5 (no baseline), potassium 6, sodium 124, mildly elevated lactate, positive u/a, and positive tox for fentanyl and cocaine. Chest CT showed extensive soft tissue swelling and phlegmonous changes in the left chest wall w subcutaneous emphysema, small discrete fluid collections adjacent to the chest wall, and diffuse pulmonary infiltrates with multiple rounded masslike areas, left greater than right, c/w septic emboli. The patient was started on broad-spectrum antibiotics and admitted to Medicine.? Her lactate cleared easily.? Within hours though, she became hypotensive, even though lactate continued to clear.? She was tx to ICU early on Jun 24.? Later that day she underwent operative debridement of necrotizing infection of S&St of the left upper chest/breast, axilla, medial upper arm.? According to Dr. Kincaid, the fasciitis did not extend into muscle.? Further debridement was planned and the patient was left intubated. The patient grew MRSA in her BC bottles and sputum.? BCs were positive on 06/23 and 06/25, and negative on 06/27.? Sputum was positive on 06/24 and 06/28.? The wound culture from 06/24 grew out MRSA and mostly sensitive citrobacter.? Renal indices came down slowly.? On TTE yesterday, no obvious vegetation was noted.? LV fxn was normal, RV size and fxn were normal, there was mild TR with CWD measuring 2.7 m/sec (gradient 31mm) and IVC was mildly dilated with <50% insp collapse. General surgery is following closely.? She had a wound vac placed on Jun 25.? Was removed and replaced on Jun 29.? At that time, the wound bed showed healthy appearing subq fat, some fibrinous exudate, no necrosis; surrounding erythema and induration was significantly improved. ?Veraflo wound vac sponge & dressing were reapplied with good seal.? She continues on vanco and ceftriaxone.? She?s had mult doses of Versed bec of inadequate sedation despite max dose propofol & fentanyl.? We added methadone and Risperdal yesterday, with signif improvement. Currently she?s on prop 50ug, fentanyl 200ug plus methadone 10mg bid and Risperdal 1mg bid.? Also on D5W 75cc/hr and Levophed 0.05ug.? Well sedated.? With a propfo holiday, she wakes up and becomes limitedly interactive, but very chaotic and dysynchronus.? Tmax 102.0? today.? HR 85, SR. ?BP 117/36.? On AC 14/400/21%/+5, RR is 30, nonlabored. ?Ve 11L, PIP 33cm, ETCO2 27, Sat 96%.? CVBG this morning 7.45/31/-1.? No JVD at 30?.? Chest w coarse BS throughout.? Normal exp phase.? RRR, normal-sounding S1 and S2, with no murmur or gallops.? The abdomen is mildly obese and benign.? Having diarrhea.? She has no significant edema. I examined the wound with the surgical PA today.? The left axillary wound margins are clean, minimally erythematous, and soft.? The wound vac placement is perfect.? The original markings of her erythematous cellulitis have receded dramatically in her arm, axilla, and lateral chest wall.? LABORATORY DATA: Below.? Notably, white count is back down to 8 this morning.? Hb is down to 7.5.? Sodium is down to 149 on D5W infusion. ?BUN/creatinine down, potassium 3.3 (after repletion), phos 2.4, PCT 0.3.? Lactate yest evening 1.3. I spoke with Bea Blank at length.? Our conclusion was to increase the methadone to 20 mg bid and the Risperdal to 2mg bid.? Better to ?overdose? and back down, than underdose and try to catchup. IMPRESSION: 1. IV drug abuse.? Agitation is now the major impediment to getting her extubated.? Went up on the methadone and Risperdal.? We?ll see how she does tomorrow. 2. Necrotizing fasciitis, without muscle involvement.? Doing well now with the wound vac.? I do have concern that this may turn into a large wound problem and the patient might therefore be better off at a tertiary center with better wound management capability and even hyperbaric.? At this moment, it?s OK. 3. Bilat pulmonary infiltrates with what looks like septic emboli. 4. Acute resp failure. 2? above. 5. Hypotension.? Given that her organ perfusion and tissue integrity is good/improving, not pushing volume to try to get her off the Levophed. 6. Endocarditis.? ? Reflective of the septic emboli, regardless of the echo. 7. CHARLA.? 2? sepsis.? Resolved. 8. ID.? Continuing vanco and ceftriaxone.? Vanco trough up to 18.? Repeat BCs negative both 06/27 and 06/30. 9. Hypernatremia.? On D5W plus water flushes. 10. Hypokalemia.? Repleted. 11. Hypophosphatemia.? Repleted. 12. Neuro/psych.? Part septic encephalopathy, part ? drug withdrawal.? Managing as noted above. 13. Nutrition.? Promote at goal rate. 14. Diarrhea.? Start Questran. I spoke at length today, in mult conversations, with surgeons at the [facility] and at [facility] requesting transfer for advanced surgical/wound care.? (Refused at [facility] and [facility]).? They both suggest getting her extubated and out of ICU, and then calling back for advanced wound care if necessary (> 1hr). Critical Care Time (minutes): 110 Physical Exam Vital Signs: Vital Signs: Last Vital Signs Temp 102.0 F H 07/01/22 08:00 Pulse 70 07/01/22 11:00 Resp 30 H 07/01/22 11:00 BP 128/51 L 07/01/22 11:00 Pulse Ox 97 07/01/22 11:00 O2 Del Method 07/01/22 11:00 O2 Flow Rate 3 06/24/22 10:00 FiO2 21 07/01/22 11:39 BMI result Body Mass Index 37.3 Objective Data Labs CBC & Chem 7: 07/01/22 05:04 07/01/22 05:04 Labs: Laboratory Results - last 24 hr 06/30/22 06/30/22 07/01/22 18:01 18:02 05:04 WBC 8.6 RBC 2.79 L Hgb 7.5 L Hct 24.1 L MCV 86.4 MCH 26.9 L MCHC 31.1 RDW 15.5 Plt Count 182 D MPV 10.7 Absolute Nucleated RBC 0.000 Nucleated RBC % (auto) 0.0 VBG pH 7.45 H VBG pCO2 30 VBG pO2 61 VBG HCO3 21 L VBG O2 Saturation 91.0 VBG Base Excess -1.9 Sodium Potassium Chloride Carbon Dioxide Anion Gap BUN Creatinine Estim Creat Clear Calc Estimated GFR Random Glucose Lactic Acid 1.3 Calcium Phosphorus Magnesium Procalcitonin Vancomycin Trough 07/01/22 07/01/22 07/01/22 05:04 05:04 05:05 WBC RBC Hgb Hct MCV MCH MCHC RDW Plt Count MPV Absolute Nucleated RBC Nucleated RBC % (auto) VBG pH 7.45 H VBG pCO2 31 VBG pO2 39 VBG HCO3 21 L VBG O2 Saturation 67.0 VBG Base Excess -1.8 Sodium 149 H Potassium 3.3 Chloride 119 H Carbon Dioxide 23 Anion Gap 10 L BUN 18 H Creatinine 0.71 Estim Creat Clear Calc 105.7 Estimated GFR > 60 Random Glucose 117 H Lactic Acid Calcium 7.7 L Phosphorus 2.4 L Magnesium 1.9 Procalcitonin 0.36 Vancomycin Trough 07/01/22 07:51 WBC RBC Hgb Hct MCV MCH MCHC RDW Plt Count MPV Absolute Nucleated RBC Nucleated RBC % (auto) VBG pH VBG pCO2 VBG pO2 VBG HCO3 VBG O2 Saturation VBG Base Excess Sodium Potassium Chloride Carbon Dioxide Anion Gap BUN Creatinine Estim Creat Clear Calc Estimated GFR Random Glucose Lactic Acid Calcium Phosphorus Magnesium Procalcitonin Vancomycin Trough 18.7 Microbiology Microbiology Results: Microbiology 06/30/22 05:14 Blood - Venous Blood Culture - Preliminary No growth after 24 hours. 06/30/22 05:14 Blood - Venous Blood Culture - Preliminary No growth after 24 hours. 06/28/22 01:20 Sputum - Suctioned Gram Stain - Final 06/28/22 01:20 Sputum - Suctioned Sputum Culture - Final Methicillin Res Staph Aureus 06/27/22 05:25 Blood - Venous Blood Culture - Preliminary No growth after 48 hours. 06/27/22 05:25 Blood - Venous Blood Culture - Preliminary No growth after 48 hours. 06/25/22 09:28 Blood - Venous Blood Culture - Final Methicillin Res Staph Aureus 06/25/22 09:28 Blood - Venous Blood Culture - Final Methicillin Res Staph Aureus 06/24/22 14:27 Sputum - Suctioned Gram Stain - Final 06/24/22 14:27 Sputum - Suctioned Sputum Culture - Final Methicillin Res Staph Aureus 06/24/22 Unknown Axilla Left Gram Stain - Final 06/24/22 Unknown Axilla Left Routine Culture - Final Methicillin Res Staph Aureus Citrobacter freundii 06/23/22 20:55 Blood - Venous Blood Culture - Final Methicillin Res Staph Aureus Coag negative Staphylococcus 06/23/22 18:45 Blood - Venous Blood Culture - Final Methicillin Res Staph Aureus Quality Stroke Does the patient have a stroke diagnosis?: No VTE Prior VTE?: No VTE Risk Level:: Medical - moderate - high VTE Device Contraindication: Treatment Not Indicated VTE Drug Contraindication: N/A - Med Ordered Critical Care Time Critical Care Time (minutes): 120
[2022-07-01] MEDS: risperiDONE 2 MG TABLET G-TUBE (16:41)
[2022-07-01] MEDS: Cholestyramine (With Sugar) 4 GM POWD.PACK G-TUBE (16:41)
[2022-07-01] MEDS: methADONE HCl 20 MG/2 ML ORAL.CONC NG-TUBE (19:57)
[2022-07-01] MEDS: fentaNYL citrate/NS 1,000 MCG/100 ML PLAST..BAG 15 MCG IVCONT (23:25)
--- NOTE | 2022-07-01 23:55 | PC.NURSE ---
Throughout evening patient continuing to have 200-300 mL/hr urine output. Iva DIAL notified, no new orders at this time.
[2022-07-02] VITALS (36 sets, daily range): BP systolic 88–145; BP diastolic 25–60; PULSE 60–113; RESP 15–42; TEMP 35–39; O2SAT 75–100; BMI 37.5
[2022-07-02] MEDS: propofoL 1,000 MG/100 ML VIAL 34.02 MG IVCONT ×5 (02:24→22:36)
[2022-07-02] MEDS: cefTRIAXone sodium 1 GM in 0.9 % Sodium Chloride 50 ML IV (02:24)
[2022-07-02] MEDS: risperiDONE 2 MG TABLET G-TUBE (04:04)
[2022-07-02] MEDS: Cholestyramine (With Sugar) 4 GM POWD.PACK G-TUBE ×2 (04:04→16:57)
[2022-07-02] MEDS: Dextrose 5 % 1,000 ML 75 ML IVCONT ×2 (04:16→16:57)
[2022-07-02 05:12] LABS: VBG Base Excess 1.3 mmol/L; VBG HCO3 24 mmol/L (22-26); VBG pCO2 34 mmHg; VBG pH 7.46 (7.32-7.43); VBG pO2 59 mmHg
[2022-07-02 05:34] LABS: Venous Blood Gas Refer to POC result
[2022-07-02 05:38] LABS: Hematocrit 23.1 % (37.0-47.0); Hemoglobin 7.2 g/dl (12.0-16.0); Mean Corpuscular HGB Conc 31.2 g/dl (31.0-35.0); Mean Corpuscular Hemoglobin 26.8 pg (27.0-33.0); Mean Corpuscular Volume 85.9 fL (80.0-98.0); Mean Platelet Volume 10.9 fL (9.4-12.3); Platelet Count 169 X10*3/uL (160-400); Red Blood Count 2.69 X10*6/uL (4.20-5.50); White Blood Count 4.6 X10*3/uL (4.8-10.8)
[2022-07-02 06:05] LABS: Albumin Level 2.9 g/dL (3.5-5.0); Anion Gap 11 (12-20); Blood Urea Nitrogen 15 mg/dL (9-16); Calcium 7.7 mg/dL (8.4-10.2); Carbon Dioxide 24 mmol/L (22-29); Chloride 115 mmol/L (96-108); Creatinine Clr Calc Pharmacy 110.4; Estimated Glomerular Filt Rate > 60; Glucose Random 106 mg/dL (60-115); Magnesium 1.9 mg/dL (1.6-2.6); Phosphorus 2.7 mg/dL (2.7-4.5); Potassium 3.2 mmol/L (3.3-5.1); Sodium 147 mmol/L (135-145)
[2022-07-02] MEDS: fentaNYL citrate/NS 1,000 MCG/100 ML PLAST..BAG 15 MCG IVCONT (06:28)
[2022-07-02] MEDS: Albumin Human 25 % 100 ML IV ×2 (07:15→08:39)
[2022-07-02] MEDS: Potassium Phosphate/NS 15 MMOL/250 ML PLAST..BAG 62.5 MMOL IV ×2 (07:20→11:26)
[2022-07-02] MEDS: 0.9 % Sodium Chloride Flush 3 ML SYRINGE IVFLUSH ×2 (07:23→14:41)
[2022-07-02] MEDS: methADONE HCl 20 MG/2 ML ORAL.CONC NG-TUBE ×2 (07:48→20:05)
[2022-07-02] MEDS: Chlorhexidine Gluc Oral Rinse 15 ML MOUTHWASH BUCCAL ×3 (07:48→20:04)
[2022-07-02] MEDS: Famotidine/PF 20 MG/2 ML VIAL IVPUSH (07:48)
[2022-07-02] MEDS: Enoxaparin Sodium 40 MG/0.4 ML SYRINGE SUBCUT (07:48)
--- NOTE | 2022-07-02 08:27 | PM.PNGS ---
Subjective Subjective Date of Service: 07/02/22 <Maria White PA-C - Last Filed: 07/02/22 09:37> 07/02/22 <Shahzad Kincaid MD - Last Filed: 07/02/22 14:23> Interval history: Remains sedated, intubated. <Maria White PA-C - Last Filed: 07/02/22 09:37> Physical Exam Vital Signs: Vital Signs: Last Vital Signs Temp 97.7 F 07/02/22 08:00 Pulse 60 07/02/22 08:00 Resp 17 07/02/22 08:00 BP 122/51 L 07/02/22 08:00 Pulse Ox 98 07/02/22 08:00 O2 Del Method 07/02/22 08:00 O2 Flow Rate 3 06/24/22 10:00 FiO2 21 07/02/22 08:16 BMI result Body Mass Index 37.5 <Maria White PA-C - Last Filed: 07/02/22 09:37> Const: General: no acute distress <Maria White PA-C - Last Filed: 07/02/22 09:37> Chest: Other: chest/axilla erythema and induration essentially resolved, wound vac dressing removed- healthy appearing subq tissue visible at breast/axilla, upper arm beginning to granulate, some fibrinous exudate noted at wound base in axilla that was bluntly debrided off with fluffs <Maria White PA-C - Last Filed: 07/02/22 09:37> Resp: Other: on vent <Maria White PA-C - Last Filed: 07/02/22 09:37> Cardio: Rate: regular rate <ARVIN Guaman Last Filed: 07/02/22 09:37> Skin: General skin exam: no rashes or lesions noted <ARVIN Guaman Last Filed: 07/02/22 09:37> Objective Data Active Medications Chlorhexidine Gluconate (Chlorhexidine Gluc Oral Rinse 15 Ml Mouthwash) 15 ml BUCCAL TID TER[facility] Last Admin: 07/02/22 07:48 Dose: 15 ml Documented By: LUZ Cholestyramine Resin (Cholestyramine (With Sugar) 4 Gm Powd.Pack) 4 gm G-TUBE Q12H [facility] Last Admin: 07/02/22 04:04 Dose: 4 gm Documented By: YASMIN Docusate Sodium (Docusate Sodium 100 Mg Capsule) 100 mg PO DAILY PRN PRN Reason: Constipation Enoxaparin Sodium (Enoxaparin Sodium 40 Mg/0.4 Ml Syringe) 40 mg SUBCUT Q24H [facility] Last Admin: 07/02/22 07:48 Dose: 40 mg Documented By: LUZ Famotidine (Famotidine/Pf 20 Mg/2 Ml Vial) 20 mg IVPUSH DAILY [facility] Last Admin: 07/02/22 07:48 Dose: 20 mg Documented By: LUZ Hydromorphone HCl (Hydromorphone Hcl 0.5 Mg/0.5 Ml Syringe) 2 mg IVPUSH Q1H PRN; Protocol PRN Reason: Pain, Severe (Pain Scale 7-10) Last Admin: 06/30/22 21:03 Dose: 2 mg Documented By: HEIDY Propofol (Diprivan) 1,000 mg in 100 mls @ 0 mls/hr IVCONT .Q0M [facility]; Protocol Last Admin: 07/02/22 05:27 Dose: 50 mcg/kg/min, 34.02 mls/hr Documented By: YASMIN Fentanyl (Sublimaze/Ns) 1,000 mcg in 100 mls @ 0 mls/hr IVCONT .Q0M [facility]; Protocol Last Admin: 07/02/22 06:28 Dose: 150 mcg/hr, 15 mls/hr Documented By: YASMIN Norepinephrine Bitartrate (Levophed) 8 mg in 250 mls @ 0 mls/hr IVCONT .Q0M [facility]; Protocol Last Titration: 07/02/22 07:55 Dose: 0.04 mcg/kg/min, 8.51 mls/hr Documented By: LUZ Epinephrine 5 mg/ Dextrose 255 mls @ 0 mls/hr IVCONT .Q0M TER[facility]; Protocol Last Titration: 06/30/22 20:00 Dose: 0 mcg/kg/min, 0 mls/hr Documented By: SILVIA Ceftriaxone Sodium 1 gm/ (Sodium Chloride) 50 mls @ 100 mls/hr IV Q24H [facility] Last Infusion: 07/02/22 02:59 Dose: 0 mls/hr Documented By: YASMIN Vancomycin HCl 1,250 mg/ (Sodium Chloride) 250 mls @ 166.667 mls/hr IV Q12H [facility] Last Infusion: 07/01/22 23:55 Dose: 0 mls/hr Documented By: YASMIN Dextrose (D5w) 1,000 mls @ 75 mls/hr IVCONT .[id number] [facility] Last Admin: 07/02/22 04:16 Dose: 75 mls/hr Documented By: YASMIN Albumin Human (Kedbumin 25 %) 100 mls @ 100 mls/hr IV Q1H [facility] Stop: 07/02/22 08:59 Last Admin: 07/02/22 07:15 Dose: 100 mls/hr Documented By: LUZ Potassium Phosphate (Kphos) 15 mmol in 250 mls @ 62.5 mls/hr IV Q4H [facility] Stop: 07/02/22 14:59 Last Admin: 07/02/22 07:20 Dose: 62.5 mls/hr Documented By: LUZ Methadone HCl (Methadone Hcl 20 Mg/2 Ml Oral.Conc) 20 mg NG-TUBE BID [facility] Last Admin: 07/02/22 07:48 Dose: 20 mg Documented By: LUZ Pharmacy Consult (Consult Rx Perform Med Rec) 1 each MISCELLANE ONCE PRN PRN Reason: Consult order Pharmacy Consult (Consult Rx Vancomycin Dosing) 1 each MISCELLANE DAILY PRN PRN Reason: Consult order Pharmacy Consult (Consult Rx Vancomycin Dosing) 1 each MISCELLANE DAILY PRN PRN Reason: Consult order Risperidone (Risperidone 2 Mg Tablet) 2 mg G-TUBE Q12H [facility] Last Admin: 07/02/22 04:04 Dose: 2 mg Documented By: YASMIN Sodium Chloride (0.9 % Sodium Chloride Flush 3 Ml Syringe) 3 ml IVFLUSH QSHIFT [facility] Last Admin: 07/02/22 07:23 Dose: 3 ml Documented By: LUZ <Maria White PA-C - Last Filed: 07/02/22 09:37> Labs CBC & Chem 7: : 07/02/22 05:05 07/02/22 05:05 <Maria White PA-C - Last Filed: 07/02/22 09:37> Labs: Laboratory Results - last 24 hr 07/01/22 07/02/22 07/02/22 07:51 05:05 05:05 MCV 85.9 MCH 26.8 L MCHC 31.2 RDW 15.0 Plt Count 169 MPV 10.9 Absolute Nucleated RBC 0.000 Nucleated RBC % (auto) 0.0 VBG pH VBG pCO2 VBG pO2 VBG HCO3 VBG O2 Saturation VBG Base Excess Anion Gap 11 L Estim Creat Clear Calc 110.4 Estimated GFR > 60 Random Glucose 106 Calcium 7.7 L Phosphorus 2.7 Magnesium 1.9 Albumin 2.9 L Vancomycin Trough 18.7 07/02/22 05:06 MCV MCH MCHC RDW Plt Count MPV Absolute Nucleated RBC Nucleated RBC % (auto) VBG pH 7.46 H VBG pCO2 34 VBG pO2 59 VBG HCO3 24 VBG O2 Saturation 89.0 VBG Base Excess 1.3 Anion Gap Estim Creat Clear Calc Estimated GFR Random Glucose Calcium Phosphorus Magnesium Albumin Vancomycin Trough <Maria White PA-C - Last Filed: 07/02/22 09:37> Microbiology Microbiology Results: Microbiology 06/27/22 05:25 Blood Culture - Final Blood - Venous No growth after 5 days. 06/27/22 05:25 Blood Culture - Final Blood - Venous No growth after 5 days. 06/30/22 05:14 Blood Culture - Preliminary Blood - Venous No growth after 48 hours. 06/30/22 05:14 Blood Culture - Preliminary Blood - Venous No growth after 48 hours. <Maria White PA-C - Last Filed: 07/02/22 09:37> Procedures Date of Service Date of Service: 07/02/22 <Maria White PA-C - Last Filed: 07/02/22 09:37> Progress Note: A&P Assessment and plan (1) MRSA bacteremia: Status: Acute <Maria White PA-C - Last Filed: 07/02/22 09:37> Assessment and Plan: Wound VAC changed No irrigation on wound VAC this time Wound appears clean and with healthy granulation Rest of care as per the radio commentator Seen and examined -with YOJANA White <Shahzad Kincaid MD - Last Filed: 07/02/22 14:23> (2) Status post debridement: Status: Acute <Maria White PA-C - Last Filed: 07/02/22 09:37> (3) Necrotizing soft tissue infection: Status: Acute <Maria White PA-C - Last Filed: 07/02/22 09:37> Assessment and Plan: S/P wide debridement of necrotizing infection left upper arm and breast. VAC dressing changed today at bedside- healthy subq tissue noted, no further necrosis/gangrene, site healing well and upper arm beginning to granulate. Granufoam wound vac sponge placed today as site is clean and healing very well- of note there was smaller piece of sponge placed under axillary foam in deeper cavity. Good seal noted, settings changed to regular VAC therapy. Lateral breast tissue /axilla creates nice flap to close wound space; anticipate wound will heal nicely with continued wound vac therapy and wont require graft. Multiple active medical problems/vent management per ICU team. Plan for attempted wean today. <Maria White PA-C - Last Filed: 07/02/22 09:37> Time Spent With Patient Time: Total time spent is greater than 50% in coordination of care (as documented) at patient's floor/unit and/or counseling patient: <Maria White PA-C - Last Filed: 07/02/22 09:37> Quality Stroke Does the patient have a stroke diagnosis?: No <Maria White PA-C - Last Filed: 07/02/22 09:37> VTE Prior VTE?: No <Maria White PA-C - Last Filed: 07/02/22 09:37> VTE Risk Level:: Medical - moderate - high <Maria White PA-C - Last Filed: 07/02/22 09:37> VTE Device Contraindication: Treatment Not Indicated <Maria White PA-C - Last Filed: 07/02/22 09:37> VTE Drug Contraindication: N/A - Med Ordered <Maria White PA-C - Last Filed: 07/02/22 09:37>
[2022-07-02 08:47] LABS: Vancomycin Trough 16.8 mcg/mL (10.0-20.0)
[2022-07-02] MEDS: vancomycin HCL 1,250 MG in 0.9 % Sodium Chloride 250 ML 166.67 MG IV ×2 (09:40→22:11)
[2022-07-02] MEDS: HYDROmorphone HCl 0.5 MG/0.5 ML SYRINGE 2 MG IVPUSH ×3 (11:39→15:42)
--- NOTE | 2022-07-02 14:29 | PM.CCPN ---
Subjective Subjective Date of Service: 07/02/22 Interval History: Mrs. Quigley was transferred to ICU on Jun 24 with septic shock. The patient is a 52 yo F with PMHx of IV drug use.? She was brought to the ED ambulatory by her son on Jun 23 bec of lethargy.? In the ED she was febrile, tachypneic and hypoxemic, with mild leukocytosis, CHARLA w creat 2.5 (no baseline), potassium 6, sodium 124, mildly elevated lactate, positive u/a, and positive tox for fentanyl and cocaine. Chest CT showed extensive soft tissue swelling and phlegmonous changes in the left chest wall w subcutaneous emphysema, small discrete fluid collections adjacent to the chest wall, and diffuse pulmonary infiltrates with multiple rounded masslike areas, left greater than right, c/w septic emboli. The patient was started on broad-spectrum antibiotics and admitted to Medicine.? Her lactate cleared easily.? Within hours though, she became hypotensive, even though lactate continued to clear.? She was tx to ICU early on Jun 24.? Later that day she underwent operative debridement of necrotizing infection of S&St of the left upper chest/breast, axilla, medial upper arm.? According to Dr. Kincaid, the fasciitis did not extend into muscle.? Further debridement was planned and the patient was left intubated. The patient grew MRSA in her BC bottles and sputum.? BCs were positive on 06/23 and 06/25, and negative on 06/27.? Sputum was positive on 06/24 and 06/28.? The wound culture from 06/24 grew out MRSA and mostly sensitive citrobacter.? Renal indices came down slowly.? On TTE 06/29, no obvious vegetation was noted.? LV fxn was normal, RV size and fxn were normal, there was mild TR with CWD measuring 2.7 m/sec (gradient 31mm) and IVC was mildly dilated with <50% insp collapse. General surgery is following closely.? She had a wound vac placed on Jun 25.? Was removed and replaced on Jun 29 and again today.? The wound bed is very clean, shows healthy appearing subq fat, no necrosis, and surrounding erythema and induration is virtually gone. ?Veraflo wound vac sponge & dressing were reapplied with excellent good seal and the wound looks smaller.? She continues on vanco and ceftriaxone. ?Methadone and Risperdal were added to propofol/fentanyl, with signif sedation improvement. Currently on fentanyl 100ug plus methadone 20mg bid and Risperdal 2mg bid.? Propofol off for about 5 hours.? D5W at 75cc/hr, Levophed is off.? Eyes are open and she?s breathing comfortably, but she?s noninteractive.? Looks a bit catatonic.? Tmax 101.1?.? HR 98, SR.? BP 138/41.? On PSV 12/+5/21%, RR is 29, nonlabored. Vt 380cc, Ve 10L, PIP 18cm, ETCO2 28mm, Sat 94%.? CVBG this morning 7.46/34/+1.? No JVD at 30?.? Chest w coarse BS throughout.? Normal exp phase.? RRR, normal-sounding S1 and S2, with no murmur or gallops.? The abdomen is mildly obese and benign.? Having diarrhea.? She has no significant edema.? The wound looks fantastic, as described above. LABORATORY DATA: Below.? Notably, white count down to 4 this morning.? Hb down to 7.2.? Sodium is down to 147 on D5W infusion. ?K 3.2.? BUN/creatinine down. IMPRESSION: 1. IV drug abuse.? Agitation is now the major impediment to getting her extubated.? Went up on the methadone to 20mg bid and on the Risperdal to 2mg bid.? Too high on the Risperdal.? We?ll go back to 1mg bid, see how she does tomorrow. 2. Necrotizing fasciitis, without muscle involvement.? Doing very well now with the wound vac.? The wound looks smaller to me than with the last wound vac.? I do have concern that this may turn into a large wound problem and the patient might therefore be better off at a tertiary center with better wound management capability and even hyperbaric.? At this moment, it?s OK.? Spoke to staff again today.? The plan is to continue our current management here, get her extubated and out of ICU, and if the wound becomes too complex, then transfer to . 3. Bilat pulmonary infiltrates with what looks like septic emboli.? Amazingly, she?s down to 21% FiO2. 4. Acute resp failure. 2? above. 5. Hypotension.? Given that her organ perfusion and tissue integrity is good/improving, not pushing volume to try to get her off the Levophed. 6. Endocarditis.? ? Reflective of the septic emboli, regardless of the echo. 7. CHARLA.? 2? sepsis.? Resolved. 8. ID.? Continuing vanco and ceftriaxone.? Vanco trough 16.? Repeat BCs were negative on both 06/27 and 06/30.? Sent repeat cultures today. 9. Hypernatremia. ?On D5W plus water flushes. 10. Hypokalemia.? Repleted. 11. Neuro/psych.? Part septic/metabolic encephalopathy, part ? drug withdrawal.? Managing as noted above. 12. Nutrition.? Promote at goal rate. 13. Diarrhea.? Started Questran.? Improved. Critical care time (include mult visits to bedside to reassess sedation: ?75+ min. Critical Care Time (minutes): 75 Physical Exam Vital Signs: Vital Signs: Last Vital Signs Temp 101.1 F H 07/02/22 14:00 Pulse 96 07/02/22 14:00 Resp 30 H 07/02/22 14:00 BP 134/44 L 07/02/22 14:00 Pulse Ox 91 L 07/02/22 14:00 O2 Del Method 07/02/22 14:00 O2 Flow Rate 3 06/24/22 10:00 FiO2 21 07/02/22 14:00 BMI result Body Mass Index 37.5 Objective Data Labs CBC & Chem 7: 07/02/22 05:05 07/02/22 05:05 Labs: Laboratory Results - last 24 hr 07/02/22 07/02/22 07/02/22 05:05 05:05 05:06 WBC 4.6 L RBC 2.69 L Hgb 7.2 L Hct 23.1 L MCV 85.9 MCH 26.8 L MCHC 31.2 RDW 15.0 Plt Count 169 MPV 10.9 Absolute Nucleated RBC 0.000 Nucleated RBC % (auto) 0.0 VBG pH 7.46 H VBG pCO2 34 VBG pO2 59 VBG HCO3 24 VBG O2 Saturation 89.0 VBG Base Excess 1.3 Sodium 147 H Potassium 3.2 L Chloride 115 H Carbon Dioxide 24 Anion Gap 11 L BUN 15 Creatinine 0.68 Estim Creat Clear Calc 110.4 Estimated GFR > 60 Random Glucose 106 Calcium 7.7 L Phosphorus 2.7 Magnesium 1.9 Albumin 2.9 L Vancomycin Trough 07/02/22 08:20 WBC RBC Hgb Hct MCV MCH MCHC RDW Plt Count MPV Absolute Nucleated RBC Nucleated RBC % (auto) VBG pH VBG pCO2 VBG pO2 VBG HCO3 VBG O2 Saturation VBG Base Excess Sodium Potassium Chloride Carbon Dioxide Anion Gap BUN Creatinine Estim Creat Clear Calc Estimated GFR Random Glucose Calcium Phosphorus Magnesium Albumin Vancomycin Trough 16.8 Microbiology Microbiology Results: Microbiology 06/27/22 05:25 Blood - Venous Blood Culture - Final No growth after 5 days. 06/27/22 05:25 Blood - Venous Blood Culture - Final No growth after 5 days. 06/30/22 05:14 Blood - Venous Blood Culture - Preliminary No growth after 48 hours. 06/30/22 05:14 Blood - Venous Blood Culture - Preliminary No growth after 48 hours. 06/28/22 01:20 Sputum - Suctioned Gram Stain - Final 06/28/22 01:20 Sputum - Suctioned Sputum Culture - Final Methicillin Res Staph Aureus 06/25/22 09:28 Blood - Venous Blood Culture - Final Methicillin Res Staph Aureus 06/25/22 09:28 Blood - Venous Blood Culture - Final Methicillin Res Staph Aureus 06/24/22 14:27 Sputum - Suctioned Gram Stain - Final 06/24/22 14:27 Sputum - Suctioned Sputum Culture - Final Methicillin Res Staph Aureus 06/24/22 Unknown Axilla Left Gram Stain - Final 06/24/22 Unknown Axilla Left Routine Culture - Final Methicillin Res Staph Aureus Citrobacter freundii 06/23/22 20:55 Blood - Venous Blood Culture - Final Methicillin Res Staph Aureus Coag negative Staphylococcus 06/23/22 18:45 Blood - Venous Blood Culture - Final Methicillin Res Staph Aureus Quality Stroke Does the patient have a stroke diagnosis?: No VTE Prior VTE?: No VTE Risk Level:: Medical - moderate - high VTE Device Contraindication: Treatment Not Indicated VTE Drug Contraindication: N/A - Med Ordered Critical Care Time Critical Care Time (minutes): 90
[2022-07-02] MEDS: fentaNYL citrate/NS 1,000 MCG/100 ML PLAST..BAG 10 MCG IVCONT (14:38)
--- NOTE | 2022-07-02 15:33 | MHC.CM.PN ---
Pt continues care in ICU: on Epi gtt, multiple ATB and on ventilatory support mainly to manage agitation. Pt with extensive wounds post op debridement w/wound vac application. At this time, pt's d/c disposition remains undetermined but will likely consist of transfer to a tertiary center vs LTAC placement. CM to follow - pt will need extubation for better determination of post acute needs.
[2022-07-02 17:40] LABS: Appearance Urine Clear; Color Urine Yellow; Glucose Urine UA Negative (Negative); Leukocyte Esterase Urine Negative (Negative); Nitrite Urine Negative (Negative); PH 5.5 (5.0-9.0); Specific Gravity - Urine 1.015 (1.005-1.025); UMIC TRIGGER UA YES; Urine Blood Moderate (2+) (Negative); Urine Ketones Negative (Negative); Urine Protein 30 (1+) mg/dL (Neg-Trace)
[2022-07-02 17:45] LABS: Bacteria Urine None Seen (None Seen); RBC Urine >20 /HPF (0-2); WBC Urine 0-5 /HPF (0-5)
[2022-07-02 18:21] LABS: Lactic Acid 1.4 mmol/L (0.5-2.0)
[2022-07-02] MEDS: risperiDONE 1 MG TABLET G-TUBE (20:05)
[2022-07-02] MEDS: fentaNYL citrate/NS 1,000 MCG/100 ML PLAST..BAG 7.5 MCG IVCONT (21:29)
[2022-07-03] VITALS (38 sets, daily range): BP systolic 99–162; BP diastolic 36–123; PULSE 69–113; RESP 14–32; TEMP 34.1–38.4; O2SAT 92–100; BMI 36.3
[2022-07-03] MEDS: 0.9 % Sodium Chloride Flush 3 ML SYRINGE IVFLUSH ×3 (00:26→16:10)
[2022-07-03] MEDS: propofoL 1,000 MG/100 ML VIAL 27.22 MG IVCONT ×2 (01:11→05:01)
[2022-07-03] MEDS: fentaNYL citrate/NS 1,000 MCG/100 ML PLAST..BAG 7.5 MCG IVCONT ×2 (02:44→17:07)
[2022-07-03] MEDS: cefTRIAXone sodium 1 GM in 0.9 % Sodium Chloride 50 ML IV (02:52)
[2022-07-03] MEDS: Cholestyramine (With Sugar) 4 GM POWD.PACK G-TUBE ×2 (05:01→17:52)
[2022-07-03 05:20] LABS: VBG Base Excess 5.2 mmol/L; VBG HCO3 28 mmol/L (22-26); VBG pCO2 37 mmHg; VBG pH 7.48 (7.32-7.43); VBG pO2 46 mmHg
[2022-07-03 05:29] LABS: MANUAL DIFF FLAG NO
[2022-07-03 05:33] LABS: Basophils Percent Auto 0.5 % (0-2); Eosinophils Absolute Auto 0.1 X10*3/uL (0.0-0.4); Eosinophils Percent Auto 1.8 % (0-4); Hematocrit 21.5 % (37.0-47.0); Imm Gran Abs Auto 0.02 X10*3/uL (0.00-0.03); Imm Gran Pct Auto 0.5 % (0.0-0.4); Lymphocytes Absolute Auto 0.7 X10*3/uL (1.2-4.9); Lymphocytes Percent Auto 16.4 % (20-40); Mean Corpuscular HGB Conc 31.2 g/dl (31.0-35.0); Mean Corpuscular Hemoglobin 26.7 pg (27.0-33.0); Mean Corpuscular Volume 85.7 fL (80.0-98.0); Mean Platelet Volume 10.6 fL (9.4-12.3); Monocytes Absolute Auto 0.3 X10*3/uL (0.1-1.2); Monocytes Percent Auto 6.2 % (2-11); Neutrophils Absolute Auto 3.2 x10*3/uL (2.0-8.3); Neutrophils Percent Auto 74.6 % (45-73); Platelet Count 173 X10*3/uL (160-400); Red Blood Count 2.51 X10*6/uL (4.20-5.50); Red Cell Distribution Width 15.1 % (11.0-16.0); White Blood Count 4.3 X10*3/uL (4.8-10.8)
[2022-07-03 05:36] LABS: Hemoglobin 6.7 g/dl (12.0-16.0)
[2022-07-03 05:38] LABS: INTERNATIONAL NORM RATIO 1.2 (0.9-1.1); Prothrombin Time 14.1 SEC (10.0-13.1)
[2022-07-03 05:54] LABS: Albumin Level 3.2 g/dL (3.5-5.0); Anion Gap 11 (12-20); Blood Urea Nitrogen 15 mg/dL (9-16); Carbon Dioxide 25 mmol/L (22-29); Chloride 112 mmol/L (96-108); Creatinine Clr Calc Pharmacy 106.1; Estimated Glomerular Filt Rate > 60; Glucose Random 104 mg/dL (60-115); Phosphorus 3.1 mg/dL (2.7-4.5); Sodium 145 mmol/L (135-145)
[2022-07-03 05:59] LABS: Vancomycin Random 19.6 mcg/mL (15-20)
[2022-07-03] MEDS: Dextrose 5 % 1,000 ML 75 ML IVCONT (06:02)
[2022-07-03 06:46] LABS: Venous Blood Gas Refer to POC result
[2022-07-03 08:36] LABS: Vancomycin Trough 18.3 mcg/mL (10.0-20.0)
--- NOTE | 2022-07-03 09:12 | P.PNGS_ITS ---
Subjective Subjective Date of Service: 07/03/22 Interval history: Remains sedated, intubated. Physical Exam Vital Signs: Vital Signs: Last Vital Signs Temp 100.9 F H 07/03/22 08:00 Pulse 95 07/03/22 09:00 Resp 23 H 07/03/22 09:00 BP 115/49 L 07/03/22 09:00 Pulse Ox 96 07/03/22 09:00 O2 Del Method 07/03/22 09:00 O2 Flow Rate 3 06/24/22 10:00 FiO2 21 07/03/22 09:00 BMI result Body Mass Index 36.3 Const: General: no acute distress Chest: Other: wound vac in place to left chest/axilla, good seal noted Skin: Other: no rashed noted Objective Data Active Medications Chlorhexidine Gluconate (Chlorhexidine Gluc Oral Rinse 15 Ml Mouthwash) 15 ml BUCCAL TID [facility] Last Admin: 07/02/22 20:04 Dose: 15 ml Documented By: YASMIN Cholestyramine Resin (Cholestyramine (With Sugar) 4 Gm Powd.Pack) 4 gm G-TUBE Q12H [facility] Last Admin: 07/03/22 05:01 Dose: 4 gm Documented By: YASMIN Docusate Sodium (Docusate Sodium 100 Mg Capsule) 100 mg PO DAILY PRN PRN Reason: Constipation Enoxaparin Sodium (Enoxaparin Sodium 40 Mg/0.4 Ml Syringe) 40 mg SUBCUT Q24H [facility] Last Admin: 07/02/22 07:48 Dose: 40 mg Documented By: LUZ Famotidine (Famotidine/Pf 20 Mg/2 Ml Vial) 20 mg IVPUSH DAILY [facility] Last Admin: 07/02/22 07:48 Dose: 20 mg Documented By: LUZ Hydromorphone HCl (Hydromorphone Hcl 1 Mg/Ml Syringe) 2 mg IVPUSH Q1H PRN; Protocol PRN Reason: Pain, Severe (Pain Scale 7-10) Propofol (Diprivan) 1,000 mg in 100 mls @ 0 mls/hr IVCONT .Q0M [facility]; Protocol Last Admin: 07/03/22 05:01 Dose: 40 mcg/kg/min, 27.22 mls/hr Documented By: YASMIN Norepinephrine Bitartrate (Levophed) 8 mg in 250 mls @ 0 mls/hr IVCONT .Q0M [facility]; Protocol Last Titration: 07/03/22 06:02 Dose: 0.06 mcg/kg/min, 12.76 mls/hr Documented By: YASMIN Epinephrine 5 mg/ Dextrose 255 mls @ 0 mls/hr IVCONT .Q0M [facility]; Protocol Last Titration: 06/30/22 20:00 Dose: 0 mcg/kg/min, 0 mls/hr Documented By: SILVIA Ceftriaxone Sodium 1 gm/ (Sodium Chloride) 50 mls @ 100 mls/hr IV Q24H [facility] Last Infusion: 07/03/22 03:28 Dose: 0 mls/hr Documented By: YASMIN Vancomycin HCl 1,250 mg/ (Sodium Chloride) 250 mls @ 166.667 mls/hr IV Q12H [facility] Last Infusion: 07/02/22 23:47 Dose: 0 mls/hr Documented By: YASMIN Fentanyl (Sublimaze/Ns) 1,000 mcg in 100 mls @ 7.5 mls/hr IVCONT .[id number] [facility] Last Admin: 07/03/22 02:44 Dose: 75 mcg/hr, 7.5 mls/hr Documented By: YASMIN Methadone HCl (Methadone Hcl 20 Mg/2 Ml Oral.Conc) 20 mg NG-TUBE BID [facility] Last Admin: 07/02/22 20:05 Dose: 20 mg Documented By: YASMIN Pharmacy Consult (Consult Rx Perform Med Rec) 1 each MISCELLANE ONCE PRN PRN Reason: Consult order Pharmacy Consult (Consult Rx Vancomycin Dosing) 1 each MISCELLANE DAILY PRN PRN Reason: Consult order Pharmacy Consult (Consult Rx Vancomycin Dosing) 1 each MISCELLANE DAILY PRN PRN Reason: Consult order Risperidone (Risperidone 1 Mg Tablet) 1 mg G-TUBE Q12H [facility] Last Admin: 07/02/22 20:05 Dose: 1 mg Documented By: YASMIN Sodium Chloride (0.9 % Sodium Chloride Flush 3 Ml Syringe) 3 ml IVFLUSH QSHIFT [facility] Last Admin: 07/03/22 00:26 Dose: 3 ml Documented By: YASMIN Labs CBC & Chem 7: 07/03/22 05:10 07/03/22 05:10 Labs: Laboratory Results - last 24 hr 07/02/22 07/02/22 07/03/22 17:11 17:27 05:10 MCV 85.7 MCH 26.7 L MCHC 31.2 RDW 15.1 Plt Count 173 MPV 10.6 Immature Gran % (Auto) 0.5 H Neut % (Auto) 74.6 H Lymph % (Auto) 16.4 L [place] % (Auto) 6.2 Eos % (Auto) 1.8 Baso % (Auto) 0.5 Lymph # (Auto) 0.7 L [place] # (Auto) 0.3 Eos # (Auto) 0.1 Baso # (Auto) 0.0 Abs Immat Gran (auto) 0.02 Absolute Neuts (auto) 3.2 Absolute Nucleated RBC 0.000 Nucleated RBC % (auto) 0.0 PT INR VBG pH VBG pCO2 VBG pO2 VBG HCO3 VBG O2 Saturation VBG Base Excess Anion Gap Estim Creat Clear Calc Estimated GFR Random Glucose Lactic Acid 1.4 Calcium Phosphorus Magnesium Albumin Urine Color Yellow Urine Appearance Clear Urine pH 5.5 Ur Specific [place] 1.015 Urine Protein 30 (1+) H Urine Glucose (UA) Negative Urine Ketones Negative Urine Blood Moderate (2+) H Urine Nitrite Negative Ur Leukocyte Esterase Negative Urine RBC >20 H Urine WBC 0-5 Ur Squamous Epith Cells 3-5 Urine Bacteria None Seen Hyaline Casts 3-5 Vancomycin Trough Random Vancomycin Blood Type Antibody Screen Crossmatch 07/03/22 07/03/22 07/03/22 05:10 05:10 05:10 MCV MCH MCHC RDW Plt Count MPV Immature Gran % (Auto) Neut % (Auto) Lymph % (Auto) [place] % (Auto) Eos % (Auto) Baso % (Auto) Lymph # (Auto) [place] # (Auto) Eos # (Auto) Baso # (Auto) Abs Immat Gran (auto) Absolute Neuts (auto) Absolute Nucleated RBC Nucleated RBC % (auto) PT 14.1 H INR 1.2 H VBG pH VBG pCO2 VBG pO2 VBG HCO3 VBG O2 Saturation VBG Base Excess Anion Gap 11 L Estim Creat Clear Calc 106.1 Estimated GFR > 60 Random Glucose 104 Lactic Acid Calcium 8.0 L Phosphorus 3.1 Magnesium 2.0 Albumin 3.2 L Urine Color Urine Appearance Urine pH Ur Specific [place] Urine Protein Urine Glucose (UA) Urine Ketones Urine Blood Urine Nitrite Ur Leukocyte Esterase Urine RBC Urine WBC Ur Squamous Epith Cells Urine Bacteria Hyaline Casts Vancomycin Trough Random Vancomycin 19.6 Blood Type Antibody Screen Crossmatch 07/03/22 07/03/22 07/03/22 05:12 06:48 08:02 MCV MCH MCHC RDW Plt Count MPV Immature Gran % (Auto) Neut % (Auto) Lymph % (Auto) [place] % (Auto) Eos % (Auto) Baso % (Auto) Lymph # (Auto) [place] # (Auto) Eos # (Auto) Baso # (Auto) Abs Immat Gran (auto) Absolute Neuts (auto) Absolute Nucleated RBC Nucleated RBC % (auto) PT INR VBG pH 7.48 H VBG pCO2 37 VBG pO2 46 VBG HCO3 28 H VBG O2 Saturation 77.0 VBG Base Excess 5.2 Anion Gap Estim Creat Clear Calc Estimated GFR Random Glucose Lactic Acid Calcium Phosphorus Magnesium Albumin Urine Color Urine Appearance Urine pH Ur Specific [place] Urine Protein Urine Glucose (UA) Urine Ketones Urine Blood Urine Nitrite Ur Leukocyte Esterase Urine RBC Urine WBC Ur Squamous Epith Cells Urine Bacteria Hyaline Casts Vancomycin Trough 18.3 Random Vancomycin Blood Type A Positive Antibody Screen NEGATIVE Crossmatch See Detail Microbiology Microbiology Results: Microbiology 06/27/22 05:25 Blood Culture - Final Blood - Venous No growth after 5 days. 06/27/22 05:25 Blood Culture - Final Blood - Venous No growth after 5 days. 06/30/22 05:14 Blood Culture - Preliminary Blood - Venous No growth after 48 hours. 06/30/22 05:14 Blood Culture - Preliminary Blood - Venous No growth after 48 hours. Procedures Date of Service Date of Service: 07/03/22 Progress Note: A&P Assessment and plan (1) MRSA bacteremia: Status: Acute (2) Status post debridement: Status: Acute (3) Necrotizing soft tissue infection: Status: Acute Plan S/P wide debridement of necrotizing infection left upper arm and breast over 1 week ago. Initially had veraflow wound vac in place following debridement. VAC dressing changed yesterday, regular granufoam sponge now in placeas wound is clean- healthy subq tissue noted, no further necrosis/gangrene, site healing well and upper arm beginning to granulate. Remains in place today with good seal. Continue wound vac therapy, change sponge on Wednesday. Multiple active medical problems/vent management per ICU team. Time Spent With Patient Time: Total time spent is greater than 50% in coordination of care (as documented) at patient's floor/unit and/or counseling patient: Quality Stroke Does the patient have a stroke diagnosis?: No VTE Prior VTE?: No VTE Risk Level:: Medical - moderate - high VTE Device Contraindication: Treatment Not Indicated VTE Drug Contraindication: N/A - Med Ordered
[2022-07-03] MEDS: Famotidine/PF 20 MG/2 ML VIAL IVPUSH (09:14)
[2022-07-03] MEDS: methADONE HCl 20 MG/2 ML ORAL.CONC NG-TUBE ×2 (09:15→21:38)
[2022-07-03] MEDS: Enoxaparin Sodium 40 MG/0.4 ML SYRINGE SUBCUT (09:15)
[2022-07-03] MEDS: Chlorhexidine Gluc Oral Rinse 15 ML MOUTHWASH BUCCAL ×3 (09:15→21:38)
[2022-07-03] MEDS: risperiDONE 1 MG TABLET G-TUBE ×2 (09:29→21:38)
[2022-07-03] MEDS: Potassium Chloride/H20 40 MEQ/100 ML PIGGYBACK 100 MEQ IV (09:35)
[2022-07-03] MEDS: HYDROmorphone HCl 1 MG/ML SYRINGE 2 MG IVPUSH ×4 (09:42→16:35)
--- NOTE | 2022-07-03 10:01 | MHC.CLN ---
F/U PT REMAINS INTUBATED AND SEDATED TOLERATING TF WITH LOW RESIDUALS PER NSG PT RECEIVING PROMOTE AT MAX GOAL RATE 30ML/HR WITH 30ML PROSOURCE TID WITH 300ML FREE WATER FLUSHES Q 4 HRS TO PROVIDE 900KCALS (1619KCALS WITH SEDATION; 24KCALS/KG BASED ON CMW), 90G PROTEIN (1.3G/KG), 2404ML TOTAL WATER FROM FORMULA AND FLUSHES (35ML/KG BASED ON CMW) SERUM NA WNL-RECOMMEND DECREASING WATER FLUSHES TO 240ML Q 4 HRS CONTINUE TO MONITOR TOLERANCE, RESIDUALS AND LYTES
[2022-07-03] MEDS: vancomycin HCL 1,250 MG in 0.9 % Sodium Chloride 250 ML 166.67 MG IV ×2 (11:45→21:43)
--- NOTE | 2022-07-03 11:47 | P.CDIC_ITS ---
CDI Concurrent Query Documentation Clarification: PHYSICIAN'S DOCUMENTATION REQUEST Date of Query: 07/03/22 1148 Patient Name: Yun Quigley Admit Date: 06/23/22 Dear Doctor, A review of the medical record indicates additional documentation may be needed. Please review below and update the documentation accordingly. Clinical Indicators: Risk Factors/Clinical Indicators/Treatments ICU notes - Endocarditis, reflective of septic emboli regardless of the echo. Broad spectrum antibiotics. ICU note 06/27 - Continues with high grade staphylococcal bacteremia concerning for endocarditis. Second Echo pending. ICU note 06/29 - TTE no vegatation was noted. Sepsis, severe with septic shock/IV drug abuse, fentanyl, cocaine. Based on the above, could you clarify in the Progress Notes the appropriate diagnosis, if significant, that supports the above abnormalities and additional evaluation, monitoring, and/or treatment rendered: * Acute infective endocarditis * Acute or subacute infective endocarditis * Other if known * Unable to determine Use of terms such as suspected, likely, concern for, or probable (associated with a specific diagnosis that is being evaluated, monitored, or treated as if it exists) are acceptable and can be coded in the inpatient setting, when documented at the time of discharge. Thank you, Elinor Victoria [facility], [facility]IS Extension: [phone] Please use your independent medical judgment in providing your response. THIS QUERY IS PART OF THE PERMANENT MEDICAL RECORD Provider Response: Other Other Diagnosis: possible endocarditis.
[2022-07-03] MEDS: HYDROmorphone HCl 2 MG/ML VIAL IVPUSH (12:35)
--- NOTE | 2022-07-03 14:00 | PM.CCPN ---
Subjective Subjective Date of Service: 07/03/22 Interval History: Mrs. Quigley was transferred to ICU on Jun 24 with septic shock. The patient is a 52 yo F with PMHx of IV drug use.? She was brought to the ED ambulatory by her son on Jun 23 bec of lethargy.? In the ED she was febrile, tachypneic and hypoxemic, with mild leukocytosis, CHARLA w creat 2.5 (no baseline), potassium 6, sodium 124, mildly elevated lactate, positive u/a, and positive tox for fentanyl and cocaine. Chest CT showed extensive soft tissue swelling and phlegmonous changes in the left chest wall w subcutaneous emphysema, small discrete fluid collections adjacent to the chest wall, and diffuse pulmonary infiltrates with multiple rounded masslike areas, left greater than right, c/w septic emboli. The patient was started on broad-spectrum antibiotics and admitted to Medicine.? Her lactate cleared easily.? Within hours though, she became hypotensive, even though lactate continued to clear.? She was tx to ICU early on Jun 24.? Later that day she underwent operative debridement of necrotizing infection of S&St of the left upper chest/breast, axilla, medial upper arm.? According to Dr. Kincaid, the fasciitis did not extend into muscle.? Further debridement was planned and the patient was left intubated. The patient grew MRSA in her BC bottles and sputum.? BCs were positive on 06/23 and 06/25, and negative on 06/27.? Sputum was positive on 06/24 and 06/28.? The wound culture from 06/24 grew out MRSA and mostly sensitive citrobacter.? Renal indices came down slowly.? On TTE 06/29, no obvious vegetation was noted.? LV fxn was normal, RV size and fxn were normal, there was mild TR with CWD measuring 2.7 m/sec (gradient 31mm) and IVC was mildly dilated with <50% insp collapse. General surgery is following closely.? She had a wound vac placed on Jun 25.? Was removed and replaced on Jun 29 and again Jul 02.? The wound bed is very clean, shows healthy appearing subq fat, no necrosis, and surrounding erythema and induration is virtually gone. ?Veraflo wound vac sponge & dressing were reapplied with excellent seal and the wound looks smaller.? She continues on vanco and ceftriaxone. ?Methadone and Risperdal were added to propofol/fentanyl, with signif sedation improvement. Currently on fentanyl 75ug plus methadone 20mg bid and Risperdal 1mg bid.? Propofol off for about 7 hours today.? Eyes open and the patient was mostly responsive, and resp pattern was reasonably controlled with extra 2mg bolus doses of Dilaudid.? She was close to being extubatable but had significant tracheal secretions.? So we put her on the Inexsufflator.? Tmax 101.2?.? HR 87, SR.? BP 139/69.? On PSV 16/+5/21%, RR was 28, slightly labored. Vt 555cc, Ve 12L, PIP 22cm, ETCO2 32mm, Sat 92%.? CVBG this morning 7.48/37/+5.? No JVD at 30?.? Chest w coarse crackles/dry rhonchi throughout.? Normal exp phase.? RRR, normal-sounding S1 and S2, with no murmur or gallops.? The abdomen is mildly obese and benign.? She has no significant edema.? The wound looks fantastic, as described above. LABORATORY DATA: Below.? Notably, white count steady at 4 this morning.? Hb down to 6.7.? Stool occult blood is positive.? Sodium down to 145 on D5W infusion. ?K 3.0.? BUN/creatinine stable. IMPRESSION: 1. IV drug abuse.? Agitation is now the major impediment to getting her extubated.? Methadone at 20mg bid and Risperdal 1mg bid are the right combination, with prn Dilaudid. 2. Necrotizing fasciitis, without muscle involvement.? Doing very well now with the wound vac.? The wound looks smaller to me than with the last wound vac.? I do have concern that this may turn into a large wound problem and the patient might therefore be better off at a tertiary center with better wound management capability and even hyperbaric.? At this moment, it?s OK.? Spoke to staff yesterday.? The plan is to continue our current management here, get her extubated and out of ICU, and if the wound becomes too complex, then transfer to . 3. Bilat pulmonary infiltrates with what looks like septic emboli.? Amazingly, she?s down to 21% FiO2.? But has copious secretions. 4. Acute resp failure. 2? above.? If we can dry out her secretions with the chest PT, might be extubatable tomorrow. 5. Likely endocarditis, reflective of the septic emboli, regardless of the echo. 6. ID.? Continuing vanco and ceftriaxone.? Repeat BCs were negative on 06/27, 06/30, and 07/02.? Sputum GS 07/02 is suggestive of Staph. 7. Anemia.? Acute and chronic components.? Stool for occult blood is positive.? Nothing to do at this time.? Repeat the H&H. 8. Hypernatremia.? Resolved. 9. Hypokalemia.? Repleted. 10. Neuro/psych.? Part septic/metabolic encephalopathy, part ? drug withdrawal.? Managing as noted above. 11. Nutrition.? Promote at goal rate. Critical care time (include mult visits to bedside to reassess sedation and resp pattern): ?75+ min. Critical Care Time (minutes): 75 Physical Exam Vital Signs: Vital Signs: Last Vital Signs Temp 98.3 F 07/03/22 13:00 Pulse 97 07/03/22 13:00 Resp 32 H 07/03/22 13:00 BP 149/58 H 07/03/22 13:00 Pulse Ox 92 07/03/22 13:00 O2 Del Method 07/03/22 13:00 O2 Flow Rate 3 06/24/22 10:00 FiO2 21 07/03/22 13:00 BMI result Body Mass Index 36.3 Objective Data Labs CBC & Chem 7: 07/03/22 05:10 07/03/22 05:10 Labs: Laboratory Results - last 24 hr 07/02/22 07/02/22 07/03/22 17:11 17:27 05:10 WBC 4.3 L RBC 2.51 L Hgb 6.7 L* Hct 21.5 L MCV 85.7 MCH 26.7 L MCHC 31.2 RDW 15.1 Plt Count 173 MPV 10.6 Immature Gran % (Auto) 0.5 H Neut % (Auto) 74.6 H Lymph % (Auto) 16.4 L [place] % (Auto) 6.2 Eos % (Auto) 1.8 Baso % (Auto) 0.5 Lymph # (Auto) 0.7 L [place] # (Auto) 0.3 Eos # (Auto) 0.1 Baso # (Auto) 0.0 Abs Immat Gran (auto) 0.02 Absolute Neuts (auto) 3.2 Absolute Nucleated RBC 0.000 Nucleated RBC % (auto) 0.0 PT INR VBG pH VBG pCO2 VBG pO2 VBG HCO3 VBG O2 Saturation VBG Base Excess Sodium Potassium Chloride Carbon Dioxide Anion Gap BUN Creatinine Estim Creat Clear Calc Estimated GFR Random Glucose Lactic Acid 1.4 Calcium Phosphorus Magnesium Albumin Urine Color Yellow Urine Appearance Clear Urine pH 5.5 Ur Specific [place] 1.015 Urine Protein 30 (1+) H Urine Glucose (UA) Negative Urine Ketones Negative Urine Blood Moderate (2+) H Urine Nitrite Negative Ur Leukocyte Esterase Negative Urine RBC >20 H Urine WBC 0-5 Ur Squamous Epith Cells 3-5 Urine Bacteria None Seen Hyaline Casts 3-5 Vancomycin Trough Random Vancomycin Blood Type Antibody Screen Crossmatch 07/03/22 07/03/22 07/03/22 05:10 05:10 05:10 WBC RBC Hgb Hct MCV MCH MCHC RDW Plt Count MPV Immature Gran % (Auto) Neut % (Auto) Lymph % (Auto) [place] % (Auto) Eos % (Auto) Baso % (Auto) Lymph # (Auto) [place] # (Auto) Eos # (Auto) Baso # (Auto) Abs Immat Gran (auto) Absolute Neuts (auto) Absolute Nucleated RBC Nucleated RBC % (auto) PT 14.1 H INR 1.2 H VBG pH VBG pCO2 VBG pO2 VBG HCO3 VBG O2 Saturation VBG Base Excess Sodium 145 Potassium 3.0 L Chloride 112 H Carbon Dioxide 25 Anion Gap 11 L BUN 15 D Creatinine 0.71 Estim Creat Clear Calc 106.1 Estimated GFR > 60 Random Glucose 104 Lactic Acid Calcium 8.0 L Phosphorus 3.1 Magnesium 2.0 Albumin 3.2 L Urine Color Urine Appearance Urine pH Ur Specific [place] Urine Protein Urine Glucose (UA) Urine Ketones Urine Blood Urine Nitrite Ur Leukocyte Esterase Urine RBC Urine WBC Ur Squamous Epith Cells Urine Bacteria Hyaline Casts Vancomycin Trough Random Vancomycin 19.6 Blood Type Antibody Screen Crossmatch 07/03/22 07/03/22 07/03/22 05:12 06:48 08:02 WBC RBC Hgb Hct MCV MCH MCHC RDW Plt Count MPV Immature Gran % (Auto) Neut % (Auto) Lymph % (Auto) [place] % (Auto) Eos % (Auto) Baso % (Auto) Lymph # (Auto) [place] # (Auto) Eos # (Auto) Baso # (Auto) Abs Immat Gran (auto) Absolute Neuts (auto) Absolute Nucleated RBC Nucleated RBC % (auto) PT INR VBG pH 7.48 H VBG pCO2 37 VBG pO2 46 VBG HCO3 28 H VBG O2 Saturation 77.0 VBG Base Excess 5.2 Sodium Potassium Chloride Carbon Dioxide Anion Gap BUN Creatinine Estim Creat Clear Calc Estimated GFR Random Glucose Lactic Acid Calcium Phosphorus Magnesium Albumin Urine Color Urine Appearance Urine pH Ur Specific [place] Urine Protein Urine Glucose (UA) Urine Ketones Urine Blood Urine Nitrite Ur Leukocyte Esterase Urine RBC Urine WBC Ur Squamous Epith Cells Urine Bacteria Hyaline Casts Vancomycin Trough 18.3 Random Vancomycin Blood Type A Positive Antibody Screen NEGATIVE Crossmatch See Detail Microbiology Microbiology Results: Microbiology 07/02/22 17:11 Sputum - Suctioned Gram Stain - Final 07/02/22 17:11 Sputum - Suctioned Sputum Culture - Preliminary Culture in progress. 06/27/22 05:25 Blood - Venous Blood Culture - Final No growth after 5 days. 06/27/22 05:25 Blood - Venous Blood Culture - Final No growth after 5 days. 06/30/22 05:14 Blood - Venous Blood Culture - Preliminary No growth after 48 hours. 06/30/22 05:14 Blood - Venous Blood Culture - Preliminary No growth after 48 hours. 06/28/22 01:20 Sputum - Suctioned Gram Stain - Final 06/28/22 01:20 Sputum - Suctioned Sputum Culture - Final Methicillin Res Staph Aureus 06/25/22 09:28 Blood - Venous Blood Culture - Final Methicillin Res Staph Aureus 06/25/22 09:28 Blood - Venous Blood Culture - Final Methicillin Res Staph Aureus 06/24/22 14:27 Sputum - Suctioned Gram Stain - Final 06/24/22 14:27 Sputum - Suctioned Sputum Culture - Final Methicillin Res Staph Aureus 06/24/22 Unknown Axilla Left Gram Stain - Final 06/24/22 Unknown Axilla Left Routine Culture - Final Methicillin Res Staph Aureus Citrobacter freundii 06/23/22 20:55 Blood - Venous Blood Culture - Final Methicillin Res Staph Aureus Coag negative Staphylococcus 06/23/22 18:45 Blood - Venous Blood Culture - Final Methicillin Res Staph Aureus Quality Stroke Does the patient have a stroke diagnosis?: No VTE Prior VTE?: No VTE Risk Level:: Medical - moderate - high VTE Device Contraindication: Treatment Not Indicated VTE Drug Contraindication: N/A - Med Ordered Critical Care Time Critical Care Time (minutes): 90
--- NOTE | 2022-07-03 14:24 | MHC.CM.PN ---
Patient continues in ICU. CM will follow for d/c planning needs as appropriate.
[2022-07-03] MEDS: propofoL 1,000 MG/100 ML VIAL 40 MG IVCONT ×3 (16:46→22:54)
[2022-07-03] MEDS: Albuterol/Iprat 2.5/0.5MG 3 ML AMPUL.NEB INHALE ×2 (17:11→23:15)
[2022-07-03] MEDS: Acetylcysteine 10 % 400 MG/4 ML VIAL INHALE ×2 (17:11→23:15)
[2022-07-03 17:50] LABS: OBS Int Ctl Valid YES; OBS1 POSITIVE (NEGATIVE)
[2022-07-03 19:15] LABS: Hematocrit 26.2 % (37.0-47.0); Hemoglobin 8.3 g/dl (12.0-16.0)
--- NOTE | 2022-07-03 22:41 | PC.NURSE ---
Sedation vacation started at approx. 9 AM, patient became arousable quickly and positive neurological signs were noted, see assessment. patient had difficulty with vent synchrony and multiple Dilaudid 2mg IVP were given to help with discomfort and achieving vent synchrony, see EMAR. Patient remained on sedation vacation for majority of the day, eventually being restarted in evening to allow patient to rest. 1 unit of RBC was infused in AM. No S/S of adverse reaction. blood check preformed by RN x2. patient rectal tube removed due to lack of BM, in order to prevent skin breakdown. Patient repositioned Q2hr, routine oral care preformed, patient updated on health status.
[2022-07-04] VITALS (33 sets, daily range): BP systolic 83–134; BP diastolic 30–65; PULSE 66–112; RESP 10–30; TEMP 34.8–38.3; O2SAT 93–99; BMI 35.8
[2022-07-04] MEDS: propofoL 1,000 MG/100 ML VIAL 40 MG IVCONT ×3 (02:20→09:36)
[2022-07-04] MEDS: 0.9 % Sodium Chloride Flush 3 ML SYRINGE IVFLUSH ×3 (02:20→16:35)
[2022-07-04] MEDS: cefTRIAXone sodium 1 GM in 0.9 % Sodium Chloride 50 ML IV (05:07)
[2022-07-04] MEDS: Cholestyramine (With Sugar) 4 GM POWD.PACK G-TUBE (05:13)
[2022-07-04 05:35] LABS: VBG Base Excess 7.4 mmol/L; VBG HCO3 31 mmol/L (22-26); VBG pCO2 44 mmHg; VBG pH 7.46 (7.32-7.43); VBG pO2 43 mmHg
[2022-07-04 05:36] LABS: Venous Blood Gas Refer to POC result
[2022-07-04 05:37] LABS: Hematocrit 24.5 % (37.0-47.0); Hemoglobin 7.8 g/dl (12.0-16.0); Mean Corpuscular HGB Conc 31.8 g/dl (31.0-35.0); Mean Corpuscular Hemoglobin 26.8 pg (27.0-33.0); Mean Corpuscular Volume 84.2 fL (80.0-98.0); Mean Platelet Volume 9.7 fL (9.4-12.3); Platelet Count 183 X10*3/uL (160-400); Red Blood Count 2.91 X10*6/uL (4.20-5.50); Red Cell Distribution Width 14.6 % (11.0-16.0); White Blood Count 4.8 X10*3/uL (4.8-10.8)
[2022-07-04] MEDS: Albuterol/Iprat 2.5/0.5MG 3 ML AMPUL.NEB INHALE ×2 (05:45→11:21)
[2022-07-04] MEDS: Acetylcysteine 10 % 400 MG/4 ML VIAL INHALE ×2 (05:45→11:21)
[2022-07-04 05:56] LABS: Anion Gap 12 (12-20); Blood Urea Nitrogen 17 mg/dL (9-16); Calcium 8.4 mg/dL (8.4-10.2); Carbon Dioxide 26 mmol/L (22-29); Chloride 112 mmol/L (96-108); Creatinine Clr Calc Pharmacy 104.2; Estimated Glomerular Filt Rate > 60; Glucose Random 92 mg/dL (60-115); Magnesium 2.1 mg/dL (1.6-2.6); Phosphorus 3.8 mg/dL (2.7-4.5); Potassium 3.2 mmol/L (3.3-5.1); Sodium 147 mmol/L (135-145)
[2022-07-04] MEDS: Enoxaparin Sodium 40 MG/0.4 ML SYRINGE SUBCUT (07:43)
[2022-07-04] MEDS: Potassium Chloride Packet 20 MEQ PACKET 40 MEQ PO (07:44)
[2022-07-04 08:37] LABS: Vancomycin Trough 19.8 mcg/mL (10.0-20.0)
--- NOTE | 2022-07-04 08:44 | PM.PNGS ---
Subjective Subjective Date of Service: 07/04/22 Interval history: Intubated and sedated, wound VAC in place with no air leak. Physical Exam Vital Signs: Vital Signs: Last Vital Signs Temp 99.3 F 07/04/22 07:00 Pulse 97 07/04/22 07:00 Resp 18 07/04/22 07:00 BP 95/47 L 07/04/22 07:00 Pulse Ox 96 07/04/22 07:00 O2 Del Method 07/04/22 05:58 O2 Flow Rate 3 06/24/22 10:00 FiO2 21 07/04/22 08:28 BMI result Body Mass Index 35.8 Const: Other: Intubated and sedated, resting comfortably Chest: Other: Left chest and axillary wound VAC in place with good seal. Surrounding skin is free of erythema or skin necrosis. Skin: Other: Warm and dry, no rash Neuro: Other: Sedated Objective Data Active Medications Acetylcysteine (Acetylcysteine 10 % 400 Mg/4 Ml Vial) 400 mg INHALE RQ6H [facility] Last Admin: 07/04/22 05:45 Dose: 400 mg Documented By: LUIS M Albuterol/Ipratropium (Albuterol/Iprat 2.5/0.5mg 3 Ml Ampul.Neb) 3 ml INHALE RQ6H [facility] Last Admin: 07/04/22 05:45 Dose: 3 ml Documented By: LUIS M Chlorhexidine Gluconate (Chlorhexidine Gluc Oral Rinse 15 Ml Mouthwash) 15 ml BUCCAL TID [facility] Last Admin: 07/03/22 21:38 Dose: 15 ml Documented By: RUTH Cholestyramine Resin (Cholestyramine (With Sugar) 4 Gm Powd.Pack) 4 gm G-TUBE Q12H [facility] Last Admin: 07/04/22 05:13 Dose: 4 gm Documented By: CHANO Docusate Sodium (Docusate Sodium 100 Mg Capsule) 100 mg PO DAILY PRN PRN Reason: Constipation Enoxaparin Sodium (Enoxaparin Sodium 40 Mg/0.4 Ml Syringe) 40 mg SUBCUT Q24H [facility] Last Admin: 07/04/22 07:43 Dose: 40 mg Documented By: SULMA Famotidine (Famotidine/Pf 20 Mg/2 Ml Vial) 20 mg IVPUSH DAILY [facility] Last Admin: 07/03/22 09:14 Dose: 20 mg Documented By: RUTH Hydromorphone HCl (Hydromorphone Hcl 1 Mg/Ml Syringe) 2 mg IVPUSH Q1H PRN; Protocol PRN Reason: Pain, Severe (Pain Scale 7-10) Last Admin: 07/03/22 16:35 Dose: 2 mg Documented By: RUTH Propofol (Diprivan) 1,000 mg in 100 mls @ 0 mls/hr IVCONT .Q0M TERRI; Protocol Last Admin: 07/04/22 06:01 Dose: 58.79 mcg/kg/min, 40 mls/hr Documented By: CHANO Norepinephrine Bitartrate (Levophed) 8 mg in 250 mls @ 0 mls/hr IVCONT .Q0M TERRI; Protocol Last Titration: 07/03/22 12:08 Dose: 0 mcg/kg/min, 0 mls/hr Documented By: SARAH Epinephrine 5 mg/ Dextrose 255 mls @ 0 mls/hr IVCONT .Q0M TERRI; Protocol Last Titration: 06/30/22 20:00 Dose: 0 mcg/kg/min, 0 mls/hr Documented By: SILVIA Ceftriaxone Sodium 1 gm/ (Sodium Chloride) 50 mls @ 100 mls/hr IV Q24H [facility] Last Infusion: 07/04/22 06:14 Dose: 0 mls/hr Documented By: CHANO Vancomycin HCl 1,250 mg/ (Sodium Chloride) 250 mls @ 166.667 mls/hr IV Q12H [facility] Last Infusion: 07/03/22 23:59 Dose: 0 mls/hr Documented By: RUTH Fentanyl (Sublimaze/Ns) 1,000 mcg in 100 mls @ 5 mls/hr IVCONT .Q20H [facility] Last Infusion: 07/03/22 18:20 Dose: 50 mcg/hr, 5 mls/hr Documented By: RUTH Methadone HCl (Methadone Hcl 20 Mg/2 Ml Oral.Conc) 20 mg NG-TUBE BID [facility] Last Admin: 07/03/22 21:38 Dose: 20 mg Documented By: RUTH Pharmacy Consult (Consult Rx Perform Med Rec) 1 each MISCELLANE ONCE PRN PRN Reason: Consult order Risperidone (Risperidone 1 Mg Tablet) 1 mg G-TUBE Q12H [facility] Last Admin: 07/03/22 21:38 Dose: 1 mg Documented By: TETREAM Sodium Chloride (0.9 % Sodium Chloride Flush 3 Ml Syringe) 3 ml IVFLUSH QSHIFT [facility] Last Admin: 07/04/22 07:45 Dose: 3 ml Documented By: SULMA Labs CBC & Chem 7: 07/04/22 05:19 07/04/22 05:19 Labs: Laboratory Results - last 24 hr 07/03/22 07/03/22 07/04/22 06:48 17:35 05:19 MCV MCH MCHC RDW Plt Count MPV Absolute Nucleated RBC Nucleated RBC % (auto) VBG pH VBG pCO2 VBG pO2 VBG HCO3 VBG O2 Saturation VBG Base Excess Anion Gap Estim Creat Clear Calc Cancelled Estimated GFR Cancelled Random Glucose Calcium Phosphorus Magnesium Stool Occult Blood POSITIVE Vancomycin Trough Blood Type A Positive Antibody Screen NEGATIVE Crossmatch See Detail 07/04/22 07/04/22 07/04/22 05:19 05:19 05:29 MCV 84.2 MCH 26.8 L MCHC 31.8 RDW 14.6 Plt Count 183 MPV 9.7 Absolute Nucleated RBC 0.000 Nucleated RBC % (auto) 0.0 VBG pH 7.46 H VBG pCO2 44 VBG pO2 43 VBG HCO3 31 H VBG O2 Saturation 72.0 VBG Base Excess 7.4 Anion Gap 12 Estim Creat Clear Calc 104.2 Estimated GFR > 60 Random Glucose 92 Calcium 8.4 Phosphorus 3.8 Magnesium 2.1 Stool Occult Blood Vancomycin Trough Blood Type Antibody Screen Crossmatch 07/04/22 08:07 MCV MCH MCHC RDW Plt Count MPV Absolute Nucleated RBC Nucleated RBC % (auto) VBG pH VBG pCO2 VBG pO2 VBG HCO3 VBG O2 Saturation VBG Base Excess Anion Gap Estim Creat Clear Calc Estimated GFR Random Glucose Calcium Phosphorus Magnesium Stool Occult Blood Vancomycin Trough 19.8 Blood Type Antibody Screen Crossmatch Microbiology Microbiology Results: Microbiology 07/02/22 17:27 Blood Culture - Preliminary Blood - Venous No growth after 24 hours. 07/02/22 17:27 Blood Culture - Preliminary Blood - Venous No growth after 24 hours. 07/02/22 17:11 Gram Stain - Final Sputum - Suctioned Sputum Culture - Preliminary Culture in progress. Procedures Date of Service Date of Service: 07/04/22 Progress Note: A&P Assessment and plan (1) Status post debridement: Status: Acute (2) Necrotizing soft tissue infection: Status: Acute Plan 52-year-old female presenting with a necrotizing infection involving the left axilla and chest wall, S/P wide debridement and wound VAC placement. Current wound VAC was placed on and is functioning well. No air leak at this time. Plan for wound VAC change on Wednesday. Time Spent With Patient Time: Total time managing care of this patient today ____ minutes. Quality Stroke Does the patient have a stroke diagnosis?: No VTE Prior VTE?: No VTE Risk Level:: Medical - moderate - high VTE Device Contraindication: Treatment Not Indicated VTE Drug Contraindication: N/A - Med Ordered
--- NOTE | 2022-07-04 09:04 | HE.PHANOTE ---
Vancomycin Dosing Level 19.8 today. Since it is on the border of being supratherapeutic will decrease dose to 1000 mg Q12H for 2 dose. Will get a new level on 07/05 @ 0800. Dose may need to be adjust daily and may need to be increased back to
--- NOTE | 2022-07-04 09:07 | HE.PHANOTE ---
Vancomycin Dosing Level 19.8 today. Since it is on the border of being supratherapeutic will decrease dose to 1000 mg Q12H for 2 dose. Will get a new level on 07/05 @ 0800. Dose may need to be adjust daily. Quiana Chicas, PharmD
[2022-07-04] MEDS: Chlorhexidine Gluc Oral Rinse 15 ML MOUTHWASH BUCCAL (09:52)
[2022-07-04] MEDS: Famotidine/PF 20 MG/2 ML VIAL IVPUSH (09:52)
[2022-07-04] MEDS: risperiDONE 1 MG TABLET G-TUBE (09:52)
[2022-07-04] MEDS: methADONE HCl 20 MG/2 ML ORAL.CONC NG-TUBE (09:52)
[2022-07-04] MEDS: vancomycin HCL 1,000 MG in 0.9 % Sodium Chloride 250 ML 270 MG IV ×2 (10:32→21:48)
--- NOTE | 2022-07-04 11:22 | PM.CCPN ---
Subjective Subjective Date of Service: 07/04/22 Interval History: Extubated today.? See below. Mrs. Quigley was transferred to ICU on Jun 24 with septic shock. The patient is a 52 yo F with PMHx of IV drug use.? She was brought to the ED ambulatory by her son on Jun 23 bec of lethargy.? In the ED she was febrile, tachypneic and hypoxemic, with mild leukocytosis, CHARLA w creat 2.5 (no baseline), potassium 6, sodium 124, mildly elevated lactate, positive u/a, and positive tox for fentanyl and cocaine. Chest CT showed extensive soft tissue swelling and phlegmonous changes in the left chest wall w subcutaneous emphysema, small discrete fluid collections adjacent to the chest wall, and diffuse pulmonary infiltrates with multiple rounded masslike areas, left greater than right, c/w septic emboli. The patient was started on broad-spectrum antibiotics and admitted to Medicine.? Her lactate cleared easily.? Within hours though, she became hypotensive, even though lactate continued to clear.? She was tx to ICU early on Jun 24.? Later that day she underwent operative debridement of necrotizing infection of S&St of the left upper chest/breast, axilla, medial upper arm.? According to Dr. Kincaid, the fasciitis did not extend into muscle.? Further debridement was planned and the patient was left intubated. The patient grew MRSA in her BC bottles and sputum.? BCs were positive on 06/23 and 06/25, and negative on 06/27.? Sputum was positive on 06/24 and 06/28.? The wound culture from 06/24 grew out MRSA and mostly sensitive citrobacter.? Renal indices came down slowly.? On TTE 06/29, no obvious vegetation was noted.? LV fxn was normal, RV size and fxn were normal, there was mild TR with CWD measuring 2.7 m/sec (gradient 31mm) and IVC was mildly dilated with <50% insp collapse. General surgery is following closely.? She had a wound vac placed on Jun 25.? Was removed and replaced on Jun 29 and again Jul 02.? The wound bed is very clean, shows healthy appearing subq fat, no necrosis, and surrounding erythema and induration is virtually gone. ?Veraflo wound vac sponge & dressing were reapplied with excellent seal and the wound looks smaller.? She continues on vanco and ceftriaxone. ?Methadone and Risperdal were added to propofol/fentanyl, with signif sedation improvement. Currently on fentanyl 50ug plus methadone 20mg bid and Risperdal 1mg bid.? Propofol was turned off a few minutes ago and she?s already waking up.? Eyes open, not yet interactive (she was yesterday a few hours after the propofol was d/c?d).? Secretions are much less today after using the Inexsufflator for 24 hrs.? Tmax down to 100.1?.? HR 74, SR.? BP 127/56.? On PSV 5/+5/21%, RR was 20, nonlabored, Vt 500cc, Ve 9.5L, PIP 12cm, ETCO2 31mm, Sat 94%.? CVBG this morning 7.46/44/+7.? No JVD at 30?.? Chest w coarse crackles/light dry rhonchi throughout.? Normal exp phase.? RRR, normal-sounding S1 and S2, with no murmur or gallops.? The abdomen is mildly obese and benign.? She has no significant edema.? The wound looks fantastic, as described above. The patient woke up and was fully and appropriately interactive.? Looked calm.? Extubated without incident.? RR mid-high 20s, nonlabored.? SpO2 95-96% on 2L NC. LABORATORY DATA: Below.? Notably, white count steady at 4 this morning.? Hb down to 7.8 after transfusion 1 unit RBCs yest.? Stool occult blood was positive.? Sodium up to 147. ?K 3.2.? BUN/creatinine stable. IMPRESSION: 1. IV drug abuse.? Agitation was controlled with methadone and Risperdal.? Now extubated and calm. ?I dropped her methadone dose to 10mg bid, and d/c?d the Risperdal.? Also written for Dilaudid 1mg q1hr prn. 2. Necrotizing fasciitis, without muscle involvement.? Doing very well now with the wound vac.? The wound looks smaller to me than with the last wound vac.? I do have concern that this may turn into a large wound problem and the patient might therefore be better off at a tertiary center with better wound management capability and even hyperbaric.? At this moment, it?s OK.? Discussed at length with staff at [facility].? The plan is to continue our current management here, get her extubated and out of ICU, and if the wound becomes too complex, then transfer to . 3. Bilat pulmonary infiltrates with what looks like septic emboli.? Amazingly, she?s down to little supplemental oxygen.? And her secretions are less and less. 4. Acute resp failure. 2? above.? Now extubated, altho still sl tachypneic.? Add HFNC if nec. 5. Likely endocarditis, reflective of the pulmonary septic emboli, regardless of the echo. 6. ID.? Continuing vanco and ceftriaxone.? Repeat BCs were negative on 06/27, 06/30, and 07/02.? Sputum GS 07/02 is growing Staph.? Will prob be MRSA.? No surprise. 7. Anemia.? Acute and chronic components.? Stool for occult blood was positive, but brown.? Nothing to do at this time.? Follow H&H.? If continues lower, stop the pharmacological anticoagulation. 8. Hypernatremia.? Oral rehydration w water.? Recheck tomorrow. 9. Hypokalemia.? Repleted. 10. Neuro/psych.? Part septic/metabolic encephalopathy, part ? drug withdrawal.? Managing as noted above.? Also wrote her for gabapentin 300mg qhs to help her sleep. 11. Nutrition.? Swallow eval.? Hopefully regular diet tomorrow.? Might need a kaofeed tube for a few days. Critical Care Time (minutes): 60 Physical Exam Vital Signs: Vital Signs: Last Vital Signs Temp 99.3 F 07/04/22 10:00 Pulse 66 07/04/22 11:04 Resp 15 07/04/22 10:00 BP 113/35 L 07/04/22 11:04 Pulse Ox 96 07/04/22 10:00 O2 Del Method 07/04/22 10:00 O2 Flow Rate 3 06/24/22 10:00 FiO2 21 07/04/22 10:00 BMI result Body Mass Index 35.8 Objective Data Labs CBC & Chem 7: 07/04/22 05:19 07/04/22 05:19 Labs: Laboratory Results - last 24 hr 07/03/22 07/03/2222 06:48 17:35 18:46 WBC RBC Hgb 8.3 L D Hct 26.2 L D MCV MCH MCHC RDW Plt Count MPV Absolute Nucleated RBC Nucleated RBC % (auto) VBG pH VBG pCO2 VBG pO2 VBG HCO3 VBG O2 Saturation VBG Base Excess Sodium Potassium Chloride Carbon Dioxide Anion Gap BUN Creatinine Estim Creat Clear Calc Estimated GFR Random Glucose Calcium Phosphorus Magnesium Stool Occult Blood POSITIVE Vancomycin Trough Crossmatch See Detail 07/04/22 07/04/22 07/04/22 05:19 05:19 05:19 WBC 4.8 RBC 2.91 L Hgb 7.8 L Hct 24.5 L MCV 84.2 MCH 26.8 L MCHC 31.8 RDW 14.6 Plt Count 183 MPV 9.7 Absolute Nucleated RBC 0.000 Nucleated RBC % (auto) 0.0 VBG pH VBG pCO2 VBG pO2 VBG HCO3 VBG O2 Saturation VBG Base Excess Sodium 147 H Potassium 3.2 L Chloride 112 H Carbon Dioxide 26 Anion Gap 12 BUN 17 H Creatinine Cancelled 0.71 Estim Creat Clear Calc Cancelled 104.2 Estimated GFR Cancelled > 60 Random Glucose 92 Calcium 8.4 Phosphorus 3.8 Magnesium 2.1 Stool Occult Blood Vancomycin Trough Crossmatch 07/04/22 07/04/22 05:29 08:07 WBC RBC Hgb Hct MCV MCH MCHC RDW Plt Count MPV Absolute Nucleated RBC Nucleated RBC % (auto) VBG pH 7.46 H VBG pCO2 44 VBG pO2 43 VBG HCO3 31 H VBG O2 Saturation 72.0 VBG Base Excess 7.4 Sodium Potassium Chloride Carbon Dioxide Anion Gap BUN Creatinine Estim Creat Clear Calc Estimated GFR Random Glucose Calcium Phosphorus Magnesium Stool Occult Blood Vancomycin Trough 19.8 Crossmatch Microbiology Microbiology Results: Microbiology 07/02/22 17:27 Blood - Venous Blood Culture - Preliminary No growth after 24 hours. 07/02/22 17:27 Blood - Venous Blood Culture - Preliminary No growth after 24 hours. 07/02/22 17:11 Sputum - Suctioned Gram Stain - Final 07/02/22 17:11 Sputum - Suctioned Sputum Culture - Preliminary Culture in progress. 06/27/22 05:25 Blood - Venous Blood Culture - Final No growth after 5 days. 06/27/22 05:25 Blood - Venous Blood Culture - Final No growth after 5 days. 06/30/22 05:14 Blood - Venous Blood Culture - Preliminary No growth after 48 hours. 06/30/22 05:14 Blood - Venous Blood Culture - Preliminary No growth after 48 hours. 06/28/22 01:20 Sputum - Suctioned Gram Stain - Final 06/28/22 01:20 Sputum - Suctioned Sputum Culture - Final Methicillin Res Staph Aureus 06/25/22 09:28 Blood - Venous Blood Culture - Final Methicillin Res Staph Aureus 06/25/22 09:28 Blood - Venous Blood Culture - Final Methicillin Res Staph Aureus 06/24/22 14:27 Sputum - Suctioned Gram Stain - Final 06/24/22 14:27 Sputum - Suctioned Sputum Culture - Final Methicillin Res Staph Aureus 06/24/22 Unknown Axilla Left Gram Stain - Final 06/24/22 Unknown Axilla Left Routine Culture - Final Methicillin Res Staph Aureus Citrobacter freundii 06/23/22 20:55 Blood - Venous Blood Culture - Final Methicillin Res Staph Aureus Coag negative Staphylococcus 06/23/22 18:45 Blood - Venous Blood Culture - Final Methicillin Res Staph Aureus Quality Stroke Does the patient have a stroke diagnosis?: No VTE Prior VTE?: No VTE Risk Level:: Medical - moderate - high VTE Device Contraindication: Treatment Not Indicated VTE Drug Contraindication: N/A - Med Ordered Critical Care Time Critical Care Time (minutes): 60
[2022-07-04] MEDS: Gabapentin 300 MG CAPSULE PO (20:01)
[2022-07-05] VITALS (23 sets, daily range): BP systolic 96–154; BP diastolic 42–91; PULSE 78–109; RESP 16–29; TEMP 36.7–38; O2SAT 91–100; BMI 34.9
[2022-07-05] MEDS: 0.9 % Sodium Chloride Flush 3 ML SYRINGE IVFLUSH ×3 (00:25→22:20)
--- NOTE | 2022-07-05 00:42 | PC.NURSE ---
Late entry: 07/04 1400 This am patient's BP 83/30 MAP 48 , Dr. Damon notified and Levophed restarted . BP/MAP improved. Patient's sedation stopped , extubated at 1230 put on O2 2L NC . Tolerated well.. Will continue to monitor.
[2022-07-05] MEDS: cefTRIAXone sodium 1 GM in 0.9 % Sodium Chloride 50 ML IV (02:25)
[2022-07-05 05:34] LABS: VBG Base Excess 2.2 mmol/L; VBG HCO3 25 mmol/L (22-26); VBG pCO2 33 mmHg; VBG pH 7.48 (7.32-7.43); VBG pO2 52 mmHg
[2022-07-05 05:36] LABS: Hematocrit 24.1 % (37.0-47.0); Hemoglobin 7.7 g/dl (12.0-16.0); Mean Corpuscular Hemoglobin 26.6 pg (27.0-33.0); Mean Corpuscular Volume 83.4 fL (80.0-98.0); Mean Platelet Volume 10.1 fL (9.4-12.3); Platelet Count 198 X10*3/uL (160-400); Red Blood Count 2.89 X10*6/uL (4.20-5.50); Red Cell Distribution Width 14.5 % (11.0-16.0); Venous Blood Gas Refer to POC result; White Blood Count 4.3 X10*3/uL (4.8-10.8)
[2022-07-05 05:58] LABS: Anion Gap 14 (12-20); Blood Urea Nitrogen 17 mg/dL (9-16); Calcium 8.5 mg/dL (8.4-10.2); Carbon Dioxide 25 mmol/L (22-29); Chloride 110 mmol/L (96-108); Creatinine Clr Calc Pharmacy 91.7; Estimated Glomerular Filt Rate > 60; Glucose Random 119 mg/dL (60-115); Sodium 146 mmol/L (135-145)
--- NOTE | 2022-07-05 06:37 | PC.NURSE ---
ASSUMED CARE OF PT AT 0300. PT IS VERY WEAK AND CAN BARELY LIFT HER ARMS UP. CALLS OUT FOR ANUP FAUSTO AND HAS NO DIFFICULTY SWALLOWING. NO RESP DIFFICULTIES. NO O2 USED. PT ON ROOM AIR. WOUND VAC IN PLACE LEFT CHEST/AXILLA AREA WITH NO COMPLICATIONS. PT DENIES PAIN. BP STABLE 135/60. AFEBRILE...
[2022-07-05] MEDS: Potassium Chloride/H20 40 MEQ/100 ML PIGGYBACK 100 MEQ IV (07:49)
[2022-07-05] MEDS: Enoxaparin Sodium 40 MG/0.4 ML SYRINGE SUBCUT (08:08)
[2022-07-05 08:31] LABS: Vancomycin Random 14.4 mcg/mL (15-20)
--- NOTE | 2022-07-05 08:37 | HE.PHANOTE ---
Vancomycin Dosing Level 14.4 today. Renal function stable. Expected AUC 466 with trough of 13.6. Will continue current regimen. Next trough to be drawn 07/06 @ 0800. Jose ParkerD
[2022-07-05] MEDS: Acetaminophen 325 MG TABLET 975 MG PO (11:36)
[2022-07-05] MEDS: vancomycin HCL 1,000 MG in 0.9 % Sodium Chloride 250 ML 270 MG IV ×2 (11:37→22:18)
[2022-07-05] MEDS: Albuterol/Iprat 2.5/0.5MG 3 ML AMPUL.NEB INHALE (11:50)
--- NOTE | 2022-07-05 15:06 | PM.CCPN ---
Subjective Subjective Date of Service: 07/05/22 Interval History: Mrs. Quigley was transferred to ICU on Jun 24 with septic shock 2? necrotizing faciitis. The patient is a 52 yo F with PMHx of IV drug use.? She was brought to the ED ambulatory by her son on Jun 23 bec of lethargy.? In the ED she was febrile, tachypneic and hypoxemic, with mild leukocytosis, CHARLA w creat 2.5 (no baseline), potassium 6, sodium 124, mildly elevated lactate, positive u/a, and positive tox for fentanyl and cocaine. Chest CT showed extensive soft tissue swelling and phlegmonous changes in the left chest wall w subcutaneous emphysema, small discrete fluid collections adjacent to the chest wall, and diffuse pulmonary infiltrates with multiple rounded mass-like areas, left greater than right, c/w septic emboli. The patient was started on broad-spectrum antibiotics and admitted to Medicine.? Her lactate cleared easily.? Within hours though, she became hypotensive, even though lactate continued to clear.? She was tx to ICU early on Jun 24.? Later that day she underwent operative debridement of necrotizing infection of S&St of the left upper chest/breast, axilla, medial upper arm.? According to Dr. Kincaid, the fasciitis did not extend into muscle.? Further debridement was planned and the patient was left intubated. The patient grew MRSA in her BC bottles and sputum.? BCs were positive on 06/23 and 06/25, and negative on 06/27.? Sputum was positive on 06/24 and 06/28.? The wound culture from 06/24 grew out MRSA and mostly sensitive citrobacter.? Renal indices came down slowly.? On TTE 06/29, no obvious vegetation was noted.? LV fxn was normal, RV size and fxn were normal, there was mild TR with CWD measuring 2.7 m/sec (gradient 31mm) and IVC was mildly dilated with <50% insp collapse. General surgery is following closely.? She had a wound vac placed on Jun 25.? Was removed and replaced on Jun 29 and again Jul 02.? The wound bed is very clean, shows healthy appearing subq fat, no necrosis, and surrounding erythema and induration is virtually gone. ?Veraflo wound vac sponge & dressing were reapplied with excellent seal and the wound looks smaller.? She continues on vanco and ceftriaxone. ?Methadone and Risperdal were added to propofol/fentanyl, with signif sedation improvement. She was extubated yesterday.? Subsequently, the Risperdal was discontinued and the methadone dose was dropped to 10 mg bid.? She refused the methadone know so that was discontinued.? So she is now just on Dilaudid 1 mg IV q.1 hour prn pain, acetaminophen 1000 mg q.8 hours prn pain, and gabapentin 300 mg qhs for sleep.? Heart rate is 85, sinus rhythm.? Blood pressure is 136/78, she?s breathing easy, sat is 98% on room air.? CVBG this morning 7.48/33/+2.? Tmax 100.2?.? No JVD at 30?.? Chest is CTA. ?Normal exp phase.? RRR, normal-sounding S1 and S2, with no murmur or gallops.? The abdomen is mildly obese and benign.? She has no significant edema.? The wound looks fantastic, as described above. LABORATORY DATA: Below.? Notably, white count steady at 4.? Hb steady 7.7.? Stool occult blood was positive.? Sodium 146. ?K 3.0.? BUN/creatinine stable. IMPRESSION: 1. IV drug abuse.? Agitation was controlled with methadone and Risperdal.? Now extubated and calm.? She doesn?t need anything.? I?ve written her for the gabapentin to ensure that she sleeps well nightly so that she doesn?t get delirious during the day. 2. Necrotizing fasciitis, without muscle involvement.? Doing very well now with the wound vac.? The wound looks smaller to me than with the last wound vac.? I do have concern that this may turn into a large wound problem and the patient might therefore be better off at a tertiary center with better wound management capability and even hyperbaric.? At this moment, it?s OK though.? Discussed at length with staff at [facility].? The plan is to continue our current management here, get her out of ICU, and if the wound becomes too complex, then entertain transfer to . 3. Bilat pulmonary infiltrates with what looks like septic emboli.? Amazingly, she?s already on room air. 4. Acute resp failure. 2? above.? Resolved. 5. Likely endocarditis, reflective of the pulmonary septic emboli, regardless of the echo.? Repeat BCs have been negative. 6. ID.? Continuing vanco and ceftriaxone. 7. Anemia.? Acute and chronic components.? Stool for occult blood was positive, but brown.? Nothing to do at this time.? Follow H&H.? If Hgb continues lower, stop the pharmacological anticoagulation. 8. Hypernatremia.? Oral rehydration w water.? Follow. 9. Hypokalemia.? Repleted. 10. Neuro/psych.? Part septic/metabolic encephalopathy, part ? drug withdrawal.? Managed as noted above. Stable for transfer to med surg.? Will sign out to hospitalists. Critical Care Time (minutes): 0 Physical Exam Vital Signs: Vital Signs: Last Vital Signs Temp 99.1 F 07/05/22 15:00 Pulse 83 07/05/22 15:00 Resp 16 07/05/22 15:00 BP 150/75 H 07/05/22 15:00 Pulse Ox 97 07/05/22 15:00 O2 Del Method 07/05/22 15:00 O2 Flow Rate 2 07/04/22 18:00 FiO2 21 07/04/22 12:21 BMI result Body Mass Index 34.9 Objective Data Labs CBC & Chem 7: 07/05/22 05:25 07/05/22 05:25 Labs: Laboratory Results - last 24 hr 07/05/22 07/05/22 07/05/22 05:25 05:25 05:29 WBC 4.3 L RBC 2.89 L Hgb 7.7 L Hct 24.1 L MCV 83.4 MCH 26.6 L MCHC 32.0 RDW 14.5 Plt Count 198 MPV 10.1 Absolute Nucleated RBC 0.000 Nucleated RBC % (auto) 0.0 VBG pH 7.48 H VBG pCO2 33 VBG pO2 52 VBG HCO3 25 VBG O2 Saturation 87.0 VBG Base Excess 2.2 Sodium 146 H Potassium 3.0 L Chloride 110 H Carbon Dioxide 25 Anion Gap 14 BUN 17 H Creatinine 0.79 Estim Creat Clear Calc 91.7 Estimated GFR > 60 Random Glucose 119 H Calcium 8.5 Random Vancomycin 07/05/22 08:07 WBC RBC Hgb Hct MCV MCH MCHC RDW Plt Count MPV Absolute Nucleated RBC Nucleated RBC % (auto) VBG pH VBG pCO2 VBG pO2 VBG HCO3 VBG O2 Saturation VBG Base Excess Sodium Potassium Chloride Carbon Dioxide Anion Gap BUN Creatinine Estim Creat Clear Calc Estimated GFR Random Glucose Calcium Random Vancomycin 14.4 L Microbiology Microbiology Results: Microbiology 07/02/22 17:11 Sputum - Suctioned Gram Stain - Final 07/02/22 17:11 Sputum - Suctioned Sputum Culture - Final Methicillin Res Staph Aureus 06/30/22 05:14 Blood - Venous Blood Culture - Final No growth after 5 days. 06/30/22 05:14 Blood - Venous Blood Culture - Final No growth after 5 days. 07/02/22 17:27 Blood - Venous Blood Culture - Preliminary No growth after 48 hours. 07/02/22 17:27 Blood - Venous Blood Culture - Preliminary No growth after 48 hours. 06/27/22 05:25 Blood - Venous Blood Culture - Final No growth after 5 days. 06/27/22 05:25 Blood - Venous Blood Culture - Final No growth after 5 days. 06/28/22 01:20 Sputum - Suctioned Gram Stain - Final 06/28/22 01:20 Sputum - Suctioned Sputum Culture - Final Methicillin Res Staph Aureus 06/25/22 09:28 Blood - Venous Blood Culture - Final Methicillin Res Staph Aureus 06/25/22 09:28 Blood - Venous Blood Culture - Final Methicillin Res Staph Aureus 06/24/22 14:27 Sputum - Suctioned Gram Stain - Final 06/24/22 14:27 Sputum - Suctioned Sputum Culture - Final Methicillin Res Staph Aureus 06/24/22 Unknown Axilla Left Gram Stain - Final 06/24/22 Unknown Axilla Left Routine Culture - Final Methicillin Res Staph Aureus Citrobacter freundii 06/23/22 20:55 Blood - Venous Blood Culture - Final Methicillin Res Staph Aureus Coag negative Staphylococcus 06/23/22 18:45 Blood - Venous Blood Culture - Final Methicillin Res Staph Aureus Quality Stroke Does the patient have a stroke diagnosis?: No VTE Prior VTE?: No VTE Risk Level:: Medical - moderate - high VTE Device Contraindication: Treatment Not Indicated VTE Drug Contraindication: N/A - Med Ordered
[2022-07-05] MEDS: Potassium Chloride/H20 40 MEQ/100 ML PIGGYBACK 50 MEQ IV (16:21)
[2022-07-05] MEDS: Gabapentin 300 MG CAPSULE PO (22:17)
--- NOTE | 2022-07-05 23:35 | PC.NURSE ---
Assumed care at 07:00. Patient alert and oriented x4. Some bizarre behavior, with aggressive comments and threats made to strike and knock out staff, but appeared to be poorly understood attempts at humor and not earnest threats against staff. Frequent profane comments made to staff with inappropriate sexual remarks. Patient refused personal care from male attendants, but also refused personal care from some female attendants today. Patient was eventually amenable to being washed by staff, and did have 3 episodes of bowel incontinence today with light brown pasty stool. Patient did have a good appetite at the start of the day, and MD was notified and ordered a diet, which was tolerated, with ample amounts of fluids, but patient did not appreciate the flavor of the food, and refused meals but accepted some substitutes. Patient had orders to be OOB with staff, and had a lot of difficulty, requiring 4 assistants including the MD, due to fact patient had inability to sustain abdominal muscular tone, with inability to sit upright or to maintain a standing posture, MD was called to room to assess. Patient was sliding down the chair and unable to stay in the chair after being assisted there, and the sarasteady was used to transfer her back to bed as per MD. No further nuerological workup was ordered, and patient was able to move all extremities, but with extreme weakness, PERRL, and would interact and respond to questions in a logical way, but also had a slurred speaking style, of which MD was notified. Patient did have no apparent trouble swallowing food or drink or pills whole with thin liquids. Patient on room air, breathing easily. Sinus rhythm on monitor. Patient's mother and son were both in today. Patient was transferred to [facility] in the evening and report to ANNAMARIE Rivera, and patient was brought up to room 360 with assistance.
[2022-07-06] VITALS: RESP 20
[2022-07-06 01:00] VITALS: RESP 20
[2022-07-06] MEDS: HYDROmorphone HCl 1 MG/ML SYRINGE IVPUSH ×4 (02:12→14:49)
[2022-07-06] MEDS: cefTRIAXone sodium 1 GM in 0.9 % Sodium Chloride 50 ML IV (02:17)
[2022-07-06 03:12] VITALS: RESP 20
[2022-07-06 04:08] VITALS: BP 150/65; PULSE 61; RESP 17; TEMP 36.8; O2SAT 96
[2022-07-06 05:48] VITALS: BMI 34.6
[2022-07-06 06:00] VITALS: RESP 18
[2022-07-06 06:40] LABS: Hemoglobin 7.8 g/dl (12.0-16.0); Mean Corpuscular HGB Conc 32.5 g/dl (31.0-35.0); Mean Corpuscular Hemoglobin 27.7 pg (27.0-33.0); Mean Corpuscular Volume 85.1 fL (80.0-98.0); Mean Platelet Volume 10.6 fL (9.4-12.3); Platelet Count 207 X10*3/uL (160-400); Red Blood Count 2.82 X10*6/uL (4.20-5.50); Red Cell Distribution Width 14.3 % (11.0-16.0)
[2022-07-06 07:24] LABS: Anion Gap 10 (12-20); Blood Urea Nitrogen 13 mg/dL (9-16); Calcium 8.3 mg/dL (8.4-10.2); Carbon Dioxide 27 mmol/L (22-29); Chloride 106 mmol/L (96-108); Estimated Glomerular Filt Rate > 60; Glucose Random 90 mg/dL (60-115); Phosphorus 3.5 mg/dL (2.7-4.5); Potassium 3.1 mmol/L (3.3-5.1); Sodium 140 mmol/L (135-145)
--- NOTE | 2022-07-06 08:59 | HE.PHANOTE ---
Vancomycin Dosing Addendum Patients renal function is stable, trough came back this morning at 18 mg/L. Patients trough has been going up and down with dosing fluctuating. Patient also has sepsis. Chose to keep current dose and will get another level after two doses. Will monitor renal function. Predicted AUC 434 mg/L/hr. level / @0800
[2022-07-06] MEDS: vancomycin HCL 1,000 MG in 0.9 % Sodium Chloride 250 ML 270 MG IV ×2 (09:33→21:10)
[2022-07-06] MEDS: Enoxaparin Sodium 40 MG/0.4 ML SYRINGE SUBCUT (09:33)
[2022-07-06] MEDS: 0.9 % Sodium Chloride Flush 3 ML SYRINGE IVFLUSH ×4 (09:34→23:47)
--- NOTE | 2022-07-06 10:20 | MHC.RECOVRN ---
Met with pt in 360 after consult placed to CARE Team and Addiction Medicine. Pt laying in bed, awake, alert, easily engages in conversation. Pt does not appear to be experiencing withdrawal symptoms. Pt reports taking medications as prescribed, for back pain, prior to [place] [facility] Pt reports being prescribed opiates x 28 years for pain management. Per [facility], pts last prescriptions for oxycodone and oxycontin were filled 06/12/22 for a 28 day supply. Pt denies taking illicit medications. Pt denies hx overdose in the past. Repeatedly states I follow my regime. Pt reports having taken Suboxone in the past, last in February 2021. Pt declines to discuss further, abruptly states It was nice to meet you. Have a good day. Pt encouraged to notify RN if she would like to discuss further or if withdrawal symptoms occur. Discussed with Bea Blank APRN.
[2022-07-06] MEDS: Lidocaine HCl 1 % 20 ML VIAL INFILTRATI (14:25)
--- NOTE | 2022-07-06 15:09 | P.PNGS_ITS ---
Subjective Subjective Date of Service: 07/06/22 Interval history: Feels ok. Has some pain at axilla. Tolerating diet. Physical Exam Vital Signs: Vital Signs: Last Vital Signs Temp 98.3 F 07/06/22 04:08 Pulse 61 07/06/22 04:08 Resp 18 07/06/22 06:00 BP 150/65 H 07/06/22 04:08 Pulse Ox 96 07/06/22 04:08 O2 Del Method 07/06/22 04:08 O2 Flow Rate 2 07/04/22 18:00 FiO2 21 07/04/22 12:21 BMI result Body Mass Index 34.6 Const: General: comfortable, no acute distress and alert Orientation/consciousness: patient oriented x3 Chest: Other: wound vac removed, breast/axilla/arm debridement site clean, granulating well, no necrosis, purulence, induration and erythema resolved Resp: Effort & Inspection: normal respiratory effort Neuro: General: patient oriented x3 Extrem: General: Yes no clubbing, cyanosis or edema Objective Data Active Medications Acetaminophen (Acetaminophen 325 Mg Tablet) 975 mg PO Q8H PRN PRN Reason: Pain, Moderate (Pain Scale 4-6 Last Admin: 07/05/22 11:36 Dose: 975 mg Documented By: MALENA Enoxaparin Sodium (Enoxaparin Sodium 40 Mg/0.4 Ml Syringe) 40 mg SUBCUT Q24H [facility] Last Admin: 07/06/22 09:33 Dose: 40 mg Documented By: NORMAN Gabapentin (Gabapentin 300 Mg Capsule) 300 mg PO BEDTIME [facility] Last Admin: 07/05/22 22:17 Dose: 300 mg Documented By: YANELIS Hydromorphone HCl (Hydromorphone Hcl 1 Mg/Ml Syringe) 1 mg IVPUSH Q1H PRN; Protocol PRN Reason: Moderate pain or WOB Last Admin: 07/06/22 14:49 Dose: 1 mg Documented By: NORMAN Ceftriaxone Sodium 1 gm/ (Sodium Chloride) 50 mls @ 100 mls/hr IV Q24H [facility] Last Infusion: 07/06/22 02:48 Dose: 0 mls/hr Documented By: NURIA Vancomycin HCl 1,000 mg/ (Sodium Chloride) 270 mls @ 270 mls/hr IV Q12H [facility] Last Infusion: 07/06/22 11:26 Dose: 270 mls/hr Documented By: NORMAN Pharmacy Consult (Consult Rx Perform Med Rec) 1 each MISCELLANE ONCE PRN PRN Reason: Consult order Sodium Chloride (0.9 % Sodium Chloride Flush 3 Ml Syringe) 3 ml IVFLUSH QSHIFT [facility] Last Admin: 07/06/22 09:34 Dose: 3 ml Documented By: NORMAN Labs CBC & Chem 7: 07/06/22 05:39 07/06/22 05:39 Labs: Laboratory Results - last 24 hr 07/06/22 07/06/22 07/06/22 05:39 05:39 05:39 MCV 85.1 MCH 27.7 MCHC 32.5 RDW 14.3 Plt Count 207 MPV 10.6 Absolute Nucleated RBC 0.000 Nucleated RBC % (auto) 0.0 Anion Gap 10 L Estim Creat Clear Calc 103.0 Estimated GFR > 60 Random Glucose 90 Calcium 8.3 L Phosphorus 3.5 Magnesium 2.0 Vancomycin Trough 18.0 Procedures Date of Service Date of Service: 07/06/22 Progress Note: A&P Assessment and plan (1) Status post debridement: Status: Acute (2) Necrotizing soft tissue infection: Status: Acute (3) MRSA bacteremia: Status: Acute Plan 52 year old female admitted with numerous medical problems including sepsis, necrotizing soft tissue infection of breast/axilla/arm s/p debridement and subsequent wound vac placement. Wound vac removed today- wound is clean and granulating well, induration and erythema resolved. The patient did not tolerate the sponge removal well despite given dilaudid 1mg IV twice over an hour period. Lidocaine was also placed in wo und in an attempt at analgesia. Therefore wet to dry dressings placed with saline soaked kerlix followed by fluffs and abd dressing and tape. Will discuss tomorrow regarding resuming wound vac placement or continuing daily dry dressing changes. Time Spent With Patient Time: Total time managing care of this patient today 75 minutes. Quality Stroke Does the patient have a stroke diagnosis?: No VTE Prior VTE?: No VTE Risk Level:: Medical - moderate - high VTE Device Contraindication: Treatment Not Indicated VTE Drug Contraindication: N/A - Med Ordered
--- NOTE | 2022-07-06 15:30 | P.CNID_ITS ---
History of Present Illness Data of Consult Service Date: 07/06/22 Requesting physician: Aftab Stephens Primary Care Provider: Tristen Hernandez MD HPI Reason for consult: sepsis She presents on 06/25 with redness left chest wall and confusion. She had fevers and MRSA blood culture positive. She has had clear blood cultures since 06/27 and has wound vac due to necrotizing fasciitis left anterior chest wall. Review of Systems Review of Systems: Yes all other systems are reviewed and are negative [facility] Social History Social History Alcohol intake: unknown Substance Use Type: Heroin service: No Current occupational status: disabled Meds Allergies Allergy/AdvReac Type Severity Reaction Status Date / Time adhesive tape [ADHESIVE TAPE] Allergy Unknown ITCHY Verified 06/23/22 18:09 orange (food color) Allergy Unknown HIVES Verified 06/23/22 18:09 [ORANGE (FOOD COLOR)] yellow dye [YELLOW DYE] Allergy Unknown HIVES Verified 06/23/22 18:09 latex Allergy Unknown Unknown Uncoded 06/23/22 18:09 orange Allergy Unknown Unknown Uncoded 06/23/22 18:09 Active Medications: Current Medications Acetaminophen (Acetaminophen 325 Mg Tablet) 975 mg PO Q8H PRN PRN Reason: Pain, Moderate (Pain Scale 4-6 Last Admin: 07/05/22 11:36 Dose: 975 mg Enoxaparin Sodium (Enoxaparin Sodium 40 Mg/0.4 Ml Syringe) 40 mg SUBCUT Q24H [facility] Last Admin: 07/06/22 09:33 Dose: 40 mg Gabapentin (Gabapentin 300 Mg Capsule) 300 mg PO BEDTIME [facility] Last Admin: 07/05/22 22:17 Dose: 300 mg Hydromorphone HCl (Hydromorphone Hcl 1 Mg/Ml Syringe) 1 mg IVPUSH Q1H PRN; Protocol PRN Reason: Moderate pain or WOB Last Admin: 07/06/22 14:49 Dose: 1 mg Ceftriaxone Sodium 1 gm/ (Sodium Chloride) 50 mls @ 100 mls/hr IV Q24H [facility] Last Infusion: 07/06/22 02:48 Dose: Infused Vancomycin HCl 1,000 mg/ (Sodium Chloride) 270 mls @ 270 mls/hr IV Q12H [facility] Last Infusion: 07/06/22 11:26 Dose: Infused Pharmacy Consult (Consult Rx Perform Med Rec) 1 each MISCELLANE ONCE PRN PRN Reason: Consult order Sodium Chloride (0.9 % Sodium Chloride Flush 3 Ml Syringe) [facility] Last Admin: 07/06/22 09:34 Dose: 3 ml Home Medications Medication Instructions Recorded Confirmed Last Taken Type amoxicillin 250 mg capsule 1 cap PO TID 06/24/22 06/24/22 Unknown History fluticasone propionate 50 1 spray intranasal DAILY 06/24/22 06/24/22 Unknown History mcg/actuation nasal spray,suspension naproxen 500 mg tablet 1 tab PO BID PRN Pain 06/24/22 06/24/22 Unknown History oxycodone 10 mg tablet 1 tab PO QD-QID PRN Pain 06/24/22 06/24/22 Unknown Histor y oxycodone 20 mg tablet,crush 1 tab PO DAILY PAIN 06/24/22 06/24/22 Unknown History resistant,extended release 12 hr (OxyContin) Physical Exam 2 Vital Signs: Vital Signs: Last Vital Signs Temp 98.3 F 07/06/22 04:08 Pulse 61 07/06/22 04:08 Resp 18 07/06/22 06:00 BP 150/65 H 07/06/22 04:08 Pulse Ox 96 07/06/22 04:08 O2 Del Method 07/06/22 04:08 O2 Flow Rate 2 07/04/22 18:00 FiO2 21 07/04/22 12:21 BMI result Body Mass Index 34.6 Const: General: cooperative HEENT: Head: Yes normal to inspection Face and sinus: Yes normal facial exam Mouth: Normal oral and palatal mucosa present Teeth and gingiva: dentition normal Eyes: General: appearance normal, both eyes and all related structures Pupils: Equal, round and reactive pupils present Resp: Effort & Inspection: normal respiratory effort Cardio: Rate: regular rate Rhythm: regular rhythm GI: Palpation (GI): Soft to palpation and nontender : General: Yes no CVA tenderness Back/Spine/Pelvis: Back: no CVA tenderness Skin: Other: left chest wall mild erythema General skin exam: no rashes or lesions noted Neuro: General: moves all extremities Cranial nerves: Yes Equal, round and reactive pupils present Extrem: General: Yes normal to inspection Psych: Appearance: grossly normal Results Labs CBC & Chem 7: 07/06/22 05:39 07/06/22 05:39 Labs: Short CBC 07/06/22 Range/Units 05:39 WBC 4.0 L (4.8-10.8) X10*3/uL Hgb 7.8 L (12.0-16.0) g/dl Hct 24.0 L (37.0-47.0) % Plt Count 207 (160-400) X10*3/uL BMP 07/06/22 05:39 Sodium 140 Potassium 3.1 L Chloride 106 Carbon Dioxide 27 BUN 13 Creatinine 0.70 Calcium 8.3 L Microbiology Microbiology Results: Microbiology 07/02/22 17:11 Sputum - Suctioned Gram Stain - Final 07/02/22 17:11 Sputum - Suctioned Sputum Culture - Final Methicillin Res Staph Aureus 06/30/22 05:14 Blood - Venous Blood Culture - Final No growth after 5 days. 06/30/22 05:14 Blood - Venous Blood Culture - Final No growth after 5 days. 07/02/22 17:27 Blood - Venous Blood Culture - Preliminary No growth after 48 hours. 07/02/22 17:27 Blood - Venous Blood Culture - Preliminary No growth after 48 hours. 06/27/22 05:25 Blood - Venous Blood Culture - Final No growth after 5 days. 06/27/22 05:25 Blood - Venous Blood Culture - Final No growth after 5 days. 06/28/22 01:20 Sputum - Suctioned Gram Stain - Final 06/28/22 01:20 Sputum - Suctioned Sputum Culture - Final Methicillin Res Staph Aureus 06/25/22 09:28 Blood - Venous Blood Culture - Final Methicillin Res Staph Aureus 06/25/22 09:28 Blood - Venous Blood Culture - Final Methicillin Res Staph Aureus 06/24/22 14:27 Sputum - Suctioned Gram Stain - Final 06/24/22 14:27 Sputum - Suctioned Sputum Culture - Final Methicillin Res Staph Aureus 06/24/22 Unknown Axilla Left Gram Stain - Final 06/24/22 Unknown Axilla Left Routine Culture - Final Methicillin Res Staph Aureus Citrobacter freundii 06/23/22 20:55 Blood - Venous Blood Culture - Final Methicillin Res Staph Aureus Coag negative Staphylococcus 06/23/22 18:45 Blood - Venous Blood Culture - Final Methicillin Res Staph Aureus Assessment and Plan (1) MRSA bacteremia: Status: Acute This bacteremia probably related to skin infection with necrotizing fasciitis She still has discomfort there. TTE reports no vegetation. (2) Status post debridement: Status: Acute Plan Finish Vancomycin on 07/25 Followup care for wound ?[facility] Time Spent With Patient Time: Total time managing care of this patient today ____ minutes.
--- NOTE | 2022-07-06 16:33 | HO.PM.IMPN ---
Subjective Subjective Date of Service: 07/07/22 Interval History: Complaining of right anterior chest wall pain, is on IV Dilaudid Q 1 hour, denies fever chills, tolerating diet, no other acute issues overnight, no nausea no vomiting no abdominal pain tolerating diet, Review of Systems Review of Systems: Yes all other systems are reviewed and are negative Physical Exam Vital Signs: Vital Signs: Last Vital Signs Temp 98.3 F 07/06/22 04:08 Pulse 61 07/06/22 04:08 Resp 18 07/06/22 06:00 BP 150/65 H 07/06/22 04:08 Pulse Ox 96 07/06/22 04:08 O2 Del Method 07/06/22 04:08 O2 Flow Rate 2 07/04/22 18:00 FiO2 21 07/04/22 12:21 BMI result Body Mass Index 34.6 Const: Other: General awake alert x3, in no acute distress. Neck no JVD. Right IJ catheter in place CVS regular rate rhythm, Respiratory lungs clear to auscultation, no respiratory distress, no wheeze, no rhonchi. Gastrointestinal abdomen soft, nontender, bowel sounds audible, no guarding , no rigidity. Extremities no edema. Neuro nonfocal Skin right anterior chest wall wound VAC in place, no surrounding erythema Psych appropriate affect Objective Data Active Medications Acetaminophen (Acetaminophen 325 Mg Tablet) 975 mg PO Q8H PRN PRN Reason: Pain, Moderate (Pain Scale 4-6 Last Admin: 07/05/22 11:36 Dose: 975 mg Documented By: MALENA Enoxaparin Sodium (Enoxaparin Sodium 40 Mg/0.4 Ml Syringe) 40 mg SUBCUT Q24H [facility] Last Admin: 07/06/22 09:33 Dose: 40 mg Documented By: NORMAN Gabapentin (Gabapentin 300 Mg Capsule) 300 mg PO BEDTIME [facility] Last Admin: 07/05/22 22:17 Dose: 300 mg Documented By: YANELIS Hydromorphone HCl (Hydromorphone Hcl 1 Mg/Ml Syringe) 1 mg IVPUSH Q1H PRN; Protocol PRN Reason: Moderate pain or WOB Last Admin: 07/06/22 14:49 Dose: 1 mg Documented By: NORMAN Vancomycin HCl 1,000 mg/ (Sodium Chloride) 270 mls @ 270 mls/hr IV Q12H [facility] Last Infusion: 07/06/22 11:26 Dose: 270 mls/hr Documented By: NORMAN Pharmacy Consult (Consult Rx Perform Med Rec) 1 each MISCELLANE ONCE PRN PRN Reason: Consult order Sodium Chloride (0.9 % Sodium Chloride Flush 3 Ml Syringe) 3 ml IVFLUSH QSHIFT [facility] Last Admin: 07/06/22 16:00 Dose: 3 ml Documented By: YANELIS Labs CBC & Chem 7: 07/06/22 05:39 07/07/22 08:13 Labs: Laboratory Results - last 24 hr 07/06/22 07/06/22 07/06/22 05:39 05:39 05:39 MCV 85.1 MCH 27.7 MCHC 32.5 RDW 14.3 Plt Count 207 MPV 10.6 Absolute Nucleated RBC 0.000 Nucleated RBC % (auto) 0.0 Anion Gap 10 L Estim Creat Clear Calc 103.0 Estimated GFR > 60 Random Glucose 90 Calcium 8.3 L Phosphorus 3.5 Magnesium 2.0 Vancomycin Trough 18.0 Assessment and Plan (1) MRSA bacteremia: Status: Acute (2) Necrotizing soft tissue infection: Status: Acute Plan 52-year-old female with past medical history of IV drug abuse was brought to [facility] due to lethargy and was diagnosed to have acute encephalopathy and sepsis due to more left anterior chest wall cellulitis and pneumonia patient was admitted to medical floor and was placed on broad spectrum antibiotics but soon after admission to floor patient became hypotensive therefore transferred to ICU on June 17 patient underwent operative debridement of necrotizing infection of left upper chest breast axilla and medial upper arm, patient was left intubated postprocedure subsequently her blood cultures and sputum culture grew MRSA, blood cultures were positive on 06/14 and 06 25 and became negative on 06 27, wound culture grew MRSA on 06 24, transthoracic echocardiogram showed no obvious vegetation, subsequently patient underwent wound VAC placement on June 25, subsequently patient was extubated on and transferred to medical floor Sepsis due to Necrotizing fascitis involving left anterior chest, axilla, left upper arm sepsis resolved Wound VAC removed this morning by General surgery, dressing applied , surgery will re-attempt to place back wound VAC at a.m MRSA bacteremia continue IV vancomycin and ceftriaxone case discussed with Dr. Russell, she recommend IV vancomycin through Blood culture negative on 06/27 Acute toxic metabolic encephalopathy resolved likely due to infection, electrolyte abnormalities. History of IV drug abuse addiction consult obtained however patient declined help, patient is adamant that she does not take illicit drugs at home although urine toxicology positive for fentanyl, opiates and cocaine Acute respiratory failure secondary to pneumonia resolved, now on room air finger oximetry 96% Acute renal failure resolved Hypokalemia potassium 3.1 will replete and follow labs Hypernatremia sodium improved to 140 Chronic microcytic anemia will check iron studies, stool guaiac, hematocrit 24 unchanged in last several days Disposition PT eval DVT prophylaxis on Lovenox Code status full code In my clinical judgment patient need continued inpatient hospitalization due to necrotizing fasciitis has wound VAC and MRSA bacteremia on IV antibiotics. Time Spent With Patient Time: Total time managing care of this patient today ____ minutes. Quality Stroke Does the patient have a stroke diagnosis?: No VTE Prior VTE?: No VTE Risk Level:: Medical - moderate - high VTE Device Contraindication: Treatment Not Indicated VTE Drug Contraindication: N/A - Med Ordered
[2022-07-06 18:00] VITALS: BP 145/70; PULSE 80; RESP 17; TEMP 36.4; O2SAT 95
[2022-07-06] MEDS: Gabapentin 300 MG CAPSULE PO (21:10)
[2022-07-07] MEDS: HYDROmorphone HCl 1 MG/ML SYRINGE IVPUSH ×2 (04:33→10:38)
[2022-07-07 05:09] VITALS: BMI 34.7
[2022-07-07 06:00] VITALS: BP 146/76; PULSE 80; RESP 18; TEMP 36.5; O2SAT 95; BMI 34.7
[2022-07-07 07:46] VITALS: BP 134/65; PULSE 71; RESP 17; TEMP 36.7; O2SAT 97
[2022-07-07 08:41] LABS: Vancomycin Random 12.7 mcg/mL (15-20)
[2022-07-07 08:45] LABS: Creatinine Clr Calc Pharmacy 109.3; Estimated Glomerular Filt Rate > 60
[2022-07-07] MEDS: Enoxaparin Sodium 40 MG/0.4 ML SYRINGE SUBCUT (08:48)
[2022-07-07] MEDS: 0.9 % Sodium Chloride Flush 3 ML SYRINGE IVFLUSH (08:52)
--- NOTE | 2022-07-07 08:57 | HE.PHANOTE ---
Re: vanco dosing Patient's creatinine stable at 0.66 but trough is still falling at 12.7 today. Will keep dose at 1000 mg Q12 hours for one more day and recheck trough before 0900 dose on 07/08/22. When on 1250 Q12 her levels were close to supratherapeutic. May need to increase again and continue monitoring levels frequently. Predicted AUC of 425 with current dosing.
[2022-07-07] MEDS: vancomycin HCL 1,000 MG in 0.9 % Sodium Chloride 250 ML 270 MG IV (10:52)
--- NOTE | 2022-07-07 11:05 | PM.PNGS ---
Subjective Subjective Date of Service: 07/07/22 <Maria White PA-C - Last Filed: 07/07/22 11:11> 07/09/22 <Shahzad Kincaid MD - Last Filed: 07/09/22 14:26> Interval history: Left breast/axilla remains sore. Very weak and has not been OOB. No new complaints. <Maria White PA-C - Last Filed: 07/07/22 11:11> Physical Exam Vital Signs: Vital Signs: Last Vital Signs Temp 98.1 F 07/07/22 07:46 Pulse 71 07/07/22 07:46 Resp 17 07/07/22 07:46 BP 134/65 07/07/22 07:46 Pulse Ox 97 07/07/22 07:46 O2 Del Method 07/07/22 07:46 O2 Flow Rate 2 07/04/22 18:00 FiO2 21 07/04/22 12:21 BMI result Body Mass Index 34.7 <Maria White PA-C - Last Filed: 07/07/22 11:11> Const: General: comfortable, no acute distress and alert <Maria White PA-C - Last Filed: 07/07/22 11:11> Orientation/consciousness: patient oriented x3 <Maria White PA-C - Last Filed: 07/07/22 11:11> Chest: Other: left chest/axilla wound with granulation tissue at base, no necrosis, small amount of fibrinous exudate <Maria White PA-C - Last Filed: 07/07/22 11:11> Resp: Effort & Inspection: normal respiratory effort <Maria White PA-C - Last Filed: 07/07/22 11:11> Neuro: General: patient oriented x3 <Maria White PA-C - Last Filed: 07/07/22 11:11> Extrem: General: Yes no clubbing, cyanosis or edema <Maria White PA-C - Last Filed: 07/07/22 11:11> Objective Data Active Medications Acetaminophen (Acetaminophen 325 Mg Tablet) 975 mg PO Q8H PRN PRN Reason: Pain, Moderate (Pain Scale 4-6 Last Admin: 07/05/22 11:36 Dose: 975 mg Documented By: MALENA Enoxaparin Sodium (Enoxaparin Sodium 40 Mg/0.4 Ml Syringe) 40 mg SUBCUT Q24H [facility] Last Admin: 07/07/22 08:48 Dose: 40 mg Documented By: NORMAN Gabapentin (Gabapentin 300 Mg Capsule) 300 mg PO BEDTIME [facility] Last Admin: 07/06/22 21:10 Dose: 300 mg Documented By: YANELIS Hydromorphone HCl (Hydromorphone Hcl 1 Mg/Ml Syringe) 1 mg IVPUSH Q4H PRN; Protocol PRN Reason: Moderate pain or WOB Last Admin: 07/07/22 10:38 Dose: 1 mg Documented By: NORMAN Vancomycin HCl 1,000 mg/ (Sodium Chloride) 270 mls @ 270 mls/hr IV Q12H [facility] Last Admin: 07/07/22 10:52 Dose: 270 mls/hr Documented By: NORMAN Oxycodone HCl (Oxycodone Hcl Immed Release 5 Mg Tablet) 10 mg PO Q6H PRN PRN Reason: Pain, Moderate (Pain Scale 4-6 Pharmacy Consult (Consult Rx Perform Med Rec) 1 each MISCELLANE ONCE PRN PRN Reason: Consult order Sodium Chloride (0.9 % Sodium Chloride Flush 3 Ml Syringe) 3 ml IVFLUSH QSHIFT [facility] Last Admin: 07/07/22 08:52 Dose: 3 ml Documented By: NORMAN <Maria White PA-C - Last Filed: 07/07/22 11:11> Labs CBC & Chem 7: : 07/06/22 05:39 07/07/22 08:13 <Maria White PA-C - Last Filed: 07/07/22 11:11> Labs: Laboratory Results - last 24 hr 07/07/22 07/07/22 08:13 08:13 Estim Creat Clear Calc 109.3 Estimated GFR > 60 Random Vancomycin 12.7 L <Maria White PA-C - Last Filed: 07/07/22 11:11> Procedures Date of Service Date of Service: 07/07/22 <Maria White PA-C - Last Filed: 07/07/22 11:11> Progress Note: A&P Assessment and plan (1) MRSA bacteremia: Status: Acute <Maria White PA-C - Last Filed: 07/07/22 11:11> Assessment and Plan: Patient seen and examined independently Unable to tolerate change of wound VAC Wet to dry dressings applied Agree with YOJANA White's note <Shahzad Kincaid MD - Last Filed: 07/09/22 14:26> (2) Status post debridement: Status: Acute <Maria White PA-C - Last Filed: 07/07/22 11:11> (3) Necrotizing soft tissue infection: Status: Acute <Maria White PA-C - Last Filed: 07/07/22 11:11> Assessment and Plan: 52 year old female admitted with sepsis, necrotizing soft tissue infection of breast/axilla/arm s/p debridement and subsequent wound vac placement. First wound vac removal while extubated yesterday- patient did not tolerate well. Therefore wet to dry dressings placed. Patient tolerated dressing change fairly well today- wound remains clean and granulating well. Will continue wet to dry tomorrow and plan for wound vac placement under sedation in OR on with change on Wednesday. Patient comfortable with plan. Encouraged OOB, PT consult. IV abx for bacteremia. <Maria White PA-C - Last Filed: 07/07/22 11:11> Time Spent With Patient Time: Total time managing care of this patient today 40 minutes. <Maria White PA-C - Last Filed: 07/07/22 11:11> Quality Stroke Does the patient have a stroke diagnosis?: No <Maria White PA-C - Last Filed: 07/07/22 11:11> VTE Prior VTE?: No <Maria White PA-C - Last Filed: 07/07/22 11:11> VTE Risk Level:: Medical - moderate - high <Maria White PA-C - Last Filed: 07/07/22 11:11> VTE Device Contraindication: Treatment Not Indicated <Maria White PA-C - Last Filed: 07/07/22 11:11> VTE Drug Contraindication: N/A - Med Ordered <Maria White PA-C - Last Filed: 07/07/22 11:11>
--- NOTE | 2022-07-07 11:18 | P.PNIM_ITS ---
Subjective Subjective Date of Service: 07/07/22 Interval History: Sitting comfortably on bed no complain of left anterior chest wall pain, denying use of IV drugs, no nausea no vomiting no abdominal pain, no diarrhea no other acute issues overnight. No fevers, no chills, no lightheadedness, no dizziness, no urinary symptoms of urgency or frequency. Review of Systems Review of Systems: Yes all other systems are reviewed and are negative Physical Exam Vital Signs: Vital Signs: Last Vital Signs Temp 98.1 F 07/07/22 07:46 Pulse 71 07/07/22 07:46 Resp 17 07/07/22 07:46 BP 134/65 07/07/22 07:46 Pulse Ox 97 07/07/22 07:46 O2 Del Method 07/07/22 07:46 O2 Flow Rate 2 07/04/22 18:00 FiO2 21 07/04/22 12:21 BMI result Body Mass Index 34.7 Const: Other: General awake alert x3, in no acute distress.? Neck? no JVD.? CVS? regular rate rhythm, Respiratory lungs clear to auscultation, no respiratory distress, no wheeze, no rhonchi. Gastrointestinal abdomen soft, nontender, bowel sounds audible, no guarding , no rigidity. Extremities no? edema. Neuro nonfocal Skin right anterior chest wall dressing in place Psych appropriate affect Objective Data Active Medications Acetaminophen (Acetaminophen 325 Mg Tablet) 975 mg PO Q8H PRN PRN Reason: Pain, Moderate (Pain Scale 4-6 Last Admin: 07/05/22 11:36 Dose: 975 mg Documented By: MALENA Enoxaparin Sodium (Enoxaparin Sodium 40 Mg/0.4 Ml Syringe) 40 mg SUBCUT Q24H [facility] Last Admin: 07/07/22 08:48 Dose: 40 mg Documented By: NORMAN Gabapentin (Gabapentin 300 Mg Capsule) 300 mg PO BEDTIME [facility] Last Admin: 07/06/22 21:10 Dose: 300 mg Documented By: YANELIS Hydromorphone HCl (Hydromorphone Hcl 1 Mg/Ml Syringe) 1 mg IVPUSH Q4H PRN; Protocol PRN Reason: Moderate pain or WOB Last Admin: 07/07/22 10:38 Dose: 1 mg Documented By: NORMAN Vancomycin HCl 1,000 mg/ (Sodium Chloride) 270 mls @ 270 mls/hr IV Q12H [facility] Last Admin: 07/07/22 10:52 Dose: 270 mls/hr Documented By: NORMAN Oxycodone HCl (Oxycodone Hcl Immed Release 5 Mg Tablet) 10 mg PO Q6H PRN PRN Reason: Pain, Moderate (Pain Scale 4-6 Pharmacy Consult (Consult Rx Perform Med Rec) 1 each MISCELLANE ONCE PRN PRN Reason: Consult order Sodium Chloride (0.9 % Sodium Chloride Flush 3 Ml Syringe) 3 ml IVFLUSH QSHIFT [facility] Last Admin: 07/07/22 08:52 Dose: 3 ml Documented By: NORMAN Labs CBC & Chem 7: 07/06/22 05:39 07/07/22 08:13 Labs: Laboratory Results - last 24 hr 07/07/22 07/07/22 08:13 08:13 Estim Creat Clear Calc 109.3 Estimated GFR > 60 Random Vancomycin 12.7 L Assessment and Plan (1) MRSA bacteremia: Status: Acute Plan 52-year-old female with past medical history of IV drug abuse was brought to [facility] due to lethargy and was diagnosed to have acute encephalopathy and sepsis due to left anterior chest wall cellulitis and pneumonia patient was admitted to medical floor and was placed on broad spectrum antibiotics but soon after admission to floor patient became hypotensive therefore transferred to ICU on June 17 patient underwent operative debridement of necrotizing infection of left upper chest, breast, axilla and medial upper arm, patient was left intubated postprocedure subsequently her blood cultures and sputum culture grew MRSA, blood cultures were positive on 06/23 and and became negative on , wound culture grew MRSA on , transthoracic echocardiogram showed no obvious vegetation, subsequently patient underwent wound VAC placement on June 25, subsequently patient was extubated on 07/02 and transferred to medical floor. Sepsis due to Necrotizing fascitis involving left anterior chest, axilla, left upper arm sepsis resolved Wound VAC removed by General surgery, dressing applied , surgery will re-attempt to place wound VAC back question under anesthesia due to severe pain MRSA bacteremia continue IV vancomycin and ceftriaxone case discussed with Dr. Russell, she recommend IV vancomycin through for 4 weeks duration, since Blood culture negative on 06/27 Acute toxic metabolic encephalopathy resolved likely due to infection, electrolyte abnormalities. History of IV drug abuse addiction consult obtained however patient declined help, patient is adamant that she does not take illicit drugs at home although urine toxicology positive for fentanyl, opiates and cocaine Patient receives Oxy Contin 20 mg at a.m. and oxycodone 10 mg q.6 hours as needed by primary care physician due to her chronic back pain as noted on mass Pat Acute respiratory failure secondary to pneumonia resolved, now on room air finger oximetry 96% Acute renal failure resolved Hypokalemia follow labs Hypernatremia sodium improved to 140 Chronic microcytic anemia iron studies pending follow stool guaiacs hematocrit unchanged Disposition PT eval DVT?prophylaxis on Lovenox Code status full code In my clinical judgment patient need continued inpatient hospitalization due to necrotizing fasciitis has wound VAC and MRSA bacteremia on IV antibiotics. Time Spent With Patient Time: Total time managing care of this patient today ____ minutes. Quality Stroke Does the patient have a stroke diagnosis?: No VTE Prior VTE?: No VTE Risk Level:: Medical - moderate - high VTE Device Contraindication: Treatment Not Indicated VTE Drug Contraindication: N/A - Med Ordered
[2022-07-07] MEDS: Potassium Chloride ER 20 MEQ TAB.ER.PRT 40 MEQ PO (11:52)
--- NOTE | 2022-07-07 15:59 | P.DS_ITS ---
DS: Providers Provider Date of Service: 07/09/22 Date of admission: 06/23/22 21:12 Primary care physician: Tristen Hernandez MD Consults: 06/23/22 21:07 Consult to General Surgery Routine Consulting Provider: Iris Kaplan Reason for consultation: Abscess Has provider been notified: No 06/24/22 13:13 Consult to General Surgery Stat Consulting Provider[place] [facility] Reason for consultation: abscess Has provider been notified: Yes 07/06/22 07:42 Addiction Medicine Routine Consulting Provider: Addiction Covering Reason for consultation: substance abuse Has provider been notified: No 07/06/22 07:43 Consult to Infectious Diseases Routine Consulting Provider: Terri Russell Reason for consultation: gm pos bacteremia Has provider been notified: No DS: Diagnosis Discharge Diagnosis (1) MRSA bacteremia: Status: Acute DS: Summary Hospital Course Hospital Course: Date of Service: 06/23/22 Chief Complaint: ? Lethargy ?52-year-old female with IV drug use history brought in by son to the hospital with complaints of lethargy.? Patient is completely altered, responsive only to painful stimuli therefore I am unable to get much history from her. history is mostly obtained from EMR as well as ED physician.? on arrival to the ED patient found to have temp of 101, respiratory rate of 28, blood pressure 107/59, satting 90% on room air Labs were phoned to be significant for WBc? count of 13.6, INR of 1.4, potassium 6, sodium 124, chloride of 88, creatinine of 2.56 with no baseline for comparison, lactic acid of 2.2 improved after IV fluids, AST of 50, ALT of 54, alk-phos of 175, BNP of 138, UA positive for leukocyte Estrace and WBC, UDS positive for opioids fentanyl and cocaine Head CT shows no evidence of acute intracranial abnormality chest CT shows extensive soft tissue swelling and phlegmonous changes in the left chest wall subcutaneous emphysema, small discrete? fluid collections adjacent to the chest wall. ? Patient also has diffuse pulmonary disease with multiple rounded masslike areas left greater than right, most likely diagnosis would be infectious although metastatic disease could have such appearance as well. Patient started on broad-spectrum antibiotics and will be admitted for further management ?unable to obtain much history from patient as she is altered Hospital course: 52-year-old female with past medical history of IV drug abuse was brought to [facility] due to lethargy and was diagnosed to have acute encephalopathy and sepsis due to left anterior chest wall cellulitis and pneumonia patient was admitted to medical floor and was placed on broad spectrum antibiotics but soon after admission to floor patient became hypotensive therefore transferred to ICU on June 17 patient underwent operative debridement of necrotizing infection of left upper chest, breast, axilla and medial upper arm, patient was left intubated postprocedure subsequently her blood cultures and sputum culture grew MRSA, blood cultures were positive on 06/23 and and became negative on , wound culture grew MRSA on , transthoracic echocardiogram showed no obvious vegetation, subsequently patient underwent wound VAC placement on June 25, subsequently patient was extubated on 07/02 and transferred to medical floor. Necrotizing fascitis involving left anterior chest, axilla, left upper arm,sepsis resolved,Wound VAC removed by General surgery, dressing applied and plan was for placing a wound VAC on under sedation in OR, in regard to MRSA bacteremia, patient was seen by Dr. Russell and recommendation was for IV vancomycin for 4 weeks end date 07/24 however this afternoon patient decided to leave hospital against medical advice patient's son and mother at bedside, Informed patient regarding risk of worsening infection sepsis and if left untreated, however patient is adamant that she does not want to spend another night in the hospital patient is not providing any logical reasoning for leaving hospital however she is awake alert and repeated that she has MRSA infection due to significant skin infection she is awake alert to time place and person, wishes to leave hospital against medical advice patient signed paperwork and left hospital with son and mother. Acute toxic metabolic encephalopathy resolved was likely due to infection, electrolyte abnormalities. History of IV drug abuse addiction consult was obtained however patient declined help, patient is adamant that she does not take illicit drugs at home although urine toxicology positive for fentanyl, opiates and cocaine Patient receives Oxy Contin 20 mg at a.m. and oxycodone 10 mg q.6 hours as needed by primary care physician due to her chronic back pain recommend to continue home medications. Acute respiratory failure secondary to pneumonia resolved, has stable oxygenation on room air Acute renal failure resolved Hypokalemia repleted Hypernatremia sodium improved to 140 Chronic microcytic anemia iron studies pending , hematocrit? unchanged Time Spent with Patient Time attestation: Total time managing care of this patient today ____ minutes. Discharge coordination time: Greater than 30 minutes Quality: Safe Use of Opioids Does Pt have an Active Cancer Diagnosis on the Problem List?: No Quality: Stroke Does the patient have a stroke diagnosis?: No Physical Exam Vital Signs: Vital Signs: Last Vital Signs Temp 98.1 F 07/07/22 07:46 Pulse 71 07/07/22 07:46 Resp 17 07/07/22 07:46 BP 134/65 07/07/22 07:46 Pulse Ox 97 07/07/22 07:46 O2 Del Method 07/07/22 07:46 O2 Flow Rate 2 07/04/22 18:00 FiO2 21 07/04/22 12:21 BMI result Body Mass Index 34.7 Const: Other: General awake alert x3, in no acute distress.? Neck? no JVD.? CVS? regular rate rhythm, Respiratory lungs clear to auscultation, no respiratory distress, no wheeze, no rhonchi. Gastrointestinal abdomen soft, nontender, bowel sounds audible, no guarding , no rigidity. Extremities no? edema. Neuro nonfocal Skin right anterior chest wall dressing in place Psych appropriate affect DS: Data Data Completed and Pending Completed studies during hospitalization [Text1]: Pending at discharge 06/24/22 11:20 Surgical [PTH] Routine Labs on day of discharge: Laboratory Results - last 24 hr 07/07/22 07/07/22 08:13 08:13 Creatinine 0.66 Estim Creat Clear Calc 109.3 Estimated GFR > 60 Random Vancomycin 12.7 L Preliminary micro results at discharge 07/02/22 17:27 Blood Culture - Preliminary Blood - Venous No growth after 48 hours. 07/02/22 17:27 Blood Culture - Preliminary Blood - Venous No growth after 48 hours. Discharge Plan Discharge Patient Disposition: Left Against Medical Advice Discharge Diagnosis: MRSA bacteremia Necrotizing fasciitis Toxic metabolic encephalopathy Acute renal failure Hypokalemia Hypernatremia Referrals: Tristen Hernandez MD [Primary Care Provider] - 1 Week Discharge Medications: Continued fluticasone propionate 50 mcg/actuation spray,suspension 1 spray intranasal DAILY naproxen 500 mg tablet 1 tab PO BID PRN (Reason: Pain) oxycodone 10 mg tablet 1 tab PO QD-QID PRN (Reason: Pain) oxycodone [OxyContin] 20 mg tablet,oral only,ext.rel.12 hr 1 tab PO DAILY Discontinued amoxicillin 250 mg capsule 1 cap PO TID No Action doxycycline hyclate 100 mg capsule 100 mg PO BID Qty: 28 0RF Discharge Orders: Discharge Order (Routine); Ordered 07/07/22 Ordered By: Aftab Stephens Care Plan Goals: Strongly advised patient against leaving hospital patient is adamant that she wishes to be discharged she does not want to spend another day patient is aware that she has MRSA bacteremia and significant skin infection , patient is awake alert to time place and person, patient's son and mother at bedside they tried convincing patient but she is adamant and signed AMA paperwork Patient has been made aware of risk of worsening infection, sepsis and . Patient and family has been advised return to hospital with any recurrent fevers pain confusion lightheadedness or dizziness. Health Concerns: Take home medications Plan of Treatment: Outpatient follow-up with primary care physician call for appointment soon after discharge Assessment: As above Discharge Date/Time: 07/07/22 16:09
[2022-07-07 16:00] VITALS: BP 140/65; PULSE 79; RESP 18; TEMP 36.8; O2SAT 99
--- NOTE | 2022-07-07 16:10 | PC.NURSE ---
Pt discharged ama despite all efforts by myself,, her son and DR Stephens. pt aware of risks and dangers of leaving. and stated understanding. pt was escorted out by security in wheelchair. Son ultimately had no choice but to take her home. He was made aware that he should bring her back if her condition became worse
--- NOTE | 2022-07-07 16:25 | PC.NURSE ---
Pt left AMA has meds stored in Pharmacy. pink sheet in [facility]
== END 2022-07-07 16:09 | disposition left against medical advice (07) | DRG 853 ==
LOC: HO.ED 21:02 → HO.EDOVER 21:18 → HO.ICU 06-24 05:57 → HO.S3 07-05 22:04
PROVIDERS: Anesthesiology; Internal Medicine Pulmonary Disease; Nurse Practitioner Family; Physician Assistant Medical; Registered Nurse Community Health; Student in an Organized Health Care Education/Training Program; Surgery; Admitting Provider Internal Medicine; Emergency Provider Emergency Medicine; PCP Internal Medicine; Visit Provider Hospitalist
PROC: 0JB60ZZ Excision of Chest Subcutaneous Tissue and Fascia, Open Approach (ICD-10-PCS; principal; 2022-06-24 10:00)
DX: A41.9 Sepsis, unspecified organism (principal); G93.41 Metabolic encephalopathy; J18.9 Pneumonia, unspecified organism; R65.21 Severe sepsis with septic shock; M72.6 Necrotizing fasciitis; J96.01 Acute respiratory failure with hypoxia; I26.90 Septic pulmonary embolism without acute cor pulmonale; E87.1 Hypo-osmolality and hyponatremia; N17.9 Acute kidney failure, unspecified; L03.313 Cellulitis of chest wall; L03.114 Cellulitis of left upper limb; E87.0 Hyperosmolality and hypernatremia; I38 Endocarditis, valve unspecified; F11.10 Opioid abuse, uncomplicated; R19.7 Diarrhea, unspecified; B95.62 Methicillin resistant Staphylococcus aureus infection as the cause of diseases classified elsewhere; E87.5 Hyperkalemia; E86.0 Dehydration; Z20.822 Contact with and (suspected) exposure to COVID-19; Z91.040 Latex allergy status; Z79.51 Long term (current) use of inhaled steroids
CPT/HCPCS: 36415; 70450; 71045; 71250; 74018; 80048; 80053; 80202; 80307; 81001; 81003; 82040; 82272; 82565; 82803; 83605; 83735; 83880; 83930; 83935; 84100; 84145; 84300; 84484; 85007; 85014; 85018; 85025; 85027; 85610; 85730; 86140; 86850; 86900; 86901; 86923; 87040; 87070; 87077; 87086; 87147; 87186; 87205; 87635; 88304; 93005; 93306; 94002; 94003; 94640; 99285; C1758; J0171; J0610; J0696; J1100; J1170; J1265; J1650; J2250; J2405; J2543; J2795; J3010; J3370; J3475; P9016; P9047

== ENCOUNTER 2022-07-08 12:43 | Emergency (ER) | payer MEDICARE, MEDICAID, SELFPAY ==
[2022-07-08 12:50] VITALS: BP 140/74; BP 160/90; PULSE 85; PULSE 90; RESP 20; TEMP 36.9; O2SAT 97; O2SAT 99; BMI 35.4
--- NOTE | 2022-07-08 13:28 | ED.GENADULT ---
HPI - General Adult General Chief complaint: General Medical Stated complaint: UNABLE TO AMB,[facility]YEL[facility] T-1 FROM [facility] [place] EMS Time Seen by Provider: 07/08/22 12:56 Source: patient and EMS Mode of arrival: EMS History of Present Illness HPI narrative: 52-year-old female with arrival via EMS from home, the report by EMS is that the house is in poor condition. EMS states that they were called by the son who said that the patient has been on the couch voiding on herself and EMS states that she was found covered in stool. Patient states that her son has not been helping her out, and that he needs to be in detox. Patient states that the fact that her son arrange for the ambulance to come pick her up will make for ?a nice weekend for himself?. Patient denies any acute complaints at this time and states that she is able to walk although not far. She otherwise denies any fever, chills, shortness of breath, chest pain/palpitations. Related Data Home Medications Medication Instructions Recorded Confirmed amoxicillin 250 mg capsule 1 cap PO TID 06/24/22 06/24/22 fluticasone propionate 50 1 spray intranasal DAILY 06/24/22 06/24/22 mcg/actuation nasal spray,suspension naproxen 500 mg tablet 1 tab PO BID PRN Pain 06/24/22 06/24/22 oxycodone 10 mg tablet 1 tab PO QD-QID PRN Pain 06/24/22 06/24/22 oxycodone 20 mg tablet,crush 1 tab PO DAILY PAIN 06/24/22 06/24/22 resistant,extended release 12 hr (OxyContin) Allergies Allergy/AdvReac Type Severity Reaction Status Date / Time adhesive tape [ADHESIVE TAPE] Allergy Unknown ITCHY Verified 06/23/22 18:09 orange (food color) Allergy Unknown HIVES Verified 06/23/22 18:09 [ORANGE (FOOD COLOR)] yellow dye [YELLOW DYE] Allergy Unknown HIVES Verified 06/23/22 18:09 latex Allergy Unknown Unknown Uncoded 06/23/22 18:09 orange Allergy Unknown Unknown Uncoded 06/23/22 18:09 Review of Systems Review of Systems: Pertinent positives and negatives as stated in HPI 10 point review of systems is otherwise negative. PMFSH Social History Social History Alcohol intake: unknown Substance Use Type: Heroin Advance Directives: No service: No Current occupational status: disabled Physical Exam ED Vital Signs: Vital Signs - 24 hr 07/08/22 12:50 Temperature 98.4 F Pulse Rate 85 Respiratory Rate 20 Blood Pressure 140/74 H Pulse Oximetry 97 Oxygen Delivery Method Room Air BMI result Body Mass Index 35.4 VITAL SIGNS: Reviewed. GENERAL: Well developed, well nourished, unkempt, stool is noted on lower half of body HEAD: Normocephalic/atraumatic EYES: PERRLA, EOMI EARS: Ext canals without abnormality NOSE: Nares patent bilateral OROPHARYNX: no oral lesions noted, posterior pharynx clear NECK: Supple, no adenopathy LUNGS: Normal breath sounds. No adventitious sounds or accessory muscle use. SpO2<> CARDIOVASCULAR: Regular rate and rhythm without noted murmurs ABDOMEN: Soft, non-tender, non-distended with bowel sounds. MUSCULOSKELETAL: No tenderness, deformities, or effusions noted on gross inspection. EXTREMITIES: No cyanosis, clubbing or edema. SKIN: Inspection of the skin reveals no rashes, ulcerations, jaundice, pallor, or petechiae. NEUROLOGIC: Alert and oriented x 3. Strength and sensation to light touch were grossly intact x 4, patient observed to ambulate with a steady gait, no ataxia noted on leg lifts and strength appears to be 5/5 symmetrical. Course Course Course Narrative: 52-year-old female with history and clinical presentation suggestive of possible underlying behavioral issues, she does appear to ambulate and was just discharged against medical advice yesterday from the hospital. At this time patient is refusing any lab work. She continues to state that she wants to go home, but on speaking with the son he is declining to sweet pickle maker the patient and there are grave concerns regarding patient's living conditions. Family is declining to transport patient home citing the the patient is not safe to be at home. Patient understands that she will be signing out against medical advice, she also acknowledges understanding that she will need to provide safe transportation to her home. Signed out to Dr. Flood. Discharge Plan Discharge Clinical Impression: Diarrhea, Healing wound Patient Disposition: Left Against Medical Advice Instructions: Nutrition Tips for Relief of Diarrhea (ED) Additional Instructions: 1. Resume your home medications as prescribed. Complete the entire course of antibiotics as ordered. 2. Adhere to all recommendations by your home health aide as well as your visiting nurse. Return to the ER for worsening symptoms. Prescriptions: No Action amoxicillin 250 mg capsule 1 cap PO TID fluticasone propionate 50 mcg/actuation spray,suspension 1 spray intranasal DAILY naproxen 500 mg tablet 1 tab PO BID PRN (Reason: Pain) oxycodone 10 mg tablet 1 tab PO QD-QID PRN (Reason: Pain) oxycodone [OxyContin] 20 mg tablet,oral only,ext.rel.12 hr 1 tab PO DAILY Referrals: Tristen Hernandez MD [Primary Care Provider] - Stand Alone Forms: Against Medical Advice
--- NOTE | 2022-07-08 14:31 | PC.NURSE ---
patient refusing lab work. saying she would like to sign out ama
--- NOTE | 2022-07-08 14:56 | PC.NURSE ---
patient able to ambulate with assist to bathroom, gait was steady, some weakness.
--- NOTE | 2022-07-08 15:04 | PC.NURSE ---
Patient requesting wheelchair so she can leave. Just took over from Scott DE LUNA patient walked to bathroom. Will notify Dr. Leonard patient wants to leave.
--- NOTE | 2022-07-08 17:27 | MHC.CM.ED ---
CM was requested to obtain a ride for this patient. Pt is refusing further care and requesting po antibiotics. States she must care for her dogs. CM spoke with patient about condition of home. Pt states she will clean it when she gets home. BECCA spoke with Dr. An, who feels the patient has the capacity to make decisions, including living in poor conditions. Pt is 52 years old. Refuses to remain in ED. Dr. Oseguera will order antibiotics for patient and is sending the script to [facility] on [address] RN aware. Lift obtained. RN aware that ride will be here in 15 minutes.
== END 2022-07-08 17:35 | disposition left against medical advice (07) ==
PROVIDERS: Emergency Provider Emergency Medicine; PCP Internal Medicine
DX: R19.7 Diarrhea, unspecified (principal); Z48.00 Encounter for change or removal of nonsurgical wound dressing
CPT/HCPCS: 99282

== ENCOUNTER → 2022-09-07 10:44 | Outpatient (BNVA) | payer MEDICARE, MEDICAID, SELFPAY | PROVIDERS: PCP Internal Medicine; Visit Provider Surgery | DX: Z13.89 Encounter for screening for other disorder (principal) ==

== ENCOUNTER 2024-05-18 11:46 | Inpatient (IN) | payer MEDICARE, MEDICAID, SELFPAY ==
[2024-05-18 11:53] VITALS: BP 117/55; BP 174/97; PULSE 76; PULSE 90; RESP 18; TEMP 36.8; O2SAT 98; BMI 39.0
--- NOTE | 2024-05-18 12:27 | MHC.CARE ---
Call from [employer]-response clinician, patient was evaluated in her home, sent here on a Section 12A for inpatient bed search.
[2024-05-18] MEDS: OLANZapine 10 MG TABLET PO (12:43)
[2024-05-18] MEDS: Nicotine 21 MG PATCH.TD24 TRANSDERMA (12:44)
[2024-05-18] MEDS: LORazepam 1 MG TABLET 2 MG PO ×2 (12:44→21:55)
[2024-05-18 13:03] LABS: MANUAL DIFF FLAG NO
[2024-05-18 13:04] LABS: Basophils Percent Auto 0.3 % (0-2); Eosinophils Percent Auto 0.1 % (0-4); Hematocrit 46.9 % (37.0-47.0); Imm Gran Abs Auto 0.03 X10*3/uL (0.00-0.03); Imm Gran Pct Auto 0.4 % (0.0-0.4); Lymphocytes Absolute Auto 0.7 X10*3/uL (1.2-4.9); Lymphocytes Percent Auto 9.2 % (20-40); Mean Corpuscular Hemoglobin 24.8 pg (27.0-33.0); Mean Corpuscular Volume 77.6 fL (80.0-98.0); Mean Platelet Volume 9.6 fL (9.4-12.3); Monocytes Absolute Auto 0.3 X10*3/uL (0.1-1.2); Monocytes Percent Auto 3.6 % (2-11); Neutrophils Absolute Auto 6.9 x10*3/uL (2.0-8.3); Neutrophils Percent Auto 86.4 % (45-73); Platelet Count 176 X10*3/uL (160-400); Red Blood Count 6.04 X10*6/uL (4.20-5.50); Red Cell Distribution Width 15.5 % (11.0-16.0)
[2024-05-18 13:35] LABS: Acetaminophen LAB < 3 mcg/mL (<30); Alanine Aminotransferase 26 U/L (0-31); Albumin Level 4.4 g/dL (3.5-5.0); Alkaline Phosphatase 96 U/L (39-117); Anion Gap 12 (12-20); Aspartate Amino Transferase 24 U/L (5-31); Bilirubin Total 0.6 mg/dL (0.0-1.0); Blood Urea Nitrogen 12 mg/dL (9-16); Carbon Dioxide 27 mmol/L (22-29); Chloride 103 mmol/L (96-108); Creatinine Clr Calc Pharmacy 67.1; Estimated Glomerular Filt Rate 53; Ethanol < 10 mg/dL; Glucose Random 121 mg/dL (60-115); Lipase 7 U/L (8-78); Magnesium 2.3 mg/dL (1.6-2.6); Potassium 4.1 mmol/L (3.3-5.1); Salicylate < 5.0 mg/dL (15-30); Sodium 138 mmol/L (135-145); Total Protein 7.9 g/dL (6.5-8.0)
[2024-05-18] MEDS: NaPROXEN 500 MG TABLET PO (14:29)
--- NOTE | 2024-05-18 15:15 | PC.NURSE ---
pt endorses using heroine multiple times a day. She says she snorts it. Last used 0800. COWS 3. PA notified. Pt has multiple small sores/wounds on her arms and legs. Not open, scabbed over.
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
--- NOTE | 2024-05-18 16:00 | MHC.RECOVRN ---
Met with pt in BH pod after consult placed to Addiction Medicine for opioid withdrawal. Pt had presented to the ED via EMS from home on a Sect 12. Sect 12 reports inability to care for herself and dogs in the house, feces all over, lacking basic hygiene. Pt sitting, eyes closed, wakes to touch. Pt irritable and difficult to engage in conversation. Reports heroin/fentanyl use, 3 bags daily, IN. When asked how she is feeling she states pissed off. Unable to report any withdrawal symptoms. She does appear comfortable at this time and does not appear to be experiencing withdrawal. She was able to tell me that she would like to utilize methadone for withdrawal symptoms. Denies other questions or concerns. Discussed with RN and ED provider.
[2024-05-18 19:51] LABS: Appearance Urine Clear; Color Urine Yellow; Glucose Urine UA Negative (Negative); Leukocyte Esterase Urine Moderate (2+) (Negative); Nitrite Urine Negative (Negative); Specific Gravity - Urine 1.015 (1.005-1.025); UMIC TRIGGER UACC YES; Urine Blood Moderate (2+) (Negative); Urine Ketones 15 mg/dL (Negative); Urine Protein Trace mg/dL (Neg-Trace)
[2024-05-18 19:56] LABS: Bacteria Urine None Seen (None Seen); Hyaline Casts Urine 0-2 /LPF (0-2); UACC Culture Trigger YES; WBC Urine 21-50 /HPF (0-5)
[2024-05-18 20:01] LABS: Amphetamine Screen Urine Not Detected (Not Detect); Barbiturates, Urine Not Detected (Not Detect); Benzodiazepines Screen Urine Not Detected (Not Detect); Buprenorphine Scr Not Detected (Not Detect); Cannabinoid Screen Urine Not Detected (Not Detect); Cocaine Screen Urine Not Detected (Not Detect); Fentanyl, urine POSITIVE (Not Detect); Methadone Screen, Urine Not Detected (Not Detect); Opiate Screen Urine Not Detected (Not Detect); Oxycodone Screen Urine Not Detected (Not Detect); Phencyclidine Screen Urine Not Detected (Not Detect)
[2024-05-18 20:25] VITALS: BP 140/70; PULSE 95; RESP 17; TEMP 36.7; O2SAT 98
[2024-05-18] MEDS: Ibuprofen 600 MG TABLET PO (21:54)
--- NOTE | 2024-05-18 23:09 | MHC.CARE ---
Pt reassessed by the CARE Team and continues to be appropriate for IPLOC at this time.
--- NOTE | 2024-05-19 | ECG_ITS ---
Test Reason : QTC Blood Pressure : / mmHG Vent. Rate : 084 BPM Atrial Rate : 084 BPM P-R Int : 142 ms QRS Dur : 072 ms QT Int : 368 ms P-R-T Axes : 053 106 058 degrees QTc Int : 434 ms Normal sinus rhythm Possible Left atrial enlargement Rightward axis Borderline ECG When compared with ECG of 27-JUN-2022 17:39, Premature atrial complexes are no longer Present Vent. rate has increased BY 38 BPM QRS axis Shifted right Nonspecific T wave abnormality has replaced inverted T waves in Inferior leads Referred By: Ricky Da Silva Electronically Signed By:Tomi Tierney
[2024-05-19] MEDS: Ibuprofen 600 MG TABLET PO (05:52)
--- NOTE | 2024-05-19 06:09 | PC.NURSE ---
Patient slept through the night, no distress observed/reported, disposition per care team is section-12 inpatient bed search, asymptomatic of withdrawal at this time, will continue to monitor
[2024-05-19 06:23] VITALS: BP 126/83; PULSE 89; RESP 18; TEMP 36.9; O2SAT 97
[2024-05-19] MEDS: Nicotine 21 MG PATCH.TD24 TRANSDERMA (08:23)
--- NOTE | 2024-05-19 08:24 | PC.NURSE ---
Pt. showered as requested and then medicated per MAR. Denies complaints or concerns at this time. Plan of care ongoing.
--- NOTE | 2024-05-19 08:30 | PC.NURSE ---
Pt. spit out antibiotic, crying, stating that she does not want to take antibiotic because she does not believe that she has a UTI. This RN explained to pt. that she does have a UTI and the antibiotic is what will help it go away. Pt. still refusing. Provider aware
--- NOTE | 2024-05-19 08:37 | PC.NURSE ---
Pt. states that she will take her dose of antibiotic only if provider will give her a dose of Ativan. Iva Da Silva MD notified
[2024-05-19] MEDS: LORazepam 1 MG TABLET 2 MG PO (08:56)
[2024-05-19] MEDS: cefuroxime axetiL 250 MG TABLET PO ×2 (09:00→20:44)
--- NOTE | 2024-05-19 09:01 | PC.NURSE ---
Pt. given PRN Ativan as requested. While administering PRN Ativan, pt. began yelling at nurse that the only reason she has a UTI is because of the material of her hospital attire. Educated pt. that the material of her hospital gown would not contribute to a UTI. Pt. stated that this RN is wrong. Plan of care ongoing
--- NOTE | 2024-05-19 09:09 | PC.NURSE ---
Pt. requesting a copy of her rights. Charlette [facility] notified, and Charlette over to give pt. a copy and explain it to her.
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
--- NOTE | 2024-05-19 10:42 | PC.NURSE ---
Pt. states that she would like it noted in her chart that she has not had a BM today. Plan of care ongoing.
--- NOTE | 2024-05-19 11:15 | PC.NURSE ---
Pt.'s sister, Ryan Pisano, calling for an update on pt. Explained to Ryan that I'd need pt.'s permission to speak with her, as Ryan is not listed as a HCP in pt.'s chart. Per pt., she would rather me not speak with Ryan and she would rather call Ryan herself. Showed pt. where the [facility] phone is. Ryan's number: [phone]
--- NOTE | 2024-05-19 13:08 | PC.NURSE ---
pt reporting fish allergy, added to allergy list, kitchen contacted for alternate diet,
--- NOTE | 2024-05-19 13:32 | PC.NURSE ---
RN-to-RN report given to ANNAMARIE Spencer on unit S1.
[2024-05-19 15:34] VITALS: BP 153/79; PULSE 107; RESP 18; TEMP 37.2; O2SAT 99
--- NOTE | 2024-05-19 16:15 | MHC.RECOVRN ---
Met with pt in 177 after Addiction Medicine consult received for heroin use and interest in methadone. Had met pt yesterday in the ED, methadone had been ordered 10 mg q3 hours prn. Pt did not need it during the day, overnight, or most of today so order was canceled. Pt now laying in bed, crying, reporting withdrawal symptoms including watery eyes and rhinorrhea as well as anxiety. Pt upset her dogs have been removed from her home. Pt denies other withdrawal symptoms. Pt appears physically comfortable, no goose bumps or restlessness, denies stomach upset. Pt reports using 1 bag heroin/fentanyl daily, yesterday had reported 3 bags daily, IN, x 1 year. Pt has not been on methadone in the past. Reports she has tried Suboxone which resulted in precipitated withdrawal. Is not interested in Suboxone. Pt would like to initiate methadone. Denies other questions or concerns at this time. Discussed with Bea Blank APRN.
[2024-05-19] MEDS: Flu Vacc TS2024-25(6mos up)/PF 0.5 ML SYRINGE IM (16:22)
[2024-05-19] MEDS: methADONE HCl 20 MG/2 ML ORAL.CONC 10 MG PO ×2 (17:33→20:44)
--- NOTE | 2024-05-19 18:31 | HO.PSYCHPN ---
Subjective Subjective Reason For Visit: Mood Diagnostics Vital Signs (24Hr): Vital Signs - 24 hr 05/18/24 20:25 05/19/24 06:23 05/19/24 15:34 Temperature 98.0 F 98.4 F 98.9 F Pulse Rate 95 89 107 H Respiratory Rate 17 18 18 Blood Pressure 140/70 H 126/83 153/79 H Pulse Oximetry 98 97 99 Oxygen Delivery Method Room Air Room Air Room Air BMI result Body Mass Index 39.0 Labs 05/18/24 12:57 05/18/24 12:57 Labs: Laboratory Results - last 48 hr 05/18/24 05/18/24 12:57 19:40 WBC 8.0 RBC 6.04 H D Hgb 15.0 D Hct 46.9 D MCV 77.6 L MCH 24.8 L MCHC 32.0 RDW 15.5 Plt Count 176 MPV 9.6 Immature Gran % (Auto) 0.4 Neut % (Auto) 86.4 H Lymph % (Auto) 9.2 L [place] % (Auto) 3.6 Eos % (Auto) 0.1 Baso % (Auto) 0.3 Lymph # (Auto) 0.7 L [place] # (Auto) 0.3 Eos # (Auto) 0.0 Baso # (Auto) 0.0 Abs Immat Gran (auto) 0.03 Absolute Neuts (auto) 6.9 Absolute Nucleated RBC 0.000 Nucleated RBC % (auto) 0.0 Sodium 138 Potassium 4.1 Chloride 103 Carbon Dioxide 27 Anion Gap 12 BUN 12 Creatinine 1.08 Estim Creat Clear Calc 67.1 Estimated GFR 53 Random Glucose 121 H Calcium 10.0 D Magnesium 2.3 Total Bilirubin 0.6 AST 24 ALT 26 Alkaline Phosphatase 96 Total Protein 7.9 Albumin 4.4 Lipase 7 L Urine Color Yellow Urine Appearance Clear Urine pH 6.0 Ur Specific [place] 1.015 Urine Protein Trace Urine Glucose (UA) Negative Urine Ketones 15 Urine Blood Moderate (2+) H Urine Nitrite Negative Ur Leukocyte Esterase Moderate (2+) H Urine RBC 11-20 H Urine WBC 21-50 H Ur Squamous Epith Cells 6-10 Urine Bacteria None Seen Hyaline Casts 0-2 Salicylates < 5.0 L Urine Opiates Screen Not Detected Ur Buprenorphine Scrn Not Detected Ur Oxycodone Screen Not Detected Urine Methadone Screen Not Detected Urine Fentanyl Screen POSITIVE H Acetaminophen < 3 Ur Barbiturates Screen Not Detected Ur Phencyclidine Scrn Not Detected Ur Amphetamines Screen Not Detected U Benzodiazepines Scrn Not Detected Urine Cocaine Screen Not Detected U Marijuana (THC) Screen Not Detected Ethyl Alcohol < 10 Medications Medications Current Medications Acetaminophen (Acetaminophen 325 Mg Tablet) 650 mg PO Q6H PRN PRN Reason: Headache/Pain Mild Scale (1-3) Al Hydroxide/Mg Hydroxide (Magnesium Hydrox/Alum Hydrox 30 Ml Oral.Susp) 30 ml PO Q6H PRN PRN Reason: Heartburn/Nausea Baclofen (Baclofen 10 Mg Tablet) 10 mg PO TID PRN PRN Reason: muscle spasm Cefuroxime Axetil (Cefuroxime Axetil 250 Mg Tablet) 250 mg PO BID TERRI Stop: 05/24/24 08:59 Last Admin: 05/19/24 09:00 Dose: 250 mg Clonidine HCl (Clonidine Hcl 0.1 Mg Tablet) 0.1 mg PO BID PRN; Protocol PRN Reason: anxiety Hydroxyzine HCl (Hydroxyzine Hcl 25 Mg Tablet) 25 mg PO Q6H PRN PRN Reason: Anxiety Loperamide HCl (Loperamide Hcl 2 Mg Capsule) 2 mg PO Q4H PRN PRN Reason: Loose Stool Magnesium Hydroxide (Milk Of Magnesia 30 Ml Oral.Susp) 30 ml PO DAILY PRN PRN Reason: Constipation Methadone HCl (Methadone Hcl 20 Mg/2 Ml Oral.Conc) 10 mg PO Q3H PRN PRN Reason: opioid withdrawal Last Admin: 05/19/24 17:33 Dose: 10 mg Nicotine (Nicotine 21 Mg Patch.Td24) 21 mg TRANSDERMA DAILY TERRI Nicotine Polacrilex (Nicotine Polacrilex 2 Mg Gum) 2 mg BUCCAL Q2H PRN PRN Reason: Nicotine Cravings Trazodone HCl (Trazodone Hcl 50 Mg Tablet) 50 mg PO BEDTIME MRX1 PRN PRN Reason: Insomnia Allergies Allergies Allergy/AdvReac Type Severity Reaction Status Date / Time adhesive tape [ADHESIVE TAPE] Allergy Unknown ITCHY Verified 05/18/24 12:02 orange (food color) Allergy Unknown HIVES Verified 09/07/22 10:58 [ORANGE (FOOD COLOR)] yellow dye [YELLOW DYE] Allergy Unknown HIVES Verified 09/07/22 10:58 fish derived [fish] Allergy Unknown Verified 05/19/24 13:03 latex Allergy Unknown Unknown Uncoded 09/07/22 10:58 orange Allergy Unknown Unknown Uncoded 09/07/22 10:58 Assessment & Plan Time Spent With Patient Time: Total time managing care of this patient today ____ minutes.
[2024-05-19 18:41] LABS: Iron 41 mcg/dL (30-160); Percent Iron Saturation 15 % (15-50); Total Iron Binding Capacity 278 mcg/dL (228-428); Unsaturated Iron Binding 237 ug/dL
--- NOTE | 2024-05-19 19:02 | PC.ADMIT ---
Yun Quigley is a 58 year old female who got admitted to [address] on 05/19/2024 at 14:15 from POD on a CV for the treatment of Bipolar Disorder. 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 Pt denies all allegations and reports that the person who called the police was an unhappy customer . During the admission assessment pt is hyperverbal, has difficulty concentrating, and is reporting withdrawals from heroin. Per patient she uses heroin daily for pain management at home. Utox positive for fentanyl. Pt was just started on methadone after being seen by addiction RN. Pt is allergic to latex, adhesive tape, orange (food coloring), yellow (food coloring), fish, and orange (fruit). Pt denies SI/HI (no plan or intent) and denies AH/VH. Pt is alert and oriented x3 (insight to situation is poor). She is a fall risk.
[2024-05-19 20:44] VITALS: BP 150/83
[2024-05-19] MEDS: traZODone HCL 50 MG TABLET PO (20:44)
[2024-05-19] MEDS: cloNIDine HCL 0.1 MG TABLET PO (20:44)
[2024-05-19] MEDS: Baclofen 10 MG TABLET PO (20:44)
[2024-05-19 20:48] VITALS: BP 150/83; PULSE 84; RESP 16; TEMP 36.6; O2SAT 97
[2024-05-19] MEDS: NaPROXEN 250 MG TABLET PO (21:15)
[2024-05-20 08:00] VITALS: BP 144/102; PULSE 71; RESP 20; TEMP 36.6; O2SAT 99
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
[2024-05-20] MEDS: methADONE HCl 20 MG/2 ML ORAL.CONC 10 MG PO (08:26)
[2024-05-20] MEDS: cefuroxime axetiL 250 MG TABLET PO (08:28)
[2024-05-20] MEDS: Nicotine 21 MG PATCH.TD24 TRANSDERMA (08:28)
[2024-05-20] MEDS: hydrOXYzine HCL 25 MG TABLET PO (08:44)
[2024-05-20] MEDS: cloNIDine HCL 0.1 MG TABLET PO (08:44)
[2024-05-20] MEDS: Nicotine Polacrilex 2 MG GUM BUCCAL (08:46)
[2024-05-20] MEDS: NaPROXEN 250 MG TABLET PO (09:08)
[2024-05-20] MEDS: methADONE HCl 20 MG/2 ML ORAL.CONC PO (13:20)
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
[2024-05-20] MEDS: Naloxone HCl Nasal TAKE HOME 4 MG SPRAY 8 MG NOSTRILALT (15:15)
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
--- NOTE | 2024-05-20 15:16 | PC.NURSE ---
pt this am alert and oriented x4, very demanding of medications. She is accusatory and accused agencies of stealing her dogs because they want the money from selling them. She accused staff of being rude. She became beligerent and threatened to harm staff. When safety boundries set she became very loud and verbally abusive to this RN and demanded to leave. She is hyperverbal and speaks over staff much of the time. Pt states she wants to be discharged to inpatient detox but unwilling to stay for a bed search. Pt discharged upon her request. She was given a dose of narcan, all of her belongings and due to her threats against staff was escorted out by security. Renée Valdovinos aware involved throughout several of the interactions.
== END 2024-05-20 15:15 | disposition home or self-care (01) | DRG 885 ==
LOC: HO.ED 05-19 07:26 → HO.PGERI 05-19 14:31
PROVIDERS: Physician Assistant Medical; Admitting Provider Social Worker; Emergency Provider Emergency Medicine Emergency Medical Services; Visit Provider Social Worker
DX: F39 Unspecified mood [affective] disorder (principal); F11.20 Opioid dependence, uncomplicated; N39.0 Urinary tract infection, site not specified; Z59.10 Inadequate housing, unspecified; F17.210 Nicotine dependence, cigarettes, uncomplicated; Z71.6 Tobacco abuse counseling; Z62.811 Personal history of psychological abuse in childhood; Z79.899 Other long term (current) drug therapy
CPT/HCPCS: 36415; 80053; 80143; 80179; 80307; 81001; 83540; 83690; 83735; 85025; 87086; 87088; 87186; 90656; 93005; 99285; S9485

== ENCOUNTER → 2024-05-19 08:04 | Outpatient (BNV) | payer MEDICARE, MEDICAID, SELFPAY | PROVIDERS: Admitting Provider Social Worker; Emergency Provider Emergency Medicine Emergency Medical Services; Visit Provider Internal Medicine Cardiovascular Disease | DX: R94.31 Abnormal electrocardiogram [ECG] [EKG] (principal) | CPT/HCPCS: 93010 ==

== ENCOUNTER → 2024-05-19 12:34 | Outpatient (BNV) | payer MEDICARE, MEDICAID, SELFPAY | PROVIDERS: Admitting Provider Social Worker; Emergency Provider Emergency Medicine Emergency Medical Services; Visit Provider Nurse Practitioner Psychiatric/Mental Health | DX: F11.20 Opioid dependence, uncomplicated (principal) | CPT/HCPCS: 99499 ==

== ENCOUNTER → 2024-05-19 12:34 | Outpatient (BNV) | payer MEDICARE, MEDICAID, SELFPAY | PROVIDERS: Admitting Provider Social Worker; Emergency Provider Emergency Medicine Emergency Medical Services; Visit Provider Social Worker | DX: F39 Unspecified mood [affective] disorder (principal); F11.20 Opioid dependence, uncomplicated | CPT/HCPCS: 90792; 99499 ==

== ENCOUNTER 2024-12-26 16:45 | Emergency (ER) | payer MEDICARE, MEDICAID, SELFPAY ==
[2024-12-26 16:55] VITALS: PULSE 93; RESP 20; TEMP 36.8; O2SAT 96; BMI 35.4
--- NOTE | 2024-12-26 17:09 | ED.GENADULT ---
HPI - General Adult General Chief complaint: Extremity Problem Stated complaint: ?Infected bites on legs Time Seen by Provider: 12/26/24 17:09 Source: patient and RN notes reviewed Mode of arrival: wheelchair Limitations: no limitations History of Present Illness ED Provider: Issac GASTELUM narrative: 54-year-old female with past medical history significant for mood disorder, opiate abuse presents for evaluation of red, swollen right leg. patient reports that she has bug bites to my right leg. She reports that they are itchy and she has been scratching them all day. She states that her whole leg is now red and swollen, mostly itchy but also some more painful. Denies any fevers or chills she reports active drug abuse but reports that she has not injected into the right leg Denies any fevers or chills she reports that she spent several hours this afternoon trying to get her primary doctor to call her antibiotics Related Data Home Medications ?Medication ?Instructions ?Recorded ?Confirmed naproxen 500 mg tablet 1 tab PO BID PRN Pain 06/24/22 05/18/24 Previous Rx's ?Medication ?Instructions ?Recorded cefuroxime axetil 250 mg tablet 250 mg PO BID #14 tabs 05/20/24 nicotine 21 mg/24 hr daily 21 mg transdermal DAILY #30 ea 05/20/24 transdermal patch cefuroxime axetil 500 mg tablet 500 mg PO Q12H #20 tabs 12/26/24 doxycycline hyclate 100 mg tablet 100 mg PO BID #20 tabs 12/26/24 Allergies Allergy/AdvReac Type Severity Reaction Status Date / Time adhesive tape [ADHESIVE TAPE] Allergy Unknown ITCHY Verified 12/26/24 16:59 fish derived [fish] Allergy Unknown Unknown Verified 12/26/24 16:59 orange (food color) Allergy Unknown HIVES Verified 12/26/24 16:59 [ORANGE (FOOD COLOR)] yellow dye [YELLOW DYE] Allergy Unknown HIVES Verified 12/26/24 16:59 latex Allergy Unknown Unknown Uncoded 12/26/24 16:59 orange Allergy Unknown Unknown Uncoded 12/26/24 16:59 Review of Systems Constitutional: Constitutional: Denies body ache(s), Denies chills and Denies fever(s) Eyes: Eyes: Denies blurry vision ENT: Denies vertigo and Denies dizziness Cardiovascular: Cardiovascular: Denies chest pain, Denies chest pain at rest, Denies rapid heart rate and Denies dyspnea Respiratory: Respiratory: Denies cough and Denies dyspnea Musculoskeletal: Musculoskeletal: Denies back pain Integumentary/Breasts: Skin/Breast: Reports erythema, Reports skin pain, Reports skin swelling, Reports sores and Reports wounds Neurologic: Denies vertigo and Denies dizziness [facility] Past Medical History Medical History Scar contracture Necrotizing soft tissue infection Social History Social History Household Members: Other Household Members Other:: Lives with son Housing: House Do you presently have visiting nurse or other home services: No Alcohol intake: unknown Patient Tobacco Use Status: Current everyday Tobacco user Tobacco use type: Cigarette Cigarette Packs Per Day: 1 Cigarettes Per Day: 20.0 Years Smoked: 38 e-Cigarette/Vaping Use: Never Used Second Hand Smoke Exposure: No Substance Use Type: Heroin Advance Directives: No Advance Directives Information Provided: No service: No Current occupational status: disabled Physical Exam ED Vital Signs: Vital Signs - 24 hr 12/26/24 16:55 12/26/24 17:28 Temperature 98.2 F 98.2 F Pulse Rate 93 93 Respiratory Rate 20 20 Blood Pressure 108/62 Pulse Oximetry 96 96 Oxygen Delivery Method Room Air Room Air BMI result Body Mass Index 35.4 Const General: alert and awake Nutritional Appearance: well nourished Orientation/consciousness: patient oriented x3 HENMT Head: Yes normocephalic and Yes atraumatic Eyes Eyelids: Yes eyelids normal Conjunctivae: conjunctivae normal Sclerae: sclerae normal Corneas: corneas normal Pupils: Equal, round and reactive pupils present EOM: EOMs intact bilaterally Neck Neck: Yes full ROM Resp Effort & Inspection: normal respiratory effort, able to speak in complete sentences and not labored Skin Other: the patient has numerous healing sores to the right lower extremity with surrounding erythema mostly around the right knee and foot. No calf tenderness on exam. PT pulses 2+ and equal. compartments are soft General skin exam: elasticity normal Neuro General: patient oriented x3 Cranial nerves: Yes Equal, round and reactive pupils present and Yes Bilaterally intact EOM present Cognition (Neuro): normal cognition Extrem Other: Moving all extremities well without any obvious deformities. the patient is able to flex and extend the right lower extremity at the hip, knee without difficulty. No significant tenderness to the right knee Medical Decision Making Medical Decision Making MDM Narrative: the patient is somewhat uncooperative on exam. She is requesting antibiotics and to be discharged. I informed the patient that she has significant discoloration to the right lower extremity warranting workup including DVT scan as well as labs and blood cultures to evaluate for cellulitis/ abscess possible bacteremia as she actively uses IV drugs. The patient reports that she is not willing to wait any longer. I informed the patient that she has been here for less than an hour and she was triage rather quickly and she reports that she was in the parking lot on the phone for 3 hours with my primary doctor and I am not staying any longer. I informed the patient that she would be leaving against medical advice and she can have worsening infection, disability, ultimately loss of limb or and she reports that she understands this and I will come back tomorrow or make an appointment with . Differential Diagnosis Differential Diagnoses: The differential diagnosis associated with the presentation includes cellulitis Abscess DVT bacteremia Admission/Observation Consideration of admission/observation: Escalation of care including admission/observation considered Discharge Plan Discharge Clinical Impression: Right leg pain Patient Disposition: Left Against Medical Advice Instructions: Cellulitis (ED) Additional Instructions: You are leaving against medical advice, as you are refusing to have labs and an ultrasound of the right leg to evaluate for the redness, pain and swelling. You are at risk for infection, sepsis, possible loss of limb and ultimately if this is not evaluated and treated appropriately take the antibiotics as prescribed twice daily for 10 days return for new or worsening symptoms, especially develop a fever Prescriptions: New cefuroxime axetil 500 mg tablet 500 mg PO Q12H Qty: 20 0RF doxycycline hyclate 100 mg tablet 100 mg PO BID Qty: 20 0RF No Action naproxen 500 mg tablet 1 tab PO BID PRN (Reason: Pain) cefuroxime axetil 250 mg Tablet 250 mg PO BID Qty: 14 0RF nicotine 21 mg/24 hr Patch 24 Hour 21 mg transdermal DAILY Qty: 30 0RF Stand Alone Forms: Against Medical Advice Interventions: ED Discharge Assessment Last Done: 12/26/24 17:28 Discharge Date/Time: 12/26/24 17:28 Print Language: Unable To Collect
--- NOTE | 2024-12-26 17:11 | PC.NURSE ---
Patient presents to ED hyperverbal. Refusing full workup for right lower extremity. Patient arrived with walker from home with 1 of the legs missing a floor guard, dragging across ED waiting room floor. [place] [facility] [place] Pt appears manic. Malodorous, constantly scratching herself. Refusing imaging & blood work, only wants oral antibiotics Rx to be sent to [facility] for pickup. YOJANA Davenport present for triage evaluation. Patient is leaving against medical advice.
[2024-12-26 17:28] VITALS: BP 108/62; PULSE 93; RESP 20; TEMP 36.8; O2SAT 96
== END 2024-12-26 17:28 | disposition left against medical advice (07) ==
PROVIDERS: Emergency Provider Emergency Medicine Emergency Medical Services; PCP Internal Medicine
DX: M79.661 Pain in right lower leg (principal); F17.210 Nicotine dependence, cigarettes, uncomplicated; F19.10 Other psychoactive substance abuse, uncomplicated; F11.20 Opioid dependence, uncomplicated; Z53.29 Procedure and treatment not carried out because of patient's decision for other reasons
CPT/HCPCS: 99282; 99283

== ENCOUNTER 2025-01-05 10:51 | Emergency (ER) | payer MEDICARE, MEDICAID, SELFPAY ==
--- NOTE | ~2025-01-05 | US_ITS ---
EXAMINATION: US TRIPLEX LOWER EXTREMITY, RIGHT CLINICAL INFORMATION: Pain and edema, right lower extremity. COMPARISON: None available. TECHNIQUE: Color-flow triplex imaging with spectral analysis and compression Doppler were performed on the right lower extremity. FINDINGS: There is partial compressibility and augmentation in the interrogated right common femoral vein, femoral vein and popliteal vein. There is edema pattern without fluid collections. There is no Escalante's cyst. US/US venous duplex LE RT IMPRESSION: Positive for acute nonocclusive thrombus in the interrogated veins, right lower extremity. Positive DVT exam. Electronically signed by: Ramsey Calvin MD 01/05/2025 02:20 PM EDT
[2025-01-05 11:49] VITALS: BP 93/37; PULSE 63; RESP 18; TEMP 36.8; O2SAT 98; BMI 51.2
--- NOTE | 2025-01-05 11:49 | ED.SKABFB ---
HPI - Skin/Abscess/Foreign Bdy General Chief complaint: Extremity Injury, Lower Stated complaint: Cellulitis? Time Seen by Provider: 01/05/25 12:51 Source: patient Mode of arrival: ambulatory Limitations: no limitations History of Present Illness ED Provider: HPI narrative: 54-year-old woman, was seen here December 26 for right lower extremity bug bites, consideration for cellulitis, finished a course of antibiotics doxycycline and cephalosporin, right lower extremity has been swelling. Patient is somewhat disheveled, has not been fidgety, she talks quite a bit but is able to provide good history, she is not congenital, no pressured speech, does have poor hygiene Related Data Home Medications ?Medication ?Instructions ?Recorded ?Confirmed naproxen 500 mg tablet 1 tab PO BID PRN Pain 06/24/22 05/18/24 Previous Rx's ?Medication ?Instructions ?Recorded cefuroxime axetil 250 mg tablet 250 mg PO BID #14 tabs 05/20/24 nicotine 21 mg/24 hr daily 21 mg transdermal DAILY #30 ea 05/20/24 transdermal patch cefuroxime axetil 500 mg tablet 500 mg PO Q12H #20 tabs 12/26/24 doxycycline hyclate 100 mg tablet 100 mg PO BID #20 tabs 12/26/24 apixaban 5 mg tablet (Eliquis) 5 mg PO BID #90 tabs 01/05/25 compress.stocking,knee,reg,lrg #2 ea 01/05/25 (Relief Knee Open Toe Stocking) Allergies Allergy/AdvReac Type Severity Reaction Status Date / Time adhesive tape [ADHESIVE TAPE] Allergy Unknown ITCHY Verified 01/05/25 11:52 fish derived [fish] Allergy Unknown Unknown Verified 01/05/25 11:52 orange (food color) Allergy Unknown HIVES Verified 01/05/25 11:52 [ORANGE (FOOD COLOR)] yellow dye [YELLOW DYE] Allergy Unknown HIVES Verified 01/05/25 11:52 latex Allergy Unknown Unknown Uncoded 12/26/24 16:59 orange Allergy Unknown Unknown Uncoded 12/26/24 16:59 Review of Systems Constitutional: Constitutional: Reports as per HPI [facility] Past Medical History Medical History Scar contracture Necrotizing soft tissue infection Social History Social History Household Members: Other Household Members Other:: Lives with son Housing: House Do you presently have visiting nurse or other home services: No Alcohol intake: unknown Patient Tobacco Use Status: Current everyday Tobacco user Tobacco use type: Cigarette Cigarette Packs Per Day: 1 Cigarettes Per Day: 20.0 Years Smoked: 38 e-Cigarette/Vaping Use: Never Used Second Hand Smoke Exposure: No Substance Use Type: Heroin Advance Directives: No Advance Directives Information Provided: Yes service: No Current occupational status: disabled Physical Exam Vital Signs: Vital Signs: Last Vital Signs Temp 98.3 F 01/05/25 11:49 Pulse 63 01/05/25 11:49 Resp 18 01/05/25 11:49 BP 93/37 L 01/05/25 11:49 Pulse Ox 98 01/05/25 11:49 O2 Del Method Room Air 01/05/25 11:49 BMI result Body Mass Index 51.2 Const: Other: Gen: Smells of tobacco, no facial trauma noted, poor hygiene Resp: ?No wheezing rales rhonchi no stridor moving air well Abd: ?Bowel sounds are present, no tenderness no rebound no rigidity MSK: FROM, strength 5/5 all extremities Skin: Has excoriation lungs bilateral lower extremities, worse on the right side, right lower extremity swollen, compartments are soft non tense, distal pulses intact Neuro: ?Alert and oriented x3, moving upper and lower extremities symmetrically, no obvious facial asymmetry noted Course Course Course Narrative: This is an RME: Additional HPI, ROS, PE not included below will be deferred to primary provider. RME assessment and note performed by: Joselyn Sofia PA-C This is a 30-fqrd-ays-female, with a hx of mood disorder, opiate abuse, here with concerns for right leg pain and redness. She was seen here on 12/26/2024 for same, dx with cellulitis and was discharged on cefuroxime and doxycycline and left AMA. Back here as symptoms have improved slightly but not fully resolved. Per perious note, pt has hx of IVDA, does not inject in legs. BP low in triage, taken multiple times. 93/37. Reports that she used oxycodone 10mg this morning. No CP/SOB, dizziness, lightheaded. Pt to be brought back to the main ED for further evaluation. Medical Decision Making Medical Decision Making [facility] Narrative: As far as continue antibiotics I do not feel it is necessary, patient is presenting with possibly dependent leg edema possibly a DVT, if DVT study is negative we will discharge home with compression stockings, 14:20 it appears that patient has a DVT, she is not really able to sit still on she would like to be discharged I will start her on Eliquis Differential Diagnosis Differential Diagnoses: The differential diagnosis associated with the presentation includes Cellulitis, DVT, arterial insufficiency, deep space infection, dependent leg edema Lab Data 01/05/25 12:11 01/05/25 12:11 Labs: Lab Results 01/05/25 Range/Units 12:11 WBC 6.5 (4.8-10.8) X10*3/uL RBC 4.95 (4.20-5.50) X10*6/uL Hgb 13.0 (12.0-16.0) g/dl Hct 39.8 (37.0-47.0) % MCV 80.4 (80.0-98.0) fL MCH 26.3 L (27.0-33.0) pg MCHC 32.7 (31.0-35.0) g/dl RDW 15.2 (11.0-16.0) % Plt Count 165 (160-400) X10*3/uL MPV 10.1 (9.4-12.3) fL Immature Gran % (Auto) 0.5 H (0.0-0.4) % Neut % (Auto) 70.5 (45-73) % Lymph % (Auto) 21.1 (20-40) % [place] % (Auto) 5.1 (2-11) % Eos % (Auto) 2.5 (0-4) % Baso % (Auto) 0.3 (0-2) % Lymph # (Auto) 1.4 (1.2-4.9) X10*3/uL [place] # (Auto) 0.3 (0.1-1.2) X10*3/uL Eos # (Auto) 0.2 (0.0-0.4) X10*3/uL Baso # (Auto) 0.0 (0.0-0.2) X10*3/uL Abs Immat Gran (auto) 0.03 (0.00-0.03) X10*3/uL Absolute Neuts (auto) 4.6 (2.0-8.3) x10*3/uL Absolute Nucleated RBC 0.000 (0.0-0.012) X10*3/uL Nucleated RBC % (auto) 0.0 (0.0-0.2) /100WBC ESR 9 (0-20) MM/HR Sodium 137 (135-145) mmol/L Potassium 4.3 (3.3-5.1) mmol/L Chloride 105 (96-108) mmol/L Carbon Dioxide 27 (22-29) mmol/L Anion Gap 9 L (12-20) BUN 17 H (9-16) mg/dL Creatinine 0.82 (0.5-1.4) mg/dL Estim Creat Clear Calc 103.8 Estimated GFR > 60 Random Glucose 88 (60-115) mg/dL Lactic Acid 1.4 (0.5-2.0) mmol/L Calcium 9.1 D (8.4-10.2) mg/dL Magnesium 1.8 (1.6-2.6) mg/dL Total Bilirubin 0.2 (0.0-1.0) mg/dL Direct Bilirubin < 0.2 (0.0-0.5) mg/dL AST 18 (5-31) U/L ALT 18 (0-31) U/L Alkaline Phosphatase 92 (39-117) U/L C-Reactive Protein 1.55 H (< or = 0.50) mg/dL Total Protein 6.2 L (6.5-8.0) g/dL Albumin 3.8 (3.5-5.0) g/dL Discharge Plan Discharge Clinical Impression: Deep vein thrombosis (DVT) of right lower extremity Patient Disposition: Home, Self-Care Additional Instructions: Please follow up with Dr. Hernandez, I am starting you on Eliquis- 10 mg twice daily for 7 days followed by 5 mg twice daily., use compression stockings, soap and water to skin every day, keep the area clean, pat dry, do not scratch, any shortness of breath chest pain come back to the ER Prescriptions: New Eliquis 5 mg tablet 5 mg PO BID Qty: 90 0RF Rx Instructions: 10 mg twice daily for 7 days followed by 5 mg twice daily. (DME) Relief Knee Open Toe Stocking Misc See Rx Instructions .Route Qty: 2 0RF Rx Instructions: As directed, apply to both lower extremities daily No Action naproxen 500 mg tablet 1 tab PO BID PRN (Reason: Pain) cefuroxime axetil 250 mg Tablet 250 mg PO BID Qty: 14 0RF nicotine 21 mg/24 hr Patch 24 Hour 21 mg transdermal DAILY Qty: 30 0RF cefuroxime axetil 500 mg tablet 500 mg PO Q12H Qty: 20 0RF doxycycline hyclate 100 mg tablet 100 mg PO BID Qty: 20 0RF Referrals: Tristen Hernandez MD [Primary Care Provider] - 10 days Print Language: Unable To Collect
[2025-01-05 12:18] LABS: MANUAL DIFF FLAG NO
[2025-01-05 12:21] LABS: Basophils Percent Auto 0.3 % (0-2); Eosinophils Absolute Auto 0.2 X10*3/uL (0.0-0.4); Eosinophils Percent Auto 2.5 % (0-4); Hematocrit 39.8 % (37.0-47.0); Imm Gran Abs Auto 0.03 X10*3/uL (0.00-0.03); Imm Gran Pct Auto 0.5 % (0.0-0.4); Lymphocytes Absolute Auto 1.4 X10*3/uL (1.2-4.9); Lymphocytes Percent Auto 21.1 % (20-40); Mean Corpuscular HGB Conc 32.7 g/dl (31.0-35.0); Mean Corpuscular Hemoglobin 26.3 pg (27.0-33.0); Mean Corpuscular Volume 80.4 fL (80.0-98.0); Mean Platelet Volume 10.1 fL (9.4-12.3); Monocytes Absolute Auto 0.3 X10*3/uL (0.1-1.2); Monocytes Percent Auto 5.1 % (2-11); Neutrophils Absolute Auto 4.6 x10*3/uL (2.0-8.3); Neutrophils Percent Auto 70.5 % (45-73); Platelet Count 165 X10*3/uL (160-400); Red Blood Count 4.95 X10*6/uL (4.20-5.50); Red Cell Distribution Width 15.2 % (11.0-16.0); White Blood Count 6.5 X10*3/uL (4.8-10.8)
[2025-01-05 12:36] LABS: Lactic Acid 1.4 mmol/L (0.5-2.0)
[2025-01-05 12:38] LABS: Alanine Aminotransferase 18 U/L (0-31); Albumin Level 3.8 g/dL (3.5-5.0); Alkaline Phosphatase 92 U/L (39-117); Anion Gap 9 (12-20); Aspartate Amino Transferase 18 U/L (5-31); Bilirubin Direct < 0.2 mg/dL (0.0-0.5); Bilirubin Total 0.2 mg/dL (0.0-1.0); Blood Urea Nitrogen 17 mg/dL (9-16); C Reactive Protein 1.55 mg/dL (< or = 0.50); Calcium 9.1 mg/dL (8.4-10.2); Carbon Dioxide 27 mmol/L (22-29); Chloride 105 mmol/L (96-108); Creatinine Clr Calc Pharmacy 103.8; Estimated Glomerular Filt Rate > 60; Glucose Random 88 mg/dL (60-115); Magnesium 1.8 mg/dL (1.6-2.6); Potassium 4.3 mmol/L (3.3-5.1); Sodium 137 mmol/L (135-145); Total Protein 6.2 g/dL (6.5-8.0)
[2025-01-05 13:14] LABS: Erythrocyte Sedimentation Rate 9 MM/HR (0-20)
--- NOTE | 2025-01-05 13:31 | PC.NURSE ---
Ultrasound at bedside to obtain venous duplex. Patient is rambling to someone on the phone. Patient is known to this RN, left AMA on 12/26/24 from waiting room for same complaint. On 12/26/24, patient came to ED with manic appearance, disheveled, malodorous, stated I've been waiting 3 hours in the parking lot for a doctor to meet me out there and give me a prescription for antibiotics for my legs . Had visible 'bug bites' to bilateral extremities. Pt left AMA on 12/26/24 stating I just want oral antibiotics, I don't want to stay . Was advised by YOJANA Davenport to stay for labs & further evaluation but declined. Patient is still hyperverbal, but less compared to last week. Agreed to ultrasound today. Care ongoing by this RN & Dr. Hayes.
[2025-01-05 14:30] VITALS: BP 93/37; PULSE 63; RESP 18; TEMP 36.8; O2SAT 98
== END 2025-01-05 14:30 | disposition home or self-care (01) ==
PROVIDERS: Physician Assistant Medical; Emergency Provider Emergency Medicine; PCP Internal Medicine
DX: I82.401 Acute embolism and thrombosis of unspecified deep veins of right lower extremity (principal); M79.604 Pain in right leg
CPT/HCPCS: 36415; 80048; 80076; 83605; 83735; 85025; 85652; 86140; 87040; 93971; 99282; 99284

== ENCOUNTER → 2025-01-05 13:02 | Outpatient (BNV) | payer MEDICARE, MEDICAID, SELFPAY | PROVIDERS: Emergency Provider Emergency Medicine; PCP Internal Medicine; Visit Provider Radiology Diagnostic Radiology | DX: I82.401 Acute embolism and thrombosis of unspecified deep veins of right lower extremity (principal) | CPT/HCPCS: 93971 ==

== ENCOUNTER → 2025-02-23 15:30 | Outpatient (BNV) | payer MEDICARE, MEDICAID, SELFPAY | PROVIDERS: PCP Physician Assistant; Referring Provider Physician Assistant; Visit Provider Internal Medicine | DX: I82.401 Acute embolism and thrombosis of unspecified deep veins of right lower extremity (principal) | CPT/HCPCS: 99203 ==